=== PATIENT | female | born 1950 | race Caucasian/White ===

== ENCOUNTER → 2016-08-23 | Outpatient (CLI) | payer MEDICARE, OTHER | END | disposition home or self-care (01) | LOC: RADCTMAIN 11:48 | PROVIDERS: ATTEND Internal Medicine | DX: J44.9 Chronic obstructive pulmonary disease, unspecified (principal) | CPT/HCPCS: 82565; 84520 ==

== ENCOUNTER → 2016-08-31 | Outpatient (CLI) | payer MEDICARE, OTHER ==
--- NOTE | 2016-08-31 13:07 | CT ---
EXAMINATION TYPE: CT chest w con DATE OF EXAM: 08/31/2016 12:30 PM COMPARISON: CT chest February HISTORY: Patient has COPD CT DLP: 476.20 mGycm Automated exposure control for dose reduction was used. CONTRAST: CT scan of the chest is performed with IV Contrast, patient injected with 80 mL of Visipaque 320. FINDINGS: LUNGS: Right upper lobe lung nodule is stable and measures 4 mm. Emphysematous changes are suspected. Bronchial wall thickening is present centrally. MEDIASTINUM: There are no greater than 1 cm hilar or mediastinal lymph nodes. No pericardial effusi on is seen. AORTA: No additional significant abnormality is seen. Pulmonary artery shows a similar diameter to a scending aorta OTHER: Question some fatty replacement of anterior right ventricular myocardium, lumen may be somewh at small, consider echocardiographic correlation. Liver shows low attenuation likely due to fatty inf iltration. There are cortical cysts associated with the left kidney. IMPRESSION: Stable right upper lobe lung nodule. Suspect emphysema. Correlate for possible pulmonary artery hypertension. Question some fatty replacement of the right ventricular myocardial wall.
== END ==
LOC: RADCTMAIN 11:05
PROVIDERS: ATTEND Internal Medicine
DX: J44.9 Chronic obstructive pulmonary disease, unspecified (principal)
CPT/HCPCS: 82565; 84520; 71260; 36415; Q9967

== ENCOUNTER → 2017-05-04 | Outpatient (CLI) | payer MEDICARE, OTHER | END | disposition home or self-care (01) | LOC: RADECHMAIN 13:16 | PROVIDERS: ATTEND Internal Medicine | DX: Z53.9 Procedure and treatment not carried out, unspecified reason (principal) ==

== ENCOUNTER → 2017-05-11 | Outpatient (CLI) | payer MEDICARE, OTHER ==
--- NOTE | 2017-05-11 13:37 | US ---
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 EXAM MEASUREMENTS: Right Kidney: 9.8 x 5.8 x 4.9 cm Left Kidney: 10.6 x 4.5 x 3.9 cm Right Kidney: No hydronephrosis or masses seen Left Kidney: Two Cystic areas visualized, largest upper pole measuring 2.1 x 2.0 x 2.3 Bladder: wnl as visualized, not fully distended Bilateral Jets seen: No There is no evidence for hydronephrosis at this point in time. No nephrolithiasis is seen. The urin evy bladder is anechoic. Some cortical thinning in right kidney is felt present. 2 simple appearing cysts in left kidney are f elt present largest measures up to 2.3 cm in size. IMPRESSION: No hydronephrosis is evident bilaterally.
== END | disposition home or self-care (01) ==
LOC: RADUSWWP 12:19
PROVIDERS: ATTEND Internal Medicine
DX: E11.21 Type 2 diabetes mellitus with diabetic nephropathy (principal)
CPT/HCPCS: 76770

== ENCOUNTER → 2017-05-12 | Outpatient (CLI) | payer MEDICARE, OTHER ==
--- NOTE | 2017-05-13 11:21 | MM ---
Reason for exam: screening (asymptomatic). Last mammogram was performed 1 year and 6 months ago. History: Patient is postmenopausal. Benign MG stereo VAD BX RT of the right breast, May 13, 2015. Physical Findings: A clinical breast exam by your physician is recommended on an annual basis and results should be correlated with mammographic findings. MG 3D Screening Mammo W/Cad Bilateral CC and MLO view(s) were taken. Prior study comparison: November 18, 2015, bilateral MG 3d screening mammo w/cad. April 18, 2015, right breast MG 3d diag mammo w/cad RT. There are scattered fibroglandular densities. There is no discrete abnormality. No significant changes when compared with prior studies. ASSESSMENT: Negative, BI-RAD 1 RECOMMENDATION: Routine screening mammogram of both breasts in 1 year.
== END ==
LOC: RADMAMWWP 12:17
PROVIDERS: ATTEND Internal Medicine
DX: Z12.31 Encounter for screening mammogram for malignant neoplasm of breast (principal)
CPT/HCPCS: 77063; G0202

== ENCOUNTER → 2017-06-23 | Outpatient (CLI) | payer MEDICARE, OTHER ==
--- NOTE | 2017-06-23 14:20 | BD ---
EXAMINATION TYPE: MG DEXA axial skeleton. DATE OF EXAM: 06/23/2017 COMPARISON: DEXA bone scan April 13, 2016. CLINICAL HISTORY: Disorder of bone per order. Height: 62 Weight: 187.7 FRAX RISK QUESTIONS: Alcohol (3 or more units per day): no Family History (Parent hip fracture): no Glucocorticoids (More than 3mos): no (Ex: prednisone, prednisolone, methylprednisolone, dexamethasone, and hydrocortisone). History of Fracture in Adulthood: yes Secondary Osteoporosis: 1. Type 1 Diabetes: no 2. Hyperthyroidism: no 3. Menopause before 45: no 4. Malnutrition: no 5. Chronic liver disease: no Rheumatoid Arthritis: no Current Tobacco Use:yes RISK FACTORS HISTORY OF: Hip Fracture (Right/Left): no Spine Fracture: no History of Wrist Fracture: no Surgery to Spine/Hip(right/left)/Wrist (right/left): right hip replacement When: 2006 Family History of Osteoporosis: no Active: yes Diet low in dairy products/other sources of calcium: no Postmenopausal woman: age 56 Lost more than 2 inches in height since high school: yes Frequent falls: no Poor Health: no Hyperparathyroidism: no Adrenal Insufficiency: no MEDICATIONS: Additional History: EXAM MEASUREMENTS: Bone mineral densitometry was performed using the [employer] System. Bone mineral density as measured about the Lumbar spine is: ----- L1-L4(G/cm2): 1.195 T Score Values are as follows: ----- L2: -0.2 ----- L3: 1.0 ----- L4: 1.1 ----- L1-L4: 0.1 Bone mineral density has: increased 5.2 % since study of: 04.13.2016 Bone mineral density about the L hip (g/cm2): 0.752 T Score values are as follows: -----L Neck: -2.1 -----L Total: -2.1 Bone mineral density has: increased 6.0 % since study of: 04.13.2012 IMPRESSION: Osteopenia (T Score between -2.5 and -1 as noted by T score values persists in the left hip. There re tracie slightly increased risk of fracture and the patient may be considered for treatment. Re-Screen 2-5 years. NOTE: T-SCORE=SD OF THE YOUNG ADULT MEAN.
== END | disposition home or self-care (01) ==
LOC: RADBDWWP 12:28
PROVIDERS: ATTEND Internal Medicine
DX: M85.852 Other specified disorders of bone density and structure, left thigh (principal)
CPT/HCPCS: 77080

== ENCOUNTER → 2017-07-11 | Outpatient (CLI) | payer MEDICARE, OTHER ==
--- NOTE | 2017-07-11 10:46 | US ---
EXAMINATION TYPE: US thyroid st tissue head/neck DATE OF EXAM: 07/11/2017 COMPARISON: NONE CLINICAL HISTORY: E04.1 Thyroid Nodule. Thyroid nodule GLAND SIZE: Right Lobe: 5.1 x 1.7 x 2.0 cm Overall Parenchyma: heterogenous Left Lobe: 4.6 x 1.8 x 2.2 cm Overall Parenchyma: heterogeneous Isthmus Thickness: 0.3 cm NODULES RIGHT: # of nodules measured on right: 1 1. 1.2 X 0.7 x 1.0 cm isoechoic solid nodule at the lower pole with well-defined margins; . This n odule is wider than tall and shows intranodular vascularity. Prior size: no prior LEFT: # of nodules measured on left: 3 1. 0.6 X 0.5 x 0.6 cm cystic nodule at the upper pole with well-defined margins; . This nodule is wider than tall and shows no intranodular vascularity. Prior size: no prior 2. 0.8 X 0.3 x 0.7 cm cystic nodule at the upper pole with well-defined margins; . This nodule is w ider than tall and shows no intranodular vascularity. Prior size: no prior 3. 1.9 X 1.2 x 1.5 cm isoechoic solid nodule at the mid pole with well-defined margins; . This nodu le is wider than tall and shows intranodular vascularity. Prior size: no prior ISTHMUS: # of nodules measured in the isthmus: Multiple nodules noted bilaterally. Largest on the right measured and largest 3 measured on the left. Technical limitations due to patient's body habitus IMPRESSION: 1. Greater than 1 cm nodule within the inferior pole left lobe thyroid. Additional subcentimeter lymp h nodes are present on the left. 2. Mid right thyroid lobe nodule measuring greater than 1 cm.
== END | disposition home or self-care (01) ==
LOC: RADUSWWP 09:04
PROVIDERS: ATTEND Internal Medicine
DX: E04.2 Nontoxic multinodular goiter (principal)
CPT/HCPCS: 76536

== ENCOUNTER → 2017-09-01 | Outpatient (CLI) | payer MEDICARE, OTHER ==
--- NOTE | 2017-09-01 18:45 | US ---
EXAMINATION TYPE: US kidneys/renal and bladder DATE OF EXAM: 09/01/2017 COMPARISON: US 2017 CLINICAL HISTORY: R94.4 ABN KIDNEY FUNCTIONS. Abnormal results of kidney function studies EXAM MEASUREMENTS: Right Kidney: 9.8 x 5.5 x 5.0 cm Left Kidney: 10.0 x 4.8 x 4.2 cm Difficult and limited study due to patient body habitus Right Kidney: no hydronephrosis or masses seen Left Kidney: 3.2 x 2.2 x 2.2cm isoechoic area mid pole, possible prominent column of shaquille, 2 cystic areas superior pole with largest measuring 2.0 x 2.0 x 2.6cm Bladder: not fully distended, appears wnl as seen Bilateral Jets seen: no There is no evidence for hydronephrosis at this point in time. No nephrolithiasis is seen. IMPRESSION: 1. Column of Shaquille left kidney versus underlying mass. CT is advised. 2. Renal cystic changes as noted above.
== END | disposition home or self-care (01) ==
LOC: RADUSWWP 15:05
PROVIDERS: ATTEND Internal Medicine
DX: N28.1 Cyst of kidney, acquired (principal)
CPT/HCPCS: 76770

== ENCOUNTER → 2017-09-09 | Outpatient (CLI) | payer MEDICARE, OTHER ==
--- NOTE | 2017-09-09 14:37 | CT ---
EXAMINATION TYPE: CT urogram wo/w con DATE OF EXAM: 09/09/2017 HISTORY: pt states abnormal findings of left kidney on recent US. CT DLP: 3314.0mGycm Automated Exposure Control for Dose Reduction was Utilized. CONTRAST: CT scan of the abdomen and pelvis is performed without oral and without and with IV Contrast, patient injected with 80 mL of Isovue 300. Urogram protocol with Three-D reconstructed images created on [employer] workstation and reviewed COMPARISON: Renal ultrasound from 8 days ago. FINDINGS: KUB: Noncontrast images show no renal calculi bilaterally. Postcontrast images show symmetric cortica l medullary uptake and excretion from both kidneys without evidence of hydronephrosis bilaterally. Th ere is mild perinephric fat stranding seen bilaterally which is nonspecific finding but most likely o n basis of chronic medical renal disease. There are 3 simple appearing cysts in the left kidney upper to mid pole level with largest measuring 2.3 x 2.1 cm posteriorly axial image 28. No suspicious stanley d or cystic masses identified with particular attention to mid pole level left kidney at area of ultr asound concern. Visualized portion of both ureters show fairly satisfactory opacification without sharmila picious dilatation or calculus. Bladder shows no worrisome mass or wall thickening. LUNG BASES: No significant abnormality is appreciated. LIVER/GB: Visualized liver on noncontrast study is slightly hypodense relative to spleen consistent w ith fatty infiltration. Gallbladder is not visualized and presumed surgically absent. PANCREAS: No significant abnormality is seen. SPLEEN: No significant abnormality is seen. ADRENALS: No significant abnormality is seen. KIDNEYS: No significant abnormality is seen. BOWEL: Sutures at sigmoid colon level near axial image 59 series 7 are present. There are few sigmoid diverticula at this level. Few diverticula are seen throughout remainder of colon. There is no CT ev idence for acute diverticulitis. There is no suspicious small or large bowel dilatation. Sutures from appendectomy are seen at base of cecum. UTERUS/ADNEXA: No gross abnormality seen. LYMPH NODES: No greater than 1cm abdominal or pelvic lymph nodes are appreciated. OSSEOUS STRUCTURES: There is loss of normal lumbar lordosis. There is moderate multilevel spurring an d disc space narrowing. Posterior spur disc complexes effacing anterior thecal sac L2-L3 through L4-L 5 levels on sagittal images. Spinal canal stenosis is most prominent L4-L5 level due to additional fa cet arthropathy. Metallic hardware from right hip arthroplasty causes streak artifact limiting evalua tion of pelvic structures. OTHER: Numerous coils ventral wall hernia repair surgery are present. No suspicious recurrent hernia is seen. There is slight ectatic course to the atherosclerotic abdominal aorta. No greater than 3 cm aneurysma l change is seen. IMPRESSION: A few simple appearing cysts are seen in the left kidney. No worrisome solid or cystic re nal mass is evident.
== END ==
LOC: RADCTMAIN 12:31
PROVIDERS: ATTEND Internal Medicine
DX: N28.1 Cyst of kidney, acquired (principal)
CPT/HCPCS: 74178; 74400; 82565; 84520

== ENCOUNTER → 2018-08-14 | Outpatient (CLI) | payer MEDICARE, OTHER ==
--- NOTE | 2018-08-14 13:19 | US ---
EXAMINATION TYPE: US carotid duplex BILAT DATE OF EXAM: 08/14/2018 COMPARISON: Previous exam 05/17/2017 CLINICAL HISTORY: I65.23 OCCLUSION AND STENOSIS OF CAROTID. No hx of tia, HTN controlled with meds EXAM MEASUREMENTS: RIGHT: Peak Systolic Velocity (PSV) cm/sec ----- Right CCA: 51.4 ----- Right ICA: 75.6 ----- Right ECA: 91.0 ICA/CCA ratio: 1.5 RIGHT: End Diastole cm/sec ----- Right CCA: 15.6 ----- Right ICA: 27.1 ----- Right ECA: 17.2 LEFT: Peak Systolic Velocity (PSV) cm/sec ----- Left CCA: 51.7 ----- Left ICA: 117.9 ----- Left ECA: 89.9 ICA/CCA ratio: 2.3 LEFT: End Diastole cm/sec ----- Left CCA: 17.6 ----- Left ICA: 32.2 ----- Left ECA: 17.2 VERTEBRALS (direction of flow): Right Vertebral: Antegrade Left Vertebral: Antegrade Rhythm: Normal No elevated velocities. Left CCA significant stenosis. Plaque seen in bilateral bulbs. No wall thi ckening. Grayscale, color Doppler, spectral Doppler imaging performed of the carotid arteries. Waveform analys is does not show significant stenosis of the proximal internal carotid arteries. IMPRESSION: No hemodynamic significant stenosis of the proximal internal carotid arteries bilaterall y by Doppler criteria, an indirect measurement of carotid stenosis
--- NOTE | 2018-08-15 10:10 | MM ---
Reason for exam: screening (asymptomatic). Last mammogram was performed 1 year and 3 months ago. History: Patient is postmenopausal. Benign MG stereo VAD BX RT of the right breast, May 13, 2015. Physical Findings: A clinical breast exam by your physician is recommended on an annual basis and results should be correlated with mammographic findings. MG 3D Screening Mammo W/Cad Bilateral CC and MLO view(s) were taken. Prior study comparison: May 12, 2017, bilateral MG 3d screening mammo w/cad. November 18, 2015, bilateral MG 3d screening mammo w/cad. The breast tissue is heterogeneously dense. This may lower the sensitivity of mammography. There are benign appearing round linear calcifications bilaterally. Previous mammotome biopsy in the right breast. There is no discrete abnormality. ASSESSMENT: Benign, BI-RAD 2 RECOMMENDATION: Routine screening mammogram of both breasts in 1 year.
--- NOTE | 2018-08-16 09:36 | P.ARTDOP ---
Arterial Doppler LOWER EXTREMITY ARTERIAL DOPPLER: DATE OF SERVICE: 08/14/2018 Reason for study: Suspect lower extremity occlusive disease. Doppler waveforms: Multiphasic at femoral on the right and popliteal. Atypical throughout on the left and below the popliteal on the right.. Pulse volume recording: Progressive blunting as one progresses distally with near flat line at the digital level. Pressure gradients: Across the popliteal and then across the lower leg. Ankle-brachial indices: 0.54 on the right and 0.55 on the left. Toe pressures: 0 on the right, 0 on the left Impression: At least moderate bilateral femoral popliteal disease. Clinical correlation recommended. Difficult to assess the level of circulation for healing. Suspect it is somewhat compromised.
== END | disposition home or self-care (01) ==
LOC: RADMAMWWP 09:33
PROVIDERS: ATTEND Internal Medicine
DX: Z12.31 Encounter for screening mammogram for malignant neoplasm of breast (principal); I65.23 Occlusion and stenosis of bilateral carotid arteries; I73.89 Other specified peripheral vascular diseases
CPT/HCPCS: 77063; 77067; 93880; 93923

== ENCOUNTER → 2019-08-03 | Outpatient (CLI) | payer MEDICARE, OTHER ==
--- NOTE | 2019-08-03 13:10 | CTL ---
EXAMINATION TYPE: CT Low Dose Lung DATE OF EXAM ORDERED: 08/03/2019 COMPARISON: 08/31/2016 HISTORY: . Low Dose CT Lung Screening CT DLP: [address] CTDI: 2.92 mGy IV CONTRAST USED: None. SCREENING VISIT: First visit COMPARISON: None. TECHNIQUE: Low dose computed tomography scan was performed through the chest at 1 millimeter thick se ctions and reconstructed images in the coronal plane at [address] DIAGNOSTIC QUALITY: Limited given streak artifact. FINDINGS: LUNG NODULES stable 5 mm nodule right upper lobe image 83. LUNGS: COPD: Severity: None Fibrosis: Severity:None Lymph nodes: None Other findings: None RIGHT PLEURAL SPACE: Effusion: None Calcification: None Thickening: None Pneumothorax: None LEFT PLEURAL SPACE: Effusion: None Calcification: None Thickening: None Pneumothorax: None HEART: Heart Size: Mildly enlarged Coronary calcification: Mild Pericardial effusion: None OTHER FINDINGS: Upper abdomen: No significant abnormality Bony thorax: Degenerative changes Supraclavicular region: No significant abnormalityOther: No significant abnormalityI IMPRESSION: Examination is considered limited given artifact the lung bases and midlung maloney. Stabl e right upper lobe pulmonary nodule. FOLLOW UP CT CHEST RECOMMENDATION: Follow-up screening in one year CT LUNG RAD: LUNG RAD CATEGORY 2 benign behavior appearance
--- NOTE | 2019-08-03 16:05 | XR ---
EXAMINATION TYPE: XR chest 2V DATE OF EXAM: 08/03/2019 COMPARISON: 10/18/2009 INDICATION: Pneumonia TECHNIQUE: Frontal and lateral views of the chest are obtained. FINDINGS: The heart size is normal. The pulmonary vasculature is normal. The lungs are clear. IMPRESSION: 1. No acute pulmonary process.
== END | disposition home or self-care (01) ==
LOC: RADCTMAIN 10:55
PROVIDERS: ATTEND Internal Medicine
DX: Z12.2 Encounter for screening for malignant neoplasm of respiratory organs (principal); F17.210 Nicotine dependence, cigarettes, uncomplicated; J18.9 Pneumonia, unspecified organism; R91.1 Solitary pulmonary nodule
CPT/HCPCS: 71046; G0297

== ENCOUNTER 2019-10-23 10:37 | Inpatient (IN) | payer MEDICARE, OTHER ==
[2019-10-23] MEDS ORDERED: ALBUTEROL NEBULIZED 2.5 MG/3 ML INHALATION STA (11:05)
[2019-10-23] MEDS ORDERED: IPRATROPIUM 0.5 MG/2.5 ML NEBU INHALATION STA (11:05)
--- NOTE | 2019-10-23 11:11 | ED ---
General Adult HPI - General Chief complaint: Chest Pain Stated complaint: SOB, Cough, chest pain Time Seen by Provider: 10/23/19 10:40 Source: patient, RN notes reviewed, old records reviewed Mode of arrival: wheelchair Limitations: no limitations - History of Present Illness Initial comments: This is a 69-year-old female who presents emergency department with past medical history significant for COPD diabetes and high cholesterol. Patient states she still smoking. Patient states the last 2 weeks she's had difficulty breathing has been getting progressively worse. Patient states over the last week she's had anterior chest pain that seems to radiate up to her left shoulder. Patient denies any fever chills or cough. Patient denies any lightheadedness or dizziness. Patient denies any abdominal pain patient denies nausea vomiting diarrhea. - Related Data Home Medications Medication Instructions Recorded Confirmed Atorvastatin [Lipitor] 80 mg PO DAILY 03/08/16 03/08/16 Carisoprodol [Soma] 350 mg PO TID PRN 03/08/16 03/08/16 Ergocalciferol [Vitamin D2] 50,000 unit PO Q7D 03/08/16 03/08/16 Fenofibrate 160 mg PO DAILY 03/08/16 03/08/16 Fluticasone Propionate [Flovent 2 puff INHALATION BID 03/08/16 03/08/16 Hfa 110mcg] Glimepiride [Amaryl] 4 mg PO DAILY 03/08/16 03/08/16 HYDROcodone/APAP 5-325MG [[place] 1 tab PO Q4H PRN 03/08/16 03/08/16 5-325] Lisinopril [Prinivil] 10 mg PO 1200 03/08/16 03/08/16 Zolpidem Tartrate [Ambien] 10 mg PO HS 03/08/16 03/08/16 sitaGLIPtin PHOS/metFORMIN HCL 1 each PO BID 03/08/16 03/08/16 [Janumet 50-1,000 mg Tablet] Allergies Allergy/AdvReac Type Severity Reaction Status Date / Time warfarin sodium Allergy "very high Verified 10/23/19 10:46 [From Coumadin] PT/INR-was told never to take" Review of Systems ROS Statement: Those systems with pertinent positive or pertinent negative responses have been documented in the HPI. ROS Other: All systems not noted in ROS Statement are negative. Past Medical History Past Medical History: Heart Failure, COPD, Hyperlipidemia History of Any Multi-Drug Resistant Organisms: None Reported Past Surgical History: Cholecystectomy, Joint Replacement, Orthopedic Surgery, Tonsillectomy, Tubal Ligation Additional Past Surgical History / Comment(s): mass in neck removed, Past Psychological History: No Psychological Hx Reported Smoking Status: Current every day smoker Past Alcohol Use History: None Reported General Exam - General Exam Comments Initial Comments: GENERAL: Patient is well-developed and well-nourished. Patient is nontoxic and well- hydrated and is in mild distress. ENT: Neck is soft and supple. No significant lymphadenopathy is noted. Oropharynx is clear. Moist mucous membranes. Neck has full range of motion without eliciting any pain. EYES: The sclera were anicteric and conjunctiva were pink and moist. Extraocular movements were intact and pupils were equal round and reactive to light. Eye lids were unremarkable. PULMONARY: Diminished breath sounds with expiratory wheezing. CARDIOVASCULAR: There is a regular rate and rhythm without any murmurs gallops or rubs. ABDOMEN: Soft and nontender with normal bowel sounds. SKIN: Skin is clear with no lesions or rashes and otherwise unremarkable. NEUROLOGIC: Patient is alert and oriented x3. Cranial nerves II through XII are grossly in tact. Motor and sensory are also intact. Normal speech, volume and content. Symmetrical smile. MUSCULOSKELETAL: Normal extremities with adequate strength and full range of motion. Patient has 1+ edema bilaterally LYMPHATICS: No significant lymphadenopathy is noted PSYCHIATRIC: Normal psychiatric evaluation. Limitations: no limitations Course Vital Signs 10/23/19 10/23/19 10/23/19 10:40 10:58 11:45 Temperature 98.4 F Pulse Rate 103 H 98 Pulse Rate [ 102 H House Decorator ] Respiratory 18 Rate Blood Pressure 133/86 O2 Sat by Pulse 98 Oximetry 10/23/19 12:01 Temperature Pulse Rate 100 Pulse Rate [ House Decorator ] Respiratory Rate Blood Pressure O2 Sat by Pulse Oximetry Medical Decision Making - Medical Decision Making EKG shows sinus tachycardia at 105 bpm SC interval 142 QRS is 90 QT interval 340 QTC is 449. Patient's EKG shows no ST segment elevation or depression. Chest x-ray shows no acute abnormality. I started the patient on breathing treatments as well as Solu-Medrol. I also gave the patient was Lasix because of the increased edema as well as elevated BNP. I spoke with Dr. Costa she agreed to admit the patient admitted the patient I consult to cardiology for the chest pain and I continued breathing treatments and steroids on the floor. - Lab Data Result diagrams: 10/23/19 11:18 10/23/19 11:18 Lab Results 10/23/19 10/23/19 10/23/19 Range/Units 11:18 11:18 11:18 WBC 7.7 (3.8-10.6) k/uL RBC 4.47 (3.80-5.40) m/uL Hgb 12.9 (11.4-16.0) gm/dL Hct 41.8 (34.0-46.0) % MCV 93.4 (80.0-100.0) fL MCH 28.9 (25.0-35.0) pg MCHC 30.9 L (31.0-37.0) g/dL RDW 15.1 (11.5-15.5) % Plt Count 233 (150-450) k/uL Neutrophils % 81 % Lymphocytes % 12 % Monocytes % 5 % Eosinophils % 1 % Basophils % 0 % Neutrophils # 6.2 (1.3-7.7) k/uL Lymphocytes # 0.9 L (1.0-4.8) k/uL Monocytes # 0.4 (0-1.0) k/uL Eosinophils # 0.1 (0-0.7) k/uL Basophils # 0.0 (0-0.2) k/uL Hypochromasia Moderate PT 11.1 (9.0-12.0) sec INR 1.1 (<1.2) APTT 22.5 (22.0-30.0) sec Sodium 133 L (137-145) mmol/L Potassium 5.2 H (3.5-5.1) mmol/L Chloride 102 (98-107) mmol/L Carbon Dioxide 22 (22-30) mmol/L Anion Gap 9 mmol/L BUN 33 H (7-17) mg/dL Creatinine 1.39 H (0.52-1.04) mg/dL Est GFR (CKD-EPI)AfAm 45 (>60 ml/min/1.73 sqM) Est GFR (CKD-EPI)NonAf 39 (>60 ml/min/1.73 sqM) Glucose 162 H (74-99) mg/dL Plasma Lactic Acid Asif (0.7-2.0) mmol/L Calcium 9.4 (8.4-10.2) mg/dL Magnesium 1.7 (1.6-2.3) mg/dL Total Bilirubin 0.5 (0.2-1.3) mg/dL AST 20 (14-36) U/L ALT 14 (4-34) U/L Alkaline Phosphatase 30 L (38-126) U/L Troponin I (0.000-0.034) ng/mL NT-Pro-B Natriuret Pep pg/mL Total Protein 6.4 (6.3-8.2) g/dL Albumin 3.8 (3.5-5.0) g/dL 10/23/19 10/23/19 10/23/19 Range/Units 11:18 11:18 11:18 WBC (3.8-10.6) k/uL RBC (3.80-5.40) m/uL Hgb (11.4-16.0) gm/dL Hct (34.0-46.0) % MCV (80.0-100.0) fL MCH (25.0-35.0) pg MCHC (31.0-37.0) g/dL RDW (11.5-15.5) % Plt Count (150-450) k/uL Neutrophils % % Lymphocytes % % Monocytes % % Eosinophils % % Basophils % % Neutrophils # (1.3-7.7) k/uL Lymphocytes # (1.0-4.8) k/uL Monocytes # (0-1.0) k/uL Eosinophils # (0-0.7) k/uL Basophils # (0-0.2) k/uL Hypochromasia PT (9.0-12.0) sec INR (<1.2) APTT (22.0-30.0) sec Sodium (137-145) mmol/L Potassium (3.5-5.1) mmol/L Chloride (98-107) mmol/L Carbon Dioxide (22-30) mmol/L Anion Gap mmol/L BUN (7-17) mg/dL Creatinine (0.52-1.04) mg/dL Est GFR (CKD-EPI)AfAm (>60 ml/min/1.73 sqM) Est GFR (CKD-EPI)NonAf (>60 ml/min/1.73 sqM) Glucose (74-99) mg/dL Plasma Lactic Acid Asif 0.9 (0.7-2.0) mmol/L Calcium (8.4-10.2) mg/dL Magnesium (1.6-2.3) mg/dL Total Bilirubin (0.2-1.3) mg/dL AST (14-36) U/L ALT (4-34) U/L Alkaline Phosphatase (38-126) U/L Troponin I 0.027 (0.000-0.034) ng/mL NT-Pro-B Natriuret Pep 07740 pg/mL Total Protein (6.3-8.2) g/dL Albumin (3.5-5.0) g/dL Critical Care Time Critical Care Time: Yes Total Critical Care Time: 35 Disposition Clinical Impression: COPD exacerbation, Chest pain, Pedal edema Disposition: ADMITTED IP TO THIS HOSP Referrals: Franc Ferro MD [Primary Care Provider] - 1-2 days Time of Disposition: 12:26
--- NOTE | 2019-10-23 11:41 | XR ---
EXAMINATION TYPE: XR chest 2V DATE OF EXAM: 10/23/2019 COMPARISON: 08/03/2019 INDICATION: Difficulty breathing TECHNIQUE: Frontal and lateral views of the chest are obtained. FINDINGS: The heart size is enlarged. The pulmonary vasculature is normal. The lungs are clear. IMPRESSION: 1. Moderate cardiomegaly.
[2019-10-23 11:42] LABS: Basophils % (A) 0 %; Eosinophils # (A) 0.1 k/uL (0-0.7); Eosinophils % (A) 1 %; HCT 41.8 % (34.0-46.0); HGB 12.9 gm/dL (11.4-16.0); Hypochromasia Moderate; Lymphocytes # (A) 0.9 k/uL (1.0-4.8); Lymphocytes % (A) 12 %; MCH 28.9 pg (25.0-35.0); MCHC 30.9 g/dL (31.0-37.0); MCV 93.4 fL (80.0-100.0); Mean Platelet Volume 8.4; Monocytes # (A) 0.4 k/uL (0-1.0); Monocytes % (A) 5 %; Neutrophils # (A) 6.2 k/uL (1.3-7.7); Neutrophils % (A) 81 %; Platelet Count 233 k/uL (150-450); RBC 4.47 m/uL (3.80-5.40); RDW 15.1 % (11.5-15.5); WBC 7.7 k/uL (3.8-10.6)
[2019-10-23 11:55] LABS: Albumin 3.8 g/dL (3.5-5.0); Calcium 9.4 mg/dL (8.4-10.2); Magnesium 1.7 mg/dL (1.6-2.3); Potassium 5.2 mmol/L (3.5-5.1); Total Bilirubin 0.5 mg/dL (0.2-1.3); Total Protein 6.4 g/dL (6.3-8.2)
[2019-10-23 12:11] LABS: INR 1.1 (<1.2); Partial Thromboplastin Time 22.5 sec (22.0-30.0); Prothrombin Time 11.1 sec (9.0-12.0)
[2019-10-23] MEDS ORDERED: FUROSEMIDE 10 MG/ML 4 ML VIAL IV STA (12:17)
[2019-10-23] MEDS ORDERED: methylPREDNISolone SOD SUCCI 125 MG/2 ML VIAL IV STA (12:17)
[2019-10-23 13:58] LABS: Glucose,Whole Blood 140 mg/dL (75-99)
[2019-10-23] MEDS: IPRATROPIUM-ALBUTEROL 3 ML NEB INHALATION PRN ×2 (16:27→20:55)
[2019-10-23 17:08] LABS: Glucose,Whole Blood 227 mg/dL (75-99)
[2019-10-23] MEDS: metFORMIN 500 MG TAB PO SCH (17:36)
[2019-10-23] MEDS: INSULIN ASPART (NovoLOG) 100 UNIT/ML VIAL SQ SCH ×2 (17:37→21:19)
[2019-10-23] MEDS: methylPREDNISolone SOD SUCCI 125 MG/2 ML VIAL IV SCH ×2 (17:39→23:30)
[2019-10-23] MEDS: FUROSEMIDE 10 MG/ML 4 ML VIAL IV SCH (20:45)
[2019-10-23] MEDS: ZOLPIDEM 10 MG TAB PO SCH (20:46)
[2019-10-23 21:08] LABS: Glucose,Whole Blood 197 mg/dL (75-99)
[2019-10-23] MEDS: CARISOPRODOL 350 MG TAB PO PRN (21:44)
--- NOTE | 2019-10-23 22:26 | P.HPIM ---
History of Present Illness H&P Date: 10/23/19 Chief Complaint: Chest pain/Shortness of breath. This is a 69 year old white female one of my patient with a previous medical history significant for hypertension and hypertensive cardiovascular disease, mixed hyperlipidemia, diabetes mellitus type2, diabetic polyneuropathy, chronic tobacco use and dependence , COPD, and chronic pain syndrome due to severe osteoarthritis in both hips and 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 currently on chronic pain treatment, patient presented to the Emergency department of [facility] with increased chest pain described as a heartburn associated with increased shortness of breath, along with increased edema along with increased coughing with increased wheezing, patient has been complaining of increased edema of both legs, patient had CXR that did not show any acute abnormalities, EKG without ay acute changes, cardiac enzymes werenegative , she was given Lasix 40 mg IVP x1 , and she was started on Solu- Medrol 60 mg IVP Q 6 hours along with Neb treatment and Echocardiogram was ordered for evaluation of LVF and she will be maintained on WILLOW-I and Lasix for now,she was admitted to the hospital and Cardiology consult will be obtained. Review of Systems Constitutional: Reports chronic pain, Reports fatigue, Reports weakness, Reports weight gain, Denies anorexia, Denies chronic headaches Eyes: bilateral blurred vision, bilateral decreased vision Ears: deny: decreased hearing Ears, nose, mouth and throat: Denies dysphagia, Denies neck fullness/pressure, Denies neck lump, Denies sore throat Cardiovascular: Reports chest pain, Reports decreased exercise tolerance, Re ports dyspnea on exertion, Reports edema, Reports leg edema, Reports shortness of breath, Denies lightheadedness, Denies orthopnea, Denies rapid heart beat, Denies syncope Respiratory: Reports cough, Reports cough with sputum, Reports dyspnea, Reports sleep apnea, Reports wheezing, Denies congestion, Denies home oxygen, Denies respiratory infections, Denies snoring Gastrointestinal: Reports bloating, Reports change in bowel habits, Reports constipation, Reports dyspepsia, Reports heartburn, Denies abdominal pain, Denies BRBPR, Denies hematemesis, Denies hematochezia, Denies loss of appetite, Denies melena, Denies nausea, Denies vomiting Genitourinary: Reports nocturia, Denies dysuria Menstruation: Reports postmenopausal Musculoskeletal: Reports gait dysfunction, Reports low back pain, Reports morning stiffness, Reports muscle cramps, Reports muscle weakness, Reports myalgias, Reports neck stiffness Musculoskeletal: bilateral: ankle swelling, foot swelling, hip pain, hip stiffness, absent: ankle pain, ankle stiffness, elbow pain, elbow stiffness, elbow swelling, foot pain, foot stiffness, hand pain, hand stiffness, hand swelling, hip swelling, knee pain, knee stiffness, knee swelling, shoulder pain, shoulder stiffness, shoulder swelling, wrist pain, wrist stiffness, wrist swelling Integumentary: Denies pruritus, Denies rash Neurological: Reports burning pain, Reports numbness, Reports sensory deficit, Reports weakness Psychiatric: Reports anxiety, Denies depression, Denies memory loss, Denies paranoia, Denies sadness/tearfulness, Denies sleep disturbances, Denies suicidal ideation Endocrine: Reports as per HPI Past Medical History Past Medical History: Heart Failure, COPD, Diabetes Mellitus, Eye Disorder, Hyperlipidemia, Hypertension, Osteoarthritis (OA) History of Any Multi-Drug Resistant Organisms: None Reported Past Surgical History: Appendectomy, Cholecystectomy, Joint Replacement, Orthopedic Surgery, Tonsillectomy, Tubal Ligation Additional Past Surgical History / Comment(s): mass in neck parotid gland removed, right hip surgery, ruptured appendix- temporary colostomy Past Anesthesia/Blood Transfusion Reactions: No Reported Reaction Past Psychological History: No Psychological Hx Reported Smoking Status: Current every day smoker (Patient smokes a pack per day since she was a teenager and she continues to smoke.) Past Alcohol Use History: None Reported Past Drug Use History: None Reported - Past Family History Mother Family Medical History: Congestive Heart Failure (CHF), Diabetes Mellitus Additional Family Medical History / Comment(s): lived to eightys Father Family Medical History: CVA/TIA, Myocardial Infarction ([place]) Additional Family Medical History / Comment(s): lived to eightys Medications and Allergies Home Medications Medication Instructions Recorded Confirmed Type Carisoprodol [Soma] 350 mg PO BID PRN 03/08/16 10/23/19 History Fenofibrate 160 mg PO DAILY 03/08/16 10/23/19 History Glimepiride [Amaryl] 4 mg PO BID 03/08/16 10/23/19 History HYDROcodone/APAP 5-325MG [[place] 1 tab PO Q12H PRN 03/08/16 10/23/19 History 5-325] Zolpidem Tartrate [Ambien] 10 mg PO HS 03/08/16 10/23/19 History sitaGLIPtin PHOS/metFORMIN HCL 1 tab PO BID 03/08/16 10/23/19 History [Janumet 50-1,000 mg Tablet] Budesonide/Formoterol Fumarate 2 puff INHALATION RT-BID 10/23/19 10/23/19 History [Symbicort 160-4.5 Mcg Inhaler] Doxycycline Hyclate [Vibramycin] 100 mg PO BID 10/23/19 10/23/19 History Ipratropium-Albuterol Nebulize 3 ml INHALATION RT-QID PRN 10/23/19 10/23/19 History [Duoneb 0.5 mg-3 mg/3 ml Soln] Raloxifene [Evista] 60 mg PO DAILY 10/23/19 10/23/19 History Atorvastatin Calcium [Lipitor] 80 mg PO DAILY 10/24/19 10/24/19 History Allergies Allergy/AdvReac Type Severity Reaction Status Date / Time warfarin sodium Allergy "very high Verified 10/23/19 15:18 [From Coumadin] PT/INR-was told never to take" Physical Exam Vitals: Vital Signs Temp Pulse Pulse Resp BP BP Pulse Ox 10/23/19 21:15 100 10/23/19 20:56 96 10/23/19 16:38 100 10/23/19 16:28 104 H 10/23/19 14:59 20 10/23/19 14:06 98.7 F 100 20 113/74 98 10/23/19 13:36 98.5 F 100 18 115/75 98 10/23/19 12:01 100 10/23/19 11:45 98 10/23/19 10:58 102 H 10/23/19 10:40 98.4 F 103 H 18 133/86 98 Intake and Output 10/23/19 10/23/19 10/23/19 06:59 14:59 22:59 Intake Total 200 240 Output Total 200 Balance 0 240 Intake: Oral 200 240 Output: Urine 200 Other: Voiding Method Toilet Weight 90.718 kg - Constitutional General appearance: mild distress, obese - EENT Eyes: anicteric sclerae, EOMI, PERRLA, no ptosis ENT: hearing grossly normal, NA/AT, normal oropharynx Ears: bilateral: normal - Neck Neck: no lymphadenopathy, no rigidity, stridor, thyromegaly Carotids: bilateral: upstroke normal - Respiratory Respiratory: bilateral: diminished, rhonchi, wheezing, prolonged expiration, negative: dullness, rales - Cardiovascular Heart sounds: normal: S1, S2 Abnormal Heart Sounds: systolic murmur, no S3 Gallop, no S4 Gallop - Gastrointestinal General gastrointestinal: decreased bowel sounds, distended, soft, no splenomegaly, no tenderness, no umbilical hernia - Integumentary Integumentary: normal, normal turgor - Neurologic Neurologic: CNII-XII intact - Musculoskeletal Musculoskeletal: generalized weakness, strength equal bilaterally - Psychiatric Psychiatric: A&O x's 3, appropriate affect, intact judgment & insight Results CBC & Chem 7: 10/24/19 05:45 10/24/19 05:45 Labs: Abnormal Lab Results - Last 24 Hours (Table) 10/23/19 10/23/19 10/23/19 Range/Units 11:18 11:18 13:56 MCHC 30.9 L (31.0-37.0) g/dL Lymphocytes # 0.9 L (1.0-4.8) k/uL Sodium 133 L (137-145) mmol/L Potassium 5.2 H (3.5-5.1) mmol/L BUN 33 H (7-17) mg/dL Creatinine 1.39 H (0.52-1.04) mg/dL Glucose 162 H (74-99) mg/dL POC Glucose (mg/dL) 140 H (75-99) mg/dL Alkaline Phosphatase 30 L (38-126) U/L 10/23/19 10/23/19 Range/Units 16:53 21:06 MCHC (31.0-37.0) g/dL Lymphocytes # (1.0-4.8) k/uL Sodium (137-145) mmol/L Potassium (3.5-5.1) mmol/L BUN (7-17) mg/dL Creatinine (0.52-1.04) mg/dL Glucose (74-99) mg/dL POC Glucose (mg/dL) 227 H 197 H (75-99) mg/dL Alkaline Phosphatase (38-126) U/L Thrombosis Risk Factor Assmnt - DVT/VTE Prophylaxis DVT/VTE Prophylaxis: Pharmacologic Prophylaxis ordered, Mechanical Prophylaxis ordered - Choose All That Apply Each Factor Represents 1 point: Abnormal pulmonary function (COPD), Heart failure (<1month), Obesity (BMI >25), Swollen legs (current) Each Risk Factor Represents 2 Points: Age 61-74 years Other congenital or acquired thrombophilia - If yes, enter type in comment: No Thrombosis Risk Factor Assessment Total Risk Factor Score: 6 Thrombosis Risk Factor Assessment Level: High Risk Assessment and Plan Assessment: Assessment and Plan: 1. chest pain likely non cardiac but patient has multiple risk factors for hear disease. we will continue with ASA 81 mg orally daily, Lipitor 20 mg orally daily and will check Echocardiogram to evaluate for LVF, we will maintain her on Lisinopril 10 mg orally daily, Cardiac enzymes will be done, Cardiology consults. 2. Acute exacerbation of COPD. we will continue with Duoneb 3 nl Neb QID, we will continue with O2 support and we will continue with Solu-Medrol 40 mg IVP Q 6 H. 3. Acute systolic heart failure and severe cardiomyopathy. we will continue with Lasix 40 mg IVP Q 12 H, we will continue with Lisinopril 10 mg orally daily. 4. Mild Hyponatremia. we will repeat cmp in 24 hours. 5. Mild Hyperkalemia. we will repeat labs in AM. 6. Hypertension and hypertensive cardiovascular disease. we will continue with Lisinopril 10 mg orally daily. 7. Mixed hyperlipidemia. we will continue with Lipitor 80 mg orally daily and Fenofibrate 160 mg orally daily. 8. Diabetes mellitus type 2 . we will continue with Metformin 1000 mg orally bid, Tradjenta 5 mg orally daily along with Glimeperide 4 mg orally daily, BGM daily. 9. DDD of the Lumber spine with OA. we will continue with Leburn as needed. 10. DVT prophylaxis . we will start Heparin 5000 units SC Q 12 h. 11. GI Prophylaxis. we will continue with Pepcid 20 mg orally daily. 12. Full code. 13. Admits to inpatient. estimated length of stay 2 midnights.
[2019-10-24] MEDS: methylPREDNISolone SOD SUCCI 125 MG/2 ML VIAL IV SCH ×2 (05:49→12:08)
[2019-10-24] MEDS: IPRATROPIUM-ALBUTEROL 3 ML NEB INHALATION PRN ×4 (06:17→20:34)
[2019-10-24 06:19] LABS: Basophils % (A) 0 %; Eosinophils % (A) 0 %; HCT 38.6 % (34.0-46.0); HGB 11.7 gm/dL (11.4-16.0); Hypochromasia Slight; Lymphocytes # (A) 0.4 k/uL (1.0-4.8); Lymphocytes % (A) 10 %; MCH 28.4 pg (25.0-35.0); MCHC 30.5 g/dL (31.0-37.0); MCV 93.3 fL (80.0-100.0); Mean Platelet Volume 8.3; Monocytes # (A) 0.1 k/uL (0-1.0); Monocytes % (A) 3 %; Neutrophils # (A) 3.3 k/uL (1.3-7.7); Neutrophils % (A) 87 %; Platelet Count 180 k/uL (150-450); RBC 4.14 m/uL (3.80-5.40); RDW 14.9 % (11.5-15.5); WBC 3.8 k/uL (3.8-10.6)
[2019-10-24 06:28] LABS: Glucose,Whole Blood 211 mg/dL (75-99)
[2019-10-24] MEDS: INSULIN ASPART (NovoLOG) 100 UNIT/ML VIAL SQ SCH ×4 (06:28→21:01)
[2019-10-24] MEDS: metFORMIN 500 MG TAB PO SCH (06:30)
[2019-10-24] MEDS: GLIMEPIRIDE 4 MG TAB PO SCH (06:30)
[2019-10-24 06:38] LABS: Albumin 3.5 g/dL (3.5-5.0); Calcium 8.9 mg/dL (8.4-10.2); Potassium 4.9 mmol/L (3.5-5.1); Total Bilirubin 0.4 mg/dL (0.2-1.3); Total Protein 5.9 g/dL (6.3-8.2)
[2019-10-24] MEDS: FAMOTIDINE 20 MG TAB PO SCH (08:48)
[2019-10-24] MEDS: FENOFIBRATE 160 MG TAB PO SCH (08:48)
[2019-10-24] MEDS: LINAGLIPTIN 5 MG TABLET PO SCH (08:48)
[2019-10-24] MEDS: HYDROcodone/APAP 5-325MG 1 EACH TAB PO PRN (08:48)
[2019-10-24] MEDS: ATORVASTATIN 80 MG TAB PO SCH (08:48)
[2019-10-24] MEDS: FUROSEMIDE 10 MG/ML 4 ML VIAL IV SCH ×2 (08:48→21:06)
[2019-10-24] MEDS: HEPARIN SODIUM,PORCINE 5,000 UNIT/ML 1 ML VIAL SQ SCH ×2 (08:48→21:08)
[2019-10-24] MEDS ORDERED: guaiFENesin 600 MG TABLET.ER PO PRN (09:08)
--- NOTE | 2019-10-24 09:11 | ECHOF ---
Referral Reason:chest pain MEASUREMENTS -------- HEIGHT: 162.6 cm WEIGHT: 90.7 kg BP: RVIDd: 3.3 cm (< 3.3) IVSd: 1.1 cm (0.6 - 1.1) LVIDd: 6.1 cm (3.9 - 5.3) LVPWd: 1.4 cm (0.6 - 1.1) IVSs: 1.6 cm LVIDs: 5.4 cm LVPWs: 1.3 cm LAESV Index (A-L): 34.20 ml/m Ao Diam: 2.9 cm (2.0 - 3.7) AV Cusp: 1.5 cm (1.5 - 2.6) LA Diam: 4.3 cm (2.7 - 3.8) MV EXCURSION: 11.800 mm (> 18.000) MV EF SLOPE: 51 mm/s (70 - 150) EPSS: 2.1 cm MV E Gerardo: 1.44 m/s MV DecT: 150 ms MV A Gerardo: 0.61 m/s MV E/A Ratio: 2.35 AR PHT: 365 ms RAP: 15.00 mmHg RVSP: 38.91 mmHg TAPSE: 12.17 mm FINDINGS -------- Sinus rhythm. This was a technically good study. The left ventricle is moderately dilated. Left ventricular wall thickness is normal. There is sev ere global hypokinesis of LV . Overall left ventricular systolic function is severely impaired with , an EF between 20 - 25 %. Increased LAP Grade 3 Diastolic Dysfunction. The right ventricle is mildly enlarged. LA is moderately dilated 34-39 ml/m2 The right atrial size is normal. Interatrial and interventricular septum intact. Aortic valve is trileaflet and is mildly thickened. Trace amount of aortic regurgitation. The mitral valve leaflets are mildly thickened. Moderate mitral regurgitation is present. The tricuspid valve appears structurally normal. Akcy-kq-zwvkhkne tricuspid regurgitation present. There is mild pulmonary hypertension. The right ventricular systolic pressure, as measured by Dop pler, is 38.91mmHg. There is no pulmonic regurgitation present. The aortic root size is normal. The inferior vena cava is mildly dilated. There is no pericardial effusion. CONCLUSIONS -------- 1. Sinus rhythm. 2. This was a technically good study. 3. The left ventricle is moderately dilated. 4. Left ventricular wall thickness is normal. 5. There is severe global hypokinesis of LV . 6. Overall left ventricular systolic function is severely impaired with, an EF between 20 - 25 %. 7. Increased LAP Grade 3 Diastolic Dysfunction. 8. The right ventricle is mildly enlarged. 9. LA is moderately dilated 34-39 ml/m2 10. The right atrial size is normal. 11. Interatrial and interventricular septum intact. 12. Aortic valve is trileaflet and is mildly thickened. 13. Trace amount of aortic regurgitation. 14. The mitral valve leaflets are mildly thickened. 15. Moderate mitral regurgitation is present. 16. The tricuspid valve appears structurally normal. 17. Damc-dl-toohxdik tricuspid regurgitation present. 18. There is mild pulmonary hypertension. 19. The right ventricular systolic pressure, as measured by Doppler, is 38.91mmHg. 20. There is no pulmonic regurgitation present. 21. The aortic root size is normal. 22. The inferior vena cava is mildly dilated. 23. There is no pericardial effusion. BRANCH CUSTOMER SERVICE REPRESENTATIVE: Peri Issa RDCS
[2019-10-24] MEDS: METOPROLOL SUCCINATE (ER) 25 MG TAB.ER.24H PO SCH (10:21)
[2019-10-24] MEDS: CARISOPRODOL 350 MG TAB PO PRN ×2 (10:21→21:06)
[2019-10-24 11:11] LABS: Glucose,Whole Blood 228 mg/dL (75-99)
--- NOTE | 2019-10-24 11:24 | CONS ---
CONSULTATION CHIEF COMPLAINT: Shortness of breath. This is a 69-year-old lady with multiple medical problems including hypertension, diabetes, dyslipidemia and COPD who is a chronic smoker, presented to hospital complaining of progressively worsening shortness of breath and cough of several weeks' duration. She initially presented to an urgent care center and from there she had been sent to the ER and admitted to the hospital. She also has weight gain, leg edema and orthopnea. On her initial presentation, a chest x-ray shows moderate cardiomegaly. An EKG showed sinus rhythm with poor R-wave progression and an echocardiogram done on this admission revealed severe LV systolic dysfunction with an ejection fraction of 20% to 25% with moderate mitral regurgitation. She ruled out for myocardial infarction. Hemoglobin is normal at 11.7, potassium is 4.9, BUN is 36, creatinine is 1.4. Patient has new onset acute systolic heart failure and evidence of cardiomyopathy with severe LV dysfunction, which is new. The exact etiology for this is unclear, could be related to prior myocardial infarction. I advised the patient to undergo cardiac catheterization and this will be done once her heart failure symptoms improve. Patient is currently on IV Lasix. I am adding beta-maranda and I will continue the WILLOW inhibitor. PAST MEDICAL HISTORY: Significant for hypertension, diabetes, dyslipidemia, and COPD. MEDICATIONS: At home include Symbicort, Vibramycin, Soma, Amaryl, Bertrand, DuoNeb, Ambien, Lipitor and metformin. The patient is allergic to COUMADIN. FAMILY HISTORY: Negative for premature coronary artery disease. SOCIAL HISTORY: Significant for smoking. There is no history of EtOH abuse or drug abuse. REVIEW OF SYSTEMS: HEENT: Unremarkable. CARDIAC: As described above. RESPIRATORY: As described above. GI: Negative. GENITOURINARY: Negative. ALLERGY/IMMUNOLOGY: Negative SKIN: Negative. MUSCULOSKELETAL: Significant for arthritis. PSYCHOSOCIAL: Negative. ENDOCRINE: Negative. CONSTITUTIONAL: Negative. ONCOLOGICAL: Negative. GANG PUSHER: Negative. Rest of the system review is not relevant. PHYSICAL EXAMINATION: On exam, patient is afebrile. heart rate is 103, blood pressure of 106/57, respiratory rate is 18, O2 saturation is 99% on 2 L. Chest exam reveals good air entry bilaterally. Heart exam reveals first and second heart sounds, no gallop. No murmur. Abdomen is soft. Exam of the extremities reveals bilateral moderate pitting edema. LABS: Show a hemoglobin of 11.7, potassium is 4.9, creatinine is 1.4, BUN is elevated at 36. Tropes are negative. ASSESSMENT: 1. Acute onset systolic heart failure. 2. Cardiomyopathy with severe LV dysfunction. 3. Chronic obstructive pulmonary disease exacerbation. PLAN: The patient will continue with the IV Lasix, beta maranda, WILLOW inhibitor, subcu heparin. I will re-evaluate the patient tomorrow and once she is stable and renal functions are stable, we will consider invasive angiography. MMMJL / IJN: [id number] /
[2019-10-24] MEDS ORDERED: LISINOPRIL 5 MG TAB PO SCH (12:00)
[2019-10-24] MEDS ORDERED: LISINOPRIL 10 MG TAB PO SCH (12:00)
--- NOTE | 2019-10-24 13:17 | P.PN ---
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 currently on chronic pain treatment, patient presented to the Emergency department of [facility] with increased chest pain described as a heartburn associated with increased shortness of breath, along with increased edema along with increased coughing with increased wheezing, patient has been complaining of increased edema of both legs, patient had CXR that did not show any acute abnormalities, EKG without ay acute changes, cardiac enzymes werenegative , she was given Lasix 40 mg IVP x1 , and she was started on Solu- Medrol 60 mg IVP Q 6 hours along with Neb treatment and Echocardiogram was ordered for evaluation of LVF and she will be maintained on WILLOW-I and Lasix for now,she was admitted to the hospital and Cardiology consult will be obtained. 10/23: Patient has been afebrile, heart rate 91, blood pressure 93/50, pulse ox 95% on 2 L. CBC unremarkable. Sodium 134, BUN 36 and creatinine 1.44. Patient is currently on Solu-Medrol 60 mg IV every 6 hours and will be decreased to 40 every 8 hours. Breathing status is improved from yesterday and she states she is less short of breath. Lower extremity edema is improving. Troponins are 0.027, 0.033, 0.028. Echocardiogram reveals EF of 20-25% with grade 3 diastolic dysfunction, trace atrial regurgitation, moderate mitral regurgitation, mild to moderate tricuspid regurgitation, mild pulmonary hypertension. Patient has been seen by Dr. Hurt with recommendations for heart catheterization when heart failure symptoms are improved. She is tentatively scheduled for tomorrow. She is currently on Lasix 40 mg IV every 12 hours and lisinopril has been decreased to 5 mg at noon and Toprol-XL 25 mg daily added. Coronavirus testing not detect ed. Objective - Vital Signs Vital signs: Vital Signs Temp 98.1 F 10/24/19 04:00 Pulse 91 10/24/19 06:26 Resp 18 10/24/19 04:00 BP 93/50 10/24/19 04:00 Pulse Ox 95 10/24/19 04:00 Intake & Output 10/23/19 10/24/19 10/24/19 18:59 06:59 18:59 Intake Total 440 Output Total 200 Balance 240 Weight 90.718 kg 92 kg Intake: Oral 440 Output: Urine 200 Other: Voiding Method Toilet # Voids 1 - Exam Review of Systems Constitutional: Reports chronic pain, Reports fatigue, Reports weakness, Reports weight gain, Denies anorexia, Denies chronic headaches Eyes: bilateral blurred vision, bilateral decreased vision Ears: deny: decreased hearing Ears, nose, mouth and throat: Denies dysphagia, Denies neck fullness/pressure, Denies neck lump, Denies sore throat Cardiovascular: Denies chest pain, Reports decreased exercise tolerance, Reports dyspnea on exertion, Reports edema, Reports leg edema, Reports shortness of breath, Denies lightheadedness, Denies orthopnea, Denies rapid heart beat, Denies syncope Respiratory: Reports cough, Reports cough with sputum, Reports dyspnea, Reports sleep apnea, Reports wheezing, Denies congestion, Denies home oxygen, Denies respiratory infections, Denies snoring Gastrointestinal: Reports bloating, Reports change in bowel habits, Reports constipation, Reports dyspepsia, Reports heartburn, Denies abdominal pain, Denies BRBPR, Denies hematemesis, Denies hematochezia, Denies loss of appetite, Denies melena, Denies nausea, Denies vomiting Genitourinary: Reports nocturia, Denies dysuria Menstruation: Reports postmenopausal Musculoskeletal: Reports gait dysfunction, Reports low back pain, Reports morning stiffness, Reports muscle cramps, Reports muscle weakness, Reports myalgias, Reports neck stiffness Musculoskeletal: bilateral: ankle swelling, foot swelling, hip pain, hip stiffness, absent: ankle pain, ankle stiffness, elbow pain, elbow stiffness, elbow swelling, foot pain, foot stiffness, hand pain, hand stiffness, hand swelling, hip swelling, knee pain, knee stiffness, knee swelling, shoulder pain, shoulder stiffness, shoulder swelling, wrist pain, wrist stiffness, wrist swell ing Integumentary: Denies pruritus, Denies rash Neurological: Reports burning pain, Reports numbness, Reports sensory deficit, Reports weakness Psychiatric: Reports anxiety, Denies depression, Denies memory loss, Denies paranoia, Denies sadness/tearfulness, Denies sleep disturbances, Denies suicidal ideation Endocrine: Reports as per HPI Physical examination - Constitutional General appearance: no distress, obese, patient sitting on the edge of the bed. - EENT Eyes: anicteric sclerae, EOMI, PERRLA, no ptosis ENT: hearing grossly normal, NA/AT, normal oropharynx Ears: bilateral: normal - Neck Neck: no lymphadenopathy, no rigidity, stridor, thyromegaly Carotids: bilateral: upstroke normal - Respiratory Respiratory: bilateral: diminished, rhonchi, wheezing, prolonged expiration, negative: dullness, rales - Cardiovascular Heart sounds: normal: S1, S2 Abnormal Heart Sounds: systolic murmur, no S3 Gallop, no S4 Gallop 1-2+ lower extremity edema. - Gastrointestinal General gastrointestinal: decreased bowel sounds, distended, soft, no splenome teresa, no tenderness, no umbilical hernia - Integumentary Integumentary: normal, normal turgor - Neurologic Neurologic: CNII-XII intact - Musculoskeletal Musculoskeletal: generalized weakness, strength equal bilaterally - Psychiatric Psychiatric: A&O x's 3, appropriate affect, intact judgment & insight - Labs CBC & Chem 7: 10/24/19 05:45 10/24/19 05:45 Labs: Abnormal Lab Results - Last 24 Hours (Table) 10/23/19 10/23/19 10/23/19 Range/Units 11:18 11:18 13:56 MCHC 30.9 L (31.0-37.0) g/dL Lymphocytes # 0.9 L (1.0-4.8) k/uL Sodium 133 L (137-145) mmol/L Potassium 5.2 H (3.5-5.1) mmol/L BUN 33 H (7-17) mg/dL Creatinine 1.39 H (0.52-1.04) mg/dL Glucose 162 H (74-99) mg/dL POC Glucose (mg/dL) 140 H (75-99) mg/dL Alkaline Phosphatase 30 L (38-126) U/L Total Protein (6.3-8.2) g/dL 10/23/19 10/23/19 10/24/19 Range/Units 16:53 21:06 05:45 MCHC 30.5 L (31.0-37.0) g/dL Lymphocytes # 0.4 L (1.0-4.8) k/uL Sodium (137-145) mmol/L Potassium (3.5-5.1) mmol/L BUN (7-17) mg/dL Creatinine (0.52-1.04) mg/dL Glucose (74-99) mg/dL POC Glucose (mg/dL) 227 H 197 H (75-99) mg/dL Alkaline Phosphatase (38-126) U/L Total Protein (6.3-8.2) g/dL 10/24/19 10/24/19 Range/Units 05:45 06:26 MCHC (31.0-37.0) g/dL Lymphocytes # (1.0-4.8) k/uL Sodium 134 L (137-145) mmol/L Potassium (3.5-5.1) mmol/L BUN 36 H (7-17) mg/dL Creatinine 1.44 H (0.52-1.04) mg/dL Glucose 204 H (74-99) mg/dL POC Glucose (mg/dL) 211 H (75-99) mg/dL Alkaline Phosphatase 28 L (38-126) U/L Total Protein 5.9 L (6.3-8.2) g/dL Assessment and Plan Plan: 1. Chest pain likely non cardiac but patient has multiple risk factors for heart disease. Continue ASA 81 mg orally daily, Lipitor 20 mg orally daily. Echocardiogram as above. Continue lisinopril 5 mg daily, Toprol-XL started. Patient scheduled for heart catheterization tomorrow. Cardiology consult appreciated. 2. Acute exacerbation of COPD. Continue with Duoneb 3 nl Neb QID, we will continue with O2 support and decrease Solu-Medrol 40 mg IVP Q 8 H. 3. Acute systolic heart failure with severe cardiomyopathy of unclear etiology. Continue Lasix 40 mg IVP Q 12 H, continue with Lisinopril 5 mg orally daily. Toprol-XL 25 mg daily started. 4. Mild Hyponatremia. we will repeat cmp in 24 hours. 5. Mild Hyperkalemia. we will repeat labs in AM. 6. Hypertension and hypertensive cardiovascular disease. Continue with Lisinopril 5 mg orally daily. 7. Mixed hyperlipidemia. we will continue with Lipitor 80 mg orally daily and Fenofibrate 160 mg orally daily. 8. Diabetes mellitus type 2. Old Metformin 1000 mg orally bid for heart catheterization tomorrow. Continue Tradjenta 5 mg orally daily along with Glimeperide 4 mg orally daily, BGM daily. 9. DDD of the Lumber spine with OA. Continue with [place] as needed. 10. DVT prophylaxis. Heparin 5000 units SC Q 12 h. 11. GI Prophylaxis. Pepcid 20 mg orally daily. 12. Full code. 13. COVID-19 infection not present Discharge plan: Return home. Impression and plan of care have been directed as dictated by the signing physician. Ami Hanna nurse practitioner acting as scribe for signing physician.
[2019-10-24] MEDS: methylPREDNISolone SOD SUCCI 40 MG/ML 1 ML VIAL IV SCH ×2 (15:07→23:20)
[2019-10-24 16:29] LABS: Glucose,Whole Blood 198 mg/dL (75-99)
[2019-10-24 20:55] LABS: Glucose,Whole Blood 300 mg/dL (75-99)
[2019-10-24] MEDS: ZOLPIDEM 10 MG TAB PO SCH (21:06)
[2019-10-25 06:23] LABS: Glucose,Whole Blood 76 mg/dL (75-99)
[2019-10-25 06:41] LABS: Calcium 9.5 mg/dL (8.4-10.2); Potassium 5.3 mmol/L (3.5-5.1)
[2019-10-25] MEDS: GLIMEPIRIDE 4 MG TAB PO SCH (06:43)
[2019-10-25] MEDS: INSULIN ASPART (NovoLOG) 100 UNIT/ML VIAL SQ SCH ×4 (06:43→20:35)
[2019-10-25] MEDS: IPRATROPIUM-ALBUTEROL 3 ML NEB INHALATION PRN ×4 (07:42→19:22)
[2019-10-25] MEDS: HEPARIN SODIUM,PORCINE 5,000 UNIT/ML 1 ML VIAL SQ SCH ×2 (09:45→20:35)
[2019-10-25] MEDS: methylPREDNISolone SOD SUCCI 40 MG/ML 1 ML VIAL IV SCH ×3 (09:45→23:28)
[2019-10-25] MEDS: ASPIRIN 81 MG PO SCH (09:46)
[2019-10-25] MEDS: FAMOTIDINE 20 MG TAB PO SCH (09:46)
[2019-10-25] MEDS: METOPROLOL SUCCINATE (ER) 25 MG TAB.ER.24H PO SCH (09:46)
[2019-10-25] MEDS: ATORVASTATIN 80 MG TAB PO SCH (09:46)
[2019-10-25] MEDS: FENOFIBRATE 160 MG TAB PO SCH (09:46)
[2019-10-25 11:38] LABS: Glucose,Whole Blood 103 mg/dL (75-99)
[2019-10-25] MEDS: LINAGLIPTIN 5 MG TABLET PO SCH (12:05)
--- NOTE | 2019-10-25 12:54 | P.PN ---
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 currently on chronic pain treatment, patient presented to the Emergency department of [facility] with increased chest pain described as a heartburn associated with increased shortness of breath, along with increased edema along with increased coughing with increased wheezing, patient has been complaining of increased edema of both legs, patient had CXR that did not show any acute abnormalities, EKG without ay acute changes, cardiac enzymes werenegative , she was given Lasix 40 mg IVP x1 , and she was started on Solu- Medrol 60 mg IVP Q 6 hours along with Neb treatment and Echocardiogram was ordered for evaluation of LVF and she will be maintained on WILLOW-I and Lasix for now,she was admitted to the hospital and Cardiology consult will be obtained. 10/23: Patient has been afebrile, heart rate 91, blood pressure 93/50, pulse ox 95% on 2 L. CBC unremarkable. Sodium 134, BUN 36 and creatinine 1.44. Patient is currently on Solu-Medrol 60 mg IV every 6 hours and will be decreased to 40 every 8 hours. Breathing status is improved from yesterday and she states she is less short of breath. Lower extremity edema is improving. Troponins are 0.027, 0.033, 0.028. Echocardiogram reveals EF of 20-25% with grade 3 diastolic dysfunction, trace atrial regurgitation, moderate mitral regurgitation, mild to moderate tricuspid regurgitation, mild pulmonary hypertension. Patient has been seen by Dr. Hurt with recommendations for heart catheterization when heart failure symptoms are improved. She is tentatively scheduled for tomorrow. She is currently on Lasix 40 mg IV every 12 hours and lisinopril has been decreased to 5 mg at noon and Toprol-XL 25 mg daily added. Coronavirus testing not detect ed. 10/24: Patient has been afebrile, heart rate 104, blood pressure 107/52, pulse ox 99% on [address] recording monitor is a sinus rhythm. Repeat blood work reveals sodium 133, potassium 5.3, chloride 98, CO2 26, BUN 54 and creatinine 1.89. Blood sugar this morning 73 previous last night was 300. Blood culture shows no growth after 24 hours. Patient is tentatively scheduled for heart catheterization today which we expect this will be postponed due to worsening renal function. Lasix and lisinopril discontinued. She is currently on Solu- Medrol 40 mg every 8 hours. Objective - Vital Signs Vital signs: Vital Signs Temp 97.9 F 10/25/19 11:55 Pulse 104 H 10/25/19 11:55 Resp 18 10/25/19 11:55 BP 107/52 10/25/19 11:55 Pulse Ox 99 10/25/19 11:55 Intake & Output 10/24/19 10/25/19 10/25/19 18:59 06:59 18:59 Intake Total 210 372 Output Total 200 Balance 210 -200 372 Weight 93 kg Intake: IV 10 372 0.9 10 372 Oral 200 Output: Urine 200 Other: Voiding Method Toilet # Voids 1 - Exam Review of Systems Constitutional: Reports chronic pain, Reports fatigue, Reports weight gain, Denies anorexia, Denies chronic headaches Eyes: bilateral blurred vision, bilateral decreased vision Ears: deny: decreased hearing Ears, nose, mouth and throat: Denies dysphagia, Denies neck fullness/pressure, Denies neck lump, Denies sore throat Cardiovascular: Denies chest pain, Reports decreased exercise tolerance, Reports dyspnea on exertion, Reports edema, Reports leg edema, Reports shortness of breath, Denies lightheadedness, Denies orthopnea, Denies rapid heart beat, Denies syncope Respiratory: Reports cough, Reports cough with sputum, Reports dyspnea, Reports sleep apnea, Reports wheezing, Denies congestion, Denies home oxygen, Denies respiratory infections, Denies snoring Gastrointestinal: Reports bloating, Reports change in bowel habits, Reports constipation, Reports dyspepsia, Reports heartburn, Denies abdominal pain, Denies BRBPR, Denies hematemesis, Denies hematochezia, Denies loss of appetite, Denies melena, Denies nausea, Denies vomiting Genitourinary: Reports nocturia, Denies dysuria Menstruation: Reports postmenopausal Musculoskeletal: Reports gait dysfunction, Reports low back pain, Reports morning stiffness, Reports muscle cramps, Reports muscle weakness, Reports myalgias, Reports neck stiffness Musculoskeletal: bilateral: ankle swelling, foot swelling, hip pain, hip stiffness, absent: ankle pain, ankle stiffness, elbow pain, elbow stiffness, elbow swelling, foot pain, foot stiffness, hand pain, hand stiffness, hand swelling, hip swelling, knee pain, knee stiffness, knee swelling, shoulder pain, shoulder stiffness, shoulder swelling, wrist pain, wrist stiffness, wrist swelling Integumentary: Denies pruritus, Denies rash Neurological: Reports burning pain, Reports numbness, Reports sensory deficit, Reports weakness Psychiatric: Reports anxiety, Denies depression, Denies memory loss, Denies paranoia, Denies sadness/tearfulness, Denies sleep disturbances, Denies suicidal ideation Endocrine: Reports as per HPI Physical examination - Constitutional General appearance: no distress, obese, patient sitting on the edge of the bed. - EENT Eyes: anicteric sclerae, EOMI, PERRLA, no ptosis ENT: hearing grossly normal, NA/AT, normal oropharynx Ears: bilateral: normal - Neck Neck: no lymphadenopathy, no rigidity, stridor, thyromegaly Carotids: bilateral: upstroke normal - Respiratory Respiratory: bilateral: diminished, rhonchi, wheezing, prolonged expiration, negative: dullness, rales - Cardiovascular Heart sounds: normal: S1, S2 Abnormal Heart Sounds: systolic murmur, no S3 Gallop, no S4 Gallop 1-2+ lower extremity edema. - Gastrointestinal General gastrointestinal: decreased bowel sounds, distended, soft, no splenomegaly, no tenderness, no umbilical hernia - Integumentary Integumentary: normal, normal turgor - Neurologic Neurologic: CNII-XII intact, no focal neural deficits - Musculoskeletal Musculoskeletal: generalized weakness, strength equal bilaterally - Psychiatric Psychiatric: A&O x's 3, appropriate affect, intact judgment & insight - Labs CBC & Chem 7: 10/24/19 05:45 10/25/19 06:15 Labs: Abnormal Lab Results - Last 24 Hours (Table) 10/24/19 10/24/19 10/25/19 Range/Units 16:23 20:53 06:15 Sodium 133 L (137-145) mmol/L Potassium 5.3 H (3.5-5.1) mmol/L BUN 54 H (7-17) mg/dL Creatinine 1.89 H (0.52-1.04) mg/dL Glucose 73 L (74-99) mg/dL POC Glucose (mg/dL) 198 H 300 H (75-99) mg/dL 10/25/19 Range/Units 11:37 Sodium (137-145) mmol/L Potassium (3.5-5.1) mmol/L BUN (7-17) mg/dL Creatinine (0.52-1.04) mg/dL Glucose (74-99) mg/dL POC Glucose (mg/dL) 103 H (75-99) mg/dL Microbiology - Last 24 Hours (Table) 10/23/19 11:18 Blood Culture - Preliminary Blood No Growth after 24 hours Assessment and Plan Plan: 1. Chest pain with multiple risk factors for heart disease. Continue ASA 81 mg orally daily, Lipitor 20 mg orally daily. Echocardiogram as above. Continue lisinopril 5 mg daily, Toprol-XL 25 mg daily. Patient to undergo heart catheterization when stable. Cardiology consult appreciated. 2. Acute exacerbation of COPD. Continue with Duoneb 3 nl Neb QID, we will continue with O2 support and Solu-Medrol 40 mg IVP Q 8 H. 3. Acute systolic heart failure with severe cardiomyopathy of unclear etiology. Discontinue Lasix and lisinopril. Toprol-XL 25 mg daily started. 4. Mild Hyponatremia. we will repeat bmp in 24 hours. 5. Mild Hyperkalemia. we will repeat labs in AM. 6. Acute kidney injury secondary to dietary seen. Hold Lasix and lisinopril. Recheck renal function and electrolytes in the morning. 7. Hypertension and hypertensive cardiovascular disease. Discontinue lisinopril. Continue Toprol-XL. 8. Mixed hyperlipidemia. we will continue with Lipitor 80 mg orally daily and Fenofibrate 160 mg orally daily. 9. Diabetes mellitus type 2. Hold metformin in anticipation of heart catheterization. Continue Tradjenta 5 mg orally daily along with Glimeperide 4 mg orally daily, BGM daily. 10. DDD of the Lumber spine with OA. Continue with [place] as needed. 11. DVT prophylaxis. Heparin 5000 units SC Q 12 h. 12. GI Prophylaxis. Pepcid 20 mg orally daily. 13. Full code. 14. COVID-19 infection not present Discharge plan: Return home. Impression and plan of care have been directed as dictated by the signing physician. Ami Hanna nurse practitioner acting as scribe for signing physician.
--- NOTE | 2019-10-25 13:31 | P.PN ---
Subjective Progress Note Date: 10/25/19 This is a 69-year-old female with past medical history significant for hypertension, hyperlipidemia, diabetes, chronic nicotine dependence, COPD, chronic pain syndrome secondary to severe osteoarthritis and degenerative disc disease, initially presented to the hospital with symptoms of chest discomfort which she described as a heartburn sensation, she also was experiencing increase in shortness of breath. Patient has been diuresed on IV Lasix times one. And was initiated on IV steroids. An echocardiogram with Doppler study was performed which revealed global hypokinesia of the LV with a documented ejection fraction of 20-25%, moderate mitral regurgitation and mild to moderate tricuspid regurgitation. The patient was seen and examined this morning and feels well overall, denies any chest pain in her breathing is stable. Her blood pressure 117/60. Her potassium today is 5.3 with a creatinine of 1.8. We will hold her WILLOW inhibitor at this time. Recheck her labs again in the morning. If her creatinine is stable, Dr. Hurt is recommending the patient undergo cardiac catheterization. The risks and the benefits explained to the patient in detail. Objective - Vital Signs Vital signs: Vital Signs Temp 97.9 F 10/25/19 11:55 Pulse 104 H 10/25/19 11:55 Resp 18 10/25/19 11:55 BP 107/52 10/25/19 11:55 Pulse Ox 99 10/25/19 11:55 Intake & Output 10/24/19 10/25/19 10/25/19 18:59 06:59 18:59 Intake Total 210 372 Output Total 200 Balance 210 -200 372 Weight 93 kg Intake: IV 10 372 0.9 10 372 Oral 200 Output: Urine 200 Other: Voiding Method Toilet # Voids 1 - Exam PHYSICAL EXAMINATION: GENERAL: 69-year-old female in no acute distress at the time of my examination HEENT: Head is atraumatic, normocephalic. Pupils equal, round. Sclera anicteric. Conjunctiva are clear. Mucous membranes of the mouth are moist. Neck is supple. There is no elevated jugular venous pressure. No carotid bruit is heard. HEART EXAMINATION: Heart S1 S2 1 systolic murmur is heard CHEST EXAMINATION: Lungs are clear with diminished air entry to the bases ABDOMEN: Soft, nontender. Bowel sounds are heard. No organomegaly noted. EXTREMITIES: 2+ peripheral pulses with no evidence of peripheral edema and no calf tenderness noted. NEUROLOGIC patient is awake, alert and oriented 3. . - Labs CBC & Chem 7: 10/24/19 05:45 10/25/19 06:15 Labs: Abnormal Lab Results - Last 24 Hours (Table) 10/24/19 10/24/19 10/25/19 Range/Units 16:23 20:53 06:15 Sodium 133 L (137-145) mmol/L Potassium 5.3 H (3.5-5.1) mmol/L BUN 54 H (7-17) mg/dL Creatinine 1.89 H (0.52-1.04) mg/dL Glucose 73 L (74-99) mg/dL POC Glucose (mg/dL) 198 H 300 H (75-99) mg/dL 10/25/19 Range/Units 11:37 Sodium (137-145) mmol/L Potassium (3.5-5.1) mmol/L BUN (7-17) mg/dL Creatinine (0.52-1.04) mg/dL Glucose (74-99) mg/dL POC Glucose (mg/dL) 103 H (75-99) mg/dL Microbiology - Last 24 Hours (Table) 10/23/19 11:18 Blood Culture - Preliminary Blood No Growth after 24 hours Assessment and Plan Plan: Assessment and plan #1 systolic congestive heart failure acute on chronic #2 severe cardiomyopathy with documented ejection fraction of 20-20% with mild to moderate tricuspid regurg #3 Chest pain, with mild abnormality in troponin. Cannot completely rule out underlying coronary artery disease #4 COPD with acute exacerbation #5 hypertension #6 hyperlipidemia #7 diabetes #8 nicotine dependence #9 acute on chronic renal insufficiency Plan We will hold the patient's WILLOW inhibitor today because of elevated potassium and creatinine levels. Check her labs again in the morning. If her creatinine numbers come down tomorrow, patient may be considered for cardiac catheteri zation. The risks and the benefits were explained to her in detail. DNP note has been reviewed, I agree with a documented findings and plan of care. Patient was seen and examined.
[2019-10-25] MEDS: HYDROcodone/APAP 5-325MG 1 EACH TAB PO PRN (15:40)
[2019-10-25 16:21] LABS: Glucose,Whole Blood 314 mg/dL (75-99)
[2019-10-25 20:34] LABS: Glucose,Whole Blood 203 mg/dL (75-99)
[2019-10-25] MEDS: CARISOPRODOL 350 MG TAB PO PRN (20:35)
[2019-10-25] MEDS: ZOLPIDEM 10 MG TAB PO SCH (20:35)
[2019-10-26 03:23] VITALS: TEMP 98
[2019-10-26 05:52] LABS: Glucose,Whole Blood 215 mg/dL (75-99)
[2019-10-26] MEDS: GLIMEPIRIDE 4 MG TAB PO SCH (06:05)
[2019-10-26] MEDS: INSULIN ASPART (NovoLOG) 100 UNIT/ML VIAL SQ SCH (06:09)
[2019-10-26 07:52] LABS: Calcium 8.4 mg/dL (8.4-10.2); Potassium 5.3 mmol/L (3.5-5.1)
[2019-10-26] MEDS: IPRATROPIUM-ALBUTEROL 3 ML NEB INHALATION PRN ×2 (08:16→11:27)
[2019-10-26] MEDS: FAMOTIDINE 20 MG TAB PO SCH (08:41)
[2019-10-26] MEDS: HYDROcodone/APAP 5-325MG 1 EACH TAB PO PRN (08:41)
[2019-10-26] MEDS: LINAGLIPTIN 5 MG TABLET PO SCH (08:42)
[2019-10-26] MEDS: methylPREDNISolone SOD SUCCI 40 MG/ML 1 ML VIAL IV SCH (08:42)
[2019-10-26] MEDS: ATORVASTATIN 80 MG TAB PO SCH (08:42)
[2019-10-26] MEDS: ASPIRIN 81 MG PO SCH (08:42)
[2019-10-26] MEDS: FENOFIBRATE 160 MG TAB PO SCH (08:42)
[2019-10-26] MEDS: METOPROLOL SUCCINATE (ER) 25 MG TAB.ER.24H PO SCH (08:42)
[2019-10-26] MEDS: HEPARIN SODIUM,PORCINE 5,000 UNIT/ML 1 ML VIAL SQ SCH (08:42)
[2019-10-26 08:50] VITALS: BP 89/54; RESP 16
--- NOTE | 2019-10-26 11:01 | P.PN ---
Subjective Progress Note Date: 10/26/19 This is a 69-year-old female with past medical history significant for hypertension, hyperlipidemia, diabetes, chronic nicotine dependence, COPD, chronic pain syndrome secondary to severe osteoarthritis and degenerative disc disease, initially presented to the hospital with symptoms of chest discomfort which she described as a heartburn sensation, she also was experiencing increase in shortness of breath. Patient has been diuresed on IV Lasix times one. And was initiated on IV steroids. An echocardiogram with Doppler study was performed which revealed global hypokinesia of the LV with a documented ejection fraction of 20-25%, moderate mitral regurgitation and mild to moderate tricuspid regurgitation. The patient was seen and examined this morning and feels well overall, denies any chest pain in her breathing is stable. Her blood pressure 117/60. Her potassium today is 5.3 with a creatinine of 1.8. We will hold her WILLOW inhibitor at this time. Recheck her labs again in the morning. If her creatinine is stable, Dr. Hurt is recommending the patient undergo cardiac catheterization. The risks and the benefits explained to the patient in detail. 10/26/2019 Patient seen and examined this morning, blood pressure 90/50 with a heart rate in the 60s to 70s, 98% on room air. Sodium 134, potassium 5.3, BUN 70 and creatinine 2.0, magnesium 2.0. In view of the continued worsening and creatinine, her recommendation at this time is to just continue medical therapy, continue to monitor renal function and consider cardiac catheterization as an outpatient. Objective - Vital Signs Vital signs: Vital Signs Temp 98 F 10/26/19 03:05 Pulse 84 10/26/19 08:28 Resp 16 10/26/19 08:00 BP 89/54 10/26/19 08:00 Pulse Ox 98 10/26/19 08:00 Intake & Output 10/25/19 10/26/19 10/26/19 18:59 06:59 18:59 Intake Total 490 237 200 Balance 490 237 200 Weight 95.1 kg Intake: IV 372 0.9 372 Oral 118 237 200 Other: Voiding Method Toilet Toilet # Voids 1 - Exam PHYSICAL EXAMINATION: GENERAL: 69-year-old female in no acute distress at the time of my examination HEENT: Head is atraumatic, normocephalic. Pupils equal, round. Sclera anicteric. Conjunctiva are clear. Mucous membranes of the mouth are moist. Neck is supple. There is no elevated jugular venous pressure. No carotid bruit is heard. HEART EXAMINATION: Heart S1 S2 1 systolic murmur is heard CHEST EXAMINATION: Lungs are clear with diminished air entry to the bases ABDOMEN: Soft, nontender. Bowel sounds are heard. No organomegaly noted. EXTREMITIES: 2+ peripheral pulses with no evidence of peripheral edema and no calf tenderness noted. NEUROLOGIC patient is awake, alert and oriented 3. . - Labs CBC & Chem 7: 10/24/19 05:45 10/26/19 07:10 Labs: Abnormal Lab Results - Last 24 Hours (Table) 10/25/19 10/25/19 10/25/19 Range/Units 11:37 16:20 20:33 Sodium (137-145) mmol/L Potassium (3.5-5.1) mmol/L BUN (7-17) mg/dL Creatinine (0.52-1.04) mg/dL Glucose (74-99) mg/dL POC Glucose (mg/dL) 103 H 314 H 203 H (75-99) mg/dL 10/26/19 10/26/19 Range/Units 05:50 07:10 Sodium 134 L (137-145) mmol/L Potassium 5.3 H (3.5-5.1) mmol/L BUN 70 H (7-17) mg/dL Creatinine 2.07 H (0.52-1.04) mg/dL Glucose 199 H (74-99) mg/dL POC Glucose (mg/dL) 215 H (75-99) mg/dL Microbiology - Last 24 Hours (Table) 10/23/19 11:18 Blood Culture - Preliminary Blood No Growth after 48 hours Assessment and Plan Plan: Assessment and plan #1 systolic congestive heart failure acute on chronic #2 severe cardiomyopathy with documented ejection fraction of 20-20% with mild to moderate tricuspid regurg #3 Chest pain, with mild abnormality in troponin. Cannot completely rule out underlying coronary artery disease #4 COPD with acute exacerbation #5 hypertension #6 hyperlipidemia #7 diabetes #8 nicotine dependence #9 acute on chronic renal insufficiency Plan Because of the continued worsening renal function and elevated potassium, at this time we will continue current medications and consider cardiac catheterization as an outpatient once the renal function stabilizes. DNP note has been reviewed, I agree with a documented findings and plan of care. Patient was seen and examined.
[2019-10-26] MEDS ORDERED: FUROSEMIDE 10 MG/ML 2 ML VIAL IV ONE (11:32)
[2019-10-26 11:37] VITALS: PULSE 88
--- NOTE | 2019-10-26 11:44 | P.DS ---
Providers Date of admission: 10/23/19 12:28 Expected date of discharge: 10/26/19 Attending physician: Franc Ferro Consults: 10/23/19 12:28 Consult Physician Routine Consulting Provider: [facility] Consult Reason/Comments: Chest pain, pedal edema Do you want consulting provider notified?: Yes Primary care physician: Franc Ferro [facility] Course: This is a 69 year old white female one of my patient with a previous medical history significant for hypertension and hypertensive cardiovascular disease, mixed hyperlipidemia, diabetes mellitus type2, diabetic polyneuropathy, chronic tobacco use and dependence , COPD, and chronic pain syndrome due to severe osteoarthritis in both hips and 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 currently on chronic pain treatment, patient presented to the Emergency department of [facility] with increased chest pain described as a heartburn associated with increased shortness of breath, along with increased edema along with increased coughing with increased wheezing, patient has been complaining of increased edema of both legs, patient had CXR that did not show any acute abnormalities, EKG without ay acute changes, cardiac enzymes werenegative , she was given Lasix 40 mg IVP x1 , and she was started on Solu- Medrol 60 mg IVP Q 6 hours along with Neb treatment and Echocardiogram was ordered for evaluation of LVF and she will be maintained on WILLOW-I and Lasix for now,she was admitted to the hospital and Cardiology consult will be obtained. 10/23: Patient has been afebrile, heart rate 91, blood pressure 93/50, pulse ox 95% on 2 L. CBC unremarkable. Sodium 134, BUN 36 and creatinine 1.44. Patient is currently on Solu-Medrol 60 mg IV every 6 hours and will be decreased to 40 every 8 hours. Breathing status is improved from yesterday and she states she is less short of breath. Lower extremity edema is improving. Troponins are 0.027, 0.033, 0.028. Echocardiogram reveals EF of 20-25% with grade 3 diastolic dysfunction, trace atrial regurgitation, moderate mitral regurgitation, mild to moderate tricuspid regurgitation, mild pulmonary hypertension. Patient has been seen by Dr. Hurt with recommendations for heart catheterization when heart failure symptoms are improved. She is tentatively scheduled for tomorrow. She is currently on Lasix 40 mg IV every 12 hours and lisinopril has been decreased to 5 mg at noon and Toprol-XL 25 mg daily added. Coronavirus testing not detected. 10/24: Patient has been afebrile, heart rate 104, blood pressure 107/52, pulse ox 99% on 3 L nasal cannula. campus monitor is a sinus rhythm. Repeat blood work reveals sodium 133, potassium 5.3, chloride 98, CO2 26, BUN 54 and creatinine 1.89. Blood sugar this morning 73 previous last night was 300. Blood culture shows no growth after 24 hours. Patient is tentatively scheduled for heart catheterization today which we expect this will be postponed due to worsening renal function. Lasix and lisinopril discontinued. She is currently on Solu- Medrol 40 mg every 8 hours. 10/25: Patient has been seen by cardiology this morning and patient is requesting to go home. Plan will be for outpatient heart catheterization once renal function stabilizes. Repeat blood work reveals sodium 134, potassium 5.3, BUN 17 creatinine 2.07. Blood sugars are running in the 200s. Chin is found ambulating in her room picking her bags in preparation to go home. Patient states her breathing status is back to its baseline. She continues to have some mild expiratory wheezes and a few crackles. There is lower extremity edema patient will be given 1 small dose of IV Lasix prior to discharge and ZACH hose ordered. The patient has been afebrile, heart rate in the 80s, blood pressure 89/54, pulse ox 98% on room air. Patient will be discharged home today in stable condition. Repeat lab work ordered for Tuesday. Discharge diagnoses: 1. Chest pain with multiple risk factors for heart disease possible underlying coronary artery disease suspected. 2. Acute exacerbation of COPD. 3. Acute systolic heart failure with severe cardiomyopathy of unclear etiology. 4. Mild Hyponatremia. 5. Mild Hyperkalemia secondary to acute kidney injury. 6. Acute kidney injury secondary to diuresing. 7. Hypertension and hypertensive cardiovascular disease. 8. Mixed hyperlipidemia. 9. Diabetes mellitus type 2. 10. DDD of the Lumber spine with OA. 11. COVID-19 infection not present Discharge plan: Return home. Impression and plan of care have been directed as dictated by the signing physic ian. Ami Hanna nurse practitioner acting as scribe for signing physician. Patient Condition at Discharge: Good Plan - Discharge Summary New Discharge Prescriptions: New Aspirin 81 mg PO DAILY chew guaiFENesin [Mucinex] 600 mg PO Q12HR PRN tablet.er PRN Reason: Cough predniSONE 0 mg PO DIRECTED #30 tab Metoprolol Succinate (ER) [Toprol XL] 25 mg PO DAILY #30 tab.er.24h Linagliptin [Tradjenta] 5 mg PO DAILY #30 tablet Continue HYDROcodone/APAP 5-325MG [Owasso 5-325] 1 tab PO Q12H PRN PRN Reason: Pain Carisoprodol [Soma] 350 mg PO BID PRN PRN Reason: Muscle Spasm Zolpidem Tartrate [Ambien] 10 mg PO HS Glimepiride [Amaryl] 4 mg PO BID Fenofibrate 160 mg PO DAILY Ipratropium-Albuterol Nebulize [Duoneb 0.5 mg-3 mg/3 ml Soln] 3 ml INHALATION RT-QID PRN PRN Reason: Shortness Of Breath Raloxifene [Evista] 60 mg PO DAILY Budesonide/Formoterol Fumarate [Symbicort 160-4.5 Mcg Inhaler] 2 puff INHALATION RT-BID Atorvastatin Calcium [Lipitor] 80 mg PO DAILY Discontinued sitaGLIPtin PHOS/metFORMIN HCL [Janumet 50-1,000 mg Tablet] 1 tab PO BID Doxycycline Hyclate [Vibramycin] 100 mg PO BID Discharge Medication List Carisoprodol [Soma] 350 mg PO BID PRN 03/08/16 [History] Fenofibrate 160 mg PO DAILY 03/08/16 [History] Glimepiride [Amaryl] 4 mg PO BID 03/08/16 [History] HYDROcodone/APAP 5-325MG [Owasso 5-325] 1 tab PO Q12H PRN 03/08/16 [History] Zolpidem Tartrate [Ambien] 10 mg PO HS 03/08/16 [History] Budesonide/Formoterol Fumarate [Symbicort 160-4.5 Mcg Inhaler] 2 puff INHALATION RT-BID 10/23/19 [History] Ipratropium-Albuterol Nebulize [Duoneb 0.5 mg-3 mg/3 ml Soln] 3 ml INHALATION RT-QID PRN 10/23/19 [History] Raloxifene [Evista] 60 mg PO DAILY 10/23/19 [History] Atorvastatin Calcium [Lipitor] 80 mg PO DAILY 10/24/19 [History] Aspirin 81 mg PO DAILY chew 10/26/19 [Rx] Linagliptin [Tradjenta] 5 mg PO DAILY #30 tablet 10/26/19 [Rx] Metoprolol Succinate (ER) [Toprol XL] 25 mg PO DAILY #30 tab.er.24h 10/26/19 [Rx] guaiFENesin [Mucinex] 600 mg PO Q12HR PRN tablet.er 10/26/19 [Rx] predniSONE 0 mg PO DIRECTED #30 tab 10/26/19 [Rx] Follow up Appointment(s)/Referral(s): Franc Ferro MD [Primary Care Provider] - 1 Week Rao Hurt MD [STAFF PHYSICIAN] - 1 Week Ambulatory/Diagnostic Orders: Basic Metabolic Panel [LAB.AMB] Location: None Selected Discharge Disposition: HOME SELF-CARE
[2019-10-26 12:01] LABS: Glucose,Whole Blood 125 mg/dL (75-99)
== END 2019-10-26 13:05 | disposition home or self-care (01) | DRG 291 ==
LOC: EC 10:37 → 3SCARD 12:28
PROVIDERS: ADMIT Internal Medicine; ATTEND Internal Medicine
DX: I13.0 Hypertensive heart and chronic kidney disease with heart failure and stage 1 through stage 4 chronic kidney disease, or unspecified chronic kidney disease (principal); I50.23 Acute on chronic systolic (congestive) heart failure; J44.1 Chronic obstructive pulmonary disease with (acute) exacerbation; N17.9 Acute kidney failure, unspecified; E87.1 Hypo-osmolality and hyponatremia; N18.9 Chronic kidney disease, unspecified; I42.9 Cardiomyopathy, unspecified; M16.0 Bilateral primary osteoarthritis of hip; E11.22 Type 2 diabetes mellitus with diabetic chronic kidney disease; E11.42 Type 2 diabetes mellitus with diabetic polyneuropathy; E78.2 Mixed hyperlipidemia; E87.5 Hyperkalemia; F17.210 Nicotine dependence, cigarettes, uncomplicated; G89.4 Chronic pain syndrome; I08.1 Rheumatic disorders of both mitral and tricuspid valves; Z11.59 Encounter for screening for other viral diseases; I25.2 Old myocardial infarction; Z79.51 Long term (current) use of inhaled steroids; Z79.82 Long term (current) use of aspirin; Z79.84 Long term (current) use of oral hypoglycemic drugs; Z79.899 Other long term (current) drug therapy; Z82.49 Family history of ischemic heart disease and other diseases of the circulatory system; Z83.3 Family history of diabetes mellitus; Z53.09 Procedure and treatment not carried out because of other contraindication; T50.2X5A Adverse effect of carbonic-anhydrase inhibitors, benzothiadiazides and other diuretics, initial encounter; M51.36 Other intervertebral disc degeneration, lumbar region; I27.20 Pulmonary hypertension, unspecified; Z79.890 Hormone replacement therapy; Z88.8 Allergy status to other drugs, medicaments and biological substances
CPT/HCPCS: 36415; 71046; 80048; 80053; 83605; 83735; 83880; 84484; 85025; 85610; 85730; 87040; 87635; 93005; 93306; 94640; 96374; 96375; 99291

== ENCOUNTER → 2019-10-29 | Outpatient (CLI) | payer MEDICARE, OTHER ==
[2019-10-29 12:51] LABS: Basophils % (A) 0 %; Eosinophils # (A) 0.1 k/uL (0-0.7); Eosinophils % (A) 1 %; HCT 43.5 % (34.0-46.0); HGB 13.7 gm/dL (11.4-16.0); Hypochromasia Slight; Lymphocytes # (A) 0.6 k/uL (1.0-4.8); Lymphocytes % (A) 7 %; MCHC 31.4 g/dL (31.0-37.0); MCV 92.4 fL (80.0-100.0); Mean Platelet Volume 8.9; Monocytes # (A) 0.3 k/uL (0-1.0); Monocytes % (A) 4 %; Neutrophils # (A) 8.3 k/uL (1.3-7.7); Neutrophils % (A) 89 %; Platelet Count 232 k/uL (150-450); RBC 4.71 m/uL (3.80-5.40); RDW 14.7 % (11.5-15.5); WBC 9.4 k/uL (3.8-10.6)
[2019-10-29 19:35] LABS: Anion Gap 8.6 mmol/L (4.00-12.00); Carbon Dioxide 26.4 mmol/L (21.6-31.8); Potassium 5.4 mmol/L (3.5-5.5)
[2019-10-29 19:36] LABS: African American GFR (CKD) 35.3 (60.0-200.0); Albumin 4.1 g/dL (3.80-4.90); Albumin/Globulin Ratio 2.28 (1.60-3.17); Calcium 9.1 mg/dL (8.7-10.3); Globulin 1.8 g/dL (1.6-3.3); Non-African American GFR(CKD) 30.5 (60.0-200.0); Total Bilirubin 0.6 mg/dL (0.2-1.2); Total Protein 5.9 g/dL (6.2-8.2)
== END | disposition home or self-care (01) ==
LOC: LABWHC1 12:09
PROVIDERS: ATTEND Internal Medicine
DX: I10 Essential (primary) hypertension (principal); N17.8 Other acute kidney failure
CPT/HCPCS: 36415; 80053; 85025

== ENCOUNTER 2019-11-05 10:43 | Inpatient (IN) | payer MEDICARE, OTHER ==
[2019-11-05] MEDS ORDERED: HEPARIN SODIUM,PORCINE 5,000 UNIT/ML 1 ML VIAL IV PRN ×2 (11:10→11:41)
[2019-11-05] MEDS ORDERED: HEPARIN SODIUM,PORCINE 10,000 UNIT/ML 1 ML VIAL IV ONE ×2 (11:10→11:41)
--- NOTE | 2019-11-05 11:10 | ED ---
Arrhythmia/Palpitations HPI - General Source: patient Mode of arrival: ambulatory Limitations: no limitations <OscarLucy pretty - Last Filed: 11/05/19 11:09> <Serge Salvador - Last Filed: 11/05/19 14:27> - General Chief Complaint: Arrhythmia/Palpitations Stated Complaint: fast heart rate Time Seen by Provider: 11/05/19 10:51 - Related Data Home Medications Medication Instructions Recorded Confirmed Carisoprodol [Soma] 350 mg PO BID PRN 03/08/16 10/23/19 Fenofibrate 160 mg PO DAILY 03/08/16 10/23/19 Glimepiride [Amaryl] 4 mg PO BID 03/08/16 10/23/19 HYDROcodone/APAP 5-325MG [Blodgett 1 tab PO Q12H PRN 03/08/16 10/23/19 5-325] Zolpidem Tartrate [Ambien] 10 mg PO HS 03/08/16 10/23/19 Budesonide/Formoterol Fumarate 2 puff INHALATION RT-BID 10/23/19 10/23/19 [Symbicort 160-4.5 Mcg Inhaler] Ipratropium-Albuterol Nebulize 3 ml INHALATION RT-QID PRN 10/23/19 10/23/19 [Duoneb 0.5 mg-3 mg/3 ml Soln] Raloxifene [Evista] 60 mg PO DAILY 10/23/19 10/23/19 Atorvastatin Calcium [Lipitor] 80 mg PO DAILY 10/24/19 10/24/19 Previous Rx's Medication Instructions Recorded Aspirin 81 mg PO DAILY chew 10/26/19 Linagliptin [Tradjenta] 5 mg PO DAILY #30 tablet 10/26/19 Metoprolol Succinate (ER) [Toprol 25 mg PO DAILY #30 tab.er.24h 10/26/19 XL] guaiFENesin [Mucinex] 600 mg PO Q12HR PRN tablet.er 10/26/19 predniSONE 0 mg PO DIRECTED #30 tab 10/26/19 Furosemide [Lasix] 40 mg PO DAILY #30 tablet 10/27/19 Allergies Allergy/AdvReac Type Severity Reaction Status Date / Time warfarin sodium Allergy "very high Verified 11/05/19 10:51 [From Coumadin] PT/INR-was told never to take" Review of Systems ROS Other: All systems not noted in ROS Statement are negative. <OscarLucy pretty - Last Filed: 11/05/19 11:09> ROS Other: All systems not noted in ROS Statement are negative. <Serge Salvador - Last Filed: 11/05/19 14:27> ROS Statement: Those systems with pertinent positive or pertinent negative responses have been documented in the HPI. Past Medical History Past Medical History: Heart Failure, COPD, Diabetes Mellitus, Eye Disorder, Hyperlipidemia, Hypertension, Osteoarthritis (OA) History of Any Multi-Drug Resistant Organisms: None Reported Past Surgical History: Appendectomy, Cholecystectomy, Joint Replacement, Orthopedic Surgery, Tonsillectomy, Tubal Ligation Additional Past Surgical History / Comment(s): mass in neck parotid gland removed, right hip surgery, ruptured appendix- temporary colostomy with reversal, cataracts Past Anesthesia/Blood Transfusion Reactions: No Reported Reaction Past Psychological History: No Psychological Hx Reported Smoking Status: Former smoker Past Alcohol Use History: None Reported Past Drug Use History: None Reported - Past Family History Mother Family Medical History: Congestive Heart Failure (CHF), Diabetes Mellitus Additional Family Medical History / Comment(s): lived to eightys Father Family Medical History: CVA/TIA, Myocardial Infarction (MO) Additional Family Medical History / Comment(s): lived to eightys <Lucy Maravilla - Last Filed: 11/05/19 11:09> General Exam Limitations: no limitations <Lucy Maravilla - Last Filed: 11/05/19 11:09> Course Vital Signs 11/05/19 11/05/19 11/05/19 10:47 11:30 11:41 Temperature 98.3 F Pulse Rate 137 H 137 H Pulse Rate [ 136 H Respiratory Care Faculty ] Respiratory 22 20 Rate Blood Pressure 98/74 101/75 O2 Sat by Pulse 96 96 Oximetry 11/05/19 11/05/19 11/05/19 11:45 11:50 12:10 Temperature Pulse Rate 143 H 125 H 133 H Pulse Rate [ Respiratory Care Faculty ] Respiratory 22 22 22 Rate Blood Pressure 90/69 97/68 100/71 O2 Sat by Pulse 98 99 99 Oximetry 11/05/19 11/05/19 12:30 14:00 Temperature Pulse Rate 132 H 142 H Pulse Rate [ Respiratory Care Faculty ] Respiratory 20 20 Rate Blood Pressure 99/76 123/89 O2 Sat by Pulse 99 98 Oximetry Medical Decision Making - Lab Data Result diagrams: 11/05/19 11:08 11/05/19 11:08 <Serge Salvador - Last Filed: 11/05/19 14:27> - Medical Decision Making Patient was signed out to me by physician visitor services information assistant Lolis Maravilla. Briefly, patient 69-year-old female she has past medical history of 20-25% ejection fraction. She has allegedly severe cardiomyopathy. She says history of COPD. Recently admitted to the hospital for heart failure. She had echocardiogram performed 12 days ago showing 20/25 percent ejection fraction. Patient is discharged from the hospital home with Treva. She presents today for chief complaint of shortness of breath and palpitations. Patient by initial evaluation does not. Dyspneic. She does have diffuse wheezing on auscultation of the lungs. Patient recently hospitalized however she does not have a history of DVT or blood clot. She is not on any anticoagulation medications. She does complain of bilateral LEG swelling gets worse on the left leg. Laboratory evaluation obtained. Mild leukocytosis of 13.9, d-dimer of 1.6. Metabolic panel shows sodium 129, potassium 5.9 with hemolysis. Elevated renal markers would be one of 81 and creatinine 1.6. Glucose 293. Troponin 0.069 which is above patient's baseline. Patient also has bnp of 20,600 which is increased from almost 2 weeks ago. Given patient's kidney function we withheld and contrast administration. She was sent for VQ scan. Venous Doppler of the left lower extremity was unremarkable for DVT. Chest x-ray shows shows no acute pulmonary processes. Bony care bedside ultrasound was performed showing no pericardial effusion. At this point is unclear what is causing patient's tachycardia currently. While awaiting VQ scan patient was heparinized for concerns of pulmonary embolus. She does not have any chest pain. She reports that she slept well last night even while lying supine.VQ scan shows high probability for PE though exam according to radiologist although radiologist tegan sibley comment that exam appeared to be limited. Case is discussed with Dr. Frero. Patient is well-appearing at this time she is not hypoxic. Patient be admitted to cardiac telemetry. She'll be continued on heparin. Case was discussed with Dr. Jalloh of ICU who requests the patient be admitted to a monitored telemetry bed. (Serge Salvador) - Lab Data Lab Results 11/05/19 11/05/19 11/05/19 Range/Units 11:08 11:08 11:08 WBC 13.9 H (3.8-10.6) k/uL RBC 4.68 (3.80-5.40) m/uL Hgb 14.0 (11.4-16.0) gm/dL Hct 43.4 (34.0-46.0) % MCV 92.8 (80.0-100.0) fL MCH 29.9 (25.0-35.0) pg MCHC 32.2 (31.0-37.0) g/dL RDW 14.9 (11.5-15.5) % Plt Count 179 (150-450) k/uL Neutrophils % 90 % Lymphocytes % 5 % Monocytes % 3 % Eosinophils % 1 % Basophils % 0 % Neutrophils # 12.6 H (1.3-7.7) k/uL Lymphocytes # 0.7 L (1.0-4.8) k/uL Monocytes # 0.5 (0-1.0) k/uL Eosinophils # 0.1 (0-0.7) k/uL Basophils # 0.0 (0-0.2) k/uL Hypochromasia Slight PT 11.6 (9.0-12.0) sec INR 1.1 (<1.2) APTT 21.1 L (22.0-30.0) sec D-Dimer 1.60 H (<0.60) mg/L FEU Sodium 129 L (137-145) mmol/L Potassium 5.9 H (3.5-5.1) mmol/L Chloride 96 L (98-107) mmol/L Carbon Dioxide 23 (22-30) mmol/L Anion Gap 10 mmol/L BUN 81 H (7-17) mg/dL Creatinine 1.86 H (0.52-1.04) mg/dL Est GFR (CKD-EPI)AfAm 32 (>60 ml/min/1.73 sqM) Est GFR (CKD-EPI)NonAf 27 (>60 ml/min/1.73 sqM) Glucose 293 H (74-99) mg/dL Plasma Lactic Acid Asif (0.7-2.0) mmol/L Calcium 9.8 (8.4-10.2) mg/dL Magnesium 2.3 (1.6-2.3) mg/dL Total Bilirubin 1.0 (0.2-1.3) mg/dL AST 37 H (14-36) U/L ALT 42 H (4-34) U/L Alkaline Phosphatase 21 L (38-126) U/L Troponin I (0.000-0.034) ng/mL NT-Pro-B Natriuret Pep pg/mL Total Protein 6.4 (6.3-8.2) g/dL Albumin 3.9 (3.5-5.0) g/dL TSH 2.410 (0.465-4.680) mIU/L 11/05/19 11/05/19 11/05/19 Range/Units 11:08 11:08 12:35 WBC (3.8-10.6) k/uL RBC (3.80-5.40) m/uL Hgb (11.4-16.0) gm/dL Hct (34.0-46.0) % MCV (80.0-100.0) fL MCH (25.0-35.0) pg MCHC (31.0-37.0) g/dL RDW (11.5-15.5) % Plt Count (150-450) k/uL Neutrophils % % Lymphocytes % % Monocytes % % Eosinophils % % Basophils % % Neutrophils # (1.3-7.7) k/uL Lymphocytes # (1.0-4.8) k/uL Monocytes # (0-1.0) k/uL Eosinophils # (0-0.7) k/uL Basophils # (0-0.2) k/uL Hypochromasia PT (9.0-12.0) sec INR (<1.2) APTT (22.0-30.0) sec D-Dimer (<0.60) mg/L FEU Sodium (137-145) mmol/L Potassium (3.5-5.1) mmol/L Chloride (98-107) mmol/L Carbon Dioxide (22-30) mmol/L Anion Gap mmol/L BUN (7-17) mg/dL Creatinine (0.52-1.04) mg/dL Est GFR (CKD-EPI)AfAm (>60 ml/min/1.73 sqM) Est GFR (CKD-EPI)NonAf (>60 ml/min/1.73 sqM) Glucose (74-99) mg/dL Plasma Lactic Acid Asif 1.5 (0.7-2.0) mmol/L Calcium (8.4-10.2) mg/dL Magnesium (1.6-2.3) mg/dL Total Bilirubin (0.2-1.3) mg/dL AST (14-36) U/L ALT (4-34) U/L Alkaline Phosphatase (38-126) U/L Troponin I 0.069 H* (0.000-0.034) ng/mL NT-Pro-B Natriuret Pep 62151 pg/mL Total Protein (6.3-8.2) g/dL Albumin (3.5-5.0) g/dL TSH (0.465-4.680) mIU/L Disposition <Lucy Maravilla L - Last Filed: 11/05/19 11:09> Decision Time: 14:27 <Serge Salvador - Last Filed: 11/05/19 14:27> Clinical Impression: Tachycardia, Dyspnea Disposition: ADMITTED IP TO THIS HOSP Condition: Critical Referrals: Franc Ferro MD [Primary Care Provider] - 1-2 days
[2019-11-05] MEDS ORDERED: HEPARIN SOD,PORK IN 0.45% NACL 25,000 UNIT in 0.45% NACL 1 250ML.BAG IV SCH (11:15)
--- NOTE | 2019-11-05 11:22 | XR ---
EXAMINATION TYPE: XR chest 2V DATE OF EXAM: 11/05/2019 COMPARISON: Prior chest x-ray 10/23/2019 HISTORY: Dysrhythmia TECHNIQUE: Frontal and lateral views of the chest are obtained. FINDINGS: There is no focal air space opacity, pleural effusion, or pneumothorax seen. Bandlike area s of increased attenuation in the left mid lung likely reflects scarring. There are overlying cardiac leads. The cardiac silhouette size is enlarged as on prior. The osseous structures are intact. IMPRESSION: No acute cardiopulmonary process. Stable cardiomegaly.
[2019-11-05 11:32] LABS: Albumin 3.9 g/dL (3.5-5.0); Basophils % (A) 0 %; Calcium 9.8 mg/dL (8.4-10.2); Eosinophils # (A) 0.1 k/uL (0-0.7); Eosinophils % (A) 1 %; HCT 43.4 % (34.0-46.0); Hypochromasia Slight; Lymphocytes # (A) 0.7 k/uL (1.0-4.8); Lymphocytes % (A) 5 %; MCH 29.9 pg (25.0-35.0); MCHC 32.2 g/dL (31.0-37.0); MCV 92.8 fL (80.0-100.0); Monocytes # (A) 0.5 k/uL (0-1.0); Monocytes % (A) 3 %; Neutrophils # (A) 12.6 k/uL (1.3-7.7); Neutrophils % (A) 90 %; Platelet Count 179 k/uL (150-450); RBC 4.68 m/uL (3.80-5.40); RDW 14.9 % (11.5-15.5); Total Protein 6.4 g/dL (6.3-8.2); WBC 13.9 k/uL (3.8-10.6)
[2019-11-05] MEDS ORDERED: SODIUM CHLORIDE 0.9% 500 ML 500 ML IV ONE ×2 (11:40→12:34)
[2019-11-05 11:41] LABS: Magnesium 2.3 mg/dL (1.6-2.3); Potassium 5.9 mmol/L (3.5-5.1)
[2019-11-05] MEDS ORDERED: ONDANSETRON 4 MG/2 ML VIAL IVP STA (11:42)
[2019-11-05 11:44] LABS: INR 1.1 (<1.2); Prothrombin Time 11.6 sec (9.0-12.0)
[2019-11-05 11:46] LABS: D-Dimer 1.6 mg/L FEU (<0.60)
[2019-11-05 11:47] LABS: Partial Thromboplastin Time 21.1 sec (22.0-30.0)
[2019-11-05] MEDS ORDERED: SODIUM CHLORIDE 0.9% 1,000 ML IV SCH (12:00)
--- NOTE | 2019-11-05 12:02 | US ---
EXAMINATION TYPE: US venous doppler duplex LE LT DATE OF EXAM: 11/05/2019 11:11 AM COMPARISON: NONE CLINICAL HISTORY: left leg swelling. SIDE PERFORMED: Left TECHNIQUE: The lower extremity deep venous system is examined utilizing real time linear array sonog alfredo with graded compression, doppler sonography and color-flow sonography. VESSELS IMAGED: External Iliac Vein (EIV) Common Femoral Vein Deep Femoral Vein Greater Saphenous Vein * Femoral Vein Popliteal Vein Small Saphenous Vein * Proximal Calf Veins (* superficial vessels) Grayscale, color doppler, spectral doppler imaging performed of the deep veins of the left lower extr emity. There is normal flow, compressibility, vascular waveforms. Left Leg: Negative for DVT IMPRESSION: No sonographic evidence of deep venous thrombosis within the left lower extremity.
[2019-11-05] MEDS ORDERED: SODIUM CHLORIDE 0.9% 1,000 ML IV STA (12:07)
[2019-11-05] MEDS ORDERED: SODIUM CHLORIDE 0.9% 1,000 ML IV ONE (12:19)
[2019-11-05] MEDS: HEPARIN SOD,PORK IN 0.45% NACL 25,000 UNIT in 0.45% NACL 1 250ML.BAG IV SCH (12:30)
[2019-11-05] MEDS: SODIUM CHLORIDE 0.9% 1,000 ML IV SCH (12:32)
[2019-11-05] MEDS ORDERED: NALOXONE 0.4 MG/ML 1 ML VIAL IV PRN (14:09)
[2019-11-05] MEDS ORDERED: ONDANSETRON 4 MG/2 ML VIAL IVP PRN (14:09)
[2019-11-05] MEDS ORDERED: ACETAMINOPHEN TAB 325 MG TAB PO PRN (14:09)
--- NOTE | 2019-11-05 14:15 | NM ---
EXAMINATION TYPE: NM pul vent and perfuse DATE OF EXAM: 11/05/2019 COMPARISON: Chest x-ray the same date HISTORY: Suspected PE. Elevated d-dimer. TECHNIQUE: Utilizing inhalation of 37.3 mCi Tc 99m DTPA aerosol and intravenous injection of 5.4 mCi of Tc 99m MAA, ventilation and perfusion images are acquired post injection in multiple projections. FINDINGS: Abnormal radiotracer throughout the lungs. Ventilation portion of the examination is essentially nond iagnostic due to central radiotracer clumping. Perfusion images demonstrate a large defect of the lef t lung in comparison to the right and multifocal small segmental defects on the left. Heart appears e nlarged. IMPRESSION: High probability for pulmonary embolus although the exam is limited as the ventilation portion is non diagnostic due to central radiotracer clumping suggesting an additional component of central bronchia l airway disease.
[2019-11-05 18:10] LABS: Glucose,Whole Blood 203 mg/dL (75-99)
[2019-11-05] MEDS ORDERED: HYDROcodone/APAP 5-325MG 1 EACH TAB PO PRN (20:19)
[2019-11-05] MEDS ORDERED: CARISOPRODOL 350 MG TAB PO PRN (20:19)
[2019-11-05 20:25] LABS: Glucose,Whole Blood 199 mg/dL (75-99)
[2019-11-05] MEDS ORDERED: DILTIAZEM 125 MG in SODIUM CHLORIDE 0.9% 100 ML IV SCH (20:45)
[2019-11-05] MEDS ORDERED: ZOLPIDEM 10 MG TAB PO PRN (21:00)
[2019-11-05] MEDS: GLIMEPIRIDE 4 MG TAB PO SCH (21:03)
[2019-11-05] MEDS: INSULIN ASPART (NovoLOG) 100 UNIT/ML VIAL SQ SCH (21:03)
[2019-11-06] MEDS: HEPARIN SOD,PORK IN 0.45% NACL 25,000 UNIT in 0.45% NACL 1 250ML.BAG IV SCH ×2 (05:03→20:44)
[2019-11-06 06:15] LABS: Glucose,Whole Blood 251 mg/dL (75-99)
[2019-11-06] MEDS: INSULIN ASPART (NovoLOG) 100 UNIT/ML VIAL SQ SCH ×4 (06:21→20:45)
[2019-11-06 07:44] LABS: Basophils % (A) 0 %; Eosinophils % (A) 0 %; HCT 36.5 % (34.0-46.0); HGB 11.4 gm/dL (11.4-16.0); Hypochromasia Marked; Lymphocytes # (A) 1.2 k/uL (1.0-4.8); Lymphocytes % (A) 10 %; MCH 29.4 pg (25.0-35.0); MCHC 31.2 g/dL (31.0-37.0); MCV 94.4 fL (80.0-100.0); Mean Platelet Volume 9.3; Monocytes # (A) 0.4 k/uL (0-1.0); Monocytes % (A) 3 %; Neutrophils # (A) 10.8 k/uL (1.3-7.7); Neutrophils % (A) 86 %; Platelet Count 163 k/uL (150-450); RBC 3.87 m/uL (3.80-5.40); RDW 14.7 % (11.5-15.5); WBC 12.5 k/uL (3.8-10.6)
[2019-11-06] MEDS: guaiFENesin 600 MG TABLET.ER PO SCH ×2 (08:39→20:41)
[2019-11-06] MEDS: GLIMEPIRIDE 4 MG TAB PO SCH ×2 (08:39→20:41)
[2019-11-06] MEDS ORDERED: IPRATROPIUM-ALBUTEROL 3 ML NEB INHALATION STA (10:20)
--- NOTE | 2019-11-06 11:32 | P.CRDCN ---
History of Present Illness Consult date: 11/06/19 Chief complaint: Shortness of breath History of present illness: This is a pleasant 69-year-old female with history of hypertension, diabetes, hyperlipidemia, COPD, nicotine dependence, who was recently in the hospital with a heart failure exacerbation, she underwent an echocardiogram with Doppler study during that admission which revealed an ejection fraction of 20- 25%, moderate MR, moderate TR. Because of worsening renal function and cardiac catheterization was not performed during that admission but the plan was to perform a cath as an outpatient. She presented back to the hospital on this occasion with symptoms again of shortness of breath as well as palpitations. Her chest x-ray did not reveal any acute process. Venous duplex study was performed which was negative for DVT in either lower extremity. EKG showed a sinus tachycardia with nonspecific ST-T wave changes. A lung perfusion scan was performed which revealed high probability for pulmonary embolism. Patient is currently on IV heparin. Her blood pressure 90/50 with a heart rate of 70, 92% on room air. White blood cell count 13.9, hemoglobin 14, platelet count 179. Sodium 129, potassium 5.5, BUN 81 and creatinine 1.8. D-dimer 1.6. Troponin 0.069 and BNP level 20,600. The patient was initiated on a Cardizem drip on arrival here, we will discontinue that because of the documented cardiomyopathy and start the patient on a beta maranda. She is not currently on any IV Lasix and overall her lungs sound clear. Past Medical History Past Medical History: Heart Failure, COPD, Diabetes Mellitus, Eye Disorder, Hyperlipidemia, Hypertension, Osteoarthritis (OA) History of Any Multi-Drug Resistant Organisms: None Reported Past Surgical History: Appendectomy, Cholecystectomy, Joint Replacement, Orthopedic Surgery, Tonsillectomy, Tubal Ligation Additional Past Surgical History / Comment(s): mass in neck parotid gland removed, right hip surgery, ruptured appendix- temporary colostomy with reversal, cataracts Past Anesthesia/Blood Transfusion Reactions: No Reported Reaction Past Psychological History: No Psychological Hx Reported Smoking Status: Former smoker Past Alcohol Use History: None Reported Past Drug Use History: None Reported - Past Family History Mother Family Medical History: Congestive Heart Failure (CHF), Diabetes Mellitus Additional Family Medical History / Comment(s): lived to eightys Father Family Medical History: CVA/TIA, Myocardial Infarction ([place]) Additional Family Medical History / Comment(s): lived to [facility] Medications and Allergies Home Medications Medication Instructions Recorded Confirmed Type Carisoprodol [Soma] 350 mg PO BID PRN 03/08/16 11/05/19 History Fenofibrate 160 mg PO DAILY 03/08/16 11/05/19 History Glimepiride [Amaryl] 4 mg PO BID 03/08/16 11/05/19 History HYDROcodone/APAP 5-325MG [[place] 1 tab PO Q12H PRN 03/08/16 11/05/19 History 5-325] Zolpidem Tartrate [Ambien] 10 mg PO HS 03/08/16 11/05/19 History Budesonide/Formoterol Fumarate 2 puff INHALATION RT-BID 10/23/19 11/05/19 History [Symbicort 160-4.5 Mcg Inhaler] Ipratropium-Albuterol Nebulize 3 ml INHALATION RT-QID PRN 10/23/19 11/05/19 History [Duoneb 0.5 mg-3 mg/3 ml Soln] Raloxifene [Evista] 60 mg PO DAILY 10/23/19 11/05/19 History Atorvastatin Calcium [Lipitor] 80 mg PO DAILY 10/24/19 11/05/19 History Aspirin 81 mg PO DAILY chew 10/26/19 11/05/19 Rx Linagliptin [Tradjenta] 5 mg PO DAILY #30 tablet 10/26/19 11/05/19 Rx Metoprolol Succinate (ER) [Toprol 25 mg PO DAILY #30 tab.er.24h 10/26/19 11/05/19 Rx XL] guaiFENesin [Mucinex] 600 mg PO Q12HR PRN tablet.er 10/26/19 11/05/19 Rx Furosemide [Lasix] 40 mg PO Q48H 11/05/19 11/05/19 History Allergies Allergy/AdvReac Type Severity Reaction Status Date / Time warfarin sodium Allergy "very high Verified 11/05/19 17:58 [From Coumadin] PT/INR-was told never to take" Physical Exam Vitals: Vital Signs Temp Pulse Pulse Resp BP BP Pulse Ox 11/06/19 08:00 98.3 F 85 24 91/50 93 L 11/06/19 03:39 98.6 F 71 18 91/54 92 L 11/05/19 23:16 95 16 11/05/19 23:10 98.2 F 95 16 92/52 100 11/05/19 19:56 150 H 18 11/05/19 19:40 98.0 F 150 H 18 92/60 98 11/05/19 18:16 98.3 F 133 H 22 91/60 98 11/05/19 17:30 98.3 F 134 H 22 109/56 97 11/05/19 16:00 120 H 133 H 22 134/90 97 11/05/19 15:00 131 H 20 122/65 99 11/05/19 14:00 142 H 20 123/89 98 11/05/19 12:30 132 H 20 99/76 99 11/05/19 12:10 133 H 22 100/71 99 11/05/19 11:50 125 H 22 97/68 99 11/05/19 11:45 143 H 22 90/69 98 11/05/19 11:41 136 H 11/05/19 11:30 137 H 20 101/75 96 Intake and Output 11/05/19 11/06/19 11/06/19 22:59 06:59 14:59 Intake Total 309.841 565.198 120 Output Total 100 100 100 Balance 209.841 465.198 20 Intake: Intake, IV Titration 309.841 565.198 Amount Diltiazem 125 mg In 15 40 Sodium Chloride 0.9% 100 ml @ 5 MG/HR 5 mls/hr IV .Q24H [facility] Rx#:[id number] Heparin Sod,Pork in 0.45% 94.841 125.198 NaCl 25,000 unit In 0.45 % NaCl 1 250ml.bag @ 18 UNITS/KG/HR 16.166 mls/hr IV .[id number] [facility] Rx#: [id number] Sodium Chloride 0.9% 1, 200 400 000 ml @ 50 mls/hr IV . Q20H [facility] Rx#:[id number] Oral 120 Output: Urine 100 100 100 Other: Voiding Method Toilet Toilet # Voids 1 1 1 # Bowel Movements 0 Weight 91.1 kg PHYSICAL EXAMINATION: GENERAL: 69-year-old female in no acute distress at the time of my examination HEENT: Head is atraumatic, normocephalic. Pupils equal, round. Sclera anicteric. Conjunctiva are clear. Mucous membranes of the mouth are moist. Neck is supple. There is no elevated jugular venous pressure. No carotid bruit is heard. HEART EXAMINATION: Heart S1 S2 1 systolic murmur is heard CHEST EXAMINATION: Lungs reveal coarse wheezing throughout ABDOMEN: Soft, nontender. Bowel sounds are heard. No organomegaly noted. EXTREMITIES: 2+ peripheral pulses with no evidence of peripheral edema and no calf tenderness noted. NEUROLOGIC patient is awake, alert and oriented 3. Results 11/06/19 07:21 11/05/19 19:25 Cardiac Enzymes 11/05/19 11/05/19 Range/Units 11:08 11:08 AST 37 H (14-36) U/L Troponin I 0.069 H* (0.000-0.034) ng/mL Coagulation 11/05/19 11/05/19 11/06/19 Range/Units 11:08 17:25 01:10 PT 11.6 (9.0-12.0) sec APTT 21.1 L 142.3 H* 87.2 H (22.0-30.0) sec 11/06/19 Range/Units 07:21 PT (9.0-12.0) sec APTT 55.7 H (22.0-30.0) sec CBC 11/05/19 11/06/19 Range/Units 11:08 07:21 WBC 13.9 H 12.5 H (3.8-10.6) k/uL RBC 4.68 3.87 (3.80-5.40) m/uL Hgb 14.0 11.4 (11.4-16.0) gm/dL Hct 43.4 36.5 (34.0-46.0) % Plt Count 179 163 (150-450) k/uL Comprehensive Metabolic Panel 11/05/19 11/05/19 Range/Units 11:08 19:25 Sodium 129 L (137-145) mmol/L Potassium 5.9 H 5.5 H (3.5-5.1) mmol/L Chloride 96 L (98-107) mmol/L Carbon Dioxide 23 (22-30) mmol/L BUN 81 H (7-17) mg/dL Creatinine 1.86 H (0.52-1.04) mg/dL Glucose 293 H (74-99) mg/dL Calcium 9.8 (8.4-10.2) mg/dL AST 37 H (14-36) U/L ALT 42 H (4-34) U/L Alkaline Phosphatase 21 L (38-126) U/L Total Protein 6.4 (6.3-8.2) g/dL Albumin 3.9 (3.5-5.0) g/dL Current Medications Generic Name Dose Route Start Last Admin Trade Name Freq PRN Reason Stop Dose Admin Acetaminophen 650 mg 11/05/19 14:09 Tylenol Tab PO Q6HR PRN Mild Pain or Fever > 100.5 Hydrocodone Bitart/Acetaminophen 1 each 11/05/19 20:19 [place] 5-325 PO Q12H PRN Pain Albuterol/Ipratropium 3 ml 11/06/19 10:18 Duoneb 0.5 Mg-3 Mg/3 Ml Soln INHALATION RT-QID PRN Shortness Of Breath Or Wheezing Aspirin 81 mg 11/06/19 10:45 Aspirin PO DAILY [facility] Atorvastatin Calcium 80 mg 11/06/19 10:45 Lipitor PO DAILY [facility] Budesonide/Formoterol Fumarate 2 puff 11/06/19 20:00 Symbicort 160-4.5 Mcg Inhaler INHALATION RT-BID [facility] Carisoprodol 350 mg 11/05/19 20:19 11/05/19 21:14 Soma PO 350 mg BID PRN Administration Muscle Spasm Glimepiride 4 mg 11/05/19 21:00 11/06/19 08:39 Amaryl PO 4 mg BID [facility] Administration Guaifenesin 600 mg 11/06/19 09:00 11/06/19 08:39 Mucinex PO 600 mg BID [facility] Administration Heparin Sodium (Porcine) 0 unit 11/05/19 11:41 Heparin IV PER PROTOCOL PRN Low PTT Protocol Heparin Sodium/Sodium Chloride 250 mls @ 16.166 mls/hr 11/05/19 11:45 11/06/19 05:03 25,000 unit/ Sodium Chloride IV 13 units/kg/hr .[id number] [facility] 11.675 mls/hr Administration Protocol 18 UNITS/KG/HR Sodium Chloride 1,000 mls @ 50 mls/hr 11/05/19 12:30 11/05/19 12:32 Saline 0.9% IV 50 mls/hr .Q20H [facility] Administration Insulin Aspart 0 unit 11/05/19 21:00 11/06/19 06:21 Novolog SQ 4 unit ACHS [facility] Administration Protocol Linagliptin 5 mg 11/06/19 10:45 Tradjenta PO DAILY [facility] Metoprolol Succinate 25 mg 11/06/19 10:45 Toprol Xl PO BID [facility] Naloxone HCl 0.2 mg 11/05/19 14:09 Narcan IV Q2M PRN Opioid Reversal Ondansetron HCl 4 mg 11/05/19 14:09 Zofran IVP Q8HR PRN Nausea And Vomiting Prednisone 30 mg 11/07/19 09:00 PO DAILY [facility] Raloxifene HCl 60 mg 11/07/19 09:00 Evista PO DAILY [facility] Zolpidem Tartrate 10 mg 11/05/19 21:00 11/05/19 21:14 Ambien PO 10 mg HS PRN Administration Insomnia Intake and Output 11/05/19 11/06/19 11/06/19 22:59 06:59 14:59 Intake Total 309.841 565.198 120 Output Total 100 100 100 Balance 209.841 465.198 20 Intake: Intake, IV Titration 309.841 565.198 Amount Diltiazem 125 mg In 15 40 Sodium Chloride 0.9% 100 ml @ 5 MG/HR 5 mls/hr IV .Q24H [facility] Rx#:[id number] Heparin Sod,Pork in 0.45% 94.841 125.198 NaCl 25,000 unit In 0.45 % NaCl 1 250ml.bag @ 18 UNITS/KG/HR 16.166 mls/hr IV .[id number] [facility] Rx#: [id number] Sodium Chloride 0.9% 1, 200 400 000 ml @ 50 mls/hr IV . Q20H [facility] Rx#:[id number] Oral 120 Output: Urine 100 100 100 Other: Voiding Method Toilet Toilet # Voids 1 1 1 # Bowel Movements 0 Weight 91.1 kg 11/06/19 07:21 11/05/19 19:25 EKG Interpretations (text) EKG shows a sinus tachycardia with nonspecific ST-T wave changes Assessment and Plan Plan: Assessment and plan #1 symptoms of shortness of breath with evidence of high probability for PE on perfusion scan #2 severe cardiomyopathy with documented ejection fraction of 20-20% with mild to moderate tricuspid regurg #3 mild abnormality in troponin. Could be secondary to pulmonary embolism, patient however could have underlying coronary artery disease, and was scheduled to have a cardiac catheterization as an outpatient because of the newly diagnosed cardiomyopathy #4 COPD with acute exacerbation #5 hypertension #6 hyperlipidemia #7 diabetes #8 nicotine dependence #9 acute on chronic renal insufficiency #10 systolic congestive heart failure, acute on chronic Plan Patient is currently on IV heparin because of the high probability for pulmonary embolism. She is not currently on an [place] inhibitor or Aldactone because of the abnormal kidney function and elevated potassium. We will discontinue the Cardizem drip and resume her beta maranda. We will also give the patient some IV Lasix. Decrease her IV fluids. Patient also received 5000 L of fluid in the emergency room. Further recommendations to follow. DNP note has been reviewed, I agree with a documented findings and plan of care. Patient was seen and examined.
[2019-11-06] MEDS: IPRATROPIUM-ALBUTEROL 3 ML NEB INHALATION PRN ×2 (12:00→16:40)
[2019-11-06 12:01] LABS: Glucose,Whole Blood 201 mg/dL (75-99)
[2019-11-06 12:21] LABS: Calcium 8.8 mg/dL (8.4-10.2); Magnesium 2.4 mg/dL (1.6-2.3); Potassium 5.4 mmol/L (3.5-5.1)
[2019-11-06] MEDS: LINAGLIPTIN 5 MG TABLET PO SCH (12:22)
[2019-11-06] MEDS: ATORVASTATIN 80 MG TAB PO SCH (12:22)
[2019-11-06] MEDS: ASPIRIN 81 MG PO SCH (12:22)
[2019-11-06] MEDS: METOPROLOL SUCCINATE (ER) 25 MG TAB.ER.24H PO SCH ×2 (12:24→20:41)
[2019-11-06] MEDS: NICOTINE 14MG/24HR PATCH TRANSDERM SCH (12:33)
[2019-11-06] MEDS ORDERED: FUROSEMIDE 10 MG/ML 4 ML VIAL IV STA (12:36)
--- NOTE | 2019-11-06 13:11 | P.NPCON ---
History of Present Illness - Reason for Consult acute renal failure, chronic renal failure - History of Present Illness Reason for consultation: Acute kidney injury on chronic kidney disease History of present illness: Patient is a 69-year-old female seen in renal consultation for acute kidney injury on chronic kidney disease. Patient has chronic kidney disease stage III with baseline creatinine in the range of 1.2-1.4. Creatinine was 1.86 on admission and is up to 2.3 today. She presented to the hospital with chest palpitations and dyspnea as well. She was noted to be in atrial flutter and was maintained on Cardizem drip overnight which has now been discontinued. Her heart rate is stable in the 80s. She denies any palpitations or chest pain at this time. Patient's blood pressure has been low in the systolic 80s to 90s is in remission. VQ scan revealed high probability of PE and she is maintained on heparin drip. She received a 500 mL bolus on admission and is also been maintained on normal saline at 50 mL an hour. Patient has history of systolic CHF with ejection fraction of 20-25% with moderate mitral regurgitation and moderate tricuspid regurgitation. She does admit to edema in her lower extremities. She does have history of diabetes mellitus and is maintained on oral hypoglycemics. Denies family history of renal disease. Vital signs are stable. Blood pressure on the lower side. General: The patient appeared well nourished and normally developed. HEENT: Head exam is unremarkable. Neck is without jugular venous distension. LUNGS: Breath sounds decreased. HEART: Rate and Rhythm are regular. ABDOMEN: Soft, nontender. EXTREMITITES: 2+ edema. Past Medical History Past Medical History: Heart Failure, COPD, Diabetes Mellitus, Eye Disorder, Hyperlipidemia, Hypertension, Osteoarthritis (OA) History of Any Multi-Drug Resistant Organisms: None Reported Past Surgical History: Appendectomy, Cholecystectomy, Joint Replacement, Orthopedic Surgery, Tonsillectomy, Tubal Ligation Additional Past Surgical History / Comment(s): mass in neck parotid gland removed, right hip surgery, ruptured appendix- temporary colostomy with reversal, cataracts Past Anesthesia/Blood Transfusion Reactions: No Reported Reaction Past Psychological History: No Psychological Hx Reported Smoking Status: Former smoker Past Alcohol Use History: None Reported Past Drug Use History: None Reported - Past Family History Mother Family Medical History: Congestive Heart Failure (CHF), Diabetes Mellitus Additional Family Medical History / Comment(s): lived to eightys Father Family Medical History: CVA/TIA, Myocardial Infarction ([place]) Additional Family Medical History / Comment(s): lived to eighty Medications and Allergies Home Medications Medication Instructions Recorded Confirmed Type Carisoprodol [Soma] 350 mg PO BID PRN 03/08/16 11/05/19 History Fenofibrate 160 mg PO DAILY 03/08/16 11/05/19 History Glimepiride [Amaryl] 4 mg PO BID 03/08/16 11/05/19 History HYDROcodone/APAP 5-325MG [[place] 1 tab PO Q12H PRN 03/08/16 11/05/19 History 5-325] Zolpidem Tartrate [Ambien] 10 mg PO HS 03/08/16 11/05/19 History Budesonide/Formoterol Fumarate 2 puff INHALATION RT-BID 10/23/19 11/05/19 History [Symbicort 160-4.5 Mcg Inhaler] Ipratropium-Albuterol Nebulize 3 ml INHALATION RT-QID PRN 10/23/19 11/05/19 History [Duoneb 0.5 mg-3 mg/3 ml Soln] Raloxifene [Evista] 60 mg PO DAILY 10/23/19 11/05/19 History Atorvastatin Calcium [Lipitor] 80 mg PO DAILY 10/24/19 11/05/19 History Aspirin 81 mg PO DAILY chew 10/26/19 11/05/19 Rx Linagliptin [Tradjenta] 5 mg PO DAILY #30 tablet 10/26/19 11/05/19 Rx Metoprolol Succinate (ER) [Toprol 25 mg PO DAILY #30 tab.er.24h 10/26/19 11/05/19 Rx XL] guaiFENesin [Mucinex] 600 mg PO Q12HR PRN tablet.er 10/26/19 11/05/19 Rx Furosemide [Lasix] 40 mg PO Q48H 11/05/19 11/05/19 History Allergies Allergy/AdvReac Type Severity Reaction Status Date / Time warfarin sodium Allergy "very high Verified 11/05/19 17:58 [From Coumadin] PT/INR-was told never to take" Physical Exam Vitals: Vital Signs Temp Pulse Pulse Resp BP BP Pulse Ox 11/06/19 12:13 92 11/06/19 12:00 98.8 F 88 86 24 89/53 97 11/06/19 08:00 98.3 F 85 24 91/50 93 L 11/06/19 03:39 98.6 F 71 18 91/54 92 L 11/05/19 23:16 95 16 11/05/19 23:10 98.2 F 95 16 92/52 100 11/05/19 19:56 150 H 18 11/05/19 19:40 98.0 F 150 H 18 92/60 98 11/05/19 18:16 98.3 F 133 H 22 91/60 98 11/05/19 17:30 98.3 F 134 H 22 109/56 97 11/05/19 16:00 120 H 133 H 22 134/90 97 11/05/19 15:00 131 H 20 122/65 99 11/05/19 14:00 142 H 20 123/89 98 Intake and Output 11/05/19 11/06/19 11/06/19 22:59 06:59 14:59 Intake Total 309.841 565.198 120 Output Total 100 100 200 Balance 209.841 465.198 -80 Intake: Intake, IV Titration 309.841 565.198 Amount Diltiazem 125 mg In 15 40 Sodium Chloride 0.9% 100 ml @ 5 MG/HR 5 mls/hr IV .Q24H [facility] Rx#:[id number] Heparin Sod,Pork in 0.45% 94.841 125.198 NaCl 25,000 unit In 0.45 % NaCl 1 250ml.bag @ 18 UNITS/KG/HR 16.166 mls/hr IV .[id number] [facility] Rx#: [id number] Sodium Chloride 0.9% 1, 200 400 000 ml @ 20 mls/hr IV . Q24H [facility] Rx#:[id number] Oral 120 Output: Urine 100 100 200 Other: Voiding Method Toilet Toilet # Voids 1 1 1 # Bowel Movements 0 Weight 91.1 kg Results - Lab Results Most recent lab results Calcium 8.8 mg/dL (8.4-10.2) 11/06/19 07:21 Magnesium 2.4 mg/dL (1.6-2.3) H 11/06/19 07:21 11/06/19 07:21 11/06/19 07:21 Assessment and Plan Plan: Assessment: 1. Acute kidney injury secondary to ATN secondary to hemodynamic instability from hypotension/A flutter. Also component of cardiorenal syndrome. Creatinine 2.3 today. Rule out urinary retention. 2. Chronic kidney disease stage III with baseline creatinine in the range of 1.2-1.4 secondary to nephrosclerosis. 3. Acute on chronic systolic CHF with ejection fraction of 20-25% and moderate mitral and tricuspid regurgitation. 4. Volume overload. 5. High probability of PE maintained on IV heparin. 6. A flutter maintained on beta maranda. Status post Cardizem drip. Cardiology following. 7. Hyperkalemia secondary to acute kidney injury. Better. 8. Hyponatremia secondary to acute kidney injury. Hypervolemic. Better. Plan: Hep-Lock IV fluids. Agree with IV Lasix 40 mg twice a day. Check urinalysis. Check renal ultrasound. Check bladder scan to rule out urinary retention. Avoid nephrotoxins. Recheck potassium this evening. Thank you for the consultation. I will continue to follow the patient with you during her hospital stay.
--- NOTE | 2019-11-06 17:06 | US ---
EXAMINATION TYPE: US kidneys/renal and bladder DATE OF EXAM: 11/06/2019 COMPARISON: 09/01/[address] urogram dated 09/09/2017 CLINICAL HISTORY: wang. EXAM MEASUREMENTS: Right Kidney: 10.4 x 4.5 x 4.1 cm Left Kidney: 10.3 x 3.3 x 4.3cm Right Kidney: cyst measuring 1.2 x 1.1 x 1.1cm Left Kidney: multiple cysts largest measuring 2.3 x 2.1 x 2.4cm Bladder: Not visualized possibly due to [place] catheter placement Bilateral Jets seen: no There is no evidence for hydronephrosis at this point in time. No nephrolithiasis is seen. IMPRESSION: No hydronephrosis or nephrolithiasis. Bilateral renal lesions appear as cysts.
--- NOTE | 2019-11-06 17:12 | CONS ---
CONSULTATION PULMONARY/CRITICAL CARE CONSULTATION: DATE OF SERVICE: 11/06/2019 REASON FOR CONSULTATION: Shortness of breath and atrial fibrillation and palpitations. This is a 69-year-old female who apparently presented to the emergency room on November 04 at 10:43 a.m. with difficulty breathing and rapid heartbeat, with palpitations. The patient was evaluated and was found to have pulmonary embolism based on her ventilation- perfusion lung scan that was interpreted as being high probability for PE. The patient did have a Doppler study of the lower extremity on the left, which was negative for DVT. Currently, she is feeling much better. She is on a couple L of O2. The patient is sitting at the bedside. An EKG that was done November 04 did show sinus tachycardia with a rate of 137. The patient currently denies any fever or chills. She denies any cough or phlegm production. She denies any chest pain or chest discomfort. She states that she did not feel the palpitations anymore. She is actually feeling much improved. MEDICATIONS: Home medications are reviewed. She is on Soma, fenofibrate, Amaryl, [place], Ambien, Symbicort, DuoNeb, Evista, Lipitor, aspirin, Tradjenta, metoprolol, Mucinex, prednisone and Lasix. ALLERGIES: Warfarin. PAST MEDICAL HISTORY: Positive for CHF, COPD, diabetes, hyperlipidemia, hypertension, and DJD. PAST SURGICAL HISTORY: Includes among other things appendectomy, cholecystectomy, tonsillectomy, tubal ligation, parotid mass excision, right hip surgery, temporary colostomy with reversal, and cataract surgery. SOCIAL HISTORY: Positive for previous heavy tobacco use. She has been smoking for many, many years. Just quit recently. Denies alcohol or illicit drug use. FAMILY HISTORY: Positive for a mother with heart failure and diabetes and a father with a history of CVA and myocardial infarction. REVIEW OF SYSTEMS: CONSTITUTIONAL: Negative. NEUROLOGIC: Negative. HEENT: Negative. CARDIOVASCULAR: Palpitations, rapid heartbeat. PULMONARY: Shortness of breath. GI: Negative. : Negative. RHEUMATOLOGIC: Negative. IMMUNOLOGIC: Negative. ENDOCRINOLOGIC: Negative. DERMATOLOGIC: Negative. Current vital signs are reviewed, her temperature is 98.3, heart rate 85, respiratory rate 18, blood pressure 91/50 mean 63 and room air saturation 93% on 2 L. She is 100%. Appears in no acute distress. HEENT: Examination is grossly unremarkable. She is wearing nasal O2 the time of the evaluation. NECK: Supple full range of motion. No adenopathy. Neck veins are flat. CARDIOVASCULAR: Examination reveals regular rhythm and rate. Heart rate mid 80s. S1, S2 normal. LUNGS: Reveal diffuse inspiratory and expiratory wheezes. She likely has underlying COPD. No crackles. ABDOMEN: Soft, bowel sounds are heard. EXTREMITIES: Intact. No edema. SKIN: Without rash. NEUROLOGIC: Examination is brief but nonfocal. LABS: Reviewed. White count 12.5, hemoglobin, hematocrit and platelet count all normal. D- dimer is 1.6, PTT is 55.7. Sodium 129, potassium 5.5, chloride 96, CO2 is 23, anion gap is 10, BUN and creatinine were 81 and 1.86. AST 37, ALT 42, alk phosphatase is 21. Troponin 0.069. N terminal proBNP 20,600. X-rays have all been evaluated as were the Dopplers. Current medications are reviewed. She is currently on Tylenol, Soma, Amaryl, Mucinex, IV heparin, [place], insulin subcu, DuoNeb, Narcan, and a saline IV. ASSESSMENT: 1. Palpitations or shortness of breath, secondary to pulmonary embolism as the patient's ventilation-perfusion lung scan was high probability for PE. Dopplers of the lower extremities were negative. 2. History of underlying chronic obstructive pulmonary disease from previous heavy tobacco use. 3. History of congestive heart failure. 4. History of diabetes. 5. History of cataracts. 6. Hyperlipidemia. 7. History of hypertension. 8. History of degenerative joint disease. PLAN: Add Symbicort to her regimen. Will also give her a small dose of prednisone every day. Additional recommendations and suggestions are forthcoming. Prognosis is guarded. She should be switched to a factor Xa inhibitor soon as possible. She is clinically very stable and could be discharged home in a day or so. No additional recommendations are made. I do recommend a followup in the Pulmonary office so that we can assess her COPD. MMODL / IJN: [id number] /
[2019-11-06 17:27] LABS: Glucose,Whole Blood 90 mg/dL (75-99)
[2019-11-06 18:10] LABS: Appearance,Urine Clear (Clear); Bilirubin,Urine Negative (Negative); Blood,Urine Negative (Negative); Color,Urine Light Yellow; Glucose,Urine (UA) Negative (Negative); Ketones,Urine Negative (Negative); Leukocyte Esterase,Urine Negative (Negative); Nitrite,Urine Negative (Negative); Protein,Urine Negative (Negative); Specific Gravity,Urine 1.009 (1.001-1.035); Urobilinogen,Urine <2.0 mg/dL (<2.0)
[2019-11-06] MEDS: SYMBICORT 160-4.5 MCG INHALER INHALATION SCH (20:24)
[2019-11-06] MEDS: SODIUM CHLORIDE 0.9% 1,000 ML IV SCH (20:40)
[2019-11-06] MEDS: FUROSEMIDE 10 MG/ML 4 ML VIAL IV SCH (20:41)
[2019-11-06 20:45] LABS: Glucose,Whole Blood 59 mg/dL (75-99)
[2019-11-06 21:03] LABS: Glucose,Whole Blood 57 mg/dL (75-99)
[2019-11-06 21:20] LABS: Glucose,Whole Blood 59 mg/dL (75-99)
[2019-11-06 21:38] LABS: Glucose,Whole Blood 79 mg/dL (75-99)
[2019-11-07] MEDS: HEPARIN SOD,PORK IN 0.45% NACL 25,000 UNIT in 0.45% NACL 1 250ML.BAG IV SCH (02:32)
[2019-11-07] MEDS: SODIUM CHLORIDE 0.9% 1,000 ML IV SCH ×2 (02:34→22:46)
--- NOTE | 2019-11-07 06:11 | P.HPIM ---
History of Present Illness H&P Date: 11/06/19 Chief Complaint: Shortness of breath. This is a 69 year old white female one of my patient with a previous medical history significant for hypertension and hypertensive cardiovascular disease, mixed hyperlipidemia, diabetes mellitus type2, diabetic polyneuropathy, chronic tobacco use and dependence , COPD, and chronic pain syndrome due to severe osteoarthritis in both hips and 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 currently on chronic pain treatment, patient was hospitalized at [facility] on 10/23/2019 for acute systolic heart failure and she was found to have severe cardiomyopathy with EF 20-25% and moderate MR and TR and she was supposed to have heart cath but because of worsening renal function she was sent home as to do the heart catherization as an outpatient, patient developed to have increased shortness of reath with increased tachycardia and the home care nurse peralta me, we have initially increased her Metoprolol Er to 25 mg orally bid and decreased her lasix to every other day without any relief so she was sent to the ER her EKG initially showed Atrial fibrillation and she cardiology was consulted and she was placed on cardizem drip and heparin drip, had a VQ scan with high probability for PE , she was seen by pulmonary medicine as well, then she was converted to sinus rhythm and she was taken off her cardizem drip due to low EF and kept on heparin and was started on Metoprolol, patient also was founs to have acute kidney injury with BUN of 81 and creatinine of 1.81 was placed on IVF at 50 ml/h , nephrology seen the patient. Review of Systems Constitutional: Reports chronic pain, Reports fatigue, Reports malaise, Reports weakness, Reports weight loss, Denies anorexia Eyes: bilateral blurred vision, bilateral decreased vision Ears: deny: decreased hearing Ears, nose, mouth and throat: Denies dysphagia, Denies neck lump, Denies swelling in throat, Denies sore throat Cardiovascular: Reports chest pain, Reports decreased exercise tolerance, Reports dyspnea on exertion, Reports edema, Reports irregular heart beat, Reports leg edema, Reports lightheadedness, Reports orthopnea, Reports rapid heart beat, Reports shortness of breath, Denies syncope Respiratory: Reports congestion, Reports cough, Reports dyspnea, Reports sleep apnea, Reports snoring, Reports wheezing, Denies home oxygen Gastrointestinal: Denies abdominal pain, Denies bloating, Denies BRBPR, Denies heartburn, Denies loss of appetite, Denies melena, Denies nausea, Denies vomiting Genitourinary: Denies dysuria, Denies nocturia Menstruation: Reports postmenopausal Musculoskeletal: Reports gait dysfunction, Reports morning stiffness Musculoskeletal: bilateral: ankle swelling, foot swelling, hip pain, hip stiffness, absent: ankle pain, ankle stiffness, elbow pain, elbow stiffness, elbow swelling, foot pain, foot stiffness, hand pain, hand stiffness, hand swe lling, knee pain, knee stiffness, knee swelling, shoulder pain, shoulder stiffness, shoulder swelling, wrist pain, wrist stiffness, wrist swelling Integumentary: Denies pruritus, Denies rash Neurological: Denies numbness, Denies weakness Psychiatric: Denies anxiety, Denies depression Endocrine: Denies fatigue, Denies weight change Past Medical History Past Medical History: Atrial Fibrillation, Heart Failure, COPD, Diabetes Mellitus, Eye Disorder, GERD/Reflux, Hyperlipidemia, Hypertension, Osteoarthritis (OA) History of Any Multi-Drug Resistant Organisms: None Reported Past Surgical History: Appendectomy, Cholecystectomy, Joint Replacement, Orthopedic Surgery, Tonsillectomy, Tubal Ligation Additional Past Surgical History / Comment(s): mass in neck parotid gland removed, right hip surgery, ruptured appendix- temporary colostomy with reversal, cataracts Past Anesthesia/Blood Transfusion Reactions: No Reported Reaction Past Psychological History: No Psychological Hx Reported Smoking Status: Former smoker Past Alcohol Use History: None Reported Past Drug Use History: None Reported - Past Family History Mother Family Medical History: Congestive Heart Failure (CHF) (Mother at the age o f 86 from CAD/CHF /CABG X2 and DM2.), Diabetes Mellitus Additional Family Medical History / Comment(s): lived to eightys Father Family Medical History: CVA/TIA, Myocardial Infarction (CO) (Father at the age of 82 from CABGx4 and CVA) Additional Family Medical History / Comment(s): lived to eightys Brother(s) Family Medical History: Diabetes Mellitus (patsuyapa has 5 brothers one with DM2.) Sister(s) Family Medical History: No Reported History (Patient has 4 sisters.) Daughter(s) Family Medical History: No Reported History (Patient has 2 daughters with no major issues.) Son(s) Family Medical History: No Reported History (patient has one sone with no major issues.) Medications and Allergies Home Medications Medication Instructions Recorded Confirmed Type Carisoprodol [Soma] 350 mg PO BID PRN 03/08/16 11/05/19 History Fenofibrate 160 mg PO DAILY 03/08/16 11/05/19 History Glimepiride [Amaryl] 4 mg PO BID 03/08/16 11/05/19 History HYDROcodone/APAP 5-325MG [Crosby 1 tab PO Q12H PRN 03/08/16 11/05/19 History 5-325] Zolpidem Tartrate [Ambien] 10 mg PO HS 03/08/16 11/05/19 History Budesonide/Formoterol Fumarate 2 puff INHALATION RT-BID 10/23/19 11/05/19 History [Symbicort 160-4.5 Mcg Inhaler] Ipratropium-Albuterol Nebulize 3 ml INHALATION RT-QID PRN 10/23/19 11/05/19 History [Duoneb 0.5 mg-3 mg/3 ml Soln] Raloxifene [Evista] 60 mg PO DAILY 10/23/19 11/05/19 History Atorvastatin Calcium [Lipitor] 80 mg PO DAILY 10/24/19 11/05/19 History Aspirin 81 mg PO DAILY chew 10/26/19 11/05/19 Rx Linagliptin [Tradjenta] 5 mg PO DAILY #30 tablet 10/26/19 11/05/19 Rx Metoprolol Succinate (ER) [Toprol 25 mg PO DAILY #30 tab.er.24h 10/26/19 11/05/19 Rx XL] guaiFENesin [Mucinex] 600 mg PO Q12HR PRN tablet.er 10/26/19 11/05/19 Rx Furosemide [Lasix] 40 mg PO Q48H 11/05/19 11/05/19 History Allergies Allergy/AdvReac Type Severity Reaction Status Date / Time warfarin sodium Allergy "very high Verified 11/05/19 17:58 [From Coumadin] PT/INR-was told never to take" Physical Exam Vitals: Vital Signs Temp Pulse Pulse Resp BP BP Pulse Ox 11/06/19 03:39 98.6 F 71 18 91/54 92 L 11/05/19 23:16 95 16 11/05/19 23:10 98.2 F 95 16 92/52 100 11/05/19 19:56 150 H 18 11/05/19 19:40 98.0 F 150 H 18 92/60 98 11/05/19 18:16 98.3 F 133 H 22 91/60 98 11/05/19 17:30 98.3 F 134 H 22 109/56 97 11/05/19 16:00 120 H 133 H 22 134/90 97 11/05/19 15:00 131 H 20 122/65 99 11/05/19 14:00 142 H 20 123/89 98 11/05/19 12:30 132 H 20 99/76 99 11/05/19 12:10 133 H 22 100/71 99 11/05/19 11:50 125 H 22 97/68 99 11/05/19 11:45 143 H 22 90/69 98 11/05/19 11:41 136 H 11/05/19 11:30 137 H 20 101/75 96 11/05/19 10:47 98.3 F 137 H 22 98/74 96 Intake and Output 11/05/19 11/06/19 11/06/19 22:59 06:59 14:59 Intake Total 309.841 565.198 Output Total 100 100 Balance 209.841 465.198 Intake: Intake, IV Titration 309.841 565.198 Amount Diltiazem 125 mg In 15 40 Sodium Chloride 0.9% 100 ml @ 5 MG/HR 5 mls/hr IV .Q24H [facility] Rx#:[id number] Heparin Sod,Pork in 0.45% 94.841 125.198 NaCl 25,000 unit In 0.45 % NaCl 1 250ml.bag @ 18 UNITS/KG/HR 16.166 mls/hr IV .[id number] [facility] Rx#: [id number] Sodium Chloride 0.9% 1, 200 400 000 ml @ 50 mls/hr IV . Q20H [facility] Rx#:[id number] Output: Urine 100 100 Other: Voiding Method Toilet Toilet # Voids 1 1 Weight 91.1 kg HEENT: Head is atraumatic normocephalic pupils were equal round reactive to light, small, sclera non icteric, mucous membranes of the mouth are somewhat dry. Neck: supple no JVP. Chest : decrease breath sounds at the bases with few ronchi minimal expiratory wheezes, no intercostal retraction or chest wall tenderness. Heart: first heart sound is depressed, second heart sound is normal there is SALOME 2/6 located at the left sternal border. Abdomen: soft non tender, non distended positive bowel sounds. Extremities: there is + 2 edema no calf tenderness DP +1 Bilaterally. Neurologic examination: patient is awake, alert and oriented X 3 CN III-XII are grossly intact, muscle power 4/5 in upper and lower extremities, deep tendon reflexes are depressed. Results CBC & Chem 7: 11/06/19 07:21 11/06/19 18:12 Labs: Abnormal Lab Results - Last 24 Hours (Table) 11/05/19 11/05/19 11/05/19 Range/Units 11:08 11:08 11:08 WBC 13.9 H (3.8-10.6) k/uL Neutrophils # 12.6 H (1.3-7.7) k/uL Lymphocytes # 0.7 L (1.0-4.8) k/uL APTT 21.1 L (22.0-30.0) sec D-Dimer 1.60 H (<0.60) mg/L FEU Sodium 129 L (137-145) mmol/L Potassium 5.9 H (3.5-5.1) mmol/L Chloride 96 L (98-107) mmol/L BUN 81 H (7-17) mg/dL Creatinine 1.86 H (0.52-1.04) mg/dL Glucose 293 H (74-99) mg/dL POC Glucose (mg/dL) (75-99) mg/dL AST 37 H (14-36) U/L ALT 42 H (4-34) U/L Alkaline Phosphatase 21 L (38-126) U/L Troponin I (0.000-0.034) ng/mL 11/05/19 11/05/19 11/05/19 Range/Units 11:08 17:25 18:09 WBC (3.8-10.6) k/uL Neutrophils # (1.3-7.7) k/uL Lymphocytes # (1.0-4.8) k/uL APTT 142.3 H* (22.0-30.0) sec D-Dimer (<0.60) mg/L FEU Sodium (137-145) mmol/L Potassium (3.5-5.1) mmol/L Chloride (98-107) mmol/L BUN (7-17) mg/dL Creatinine (0.52-1.04) mg/dL Glucose (74-99) mg/dL POC Glucose (mg/dL) 203 H (75-99) mg/dL AST (14-36) U/L ALT (4-34) U/L Alkaline Phosphatase (38-126) U/L Troponin I 0.069 H* (0.000-0.034) ng/mL 11/05/19 11/05/19 11/06/19 Range/Units 19:25 20:23 01:10 WBC (3.8-10.6) k/uL Neutrophils # (1.3-7.7) k/uL Lymphocytes # (1.0-4.8) k/uL APTT 87.2 H (22.0-30.0) sec D-Dimer (<0.60) mg/L FEU Sodium (137-145) mmol/L Potassium 5.5 H (3.5-5.1) mmol/L Chloride (98-107) mmol/L BUN (7-17) mg/dL Creatinine (0.52-1.04) mg/dL Glucose (74-99) mg/dL POC Glucose (mg/dL) 199 H (75-99) mg/dL AST (14-36) U/L ALT (4-34) U/L Alkaline Phosphatase (38-126) U/L Troponin I (0.000-0.034) ng/mL 11/06/19 11/06/19 11/06/19 Range/Units 06:14 07:21 07:21 WBC 12.5 H (3.8-10.6) k/uL Neutrophils # 10.8 H (1.3-7.7) k/uL Lymphocytes # (1.0-4.8) k/uL APTT 55.7 H (22.0-30.0) sec D-Dimer (<0.60) mg/L FEU Sodium (137-145) mmol/L Potassium (3.5-5.1) mmol/L Chloride (98-107) mmol/L BUN (7-17) mg/dL Creatinine (0.52-1.04) mg/dL Glucose (74-99) mg/dL POC Glucose (mg/dL) 251 H (75-99) mg/dL AST (14-36) U/L ALT (4-34) U/L Alkaline Phosphatase (38-126) U/L Troponin I (0.000-0.034) ng/mL Thrombosis Risk Factor Assmnt - DVT/VTE Prophylaxis DVT/VTE Prophylaxis: Pharmacologic Prophylaxis ordered, Mechanical Prophylaxis ordered - Choose All That Apply Any of the Below Risk Factors Present?: Yes Each Factor Represents 1 point: Abnormal pulmonary function (COPD), Heart fa ilure (<1month), Swollen legs (current) Other Risk Factors: Yes Each Risk Factor Represents 2 Points: Age 61-74 years Other congenital or acquired thrombophilia - If yes, enter type in comment: No Thrombosis Risk Factor Assessment Total Risk Factor Score: 5 Thrombosis Risk Factor Assessment Level: High Risk Assessment and Plan Assessment: Assessment and plan: 1. Possible Pulmonary Embolism based on VQ scan report with negative doppler of both legs. we will continue with O2, heparin drip for now and pulmonary consult appreciated. 2. Atrial flutter on the initial rhythm now in sinus rhythm. we will continue with Metoprolol ER 25 mg orally bid along with heparin , will be switched to Xarelto 15 mg orally daily. 3. Severe cardiomyoapthy likely ischemic. she will be maintained on Metoprolol 25 mg orally bid, not able to use Aldactone, Entresto or WILLOW or ARB due to acute kidney injury with hyperkalemia. 4. Acute kidney injury . we will continue with IVF NS 50 ml/h, US of the kidneys reviewed and nephrology consult. 5. COPD. we will continue with O2 2 L NC, Neb Treatment and Symbicort . 6. Mild Hyponatremia. we will repeat cmp in 24 hours. 7. Mild Hyperkalemia. we will repeat labs in AM. 8. Hypertension and hypertensive cardiovascular disease. we will continue with Lisinopril 10 mg orally daily. 9. Mixed hyperlipidemia. we will continue with Lipitor 80 mg orally daily. 10. Diabetes mellitus type 2 . we will continue with Tradjenta 5 mg orally daily along with Glimeperide 4 mg orally daily, BGM daily. 11. DDD of the Lumber spine with OA. we will continue with Crosby as needed. 12. DVT prophylaxis . on Hepatin drip 13. GI Prophylaxis. we will continue with Pepcid 20 mg orally daily. 14. Full code. 15. Admits to inpatient. estimated length of stay 2 midnights.
[2019-11-07] MEDS: INSULIN ASPART (NovoLOG) 100 UNIT/ML VIAL SQ SCH ×4 (06:18→20:58)
[2019-11-07 06:19] LABS: Glucose,Whole Blood 83 mg/dL (75-99)
--- NOTE | 2019-11-07 07:06 | XR ---
EXAMINATION TYPE: XR chest 1V DATE OF EXAM: 11/07/2019 CLINICAL HISTORY: Difficulty breathing progress study. TECHNIQUE: Single AP portable frontal view of the chest is obtained. COMPARISON: Chest x-ray from 2 days earlier. Low-dose lung screening CT August 03, 2019. FINDINGS: Mild underlying emphysematous change redemonstrated without suspicious focal airspace opac ity, pleural effusion, or pneumothorax seen bilaterally. Stable cardiomegaly. Osseous structures ger in demineralized. IMPRESSION: Overall stable findings, cardiomegaly and mild chronic emphysematous change without sharmila picious acute pulmonary process.
[2019-11-07] MEDS: SYMBICORT 160-4.5 MCG INHALER INHALATION SCH ×2 (07:17→20:55)
[2019-11-07] MEDS: IPRATROPIUM-ALBUTEROL 3 ML NEB INHALATION PRN (07:17)
[2019-11-07 07:45] LABS: Basophils % (A) 0 %; Eosinophils # (A) 0.1 k/uL (0-0.7); Eosinophils % (A) 1 %; HCT 34.9 % (34.0-46.0); HGB 10.7 gm/dL (11.4-16.0); Hypochromasia Moderate; Lymphocytes # (A) 2.3 k/uL (1.0-4.8); Lymphocytes % (A) 21 %; MCH 28.5 pg (25.0-35.0); MCHC 30.7 g/dL (31.0-37.0); Mean Platelet Volume 9.4; Monocytes # (A) 0.4 k/uL (0-1.0); Monocytes % (A) 4 %; Neutrophils % (A) 73 %; Platelet Count 164 k/uL (150-450); RBC 3.75 m/uL (3.80-5.40); RDW 15.1 % (11.5-15.5); WBC 10.9 k/uL (3.8-10.6)
[2019-11-07 08:27] LABS: Magnesium 2.3 mg/dL (1.6-2.3)
[2019-11-07] MEDS: GLIMEPIRIDE 4 MG TAB PO SCH ×2 (08:38→20:58)
[2019-11-07] MEDS: ATORVASTATIN 80 MG TAB PO SCH (08:38)
[2019-11-07] MEDS: guaiFENesin 600 MG TABLET.ER PO SCH ×2 (08:38→20:58)
[2019-11-07] MEDS: predniSONE 10 MG TAB PO SCH (08:39)
[2019-11-07] MEDS: ASPIRIN 81 MG PO SCH (08:39)
[2019-11-07] MEDS: METOPROLOL SUCCINATE (ER) 25 MG TAB.ER.24H PO SCH ×2 (08:39→20:58)
[2019-11-07] MEDS: LINAGLIPTIN 5 MG TABLET PO SCH (08:39)
[2019-11-07] MEDS: NICOTINE 14MG/24HR PATCH TRANSDERM SCH (08:39)
[2019-11-07] MEDS: RALOXIFENE 60 MG TAB PO SCH (08:39)
[2019-11-07] MEDS: FUROSEMIDE 10 MG/ML 4 ML VIAL IV SCH ×2 (10:51→20:58)
[2019-11-07 11:25] LABS: Glucose,Whole Blood 203 mg/dL (75-99)
--- NOTE | 2019-11-07 12:43 | P.PN ---
Subjective Patient is seen in follow-up for acute kidney injury on chronic kidney disease. Patient has chronic kidney disease stage III with baseline creatinine in the range of 1.2-1.4. Renal function stable. Good urine output. Oral intake fair. No vomiting or diarrhea. Vital signs are stable. General: The patient appeared well nourished and normally developed. HEENT: Head exam is unremarkable. Neck is without jugular venous distension. LUNGS: Breath sounds decreased. HEART: Rate and Rhythm are regular. ABDOMEN: Soft, nontender. EXTREMITITES: 1+ edema. Objective - Vital Signs Vital signs: Vital Signs Temp 98.4 F 11/07/19 10:53 Pulse 80 11/07/19 12:00 Resp 18 11/07/19 12:00 BP 87/54 11/07/19 10:53 Pulse Ox 94 L 11/07/19 10:53 Intake & Output 11/06/19 11/07/19 11/07/19 18:59 06:59 18:59 Intake Total 320 500.818 202.58 Output Total 400 700 Balance -80 -199.182 202.58 Weight 91 kg Intake: IV 10 Invasive Line 2 10 Intake, IV Titration 390.818 72.58 Amount Heparin Sod,Pork in 0.45% 250.818 72.58 NaCl 25,000 unit In 0.45 % NaCl 1 250ml.bag @ 18 UNITS/KG/HR 16.166 mls/hr IV .[id number] [facility] Rx#: [id number] Sodium Chloride 0.9% 1, 140 000 ml @ 20 mls/hr IV . Q24H [facility] Rx#:[id number] Oral 320 100 130 Output: Urine 400 700 Other: Voiding Method Toilet # Voids 3 1 # Bowel Movements 0 - Labs CBC & Chem 7: 11/07/19 07:18 11/07/19 07:18 Labs: Abnormal Lab Results - Last 24 Hours (Table) 11/06/19 11/06/19 11/06/19 Range/Units 18:12 20:44 21:01 WBC (3.8-10.6) k/uL RBC (3.80-5.40) m/uL Hgb (11.4-16.0) gm/dL MCHC (31.0-37.0) g/dL Neutrophils # (1.3-7.7) k/uL APTT (22.0-30.0) sec Sodium (137-145) mmol/L Potassium 5.3 H (3.5-5.1) mmol/L Creatinine (0.52-1.04) mg/dL Glucose (74-99) mg/dL POC Glucose (mg/dL) 59 L 57 L (75-99) mg/dL 11/06/19 11/07/19 11/07/19 Range/Units 21:19 07:18 07:18 WBC 10.9 H (3.8-10.6) k/uL RBC 3.75 L (3.80-5.40) m/uL Hgb 10.7 L (11.4-16.0) gm/dL MCHC 30.7 L (31.0-37.0) g/dL Neutrophils # 8.0 H (1.3-7.7) k/uL APTT 43.1 H (22.0-30.0) sec Sodium (137-145) mmol/L Potassium (3.5-5.1) mmol/L Creatinine (0.52-1.04) mg/dL Glucose (74-99) mg/dL POC Glucose (mg/dL) 59 L (75-99) mg/dL 11/07/19 11/07/19 Range/Units 07:18 11:23 WBC (3.8-10.6) k/uL RBC (3.80-5.40) m/uL Hgb (11.4-16.0) gm/dL MCHC (31.0-37.0) g/dL Neutrophils # (1.3-7.7) k/uL APTT (22.0-30.0) sec Sodium 132 L (137-145) mmol/L Potassium (3.5-5.1) mmol/L Creatinine 2.28 H (0.52-1.04) mg/dL Glucose 52 L (74-99) mg/dL POC Glucose (mg/dL) 203 H (75-99) mg/dL Microbiology - Last 24 Hours (Table) 11/05/19 12:35 Blood Culture - Preliminary Blood No Growth after 24 hours Assessment and Plan Plan: Assessment: 1. Acute kidney injury secondary to ATN secondary to hemodynamic instability from hypotension/A flutter. Also component of cardiorenal syndrome. Creatinine stable at 2.28 today. UA benign. No hydronephrosis noted on kidney ultrasound. 2. Chronic kidney disease stage III with baseline creatinine in the range of 1.2-1.4 secondary to nephrosclerosis. 3. Acute on chronic systolic CHF with ejection fraction of 20-25% and moderate mitral and tricuspid regurgitation. 4. Volume overload. 5. High probability of PE maintained on IV heparin. 6. A flutter maintained on beta maranda. Also on anticoagulation. Status post Cardizem drip. Cardiology following. 7. Hyperkalemia secondary to acute kidney injury. Better. 8. Hyponatremia secondary to acute kidney injury. Hypervolemic. Stable. Plan: Continue Lasix 40 mg IV twice daily. Avoid nephrotoxins. Repeat electrolytes in the morning.
[2019-11-07 12:45] VITALS: BMI 35.5
--- NOTE | 2019-11-07 13:18 | P.PN ---
Subjective Progress Note Date: 11/07/19 This is a 69 year old white female one of my patient with a previous medical history significant for hypertension and hypertensive cardiovascular disease, mixed hyperlipidemia, diabetes mellitus type2, diabetic polyneuropathy, chronic tobacco use and dependence , COPD, and chronic pain syndrome due to severe osteoarthritis in both hips and 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 currently on chronic pain treatment, patient was hospitalized at [facility] on 10/23/2019 for acute systolic heart failure and she was found to have severe cardiomyopathy with EF 20-25% and moderate MR and TR and she was supposed to have heart cath but because of worsening renal function she was sent home as to do the heart catherization as an outpatient, patient developed to have increased shortness of reath with increased tachycardia and the home care nurse peralta me, we have initially increased her Metoprolol Er to 25 mg orally bid and decreased her lasix to every other day without any relief so she was sent to the ER her EKG initially showed Atrial fibrillation and she cardiology was consulted and she was placed on cardizem drip and heparin drip, had a VQ scan with high probability for PE , she was seen by pulmonary medicine as well, then she was converted to sinus rhythm and she was taken off her cardizem drip due to low EF and kept on heparin and was started on Metoprolol, patient also was founs to have acute kidney injury with BUN of 81 and creatinine of 1.81 was placed on IVF at 50 ml/h , nephrology seen the patient. 11/06: Repeat lab work today reveals creatinine of 2.28, BUN is pending. WBC 10.9, hemoglobin 10.7, platelet count 164. Blood sugar this morning was 52 repeat at 203 at lunch. Patient has been afebrile, heart rate 80, blood pressure 87/54, pulse ox 94% on 2 L. Patient has been seen by Dr. Cortez with recommendations to continue Lasix 40 mg IV twice daily, avoid nephrotoxins and repeat electrolytes in the morning. Patient has had good urine output. Patient is asking for stool softener which will be started. She denies having any recent black or tarry stools. She states she has a pretty good appetite. She is continued on heparin drip and will be started on eliquis and prescription has been sent to [facility]. Objective - Vital Signs Vital signs: Vital Signs Temp 98.4 F 11/07/19 10:53 Pulse 80 11/07/19 12:00 Resp 18 11/07/19 12:00 BP 87/54 11/07/19 10:53 Pulse Ox 94 L 11/07/19 10:53 Intake & Output 11/06/19 11/07/19 11/07/19 18:59 06:59 18:59 Intake Total 320 500.818 202.58 Output Total 400 700 Balance -80 -199.182 202.58 Weight 91 kg Intake: IV 10 Invasive Line 2 10 Intake, IV Titration 390.818 72.58 Amount Heparin Sod,Pork in 0.45% 250.818 72.58 NaCl 25,000 unit In 0.45 % NaCl 1 250ml.bag @ 18 UNITS/KG/HR 16.166 mls/hr IV .[id number] [facility] Rx#: [id number] Sodium Chloride 0.9% 1, 140 000 ml @ 20 mls/hr IV . Q24H [facility] Rx#:[id number] Oral 320 100 130 Output: Urine 400 700 Other: Voiding Method Toilet # Voids 3 1 # Bowel Movements 0 - Exam Review of Systems Constitutional: Reports chronic pain, Reports fatigue, Reports malaise, Reports weakness, Reports weight loss, Denies anorexia Eyes: bilateral blurred vision, bilateral decreased vision Ears: deny: decreased hearing Ears, nose, mouth and throat: Denies dysphagia, Denies neck lump, Denies swelli ng in throat, Denies sore throat Cardiovascular: Reports chest pain, Reports decreased exercise tolerance, Reports dyspnea on exertion, Reports edema, Reports irregular heart beat, Reports leg edema, Reports lightheadedness, Reports orthopnea, Reports rapid heart beat, Reports shortness of breath, Denies syncope Respiratory: Reports congestion, Reports cough, Reports dyspnea, Reports sleep apnea, Reports snoring, Reports wheezing, Denies home oxygen Gastrointestinal: Denies abdominal pain, Denies bloating, Denies BRBPR, Denies heartburn, Denies loss of appetite, Denies melena, Denies nausea, Denies vomiting Genitourinary: Denies dysuria, Denies nocturia Menstruation: Reports postmenopausal Musculoskeletal: Reports gait dysfunction, Reports morning stiffness Musculoskeletal: bilateral: ankle swelling, foot swelling, hip pain, hip stiffness, absent: ankle pain, ankle stiffness, elbow pain, elbow stiffness, elbow swelling, foot pain, foot stiffness, hand pain, hand stiffness, hand swelling, knee pain, knee stiffness, knee swelling, shoulder pain, shoulder stiffness, shoulder swelling, wrist pain, wrist stiffness, wrist swelling Integumentary: Denies pruritus, Denies rash Neurological: Denies numbness, Denies weakness Psychiatric: Denies anxiety, Denies depression Endocrine: Reports fatigue, Denies weight change Physical examination HEENT: Head is atraumatic normocephalic pupils were equal round reactive to light, small, sclera non icteric, mucous membranes of the mouth are somewhat dry. Neck: supple no JVP. Chest : decrease breath sounds at the bases with few ronchi minimal expiratory wheezes, no intercostal retraction or chest wall tenderness. Heart: first heart sound is depressed, second heart sound is normal there is SALOME 2/6 located at the left sternal border. Abdomen: soft non tender, non distended positive bowel sounds. Extremities: there is + 1 edema no calf tenderness DP +1 Bilaterally. Neurologic examination: patient is awake, alert and oriented X 3 CN III-XII are grossly intact, muscle power 4/5 in upper and lower extremities, deep tendon reflexes are depressed. - Labs CBC & Chem 7: 11/07/19 07:18 11/07/19 07:18 Labs: Abnormal Lab Results - Last 24 Hours (Table) 11/06/19 11/06/19 11/06/19 Range/Units 07:21 18:12 20:44 WBC (3.8-10.6) k/uL RBC (3.80-5.40) m/uL Hgb (11.4-16.0) gm/dL MCHC (31.0-37.0) g/dL Neutrophils # (1.3-7.7) k/uL APTT (22.0-30.0) sec Sodium 132 L (137-145) mmol/L Potassium 5.4 H 5.3 H (3.5-5.1) mmol/L BUN 109 H* (7-17) mg/dL Creatinine 2.30 H (0.52-1.04) mg/dL Glucose 204 H (74-99) mg/dL POC Glucose (mg/dL) 59 L (75-99) mg/dL Magnesium 2.4 H (1.6-2.3) mg/dL 11/06/19 11/06/19 11/07/19 Range/Units 21:01 21:19 07:18 WBC 10.9 H (3.8-10.6) k/uL RBC 3.75 L (3.80-5.40) m/uL Hgb 10.7 L (11.4-16.0) gm/dL MCHC 30.7 L (31.0-37.0) g/dL Neutrophils # 8.0 H (1.3-7.7) k/uL APTT (22.0-30.0) sec Sodium (137-145) mmol/L Potassium (3.5-5.1) mmol/L BUN (7-17) mg/dL Creatinine (0.52-1.04) mg/dL Glucose (74-99) mg/dL POC Glucose (mg/dL) 57 L 59 L (75-99) mg/dL Magnesium (1.6-2.3) mg/dL 11/07/19 11/07/19 11/07/19 Range/Units 07:18 07:18 11:23 WBC (3.8-10.6) k/uL RBC (3.80-5.40) m/uL Hgb (11.4-16.0) gm/dL MCHC (31.0-37.0) g/dL Neutrophils # (1.3-7.7) k/uL APTT 43.1 H (22.0-30.0) sec Sodium 132 L (137-145) mmol/L Potassium (3.5-5.1) mmol/L BUN (7-17) mg/dL Creatinine 2.28 H (0.52-1.04) mg/dL Glucose 52 L (74-99) mg/dL POC Glucose (mg/dL) 203 H (75-99) mg/dL Magnesium (1.6-2.3) mg/dL Microbiology - Last 24 Hours (Table) 11/05/19 12:35 Blood Culture - Preliminary Blood No Growth after 24 hours Assessment and Plan Plan: 1. Pulmonary Embolism. Continue with O2 as needed. Heparin drip will be transitioned to eliquis oral. Pulmonary consult appreciated. 2. Atrial flutter ruled out by cardiology. Sinus tachycardia documented. Continue Metoprolol ER 25 mg orally bid. 3. Severe cardiomyoapthy likely ischemic with mild to moderate tricuspid regurgitation. Continue Metoprolol 25 mg orally bid, not able to use Aldactone, Entresto or WILLOW or ARB due to acute kidney injury with hyperkalemia. 4. Acute kidney injury. Nephrology consult appreciated. Continue Lasix 40 mg IV every 12 hours, recheck BMP in the morning. 5. COPD. Continue with O2 2 L NC as needed, Neb Treatment and Symbicort . 6. Mild Hyponatremia secondary to acute kidney injury. we will repeat cmp in 24 hours. 7. Mild Hyperkalemia secondary to acute kidney injury. we will repeat labs in AM. 8. Hypertension and hypertensive cardiovascular disease. Patient is currently hypotensive 9. Mixed hyperlipidemia. we will continue with Lipitor 80 mg orally daily. 10. Diabetes mellitus type 2 . we will continue with Tradjenta 5 mg orally daily along with Glimeperide 4 mg orally daily, BGM daily. 11. DDD of the Lumber spine with OA. we will continue with Robinson as needed. 12. DVT prophylaxis . on Hepatin drip and transitioned to eliquis. 13. GI Prophylaxis. we will continue with Pepcid 20 mg orally daily. 14. Full code. Discharge plan: Home with [facility] Impression and plan of care have been directed as dictated by the signing physician. Ami Hanna nurse practitioner acting as scribe for signing physician.
[2019-11-07] MEDS: APIXABAN 5 MG TAB PO SCH ×2 (13:30→20:58)
--- NOTE | 2019-11-07 14:42 | P.PN ---
Subjective Progress Note Date: 11/07/19 Principal diagnosis: shortness of breath and atrial fibrillation and palpitations on 11/07/2019 patient seen in follow-up on selective care unit, he is awake and alert, in no acute distress, she is 95 percent on room air, she's tolerating ambulation, she still remains on heparin drip, but she was approved for Eliquis, and Eliquis will be started today. No shortness of breath, no complaints of chest pain, no hemoptysis. today's labs have been reviewed, B1 is 118, creatinine is slightly improved and is down to 2.28. lung sounds are clear. Patient remains on IV diuretics at 40 mg twice daily, nephrology is following, echocardiogram revealed ejection fraction of 20-25% and moderate mitral and tricuspid regurgitation. Objective - Vital Signs Vital signs: Vital Signs Temp 98.4 F 11/07/19 10:53 Pulse 80 11/07/19 12:00 Resp 18 11/07/19 12:00 BP 87/54 11/07/19 10:53 Pulse Ox 94 L 11/07/19 10:53 Intake & Output 11/06/19 11/07/19 11/07/19 18:59 06:59 18:59 Intake Total 320 500.818 202.58 Output Total 400 700 Balance -80 -199.182 202.58 Weight 91 kg 91 kg Intake: IV 10 Invasive Line 2 10 Intake, IV Titration 390.818 72.58 Amount Heparin Sod,Pork in 0.45% 250.818 72.58 NaCl 25,000 unit In 0.45 % NaCl 1 250ml.bag @ 18 UNITS/KG/HR 16.166 mls/hr IV .[id number] [facility] Rx#: [id number] Sodium Chloride 0.9% 1, 140 000 ml @ 20 mls/hr IV . Q24H [facility] Rx#:[id number] Oral 320 100 130 Output: Urine 400 700 Other: Voiding Method Toilet # Voids 3 1 # Bowel Movements 0 - Exam GENERAL EXAM: Alert, very pleasant, 69-year-old white female, on room air, with pulse ox of 95% comfortable in no apparent distress. HEAD: Normocephalic/atraumatic. EYES: Normal reaction of pupils, equal size. Conjunctiva pink, sclera white. NOSE: Clear with pink turbinates. THROAT: No erythema or exudates. NECK: No masses, no JVD, no thyroid enlargement, no adenopathy. CHEST: No chest wall deformity. Symmetrical expansion. LUNGS: Equal air entry with no crackles, wheeze, rhonchi or dullness. CVS: Regular rate and rhythm, normal S1 and S2, no gallops, no murmurs, no rubs ABDOMEN: Soft, nontender. No hepatosplenomegaly, normal bowel sounds, no guarding or rigidity. EXTREMITIES: No clubbing, no edema, no cyanosis, 2+ pulses and upper and lower extremities. MUSCULOSKELETAL: Muscle strength and tone normal. SPINE: No scoliosis or deformity SKIN: No rashes CENTRAL NERVOUS SYSTEM: Alert and oriented -3. No focal deficits, tone is normal in all 4 extremities. PSYCHIATRIC: Alert and oriented -3. Appropriate affect. Intact judgment and insight. - Labs CBC & Chem 7: 11/07/19 07:18 11/07/19 07:18 Labs: Abnormal Lab Results - Last 24 Hours (Table) 11/06/19 11/06/19 11/06/19 Range/Units 18:12 20:44 21:01 WBC (3.8-10.6) k/uL RBC (3.80-5.40) m/uL Hgb (11.4-16.0) gm/dL MCHC (31.0-37.0) g/dL Neutrophils # (1.3-7.7) k/uL APTT (22.0-30.0) sec Sodium (137-145) mmol/L Potassium 5.3 H (3.5-5.1) mmol/L BUN (7-17) mg/dL Creatinine (0.52-1.04) mg/dL Glucose (74-99) mg/dL POC Glucose (mg/dL) 59 L 57 L (75-99) mg/dL 11/06/19 11/07/19 11/07/19 Range/Units 21:19 07:18 07:18 WBC 10.9 H (3.8-10.6) k/uL RBC 3.75 L (3.80-5.40) m/uL Hgb 10.7 L (11.4-16.0) gm/dL MCHC 30.7 L (31.0-37.0) g/dL Neutrophils # 8.0 H (1.3-7.7) k/uL APTT 43.1 H (22.0-30.0) sec Sodium (137-145) mmol/L Potassium (3.5-5.1) mmol/L BUN (7-17) mg/dL Creatinine (0.52-1.04) mg/dL Glucose (74-99) mg/dL POC Glucose (mg/dL) 59 L (75-99) mg/dL 11/07/19 11/07/19 Range/Units 07:18 11:23 WBC (3.8-10.6) k/uL RBC (3.80-5.40) m/uL Hgb (11.4-16.0) gm/dL MCHC (31.0-37.0) g/dL Neutrophils # (1.3-7.7) k/uL APTT (22.0-30.0) sec Sodium 132 L (137-145) mmol/L Potassium (3.5-5.1) mmol/L BUN 118 H* (7-17) mg/dL Creatinine 2.28 H (0.52-1.04) mg/dL Glucose 52 L (74-99) mg/dL POC Glucose (mg/dL) 203 H (75-99) mg/dL Microbiology - Last 24 Hours (Table) 11/05/19 12:35 Blood Culture - Preliminary Blood No Growth after 24 hours Assessment and Plan Plan: assessment: #1. Shortness of breath related to acute pulmonary embolism, VQ scan showed high probability for pulmonary embolism, lower extremity Dopplers were negative #2. acute exacerbation of chronic congestive heart failure with systolic dysfunction and baseline EF of 20-25%, moderate mitral and tricuspid regurgitation #3. acute kidney injury secondary to ATN #4. Chronic kidney disease stage III #5. New onset A. fib flutter, currently in sinus rhythm, patient is currently on Eliquis #6. Diabetes mellitus type 2 #7. History of bilateral cataract #8. Hypertension #9. Hyperlipidemia #10. History of degenerative joint disease Plan: Continue current medical treatment, patient will be started on Eliquis, she will receive her first dose now, her heparin drip can be sure off 1 hour later. He still receiving IV diuretics, nephrology is following, she is off the oxygen, breathing much easier, she is tolerating ambulation, from pulmonary perspective she can be considered for discharge home today. Outpatient follow-up with Dr. Smith in the office in 7-10 days I performed a history & physical examination of the patient and discussed their management with my nurse practitioner, Esme Schneider. I reviewed the nurse practitioner's note and agree with the documented findings and plan of care. Lung sounds are positive for clear breath sounds. The findings and the impression was discussed with the patient. I attest to the documentation by the nurse practitioner. Time with Patient: Less than 30
--- NOTE | 2019-11-07 16:28 | P.PN ---
Subjective Progress Note Date: 11/07/19 This is a pleasant 69-year-old female with history of hypertension, diabetes, hyperlipidemia, COPD, nicotine dependence, who was recently in the hospital with a heart failure exacerbation, she underwent an echocardiogram with Doppler study during that admission which revealed an ejection fraction of 20- 25%, moderate MR, moderate TR. Because of worsening renal function and cardiac catheterization was not performed during that admission but the plan was to perform a cath as an outpatient. She presented back to the hospital on this occasion with symptoms again of shortness of breath as well as palpitations. Her chest x-ray did not reveal any acute process. Venous duplex study was performed which was negative for DVT in either lower extremity. EKG showed a sinus tachycardia with nonspecific ST-T wave changes. A lung perfusion scan was performed which revealed high probability for pulmonary embolism. Patient is currently on IV heparin. Her blood pressure 90/50 with a heart rate of 70, 92% on room air. White blood cell count 13.9, hemoglobin 14, platelet count 179. Sodium 129, potassium 5.5, BUN 81 and creatinine 1.8. D-dimer 1.6. Troponin 0.069 and BNP level 20,600. The patient was initiated on a Cardizem drip on arrival here, we will discontinue that because of the documented cardiomyopathy and start the patient on a beta maranda. She is not currently on any IV Lasix and overall her lungs sound clear. 11/07/2019 Patient was seen and examined this morning, her breathing has significantly improved overall. Blood pressure today running on the low side 90 systolic 84 systolic, heart rate in the 80s. Patient has been initiated on oral anticoagulation today, possibly ready for discharge by tomorrow. Objective - Vital Signs Vital signs: Vital Signs Temp 98.4 F 11/07/19 10:53 Pulse 80 11/07/19 12:00 Resp 18 11/07/19 12:00 BP 87/54 11/07/19 10:53 Pulse Ox 94 L 11/07/19 10:53 Intake & Output 11/06/19 11/07/19 11/07/19 18:59 06:59 18:59 Intake Total 320 500.818 202.58 Output Total 400 700 Balance -80 -199.182 202.58 Weight 91 kg 91 kg Intake: IV 10 Invasive Line 2 10 Intake, IV Titration 390.818 72.58 Amount Heparin Sod,Pork in 0.45% 250.818 72.58 NaCl 25,000 unit In 0.45 % NaCl 1 250ml.bag @ 18 UNITS/KG/HR 16.166 mls/hr IV .[id number] [facility] Rx#: [id number] Sodium Chloride 0.9% 1, 140 000 ml @ 20 mls/hr IV . Q24H [facility] Rx#:[id number] Oral 320 100 130 Output: Urine 400 700 Other: Voiding Method Toilet # Voids 3 1 # Bowel Movements 0 - Exam PHYSICAL EXAMINATION: GENERAL: 69-year-old female in no acute distress at the time of my examination HEENT: Head is atraumatic, normocephalic. Pupils equal, round. Sclera anicteric. Conjunctiva are clear. Mucous membranes of the mouth are moist. Neck is supple. There is no elevated jugular venous pressure. No carotid b ruit is heard. HEART EXAMINATION: Heart S1 S2 1 systolic murmur is heard CHEST EXAMINATION: Lungs reveal coarse wheezing throughout ABDOMEN: Soft, nontender. Bowel sounds are heard. No organomegaly noted. EXTREMITIES: 2+ peripheral pulses with no evidence of peripheral edema and no calf tenderness noted. NEUROLOGIC patient is awake, alert and oriented 3. - Labs CBC & Chem 7: 11/07/19 07:18 11/07/19 07:18 Labs: Abnormal Lab Results - Last 24 Hours (Table) 11/06/19 11/06/19 11/06/19 Range/Units 18:12 20:44 21:01 WBC (3.8-10.6) k/uL RBC (3.80-5.40) m/uL Hgb (11.4-16.0) gm/dL MCHC (31.0-37.0) g/dL Neutrophils # (1.3-7.7) k/uL APTT (22.0-30.0) sec Sodium (137-145) mmol/L Potassium 5.3 H (3.5-5.1) mmol/L BUN (7-17) mg/dL Creatinine (0.52-1.04) mg/dL Glucose (74-99) mg/dL POC Glucose (mg/dL) 59 L 57 L (75-99) mg/dL 11/06/19 11/07/19 11/07/19 Range/Units 21:19 07:18 07:18 WBC 10.9 H (3.8-10.6) k/uL RBC 3.75 L (3.80-5.40) m/uL Hgb 10.7 L (11.4-16.0) gm/dL MCHC 30.7 L (31.0-37.0) g/dL Neutrophils # 8.0 H (1.3-7.7) k/uL APTT 43.1 H (22.0-30.0) sec Sodium (137-145) mmol/L Potassium (3.5-5.1) mmol/L BUN (7-17) mg/dL Creatinine (0.52-1.04) mg/dL Glucose (74-99) mg/dL POC Glucose (mg/dL) 59 L (75-99) mg/dL 11/07/19 11/07/19 Range/Units 07:18 11:23 WBC (3.8-10.6) k/uL RBC (3.80-5.40) m/uL Hgb (11.4-16.0) gm/dL MCHC (31.0-37.0) g/dL Neutrophils # (1.3-7.7) k/uL APTT (22.0-30.0) sec Sodium 132 L (137-145) mmol/L Potassium (3.5-5.1) mmol/L BUN 118 H* (7-17) mg/dL Creatinine 2.28 H (0.52-1.04) mg/dL Glucose 52 L (74-99) mg/dL POC Glucose (mg/dL) 203 H (75-99) mg/dL Microbiology - Last 24 Hours (Table) 11/05/19 12:35 Blood Culture - Preliminary Blood No Growth after 48 hours Assessment and Plan Plan: Assessment and plan #1 symptoms of shortness of breath with evidence of high probability for PE on perfusion scan #2 severe cardiomyopathy with documented ejection fraction of 20-20% with mild to moderate tricuspid regurg #3 mild abnormality in troponin. Could be secondary to pulmonary embolism, patient however could have underlying coronary artery disease, and was scheduled to have a cardiac catheterization as an outpatient because of the newly diagnosed cardiomyopathy #4 COPD with acute exacerbation #5 hypertension #6 hyperlipidemia #7 diabetes #8 nicotine dependence #9 acute on chronic renal insufficiency #10 systolic congestive heart failure, acute on chronic Plan Patient has been initiated on oral anticoagulation. Plan for possible discharge in 24 hours. DNP note has been reviewed, I agree with a documented findings and plan of care. Patient was seen and examined.
[2019-11-07 16:42] LABS: Glucose,Whole Blood 357 mg/dL (75-99)
[2019-11-07 20:06] LABS: Glucose,Whole Blood 309 mg/dL (75-99)
[2019-11-08 03:58] VITALS: RESP 20
[2019-11-08 06:15] LABS: Glucose,Whole Blood 101 mg/dL (75-99)
[2019-11-08] MEDS: INSULIN ASPART (NovoLOG) 100 UNIT/ML VIAL SQ SCH ×2 (06:20→12:19)
[2019-11-08 06:45] LABS: Basophils % (A) 0 %; Eosinophils % (A) 0 %; HCT 33.1 % (34.0-46.0); HGB 10.3 gm/dL (11.4-16.0); Hypochromasia Slight; Lymphocytes # (A) 1.3 k/uL (1.0-4.8); Lymphocytes % (A) 11 %; MCH 28.4 pg (25.0-35.0); MCV 91.5 fL (80.0-100.0); Mean Platelet Volume 9.1; Monocytes # (A) 0.5 k/uL (0-1.0); Monocytes % (A) 4 %; Neutrophils # (A) 9.3 k/uL (1.3-7.7); Neutrophils % (A) 83 %; Platelet Count 161 k/uL (150-450); RBC 3.61 m/uL (3.80-5.40); RDW 15.1 % (11.5-15.5); WBC 11.2 k/uL (3.8-10.6)
[2019-11-08 07:03] LABS: Magnesium 2.3 mg/dL (1.6-2.3); Potassium 4.6 mmol/L (3.5-5.1)
[2019-11-08 07:56] VITALS: TEMP 98.2
[2019-11-08] MEDS: IPRATROPIUM-ALBUTEROL 3 ML NEB INHALATION PRN (08:38)
[2019-11-08] MEDS: SYMBICORT 160-4.5 MCG INHALER INHALATION SCH (08:38)
[2019-11-08] MEDS: ASPIRIN 81 MG PO SCH (08:56)
[2019-11-08] MEDS: APIXABAN 5 MG TAB PO SCH (08:56)
[2019-11-08] MEDS: METOPROLOL SUCCINATE (ER) 25 MG TAB.ER.24H PO SCH (08:57)
[2019-11-08] MEDS: guaiFENesin 600 MG TABLET.ER PO SCH (08:57)
[2019-11-08] MEDS: ATORVASTATIN 80 MG TAB PO SCH (08:57)
[2019-11-08] MEDS: RALOXIFENE 60 MG TAB PO SCH (08:57)
[2019-11-08] MEDS: LINAGLIPTIN 5 MG TABLET PO SCH (08:57)
[2019-11-08] MEDS: predniSONE 10 MG TAB PO SCH (08:57)
[2019-11-08] MEDS: GLIMEPIRIDE 4 MG TAB PO SCH (08:57)
[2019-11-08] MEDS: NICOTINE 14MG/24HR PATCH TRANSDERM SCH (09:01)
[2019-11-08] MEDS: FUROSEMIDE 10 MG/ML 4 ML VIAL IV SCH (09:34)
--- NOTE | 2019-11-08 10:21 | P.PN ---
Subjective Patient is seen in follow-up for acute kidney injury on chronic kidney disease. Patient has chronic kidney disease stage III with baseline creatinine in the range of 1.2-1.4. Renal function improving. Good urine output. Oral intake fair. No vomiting or diarrhea. Edema also improving. Vital signs are stable. General: The patient appeared well nourished and normally developed. HEENT: Head exam is unremarkable. Neck is without jugular venous distension. LUNGS: Breath sounds decreased. HEART: Rate and Rhythm are regular. ABDOMEN: Soft, nontender. EXTREMITITES: 1+ edema. Objective - Vital Signs Vital signs: Vital Signs Temp 98.2 F 11/08/19 07:54 Pulse 80 11/08/19 09:29 Resp 20 11/08/19 07:54 BP 98/52 11/08/19 09:29 Pulse Ox 96 11/08/19 07:54 Intake & Output 11/07/19 11/08/19 11/08/19 18:59 06:59 18:59 Intake Total 202.58 220 240 Output Total 2450 Balance 202.58 -2230 240 Weight 91 kg 92.2 kg Intake: Intake, IV Titration 72.58 Amount Heparin Sod,Pork in 0.45% 72.58 NaCl 25,000 unit In 0.45 % NaCl 1 250ml.bag @ 18 UNITS/KG/HR 16.166 mls/hr IV .[id number] [facility] Rx#: [id number] Oral 130 220 240 Output: Urine 2450 Other: # Voids 1 - Labs CBC & Chem 7: 11/08/19 05:59 11/08/19 05:59 Labs: Abnormal Lab Results - Last 24 Hours (Table) 11/07/19 11/07/19 11/07/19 Range/Units 07:18 11:23 16:41 WBC (3.8-10.6) k/uL RBC (3.80-5.40) m/uL Hgb (11.4-16.0) gm/dL Hct (34.0-46.0) % Neutrophils # (1.3-7.7) k/uL Sodium (137-145) mmol/L BUN 118 H* (7-17) mg/dL Creatinine (0.52-1.04) mg/dL POC Glucose (mg/dL) 203 H 357 H (75-99) mg/dL 11/07/19 11/08/19 11/08/19 Range/Units 20:04 05:59 05:59 WBC 11.2 H (3.8-10.6) k/uL RBC 3.61 L (3.80-5.40) m/uL Hgb 10.3 L (11.4-16.0) gm/dL Hct 33.1 L (34.0-46.0) % Neutrophils # 9.3 H (1.3-7.7) k/uL Sodium 134 L (137-145) mmol/L BUN 108 H* (7-17) mg/dL Creatinine 1.96 H (0.52-1.04) mg/dL POC Glucose (mg/dL) 309 H (75-99) mg/dL 11/08/19 Range/Units 06:14 WBC (3.8-10.6) k/uL RBC (3.80-5.40) m/uL Hgb (11.4-16.0) gm/dL Hct (34.0-46.0) % Neutrophils # (1.3-7.7) k/uL Sodium (137-145) mmol/L BUN (7-17) mg/dL Creatinine (0.52-1.04) mg/dL POC Glucose (mg/dL) 101 H (75-99) mg/dL Microbiology - Last 24 Hours (Table) 11/05/19 12:35 Blood Culture - Preliminary Blood No Growth after 48 hours Assessment and Plan Plan: Assessment: 1. Acute kidney injury secondary to ATN secondary to hemodynamic instability from hypotension/A flutter. Also component of cardiorenal syndrome. Renal function little better today. Creatinine 1.96. UA benign. No hydronephrosis noted on kidney ultrasound. 2. Chronic kidney disease stage III with baseline creatinine in the range of 1.2-1.4 secondary to nephrosclerosis. 3. Acute on chronic systolic CHF with ejection fraction of 20-25% and moderate mitral and tricuspid regurgitation. 4. Volume overload. 5. High probability of PE maintained on eliquis. 6. A flutter maintained on beta maranda. Also on anticoagulation. Status post Cardizem drip. Cardiology following. 7. Hyperkalemia secondary to acute kidney injury. Better. 8. Hyponatremia secondary to acute kidney injury. Hypervolemic. Better. Plan: Continue Lasix 40 mg IV twice daily - changed to torsemide 20 mg twice daily upon discharge. Avoid nephrotoxins. Advised the patient to maintain a low-salt diet and a 1500 mL fluid restriction upon discharge. I also advised her to weigh herself daily and to call if gains more than 3 pounds or has worsening of edema. Repeat BMP and magnesium level 2-3 days postdischarge and follow up outpatient in 1-2 weeks.
[2019-11-08 11:32] VITALS: BP 112/58; PULSE 87
[2019-11-08 11:49] LABS: Glucose,Whole Blood 123 mg/dL (75-99)
--- NOTE | 2019-11-08 12:01 | P.PN ---
Subjective Progress Note Date: 11/08/19 This is a pleasant 69-year-old female with history of hypertension, diabetes, hyperlipidemia, COPD, nicotine dependence, who was recently in the hospital with a heart failure exacerbation, she underwent an echocardiogram with Doppler study during that admission which revealed an ejection fraction of 20- 25%, moderate MR, moderate TR. Because of worsening renal function and cardiac catheterization was not performed during that admission but the plan was to perform a cath as an outpatient. She presented back to the hospital on this occasion with symptoms again of shortness of breath as well as palpitations. Her chest x-ray did not reveal any acute process. Venous duplex study was performed which was negative for DVT in either lower extremity. EKG showed a sinus tachycardia with nonspecific ST-T wave changes. A lung perfusion scan was performed which revealed high probability for pulmonary embolism. Patient is currently on IV heparin. Her blood pressure 90/50 with a heart rate of 70, 92% on room air. White blood cell count 13.9, hemoglobin 14, platelet count 179. Sodium 129, potassium 5.5, BUN 81 and creatinine 1.8. D-dimer 1.6. Troponin 0.069 and BNP level 20,600. The patient was initiated on a Cardizem drip on arrival here, we will discontinue that because of the documented cardiomyopathy and start the patient on a beta maranda. She is not currently on any IV Lasix and overall her lungs sound clear. 11/07/2019 Patient was seen and examined this morning, her breathing has significantly improved overall. Blood pressure today running on the low side 90 systolic 84 systolic, heart rate in the 80s. Patient has been initiated on oral anticoagulation today, possibly ready for discharge by tomorrow. 11/08/2019 Patient was seen and examined this morning, feels well, continued to diurese well through the night last night. She continues to be on IV Lasix which we will discontinue today, change management analyst to oral diuretics. She is anticipating discharge home today. We will make her a follow-up appointment with Dr. Hurt in the office post discharge. Objective - Vital Signs Vital signs: Vital Signs Temp 98.2 F 11/08/19 07:54 Pulse 80 11/08/19 09:29 Resp 20 11/08/19 08:00 BP 98/52 11/08/19 09:29 Pulse Ox 96 11/08/19 07:54 Intake & Output 11/07/19 11/08/19 11/08/19 18:59 06:59 18:59 Intake Total 202.58 220 240 Output Total 2450 Balance 202.58 -2230 240 Weight 91 kg 92.2 kg Intake: Intake, IV Titration 72.58 Amount Heparin Sod,Pork in 0.45% 72.58 NaCl 25,000 unit In 0.45 % NaCl 1 250ml.bag @ 18 UNITS/KG/HR 16.166 mls/hr IV .[id number] [facility] Rx#: [id number] Oral 130 220 240 Output: Urine 2450 Other: Voiding Method Toilet # Voids 1 - Exam PHYSICAL EXAMINATION: GENERAL: 69-year-old female in no acute distress at the time of my examination HEENT: Head is atraumatic, normocephalic. Pupils equal, round. Sclera anicteric. Conjunctiva are clear. Mucous membranes of the mouth are moist. Neck is supple. There is no elevated jugular venous pressure. No carotid bruit is heard. HEART EXAMINATION: Heart S1 S2 1 systolic murmur is heard CHEST EXAMINATION: Lungs reveal coarse wheezing throughout ABDOMEN: Soft, nontender. Bowel sounds are heard. No organomegaly noted. EXTREMITIES: 2+ peripheral pulses with no evidence of peripheral edema and no calf tenderness noted. NEUROLOGIC patient is awake, alert and oriented 3. - Labs CBC & Chem 7: 11/08/19 05:59 11/08/19 05:59 Labs: Abnormal Lab Results - Last 24 Hours (Table) 11/07/19 11/07/19 11/07/19 Range/Units 07:18 11:23 16:41 WBC (3.8-10.6) k/uL RBC (3.80-5.40) m/uL Hgb (11.4-16.0) gm/dL Hct (34.0-46.0) % Neutrophils # (1.3-7.7) k/uL Sodium (137-145) mmol/L BUN 118 H* (7-17) mg/dL Creatinine (0.52-1.04) mg/dL POC Glucose (mg/dL) 203 H 357 H (75-99) mg/dL 11/07/19 11/08/19 11/08/19 Range/Units 20:04 05:59 05:59 WBC 11.2 H (3.8-10.6) k/uL RBC 3.61 L (3.80-5.40) m/uL Hgb 10.3 L (11.4-16.0) gm/dL Hct 33.1 L (34.0-46.0) % Neutrophils # 9.3 H (1.3-7.7) k/uL Sodium 134 L (137-145) mmol/L BUN 108 H* (7-17) mg/dL Creatinine 1.96 H (0.52-1.04) mg/dL POC Glucose (mg/dL) 309 H (75-99) mg/dL 11/08/19 Range/Units 06:14 WBC (3.8-10.6) k/uL RBC (3.80-5.40) m/uL Hgb (11.4-16.0) gm/dL Hct (34.0-46.0) % Neutrophils # (1.3-7.7) k/uL Sodium (137-145) mmol/L BUN (7-17) mg/dL Creatinine (0.52-1.04) mg/dL POC Glucose (mg/dL) 101 H (75-99) mg/dL Microbiology - Last 24 Hours (Table) 11/05/19 12:35 Blood Culture - Preliminary Blood No Growth after 48 hours Assessment and Plan Plan: Assessment and plan #1 symptoms of shortness of breath with evidence of high probability for PE on perfusion scan #2 severe cardiomyopathy with documented ejection fraction of 20-20% with mild to moderate tricuspid regurg #3 mild abnormality in troponin. Could be secondary to pulmonary embolism, patient however could have underlying coronary artery disease, and was scheduled to have a cardiac catheterization as an outpatient because of the newly diagnosed cardiomyopathy #4 COPD with acute exacerbation #5 hypertension #6 hyperlipidemia #7 diabetes #8 nicotine dependence #9 acute on chronic renal insufficiency #10 systolic congestive heart failure, acute on chronic Plan From cardiology's perspective, we will discontinue the IV diuretics and change management analyst to oral today. She may be able to be discharged home, to follow-up with Dr. Hurt in the office. DNP note has been reviewed, I agree with a documented findings and plan of care. Patient was seen and examined.
--- NOTE | 2019-11-08 12:40 | P.DS ---
Providers Date of admission: 11/05/19 14:09 Expected date of discharge: 11/08/19 Attending physician: Franc Ferro Consults: 11/05/19 14:10 Consult Physician Routine Consulting Provider: Ashley Jalloh Consult Reason/Comments: dyspnea Do you want consulting provider notified?: Yes Consult Physician Routine Consulting Provider: Cornelio Ceja Consult Reason/Comments: tachycardia, heart failure Do you want consulting provider notified?: Yes 11/05/19 14:11 Consult Physician Routine Consulting Provider: Gris Lemus Consult Reason/Comments: wang Do you want consulting provider notified?: Yes Primary care physician: Franc Ferro [facility] Course: This is a 69 year old white female one of my patient with a previous medical history significant for hypertension and hypertensive cardiovascular disease, mixed hyperlipidemia, diabetes mellitus type2, diabetic polyneuropathy, chronic tobacco use and dependence , COPD, and chronic pain syndrome due to severe osteoarthritis in both hips and 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 currently on chronic pain treatment, patient was hospitalized at [facility] on 10/23/2019 for acute systolic heart failure and she was found to have severe cardiomyopathy with EF 20-25% and moderate MR and TR and she was supposed to have heart cath but because of worsening renal function she was sent home as to do the heart catherization as an outpatient, patient developed to have increased shortness of reath with increased tachycardia and the home care nurse peralta me, we have initially increased her Metoprolol Er to 25 mg orally bid and decreased her lasix to every other day without any relief so she was sent to the ER her EKG initially showed Atrial fibrillation and she cardiology was consulted and she was placed on cardizem drip and heparin drip, had a VQ scan with high probability for PE , she was seen by pulmonary medicine as well, then she was converted to sinus rhythm and she was taken off her cardizem drip due to low EF and kept on heparin and was started on Metoprolol, patient also was founs to have acute kidney injury with BUN of 81 and creatinine of 1.81 was placed on IVF at 50 ml/h , nephrology seen the patient. 11/06: Repeat lab work today reveals creatinine of 2.28, BUN is pending. WBC 10.9, hemoglobin 10.7, platelet count 164. Blood sugar this morning was 52 repeat at 203 at lunch. Patient has been afebrile, heart rate 80, blood pressure 87/54, pulse ox 94% on 2 L. Patient has been seen by Dr. Cortez with recommendations to continue Lasix 40 mg IV twice daily, avoid nephrotoxins and repeat electrolytes in the morning. Patient has had good urine output. Patient is asking for stool softener which will be started. She denies having any recent black or tarry stools. She states she has a pretty good appetite. She is continued on heparin drip and will be started on eliquis and prescription has been sent to [facility]. 11/07: Patient has been cleared by consultants for discharge home today. Dr. Cortez as recommended torsemide 20 mg twice daily and repeat lab work with BMP and magnesium level on Tuesday. Dr. Monroe is requesting a follow-up in 2 weeks and cardiology in [address] Hurt. Patient denies having any shortness of breath or chest pain. No lightheadedness or dizziness. She has been afebrile, heart rate 87, blood pressure 112/58, pulse ox 96% on room air. Lower extremity edema is improved. Patient will be discharged home today in stable condition. Discharge diagnoses: 1. Pulmonary Embolism. 2. Atrial flutter ruled out by cardiology. Sinus tachycardia documented. 3. Severe cardiomyoapthy likely ischemic with mild to moderate tricuspid regurgitation. 4. Acute kidney injury. 5. COPD. C 6. Mild Hyponatremia secondary to acute kidney injury. 7. Mild Hyperkalemia secondary to acute kidney injury. 8. Hypertension and hypertensive cardiovascular disease. 9. Mixed hyperlipidemia. 10. Diabetes mellitus type 2. 11. DDD of the Lumber spine with OA. Discharge plan: Home with [facility] Impression and plan of care have been directed as dictated by the signing physician. Ami Hanna nurse practitioner acting as scribe for signing physician. Patient Condition at Discharge: Good Plan - Discharge Summary Discharge Rx Participant: Yes New Discharge Prescriptions: New Apixaban [Eliquis Starter Pack (for VTE)] 0 mg PO DIRECTED 30 Days #1 pack Torsemide [Demadex] 20 mg PO BID #60 tablet Nicotine 14Mg/24Hr Patch [Habitrol] 1 patch TRANSDERM DAILY #30 patch Metoprolol Succinate (ER) [Toprol XL] 25 mg PO BID #60 tab.er.24h Continue HYDROcodone/APAP 5-325MG [[place] 5-325] 1 tab PO Q12H PRN PRN Reason: Pain Carisoprodol [Soma] 350 mg PO BID PRN PRN Reason: Muscle Spasm Zolpidem Tartrate [Ambien] 10 mg PO HS Glimepiride [Amaryl] 4 mg PO BID Fenofibrate 160 mg PO DAILY Ipratropium-Albuterol Nebulize [Duoneb 0.5 mg-3 mg/3 ml Soln] 3 ml INHALATION RT-QID PRN PRN Reason: Shortness Of Breath Raloxifene [Evista] 60 mg PO DAILY Budesonide/Formoterol Fumarate [Symbicort 160-4.5 Mcg Inhaler] 2 puff INHALATION RT-BID Atorvastatin Calcium [Lipitor] 80 mg PO DAILY Aspirin 81 mg PO DAILY chew guaiFENesin [Mucinex] 600 mg PO Q12HR PRN tablet.er PRN Reason: Cough Linagliptin [Tradjenta] 5 mg PO DAILY #30 tablet Discontinued Metoprolol Succinate (ER) [Toprol XL] 25 mg PO DAILY #30 tab.er.24h Furosemide [Lasix] 40 mg PO Q48H Discharge Medication List Carisoprodol [Soma] 350 mg PO BID PRN 03/08/16 [History] Fenofibrate 160 mg PO DAILY 03/08/16 [History] Glimepiride [Amaryl] 4 mg PO BID 03/08/16 [History] HYDROcodone/APAP 5-325MG [[place] 5-325] 1 tab PO Q12H PRN 03/08/16 [History] Zolpidem Tartrate [Ambien] 10 mg PO HS 03/08/16 [History] Budesonide/Formoterol Fumarate [Symbicort 160-4.5 Mcg Inhaler] 2 puff INHALATION RT-BID 10/23/19 [History] Ipratropium-Albuterol Nebulize [Duoneb 0.5 mg-3 mg/3 ml Soln] 3 ml INHALATION RT-QID PRN 10/23/19 [History] Raloxifene [Evista] 60 mg PO DAILY 10/23/19 [History] Atorvastatin Calcium [Lipitor] 80 mg PO DAILY 10/24/19 [History] Aspirin 81 mg PO DAILY chew 10/26/19 [Rx] Linagliptin [Tradjenta] 5 mg PO DAILY #30 tablet 10/26/19 [Rx] guaiFENesin [Mucinex] 600 mg PO Q12HR PRN tablet.er 10/26/19 [Rx] Apixaban [Eliquis Starter Pack (for VTE)] 0 mg PO DIRECTED 30 Days #1 pack 11/07/19 [Rx] Metoprolol Succinate (ER) [Toprol XL] 25 mg PO BID #60 tab.er.24h 11/08/19 [Rx] Nicotine 14Mg/24Hr Patch [Habitrol] 1 patch TRANSDERM DAILY #30 patch 11/08/19 [Rx] Torsemide [Demadex] 20 mg PO BID #60 tablet 11/08/19 [Rx] Follow up Appointment(s)/Referral(s): Franc Ferro MD [Primary Care Provider] - 1 Week Jenaro Caballero DO [Doctor of Osteopathic Medicine] - 1 Week [facility], [NON-STAFF] - Nabor Cortez DO [STAFF PHYSICIAN] - 1 Week (Office will call with appointment time) Rao Hurt MD [STAFF PHYSICIAN] - 2 Weeks Ambulatory/Diagnostic Orders: Basic Metabolic Panel [LAB.AMB] Location: None Selected Magnesium [LAB.AMB] Location: None Selected Patient Instructions/Handouts: Heart Failure (DC), A-fib (Atrial Fibrillation) (DC), Pulmonary Embolism (DC), Fluid Restriction (DC) Activity/Diet/Wound Care/Special Instructions: Low-salt diet and a 1500 mL fluid restriction. Weigh herself daily and to call if gains more than 3 pounds or has worsening of edema. No NSAID. Discharge Disposition: HOME WITH HOME HEALTH SERVICES
--- NOTE | 2019-11-08 14:06 | P.PN ---
Subjective Progress Note Date: 11/08/19 Principal diagnosis: shortness of breath and atrial fibrillation and palpitations on 11/07/2019 patient seen in follow-up on selective care unit, he is awake and alert, in no acute distress, she is 95 percent on room air, she's tolerating ambulation, she still remains on heparin drip, but she was approved for Eliquis, and Eliquis will be started today. No shortness of breath, no complaints of chest pain, no hemoptysis. today's labs have been reviewed, B1 is 118, creatinine is slightly improved and is down to 2.28. lung sounds are clear. Patient remains on IV diuretics at 40 mg twice daily, nephrology is following, echocardiogram revealed ejection fraction of 20-25% and moderate mitral and tricuspid regurgitation. On 11/08/2019 patient seen in follow-up on selective care unit. She is awake and alert, doing well, no shortness of breath, room air pulse ox is 96%, she's been tolerating ambulation, she's been started on Eliquis, heparin drip has been discontinued, no compressive chest pain, no hemoptysis, no shortness of breath. No acute events overnight. Today's labs have been reviewed, renal function is improving, BUN is down to 108, creatinine is 1.96. Objective - Vital Signs Vital signs: Vital Signs Temp 98.2 F 11/08/19 11:31 Pulse 87 11/08/19 11:31 Resp 20 11/08/19 11:31 BP 112/58 11/08/19 11:31 Pulse Ox 96 11/08/19 11:31 Intake & Output 11/07/19 11/08/19 11/08/19 18:59 06:59 18:59 Intake Total 202.58 220 360 Output Total 2450 Balance 202.58 -2230 360 Weight 91 kg 92.2 kg Intake: Intake, IV Titration 72.58 Amount Heparin Sod,Pork in 0.45% 72.58 NaCl 25,000 unit In 0.45 % NaCl 1 250ml.bag @ 18 UNITS/KG/HR 16.166 mls/hr IV .[id number] [facility] Rx#: [id number] Oral 130 220 360 Output: Urine 2450 Other: Voiding Method Toilet # Voids 1 1 - Exam GENERAL EXAM: Alert, very pleasant, 69-year-old white female, on room air, with pulse ox of 95% comfortable in no apparent distress. HEAD: Normocephalic/atraumatic. EYES: Normal reaction of pupils, equal size. Conjunctiva pink, sclera white. NOSE: Clear with pink turbinates. THROAT: No erythema or exudates. NECK: No masses, no JVD, no thyroid enlargement, no adenopathy. CHEST: No chest wall deformity. Symmetrical expansion. LUNGS: Equal air entry with no crackles, wheeze, rhonchi or dullness. CVS: Regular rate and rhythm, normal S1 and S2, no gallops, no murmurs, no rubs ABDOMEN: Soft, nontender. No hepatosplenomegaly, normal bowel sounds, no guarding or rigidity. EXTREMITIES: No clubbing, no edema, no cyanosis, 2+ pulses and upper and lower extremities. MUSCULOSKELETAL: Muscle strength and tone normal. SPINE: No scoliosis or deformity SKIN: No rashes CENTRAL NERVOUS SYSTEM: Alert and oriented -3. No focal deficits, tone is normal in all 4 extremities. PSYCHIATRIC: Alert and oriented -3. Appropriate affect. Intact judgment and insight. - Labs CBC & Chem 7: 11/08/19 05:59 11/08/19 05:59 Labs: Abnormal Lab Results - Last 24 Hours (Table) 11/07/19 11/07/19 11/08/19 Range/Units 16:41 20:04 05:59 WBC 11.2 H (3.8-10.6) k/uL RBC 3.61 L (3.80-5.40) m/uL Hgb 10.3 L (11.4-16.0) gm/dL Hct 33.1 L (34.0-46.0) % Neutrophils # 9.3 H (1.3-7.7) k/uL Sodium (137-145) mmol/L BUN (7-17) mg/dL Creatinine (0.52-1.04) mg/dL POC Glucose (mg/dL) 357 H 309 H (75-99) mg/dL 11/08/19 11/08/19 11/08/19 Range/Units 05:59 06:14 11:41 WBC (3.8-10.6) k/uL RBC (3.80-5.40) m/uL Hgb (11.4-16.0) gm/dL Hct (34.0-46.0) % Neutrophils # (1.3-7.7) k/uL Sodium 134 L (137-145) mmol/L BUN 108 H* (7-17) mg/dL Creatinine 1.96 H (0.52-1.04) mg/dL POC Glucose (mg/dL) 101 H 123 H (75-99) mg/dL Microbiology - Last 24 Hours (Table) 11/05/19 12:35 Blood Culture - Preliminary Blood No Growth after 48 hours Assessment and Plan Plan: assessment: #1. Shortness of breath related to acute pulmonary embolism, VQ scan showed high probability for pulmonary embolism, lower extremity Dopplers were negative #2. acute exacerbation of chronic congestive heart failure with systolic dysfunction and baseline EF of 20-25%, moderate mitral and tricuspid regurgitation #3. acute kidney injury secondary to ATN #4. Chronic kidney disease stage III #5. New onset A. fib flutter, currently in sinus rhythm, patient is currently on Eliquis #6. Diabetes mellitus type 2 #7. History of bilateral cataract #8. Hypertension #9. Hyperlipidemia #10. History of degenerative joint disease Plan: Patient is doing well, she's been diuresed, breathing easier, she is on room air, she's been started on oral anticoagulation in the form of Eliquis. Heparin drip has been discontinued, no acute events overnight, she is tolerating ambulation, she is anticipated to go home today, she will need outpatient follow-up with Dr. Caballero in the office in one to 2 weeks. I performed a history & physical examination of the patient and discussed their management with my nurse practitioner, Esme Schneider. I reviewed the nurse practitioner's note and agree with the documented findings and plan of care. Lung sounds are positive for clear breath sounds. The findings and the impression was discussed with the patient. I attest to the documentation by the nurse practitioner. Time with Patient: Less than 30
[2019-11-09] MEDS ORDERED: FUROSEMIDE 40 MG TAB PO SCH (09:00)
== END 2019-11-08 14:27 | disposition home health service (06) | DRG 175 ==
LOC: EC 10:43 → 3SCARD 14:09
PROVIDERS: ADMIT Internal Medicine; ATTEND Internal Medicine
DX: I26.99 Other pulmonary embolism without acute cor pulmonale (principal); N17.0 Acute kidney failure with tubular necrosis; I50.23 Acute on chronic systolic (congestive) heart failure; I42.9 Cardiomyopathy, unspecified; I13.0 Hypertensive heart and chronic kidney disease with heart failure and stage 1 through stage 4 chronic kidney disease, or unspecified chronic kidney disease; J44.1 Chronic obstructive pulmonary disease with (acute) exacerbation; I48.92 Unspecified atrial flutter; E87.1 Hypo-osmolality and hyponatremia; G89.4 Chronic pain syndrome; M16.0 Bilateral primary osteoarthritis of hip; N18.3 Chronic kidney disease, stage 3 (moderate); I48.91 Unspecified atrial fibrillation; I08.1 Rheumatic disorders of both mitral and tricuspid valves; D72.829 Elevated white blood cell count, unspecified; E11.22 Type 2 diabetes mellitus with diabetic chronic kidney disease; E11.42 Type 2 diabetes mellitus with diabetic polyneuropathy; E78.2 Mixed hyperlipidemia; E87.5 Hyperkalemia; Z11.59 Encounter for screening for other viral diseases; F17.210 Nicotine dependence, cigarettes, uncomplicated; Z79.01 Long term (current) use of anticoagulants; Z79.51 Long term (current) use of inhaled steroids; Z79.82 Long term (current) use of aspirin; Z79.84 Long term (current) use of oral hypoglycemic drugs; Z79.899 Other long term (current) drug therapy; Z82.3 Family history of stroke; Z82.49 Family history of ischemic heart disease and other diseases of the circulatory system; Z83.3 Family history of diabetes mellitus; I95.9 Hypotension, unspecified; Z98.51 Tubal ligation status; Z98.49 Cataract extraction status, unspecified eye; Z90.49 Acquired absence of other specified parts of digestive tract; M85.80 Other specified disorders of bone density and structure, unspecified site; Z88.8 Allergy status to other drugs, medicaments and biological substances
CPT/HCPCS: 36415; 71045; 71046; 76770; 78582; 80048; 80053; 81003; 83605; 83735; 83880; 84132; 84443; 84484; 85025; 85379; 85610; 85730; 87040; 87635; 93005; 94640; 96365; 96366; 96375; 96376; 99285

== ENCOUNTER 2020-01-01 07:49 | Day surgery (SDC) | payer MEDICARE, OTHER ==
[2019-12-28 12:31] VITALS: BMI 32.5
[~2020-01-01 07:49] MED LIST: ALPRAZolam 0.25 MG TAB PO PRN; ALPRAZolam 0.5 MG TAB PO PRN; ASPIRIN 325 MG TAB PO ONE; ATORVASTATIN 80 MG TAB PO ONE; NITROGLYCERIN SL TABS 0.4 MG TAB SUBLINGUAL PRN; SODIUM CHLORIDE 0.9% 1,000 ML in EMPTY BAG 1 BAG IV ONE
[2020-01-01] MEDS ORDERED: ASPIRIN 81 MG ONE (08:09)
[2020-01-01 08:15] VITALS: PULSE 85
[2020-01-01 08:19] LABS: Glucose,Whole Blood 198 mg/dL (75-99)
[2020-01-01 08:27] LABS: Basophils # (A) 0.1 k/uL (0-0.2); Basophils % (A) 1 %; Eosinophils # (A) 0.3 k/uL (0-0.7); Eosinophils % (A) 4 %; HCT 38.2 % (34.0-46.0); HGB 12.7 gm/dL (11.4-16.0); Lymphocytes # (A) 2.8 k/uL (1.0-4.8); Lymphocytes % (A) 30 %; MCH 31.1 pg (25.0-35.0); MCHC 33.3 g/dL (31.0-37.0); MCV 93.2 fL (80.0-100.0); Mean Platelet Volume 8.3; Monocytes # (A) 0.6 k/uL (0-1.0); Monocytes % (A) 6 %; Neutrophils # (A) 5.2 k/uL (1.3-7.7); Neutrophils % (A) 57 %; Platelet Count 228 k/uL (150-450); RDW 15.4 % (11.5-15.5); WBC 9.1 k/uL (3.8-10.6)
[2020-01-01 08:41] LABS: Calcium 9.1 mg/dL (8.4-10.2)
[2020-01-01 08:48] LABS: Potassium 5.4 mmol/L (3.5-5.1)
[2020-01-01] MEDS ORDERED: LIDOCAINE 1% INJ 10MG/ML (20 ML MDV) ONE ×2 (08:59→09:31)
[2020-01-01] MEDS: MIDAZOLAM 2 MG/2 ML VIAL IVP ONE ×2 (09:26→09:31)
[2020-01-01] MEDS ORDERED: LIDOCAINE 1% INJ 10MG/ML (20 ML MDV) SQ ONE (09:28)
[2020-01-01] MEDS ORDERED: fentaNYL (PF) 50 MCG/ML 2 ML AMP ONE (09:32)
[2020-01-01] MEDS ORDERED: fentaNYL (PF) 50 MCG/ML 2 ML AMP IVP ONE (09:33)
[2020-01-01] MEDS ORDERED: HEPARIN SODIUM 1,000 UN/ML (10ML VL) ONE (09:41)
[2020-01-01] MEDS ORDERED: HEPARIN SODIUM 1,000 UN/ML (10ML VL) IV ONE (09:42)
[2020-01-01] MEDS: NITROGLYCERIN 1000MCG/10ML SYRINGE INTRACORON ONE ×2 (09:55→10:01)
[2020-01-01] MEDS ORDERED: CLOPIDOGREL 75 MG TAB ONE (09:59)
[2020-01-01] MEDS ORDERED: IOPAMIDOL-370 100ML BTL INJ ONE (10:07)
[2020-01-01] MEDS ORDERED: CLOPIDOGREL 75 MG TAB PO ONE (10:07)
[2020-01-01] MEDS ORDERED: IPRATROPIUM-ALBUTEROL 3 ML NEB INHALATION PRN (10:24)
[2020-01-01] MEDS ORDERED: carisoprodoL 350 MG TAB PO PRN (10:24)
[2020-01-01] MEDS ORDERED: guaiFENesin 600 MG TABLET.ER PO PRN (10:24)
[2020-01-01] MEDS ORDERED: ATROPINE SULFATE 0.1 MG/ML 10ML SYRINGE IV PRN (10:25)
[2020-01-01] MEDS ORDERED: NITROGLYCERIN SL TABS 0.4 MG TAB SUBLINGUAL PRN (10:25)
[2020-01-01] MEDS ORDERED: RX INFO: IV CONTRAST WAS GIVEN 1 EACH MISC MISCELLANE PRN (10:25)
[2020-01-01] MEDS ORDERED: MAG HYDROX/AL HYDROX/SIMETH 30 ML CUP PO PRN (10:25)
[2020-01-01] MEDS ORDERED: ZOLPIDEM 5 MG TAB PO PRN (10:25)
[2020-01-01] MEDS ORDERED: SODIUM CHLORIDE 0.9% 1,000 ML IV SCH (10:30)
--- NOTE | 2020-01-01 10:49 | CC ---
CARDIAC CATHETERIZATION REPORT DATE OF SERVICE: January 01, 2020. PERFORMING PHYSICIAN: Tato Lau MD. PROCEDURE PERFORMED: 1. Selective right and left coronary angiogram. 2. Successful stenting of the mid left circumflex coronary artery using 2.25 x 28 mm Xience REBEKAH with an excellent angiographic result and reduction of stenosis from 100% to 0%. INDICATION: This is a 69-year-old female patient with hypertension and dyslipidemia and peripheral arterial disease who was diagnosed recently with cardiomyopathy. I did advise the patient to undergo coronary angiogram to rule out severe CAD. APPROACH: Right common femoral artery. COMPLICATION: None. LEVEL OF SEDATION: Moderate with sedation length of 38 minutes. PROCEDURE DESCRIPTION: After obtaining informed consent, the patient was brought to the cardiac clinical laboratory assistant. The right common femoral artery was cannulated using micropuncture technique, the micropuncture wire passed easily. Then I placed a 6-Barbadian sheath at the right groin. Selective right and left coronary angiogram achieved using JR4 and JL4 catheters. Left heart catheterization was performed using the JR4 catheter which crossed the aortic valve, then I did pullback across the valve after flushing the catheter. After that, I did intervene on the left circumflex please see a separate paragraph for that. SELECTIVE CORONARY ANGIOGRAM: 1. The right coronary artery is a small to medium caliber vessel and nondominant vessel and appeared to be angiographically normal. 2. The left main is a large caliber vessel. It is angiographically normal. It bifurcates into left circumflex, ramus intermedius, and left anterior descending artery. 3. The left circumflex is a large caliber vessel. It is a dominant vessel. The proximal left circumflex has mild disease only. It gives rise into a large OM branch which appeared to be angiographically normal. The mid left circumflex is occluded and fills by collateral from the left coronary system. The left circumflex distally becomes a medium caliber vessel and bifurcates into PDA and PLV branches, both appeared to be angiographically normal. 4. The LAD: The proximal LAD appeared to have appeared to be angiographically normal and gives rise into a large diagonal branch which seems to be normal. The mid LAD has mild disease only and the LAD distally appeared to be angiographically normal. 5. The ramus intermedius appeared to be a large caliber vessel with intermediate disease only. HEMODYNAMICS: The LVEDP was 18 mmHg without significant gradient across aortic valve. PCI OF THE LCX: Anticoagulation was achieved with heparin with continuous ACT monitoring throughout the procedure. The left main was engaged using an XP35 guide. I did cross the lesion in the left circumflex using a whisper wire. Balloon angioplasty was achieved using 2.0 x 15 mm balloon where I did PTCA ballooning of the left circumflex x3 where the balloon was inflated under 12 atmospheres for 20 seconds each time. Subsequently I deployed 225 x 28 mm Xience REBEKAH where the stent was positioned under fluoroscopy guidance and deployed under 18 atmospheres for 20 seconds with the following angiogram showing excellent angiographic results with reduction of stenosis from 100% to 0%. The procedure was completed without any complication. CONCLUSION: 1. Newly diagnosis cardiomyopathy. 2. Occluded mid left circumflex. 3. Successful stenting of the left circumflex as described above. POSTPROCEDURE MANAGEMENT: 1. Dual anti-platelet therapy. 2. Risk factor modifications. 3. Follow up with the patient. MMERICA / SANDHYAN: [id number] /
[2020-01-01 12:08] LABS: Glucose,Whole Blood 198 mg/dL (75-99)
[2020-01-01] MEDS: HYDROcodone/APAP 5-325MG 1 EACH TAB PO PRN ×2 (12:41→16:59)
[2020-01-01] MEDS ORDERED: HYDROmorphone 0.5 MG/0.5 ML SYRINGE IVP STA (13:48)
[2020-01-01 16:51] LABS: Glucose,Whole Blood 202 mg/dL (75-99)
[2020-01-01 20:01] LABS: Glucose,Whole Blood 243 mg/dL (75-99)
[2020-01-01] MEDS: METOPROLOL SUCCINATE (ER) 25 MG TAB.ER.24H PO SCH (20:31)
[2020-01-01] MEDS: GLIMEPIRIDE 4 MG TAB PO SCH (20:31)
[2020-01-01] MEDS: TORSEMIDE 20 MG TAB PO SCH (20:32)
[2020-01-01] MEDS: SYMBICORT 160-4.5 MCG INHALER INHALATION SCH (20:37)
[2020-01-01] MEDS ORDERED: ZOLPIDEM 10 MG TAB PO SCH (21:00)
[2020-01-02 06:34] LABS: Glucose,Whole Blood 197 mg/dL (75-99)
[2020-01-02 06:46] LABS: Basophils # (A) 0.1 k/uL (0-0.2); Basophils % (A) 1 %; Eosinophils # (A) 0.2 k/uL (0-0.7); Eosinophils % (A) 2 %; HCT 35.2 % (34.0-46.0); HGB 11.5 gm/dL (11.4-16.0); Lymphocytes % (A) 25 %; MCHC 32.5 g/dL (31.0-37.0); MCV 95.3 fL (80.0-100.0); Mean Platelet Volume 8.3; Monocytes # (A) 0.5 k/uL (0-1.0); Monocytes % (A) 6 %; Neutrophils # (A) 5.1 k/uL (1.3-7.7); Neutrophils % (A) 64 %; Platelet Count 185 k/uL (150-450); RDW 15.6 % (11.5-15.5)
[2020-01-02 07:00] LABS: Calcium 8.7 mg/dL (8.4-10.2); Potassium 4.3 mmol/L (3.5-5.1)
[2020-01-02] MEDS: SYMBICORT 160-4.5 MCG INHALER INHALATION SCH (08:53)
[2020-01-02] MEDS ORDERED: NICOTINE 14MG/24HR PATCH TRANSDERM SCH (09:00)
[2020-01-02] MEDS ORDERED: ATORVASTATIN 80 MG TAB PO SCH (09:00)
[2020-01-02] MEDS ORDERED: ASPIRIN 81 MG PO SCH (09:00)
[2020-01-02] MEDS ORDERED: CLOPIDOGREL 75 MG TAB PO SCH (09:00)
[2020-01-02] MEDS ORDERED: RALOXIFENE 60 MG TAB PO SCH (09:00)
[2020-01-02] MEDS ORDERED: LINAGLIPTIN 5 MG TABLET PO SCH (09:00)
[2020-01-02] MEDS: METOPROLOL SUCCINATE (ER) 25 MG TAB.ER.24H PO SCH (09:18)
[2020-01-02] MEDS: TORSEMIDE 20 MG TAB PO SCH (09:19)
[2020-01-02] MEDS: GLIMEPIRIDE 4 MG TAB PO SCH (09:19)
[2020-01-02 10:36] VITALS: BP 105/51; RESP 16; TEMP 98.9
--- NOTE | 2020-01-02 12:09 | CONS ---
CONSULTATION REASON FOR CONSULT: Renal failure. HISTORY OF PRESENT ILLNESS: Patient is a 69-year-old female who was admitted to the hospital for cardiac catheterization. The patient did have the cardiac catheterization yesterday by Dr. Lau, which showed cardiomyopathy, occluded mid left circumflex, and patient had stenting of the left circumflex as well. She is currently doing well. She denies any prior history of kidney diseases. Serum creatinine was 1.3 mg/dL on admission and it is again 1.31 today. Review of previous labs show serum creatinine about 1.7-1.4 mg/dL previously. Serum potassium was mildly elevated at 5.4. It is down to 4.3 now. Patient was maintained on loop diuretics at home, I do not see any WILLOW inhibitors, angiotensin receptor blockers or nonsteroidal anti-inflammatory agents. Patient has been voiding well. No history of fever, chills, nausea, vomiting, abdominal pain or diarrhea. Patient was evaluated by Nephrology on 11/06/2019 mainly for chronic kidney disease and acute kidney injury on top of CKD, which was mostly ATN secondary to hypotension and atrial flutter. Serum creatinine had peaked at that time to about 2.3 mg/dL, but then decreased to about 1.4 subsequently. PAST MEDICAL HISTORY: Significant for CKD stage 3, hypertension, CHF, cardiomyopathy, osteoarthritis, COPD, hyperlipidemia. PAST SURGICAL HISTORY: Appendectomy, cholecystectomy, tubal ligation, tonsillectomy, removal of a mass in the parotid gland, temporary colostomy with reversal cataract, surgery for perforated appendicitis. SOCIAL HISTORY: Patient is a former smoker. No history of drug abuse or alcohol abuse. MEDICATIONS: Prior to admission included Soma, Amaryl, Ambien, , Lipitor, Tradjenta, Toprol, Mucinex, Lasix. ALLERGIES: Include COUMADIN, which is mostly an adverse effect as patient had bleeding with elevated INR. PHYSICAL EXAMINATION: Currently patient is comfortable, awake, alert, oriented x3, not in any acute distress. Blood pressure was 105/51, heart rate of 85 per minute, patient is afebrile. Examination of the heart S1, S2. Examination of lungs, bilateral breath sounds are heard. Abdomen is soft, nontender. Examination of the lower extremities, shows no evidence of edema. RIG SUPERVISOR exam grossly intact. LABS: Show sodium 136, potassium 4.3, chloride 101. CO2 is 29, BUN 31, creatinine 1.3, hemoglobin 11.5 g/dL. ASSESSMENT: 1. Chronic kidney disease stage 3 secondary to nephrosclerosis. Baseline creatinine about 1.3-1.4 mg/dL. No evidence of proteinuria on urinalysis in October of 2019. 2. Recent acute kidney injury ATN secondary to hypotension and atrial flutter, improved with serum creatinine peaking at about 2.3 mg/dL. 3. Coronary artery disease status post cardiac catheterization and coronary stent placement. 4. Mild hyperkalemia, currently improved. Patient should resume the lower dose of the loop diuretics post discharge. 5. Type 2 diabetes. 6. Hyperlipidemia. PLAN: Patient can be discharged and follow up as outpatient for CKD management in about 2 weeks' time. She is advised to avoid use of any NSAIDs. MMODL / IJN: [id number] /
--- NOTE | 2020-01-02 19:44 | DS ---
DISCHARGE SUMMARY BRIEF HISTORY: This is a 69-year-old female patient who was diagnosed recently with cardiomyopathy. She underwent yesterday heart catheterization and that revealed occluded left circumflex. I did perform successful stenting of the mid left circumflex with excellent angiographic results and without any complication from right groin approach. The patient is going to be discharged home on anticoagulation which she was on before with Eliquis as well as on Plavix. I am going to see the patient next week in the office. MMMJL / SANDHYAN: [id number] /
== END 2020-01-02 11:09 | disposition home or self-care (01) ==
LOC: CATHCVL 07:49 → 3SCARD 10:06 → CATHCVL 01-02 11:09
PROVIDERS: ATTEND Internal Medicine Interventional Cardiology
DX: I25.10 Atherosclerotic heart disease of native coronary artery without angina pectoris (principal); I42.9 Cardiomyopathy, unspecified; I13.0 Hypertensive heart and chronic kidney disease with heart failure and stage 1 through stage 4 chronic kidney disease, or unspecified chronic kidney disease; E11.22 Type 2 diabetes mellitus with diabetic chronic kidney disease; N18.3 Chronic kidney disease, stage 3 (moderate); I50.9 Heart failure, unspecified; E78.5 Hyperlipidemia, unspecified; M19.90 Unspecified osteoarthritis, unspecified site; J44.9 Chronic obstructive pulmonary disease, unspecified; I48.92 Unspecified atrial flutter; E87.5 Hyperkalemia; F17.210 Nicotine dependence, cigarettes, uncomplicated; E11.51 Type 2 diabetes mellitus with diabetic peripheral angiopathy without gangrene; I70.213 Atherosclerosis of native arteries of extremities with intermittent claudication, bilateral legs; Z90.49 Acquired absence of other specified parts of digestive tract; Z98.51 Tubal ligation status; Z90.89 Acquired absence of other organs; Z98.49 Cataract extraction status, unspecified eye; Z88.8 Allergy status to other drugs, medicaments and biological substances; Z86.711 Personal history of pulmonary embolism; Z79.51 Long term (current) use of inhaled steroids; Z79.82 Long term (current) use of aspirin; Z79.01 Long term (current) use of anticoagulants; Z79.899 Other long term (current) drug therapy; Z82.49 Family history of ischemic heart disease and other diseases of the circulatory system; Z79.84 Long term (current) use of oral hypoglycemic drugs; E78.00 Pure hypercholesterolemia, unspecified
CPT/HCPCS: 94640 ×2; 93458; 85347; 80048 ×2; 85025 ×2; C9600; C1769 ×3; C1725; C1887 ×2; C1894; C1874; S4990; J2250; J2001; J3010; J1644; J1170; Q9967

== ENCOUNTER 2020-01-31 08:02 | Day surgery (SDC) | payer MEDICARE, OTHER ==
[~2020-01-31 08:02] MED LIST changes: -ALPRAZolam 0.25 MG TAB PO PRN; -ALPRAZolam 0.5 MG TAB PO PRN; -ASPIRIN 325 MG TAB PO ONE; +ASPIRIN 325 MG TAB PO STA; -ATORVASTATIN 80 MG TAB PO ONE; -NITROGLYCERIN SL TABS 0.4 MG TAB SUBLINGUAL PRN
[2020-01-31 08:32] LABS: Glucose,Whole Blood 196 mg/dL (75-99)
[2020-01-31] MEDS ORDERED: SODIUM CHLORIDE 0.9% 1,000 ML IV ONE (08:42)
[2020-01-31] MEDS: ALPRAZolam 0.5 MG TAB PO PRN ×2 (08:43→17:22)
[2020-01-31] MEDS ORDERED: HYDROcodone/APAP 5-325MG 1 EACH TAB PO PRN (11:13)
[2020-01-31] MEDS ORDERED: HYDROcodone/APAP 5-325MG 1 EACH TAB ONE (11:14)
[2020-01-31] MEDS ORDERED: MIDAZOLAM 2 MG/2 ML VIAL IVP ONE (12:28)
[2020-01-31] MEDS ORDERED: LIDOCAINE 1% INJ 10MG/ML (20 ML MDV) SQ ONE (12:39)
[2020-01-31] MEDS ORDERED: IOPAMIDOL-250 100ML BTL INTRAARTER ONE (12:49)
[2020-01-31] MEDS ORDERED: SODIUM CHLORIDE 0.9% 1,000 ML IV SCH (13:00)
--- NOTE | 2020-01-31 13:25 | IR ---
EXAMINATION TYPE: IR angio abdominal w runoff DATE OF EXAM: 01/31/2020 CLINICAL HISTORY: Peripheral vascular disease. Leg pain. TECHNIQUE: Fluoroscopy. COMPARISON: None. FINDINGS: Fluoroscopic guidance was provided during abdominal angiogram with lower extremity runoff procedure performed by Dr. Lau. A total of 1.7 minutes of fluoroscopic time was utilized during the procedure and several cine runs are acquired. Images acquired to access via right groin with subsequ ent angiogram. Please refer to procedure note for further details if necessary. IMPRESSION: As Above.
[2020-01-31 16:44] LABS: Glucose,Whole Blood 184 mg/dL (75-99)
--- NOTE | 2020-01-31 17:43 | LTR ---
January 31, 2020 To: Dr. Ferro Re: Jessica Gomez (52) Dear Dr. Ferro: Ms. Jessica Gomez was experiencing bilateral lower extremity intermittent claudication and underwent today an aortogram with runoff that revealed occluded bilateral SFA. The patient will be scheduled to undergo TELEGRAPH SERVICE CLERK of the right and left SFA to be performed in two separate sessions. I want to thank you for allowing us to participate in her care and please do not hesitate to call with any question or concern. Sincerely, Tato Lau M.D. ROLANDO / CHRISTIANO: [id number] /
[2020-01-31 17:53] VITALS: TEMP 97.6
[2020-01-31 18:03] VITALS: RESP 18
[2020-01-31 18:54] VITALS: BP 112/65; PULSE 72
--- NOTE | 2020-02-01 03:57 | AN ---
ANGIOGRAPHY REPORT DATE OF SERVICE: January 31, 2020. PERFORMING PHYSICIAN: Tato Lau MD. PROCEDURE PERFORMED: 1. Abdominal aortogram. 2. Bilateral lower extremities runoff. INDICATION: This is a 69-year-old female patient with known coronary artery disease as well as hypertension and dyslipidemia who was experiencing bilateral lower extremities intermittent claudication and underwent an NICK and that came into be abnormal. Because of that, she is scheduled today to undergo an aortogram with runoff. APPROACH: Right common femoral artery. COMPLICATION: None. LEVEL OF SEDATION: Moderate with sedation length of 15 minutes. PROCEDURE DESCRIPTION: After obtaining an informed consent, the patient was brought to the cardiac oil laboratory analyst. The right common femoral artery was cannulated using micropuncture technique, the micropuncture wire passed easily then I placed a 6-[place] sheath at the right common femoral artery. After that, I did an abdominal aortogram and bilateral lower extremities runoff using 5-[place] pigtail catheter which was initially placed at the level of the renal arteries then it was pulled into above the bifurcation of the aorta to right and left common iliac arteries. The procedure was completed without any complication. SELECTIVE PERIPHERAL ANGIOGRAM: 1. The aorta appeared to be mildly aneurysmal distally just above the bifurcation into right and left common iliac arteries. 2. Common iliac arteries: Both appeared to be angiographically normal. 3. Internal iliac arteries: Both appeared to be angiographically normal. 4. Common femoral arteries: Both appeared to be angiographically normal. 5. Profunda: Both are patent. 6. SFA: Both are occluded in the midportion. 7. Below the knee: There are 3-vessel runoff below the knee bilaterally. CONCLUSION: Occluded bilateral SFA. POSTPROCEDURE MANAGEMENT: The patient will be scheduled to undergo a TELEVISION CABINET FINISHER of the right and left SFA to be done on 2 separate sessions. MMODL / IJN: [id number] /
== END 2020-01-31 23:25 | disposition home or self-care (01) ==
LOC: CATHCVL 08:02 → 3NCARDOBS 12:52 → CATHCVL 23:25
PROVIDERS: ATTEND Internal Medicine Interventional Cardiology
DX: I70.213 Atherosclerosis of native arteries of extremities with intermittent claudication, bilateral legs (principal); E11.51 Type 2 diabetes mellitus with diabetic peripheral angiopathy without gangrene; I42.9 Cardiomyopathy, unspecified; I10 Essential (primary) hypertension; E78.5 Hyperlipidemia, unspecified; I34.0 Nonrheumatic mitral (valve) insufficiency; Z87.891 Personal history of nicotine dependence; I25.10 Atherosclerotic heart disease of native coronary artery without angina pectoris; Z95.5 Presence of coronary angioplasty implant and graft; Z86.711 Personal history of pulmonary embolism; Z82.49 Family history of ischemic heart disease and other diseases of the circulatory system; Z79.01 Long term (current) use of anticoagulants; Z79.84 Long term (current) use of oral hypoglycemic drugs; Z79.02 Long term (current) use of antithrombotics/antiplatelets; Z79.890 Hormone replacement therapy; Z79.51 Long term (current) use of inhaled steroids; Z79.899 Other long term (current) drug therapy; Z88.8 Allergy status to other drugs, medicaments and biological substances
CPT/HCPCS: 75625; 36200; 75716; C1769 ×4; C1894 ×2; J2250; J2001; Q9966

== ENCOUNTER → 2020-02-04 | Outpatient (CLI) | payer MEDICARE, OTHER ==
[2020-02-04 15:58] LABS: Protein/Creatinine Ratio,Urine 0.395
[2020-02-04 16:24] LABS: HCT 34.8 % (34.0-46.0); HGB 11.4 gm/dL (11.4-16.0); MCH 30.7 pg (25.0-35.0); MCHC 32.8 g/dL (31.0-37.0); MCV 93.4 fL (80.0-100.0); Platelet Count 175 k/uL (150-450); RBC 3.72 m/uL (3.80-5.40); RDW 14.7 % (11.5-15.5); WBC 8.6 k/uL (3.8-10.6)
[2020-02-04 18:01] LABS: Appearance,Urine Clear (Clear); Bilirubin,Urine Negative (Negative); Blood,Urine Negative (Negative); Color,Urine Light Yellow; Glucose,Urine (UA) Negative (Negative); Ketones,Urine Negative (Negative); Leukocyte Esterase,Urine Negative (Negative); Nitrite,Urine Negative (Negative); Protein,Urine Negative (Negative); Specific Gravity,Urine 1.007 (1.001-1.035); Urobilinogen,Urine <2.0 mg/dL (<2.0)
[2020-02-05 01:55] LABS: African American GFR (CKD) 41.1 (60.0-200.0); Anion Gap 4.8 mmol/L (4.00-12.00); BUN/Creat Ratio 18.67 Ratio (12.00-20.00); Calcium 8.8 mg/dL (8.7-10.3); Carbon Dioxide 28.2 mmol/L (21.6-31.8); Non-African American GFR(CKD) 35.4 (60.0-200.0); Potassium 4.8 mmol/L (3.5-5.5); Uric Acid 11.5 mg/dL (2.9-7.7)
[2020-02-05 14:57] LABS: % Iron Saturation 13.83 (12.00-45.00); Magnesium 1.9 mg/dL (1.5-2.4); Phosphorus 3.9 mg/dL (2.4-5.1)
[2020-02-05 15:09] LABS: Ferritin 17.5 ng/mL (10.0-291.0)
== END | disposition home or self-care (01) ==
LOC: LABWHC1 13:48
PROVIDERS: ATTEND Nurse Practitioner Family
DX: N17.9 Acute kidney failure, unspecified (principal); D64.9 Anemia, unspecified; N25.81 Secondary hyperparathyroidism of renal origin; E55.9 Vitamin D deficiency, unspecified; M10.9 Gout, unspecified; R80.9 Proteinuria, unspecified; N39.0 Urinary tract infection, site not specified
CPT/HCPCS: 36415; 80048; 81003; 82306; 82570; 82728; 83540; 83550; 83735; 83970; 84100; 84156; 84550; 85027

== ENCOUNTER 2020-03-10 15:27 | Inpatient (IN) | payer MEDICARE, OTHER ==
[2020-03-10] MEDS ORDERED: PANTOPRAZOLE 40 MG/10 ML VIAL IVP STA (16:52)
--- NOTE | 2020-03-10 16:58 | ED ---
General Adult HPI - General Chief complaint: Recheck/Abnormal Lab/Rx Stated complaint: sent by pcp Time Seen by Provider: 03/10/20 16:30 Source: patient, RN notes reviewed Mode of arrival: wheelchair Limitations: no limitations - History of Present Illness Initial comments: Patient is a pleasant 69-year-old female presenting to the emergency Department with complaints of reported low hemoglobin. Patient was going to have procedure done for her legs by Dr. Lau. Patient did have blood work showing low hemoglobin.Patient has no complaints otherwise. Patient denies any black or tarry stools. No fatigue. No weakness. No dyspnea. Patient states she does have chronic leg problems including cramping Poor blood flow and that's why she was going to have procedure done. - Related Data Home Medications Medication Instructions Recorded Confirmed Carisoprodol [Soma] 350 mg PO BID PRN 03/08/16 03/07/20 Glimepiride [Amaryl] 4 mg PO BID 03/08/16 03/07/20 HYDROcodone/APAP 5-325MG [[place] 1 tab PO Q12H PRN 03/08/16 03/07/20 5-325] Zolpidem Tartrate [Ambien] 10 mg PO HS 03/08/16 03/07/20 Budesonide/Formoterol Fumarate 2 puff INHALATION RT-BID 10/23/19 03/07/20 [Symbicort 160-4.5 Mcg Inhaler] Ipratropium-Albuterol Nebulize 3 ml INHALATION RT-QID PRN 10/23/19 03/07/20 [Duoneb 0.5 mg-3 mg/3 ml Soln] Raloxifene [Evista] 60 mg PO DAILY 10/23/19 03/07/20 Atorvastatin Calcium [Lipitor] 80 mg PO DAILY 10/24/19 03/07/20 Aspirin [Adult Low Dose Aspirin EC] 81 mg PO DAILY 01/24/20 03/07/20 Previous Rx's Medication Instructions Recorded Linagliptin [Tradjenta] 5 mg PO DAILY #30 tablet 10/26/19 guaiFENesin [Mucinex] 600 mg PO Q12HR PRN tablet.er 10/26/19 Metoprolol Succinate (ER) [Toprol 25 mg PO BID #60 tab.er.24h 11/08/19 XL] Nicotine 14Mg/24Hr Patch [Habitrol] 1 patch TRANSDERM DAILY #30 patch 11/08/19 Torsemide [Demadex] 20 mg PO BID #60 tablet 11/08/19 Apixaban [Eliquis] 2.5 mg PO BID #0 01/02/20 Clopidogrel [Plavix] 75 mg PO DAILY #90 tab 01/02/20 Allergies Allergy/AdvReac Type Severity Reaction Status Date / Time warfarin sodium Allergy "very high Verified 03/10/20 15:51 [From Coumadin] PT/INR-was told never to take" Review of Systems ROS Statement: Those systems with pertinent positive or pertinent negative responses have been documented in the HPI. ROS Other: All systems not noted in ROS Statement are negative. Constitutional: Denies: fever Eyes: Denies: eye pain ENT: Denies: ear pain Respiratory: Denies: cough, dyspnea Cardiovascular: Denies: chest pain Endocrine: Denies: fatigue Gastrointestinal: Denies: abdominal pain, hematemesis, melena Genitourinary: Denies: dysuria Musculoskeletal: Denies: back pain Skin: Denies: rash Neurological: Denies: weakness Past Medical History Past Medical History: Atrial Fibrillation, Heart Failure, COPD, Diabetes Mellitus, Eye Disorder, GERD/Reflux, Hyperlipidemia, Hypertension, Osteoarthritis (OA) Additional Past Medical History / Comment(s): eye disease stargaze natalia eyes, ripple in left eye History of Any Multi-Drug Resistant Organisms: None Reported Past Surgical History: Appendectomy, Cholecystectomy, Joint Replacement, Orthopedic Surgery, Tonsillectomy, Tubal Ligation Additional Past Surgical History / Comment(s): mass in neck parotid gland removed, right hip surgery, ruptured appendix- temporary colostomy with reversa l, cataracts Past Anesthesia/Blood Transfusion Reactions: No Reported Reaction Date of Last Stent Placement:: 12/2019 Past Psychological History: No Psychological Hx Reported Smoking Status: Current every day smoker - Past Family History Mother Family Medical History: Congestive Heart Failure (CHF), Diabetes Mellitus Additional Family Medical History / Comment(s): lived to eightys Father Family Medical History: CVA/TIA, Myocardial Infarction (PR) Additional Family Medical History / Comment(s): lived to eightys Brother(s) Family Medical History: Diabetes Mellitus Sister(s) Family Medical History: No Reported History Daughter(s) Family Medical History: No Reported History Son(s) Family Medical History: No Reported History General Exam Limitations: no limitations General appearance: alert, in no apparent distress Head exam: Present: normocephalic Eye exam: Present: normal appearance Neck exam: Present: normal inspection Respiratory exam: Present: normal lung sounds bilaterally Cardiovascular Exam: Present: regular rate, normal rhythm GI/Abdominal exam: Present: soft. Absent: tenderness Rectal exam: Present: normal inspection Extremities exam: Present: normal inspection Neurological exam: Present: alert Psychiatric exam: Present: normal affect, normal mood Skin exam: Present: normal color Course Vital Signs 03/10/20 03/10/20 03/10/20 15:46 17:00 17:30 Temperature 97.8 F Pulse Rate 84 81 75 Respiratory 18 18 18 Rate Blood Pressure 98/46 121/67 126/61 O2 Sat by Pulse 98 98 98 Oximetry 03/10/20 18:00 Temperature Pulse Rate 72 Respiratory 18 Rate Blood Pressure 112/53 O2 Sat by Pulse 98 Oximetry Medical Decision Making - Medical Decision Making Patient reevaluated and updated. Case discussed with Dr. Ferro who is familiar with this patient and will admit. He agrees with transfusion and would like consult with Dr. Lau and GI. - Lab Data Result diagrams: 03/10/20 16:59 03/10/20 16:59 Lab Results 03/10/20 03/10/20 03/10/20 Range/Units 16:56 16:59 16:59 WBC 9.2 (3.8-10.6) k/uL RBC 2.76 L (3.80-5.40) m/uL Hgb 6.5 L* (11.4-16.0) gm/dL Hct 22.2 L (34.0-46.0) % MCV 80.3 (80.0-100.0) fL MCH 23.7 L (25.0-35.0) pg MCHC 29.5 L (31.0-37.0) g/dL RDW 18.3 H (11.5-15.5) % Plt Count 275 (150-450) k/uL Neutrophils % (Manual) 68 % Lymphocytes % (Manual) 21 % Monocytes % (Manual) 9 % Eosinophils % (Manual) 2 % Neutrophils # (Manual) 6.26 (1.3-7.7) k/uL Lymphocytes # (Manual) 1.93 (1.0-4.8) k/uL Monocytes # (Manual) 0.83 (0-1.0) k/uL Eosinophils # (Manual) 0.18 (0-0.7) k/uL Nucleated RBCs 0 (0-0) /100 WBC Manual Slide Review Performed Polychromasia Present Hypochromasia Marked Hypochromasia (manual) Present Poikilocytosis Marked Poikilocytosis (manual Present Anisocytosis Slight Anisocytosis (manual) Present Microcytosis Slight Ovalocytes Present Stomatocytes Present PT 9.8 (9.0-12.0) sec INR 0.9 (<1.2) APTT 21.1 L (22.0-30.0) sec Sodium (137-145) mmol/L Potassium (3.5-5.1) mmol/L Chloride (98-107) mmol/L Carbon Dioxide (22-30) mmol/L Anion Gap mmol/L BUN (7-17) mg/dL Creatinine (0.52-1.04) mg/dL Est GFR (CKD-EPI)AfAm (>60 ml/min/1.73 sqM) Est GFR (CKD-EPI)NonAf (>60 ml/min/1.73 sqM) Glucose (74-99) mg/dL Calcium (8.4-10.2) mg/dL Total Bilirubin (0.2-1.3) mg/dL AST (14-36) U/L ALT (4-34) U/L Alkaline Phosphatase (38-126) U/L Total Protein (6.3-8.2) g/dL Albumin (3.5-5.0) g/dL Stool Occult Blood (Negative) Blood Type A Negative Blood Type Confirm Blood Type Recheck No Previous Record Bld Type Recheck Status CABO Indicated Antibody Screen NEGATIVE Spec Expiration Date 03/13/2020 - 235503/10/20 03/10/20 03/10/20 Range/Units 16:59 16:59 17:01 WBC (3.8-10.6) k/uL RBC (3.80-5.40) m/uL Hgb (11.4-16.0) gm/dL Hct (34.0-46.0) % MCV (80.0-100.0) fL MCH (25.0-35.0) pg MCHC (31.0-37.0) g/dL RDW (11.5-15.5) % Plt Count (150-450) k/uL Neutrophils % (Manual) % Lymphocytes % (Manual) % Monocytes % (Manual) % Eosinophils % (Manual) % Neutrophils # (Manual) (1.3-7.7) k/uL Lymphocytes # (Manual) (1.0-4.8) k/uL Monocytes # (Manual) (0-1.0) k/uL Eosinophils # (Manual) (0-0.7) k/uL Nucleated RBCs (0-0) /100 WBC Manual Slide Review Polychromasia Hypochromasia Hypochromasia (manual) Poikilocytosis Poikilocytosis (manual Anisocytosis Anisocytosis (manual) Microcytosis Ovalocytes Stomatocytes PT (9.0-12.0) sec INR (<1.2) APTT (22.0-30.0) sec Sodium 131 L (137-145) mmol/L Potassium 4.7 (3.5-5.1) mmol/L Chloride 97 L (98-107) mmol/L Carbon Dioxide 26 (22-30) mmol/L Anion Gap 8 mmol/L BUN 32 H (7-17) mg/dL Creatinine 1.53 H (0.52-1.04) mg/dL Est GFR (CKD-EPI)AfAm 40 (>60 ml/min/1.73 sqM) Est GFR (CKD-EPI)NonAf 35 (>60 ml/min/1.73 sqM) Glucose 189 H (74-99) mg/dL Calcium 8.9 (8.4-10.2) mg/dL Total Bilirubin 0.6 (0.2-1.3) mg/dL AST 21 (14-36) U/L ALT 10 (4-34) U/L Alkaline Phosphatase 78 (38-126) U/L Total Protein 6.4 (6.3-8.2) g/dL Albumin 3.9 (3.5-5.0) g/dL Stool Occult Blood Negative (Negative) Blood Type Blood Type Confirm A Negative Blood Type Recheck Bld Type Recheck Status Antibody Screen Spec Expiration Date Critical Care Time Critical Care Time: Yes Total Critical Care Time: 32 Disposition Clinical Impression: Anemia Disposition: ADMITTED IP TO THIS HOSP Is patient prescribed a controlled substance at d/c from ED?: No Referrals: Franc Ferro MD [Primary Care Provider] - 1-2 days Decision Time: 18:54
[2020-03-10 17:25] LABS: Albumin 3.9 g/dL (3.5-5.0); Anisocytosis Slight; Calcium 8.9 mg/dL (8.4-10.2); HCT 22.2 % (34.0-46.0); Hypochromasia Marked; MCH 23.7 pg (25.0-35.0); MCHC 29.5 g/dL (31.0-37.0); MCV 80.3 fL (80.0-100.0); Mean Platelet Volume 7.9; Microcytosis Slight; Platelet Count 275 k/uL (150-450); Poikilocytosis Marked; Potassium 4.7 mmol/L (3.5-5.1); RBC 2.76 m/uL (3.80-5.40); RDW 18.3 % (11.5-15.5); Total Bilirubin 0.6 mg/dL (0.2-1.3); Total Protein 6.4 g/dL (6.3-8.2); WBC 9.2 k/uL (3.8-10.6)
[2020-03-10 17:28] LABS: HGB 6.5 gm/dL (11.4-16.0)
[2020-03-10 17:44] LABS: INR 0.9 (<1.2); Prothrombin Time 9.8 sec (9.0-12.0)
[2020-03-10 17:51] LABS: Anisocytosis (M) Present; Eosinophils # (M) 0.18 k/uL (0-0.7); Hypochromasia (M) Present; Lymphocytes # (M) 1.93 k/uL (1.0-4.8); Monocytes # (M) 0.83 k/uL (0-1.0); Neutrophils # (M) 6.26 k/uL (1.3-7.7); Neutrophils % (M) 68 %; Nucleated Red Blood Cells 0 /100 WBC (0-0); Ovalocytes Present; Poikilocytosis (M) Present; Polychromasia Present; Stomatocytes Present; Total Cells Counted 100
[2020-03-10 17:53] LABS: Partial Thromboplastin Time 21.1 sec (22.0-30.0)
[2020-03-10] MEDS ORDERED: NALOXONE 0.4 MG/ML 1 ML VIAL IV PRN (18:55)
[2020-03-10] MEDS ORDERED: traMADol 50 MG TAB PO PRN (18:55)
[2020-03-10] MEDS ORDERED: HYDROcodone/APAP 5-325MG 1 EACH TAB PO STA (18:58)
[2020-03-10] MEDS: SODIUM CHLORIDE 0.9% 1,000 ML IV SCH (21:12)
[2020-03-10] MEDS: carisoprodoL 350 MG TAB PO SCH (21:48)
[2020-03-10] MEDS ORDERED: ZOLPIDEM 5 MG TAB PO PRN (23:16)
[2020-03-11 06:41] LABS: Anisocytosis Slight; Basophils % (A) 1 %; Eosinophils # (A) 0.2 k/uL (0-0.7); Eosinophils % (A) 4 %; HCT 22.8 % (34.0-46.0); Hypochromasia Marked; Lymphocytes # (A) 1.7 k/uL (1.0-4.8); Lymphocytes % (A) 26 %; MCHC 30.8 g/dL (31.0-37.0); MCV 81.3 fL (80.0-100.0); Mean Platelet Volume 9.4; Microcytosis Slight; Monocytes # (A) 0.4 k/uL (0-1.0); Monocytes % (A) 7 %; Neutrophils % (A) 61 %; Platelet Count 229 k/uL (150-450); Poikilocytosis Marked; RBC 2.81 m/uL (3.80-5.40); RDW 17.2 % (11.5-15.5); WBC 6.6 k/uL (3.8-10.6)
[2020-03-11] MEDS ORDERED: carisoprodoL 350 MG TAB PO PRN (08:22)
[2020-03-11] MEDS: PANTOPRAZOLE 40 MG/10 ML VIAL IV SCH (09:18)
[2020-03-11] MEDS: LINAGLIPTIN 5 MG TABLET PO SCH (09:18)
[2020-03-11] MEDS: METOPROLOL SUCCINATE (ER) 25 MG TAB.ER.24H PO SCH ×2 (09:18→21:38)
[2020-03-11] MEDS: ATORVASTATIN 80 MG TAB PO SCH (09:18)
[2020-03-11] MEDS: NICOTINE 14MG/24HR PATCH TRANSDERM SCH (09:18)
[2020-03-11] MEDS: HYDROcodone/APAP 5-325MG 1 EACH TAB PO PRN ×2 (09:40→15:41)
--- NOTE | 2020-03-11 11:07 | P.CRDCN ---
History of Present Illness Consult date: 03/11/20 History of present illness: CHIEF COMPLAINT: Peripheral vascular disease HISTORY OF PRESENT ILLNESS: This is a 69-year old female with a past medical history significant for peripheral vascular disease, atrial fibrillation, COPD, diabetes mellitus, hypertension, and hyperlipidemia. Patient follows in the office with Dr. Lau.. We have been asked to see the patient in consultation for peripheral vascular disease. Patient examined this morning at the bedside. Patient was scheduled to have [facility] tomorrow with Dr. Lau. Patient presented to the hospital yesterday for routine blood work and was found to be anemic with a hemoglobin of 6.3. Hemoglobin was previously 11.4 last month. Patient did undergo cardiac cath in December 2019 with a stent placement to the circumflex. Patient is currently on Eliquis, aspirin, and Plavix. DIAGNOSTICS: EKG: not available Chest xray not available Laboratory data: WBC 6.6. hemoglobin 7.0. Platelet count 229. Sodium 131. Potassium 4.7. BUN 32. Creatinine 1.53. Stool for occult blood negative. Current home cardiac medications include Lipitor 80 mg daily, Toprol-XL 25 mg twice a day, Demadex 20 mg twice a day, Plavix 75 mg daily, aspirin 81 mg daily, Eliquis 2.5 mg twice a day REVIEW OF SYSTEMS: At the time of my exam: CONSTITUTIONAL: Denies fever or chills. HEENT: Denies blurred vision, vision changes, or eye pain. Denies hemoptysis CARDIOVASCULAR: Denies chest pain, orthopnea, PND or palpitations RESPIRATORY: No shortness of breath. GASTROINTESTINAL: Denies abdominal pain. Denies nausea or vomiting. HEMATOLOGIC: Denies bleeding disorders. GENITOURINARY: Denies any blood in urine. SKIN: Denies pruitis. Denies rash. PHYSICAL EXAM: VITAL SIGNS: Reviewed. GENERAL: Well-developed in no acute distress. HEENT: Head is normocephalic. Pupils are equal, round. Sclerae anicteric. Mucous membranes of the mouth are moist. Neck supple. No JVD or thyromegaly LUNGS: Respirations even and unlabored. Lungs essentially clear to auscultation bilaterally. HEART: Regular rate and rhythm. S1 and S2 heard. ABDOMEN: Soft. Nondistended. Nontender. EXTREMITIES: Normal range of motion. No clubbing or cyanosis. Peripheral pulses intact. No lower extremity edema NEUROLOGIC: Awake and alert. Oriented x 3. ASSESSMENT: Anemia Peripheral vascular disease, scheduled for [facility] Coronary artery disease with previous stent placement to circumflex, December 2019 Cardiomyopathy, previous EF noted to be 20-25% COPD Hypertension Hyperlipidemia Diabetes mellitus, type II Chronic kidney disease PLAN: Procedure with Dr. Lau will be cancelled for tomorrow and rescheduled when patient is medically stable Obtain 12 lead EKG No need to repeat echocardiogram at this time Monitor hemoglobin Hold Eliquis, plavix, and aspirin secondary to anemia GI consulted. Patient scheduled for EGD and colonoscopy tomorrow Further recommendations pending patient course Nurse practitioner note has been reviewed by physician. Signing provider agrees with the documented findings, assessment, and plan of care. Past Medical History Past Medical History: Atrial Fibrillation, Heart Failure, COPD, Diabetes Mellitus, Eye Disorder, Hyperlipidemia, Hypertension, Osteoarthritis (OA) Additional Past Medical History / Comment(s): eye disease stargaze natalia eyes, ripple in left eye History of Any Multi-Drug Resistant Organisms: None Reported Past Surgical History: Appendectomy, Cholecystectomy, Joint Replacement, Orthopedic Surgery, Tonsillectomy, Tubal Ligation Additional Past Surgical History / Comment(s): mass in neck parotid gland removed, right hip surgery, ruptured appendix- temporary colostomy with reversa l, cataracts Past Anesthesia/Blood Transfusion Reactions: No Reported Reaction Date of Last Stent Placement:: 12/2019 Past Psychological History: No Psychological Hx Reported Smoking Status: Current every day smoker Past Alcohol Use History: None Reported Additional Past Alcohol Use History / Comment(s): Has been smoking 50 yrs, 1/2 PPD. Past Drug Use History: None Reported - Past Family History Mother Family Medical History: Congestive Heart Failure (CHF), Diabetes Mellitus Additional Family Medical History / Comment(s): lived to eightys Father Family Medical History: CVA/TIA, Myocardial Infarction (MS) Additional Family Medical History / Comment(s): lived to eightys Brother(s) Family Medical History: Diabetes Mellitus Sister(s) Family Medical History: No Reported History Daughter(s) Family Medical History: No Reported History Son(s) Family Medical History: No Reported History Medications and Allergies Home Medications Medication Instructions Recorded Confirmed Type Carisoprodol [Soma] 350 mg PO BID PRN 03/08/16 03/10/20 History Glimepiride [Amaryl] 4 mg PO BID 03/08/16 03/10/20 History HYDROcodone/APAP 5-325MG [[place] 1 tab PO Q12H PRN 03/08/16 03/10/20 History 5-325] Zolpidem Tartrate [Ambien] 10 mg PO HS 03/08/16 03/10/20 History Budesonide/Formoterol Fumarate 2 puff INHALATION RT-BID 10/23/19 03/10/20 History [Symbicort 160-4.5 Mcg Inhaler] Ipratropium-Albuterol Nebulize 3 ml INHALATION RT-QID PRN 10/23/19 03/10/20 History [Duoneb 0.5 mg-3 mg/3 ml Soln] Raloxifene [Evista] 60 mg PO DAILY 10/23/19 03/10/20 History Atorvastatin Calcium [Lipitor] 80 mg PO DAILY 10/24/19 03/10/20 History Linagliptin [Tradjenta] 5 mg PO DAILY #30 tablet 10/26/19 03/10/20 Rx guaiFENesin [Mucinex] 600 mg PO Q12HR PRN tablet.er 10/26/19 03/10/20 Rx Metoprolol Succinate (ER) [Toprol 25 mg PO BID #60 tab.er.24h 11/08/19 03/10/20 Rx XL] Nicotine 14Mg/24Hr Patch [Habitrol] 1 patch TRANSDERM DAILY #30 patch 11/08/19 03/10/20 Rx Torsemide [Demadex] 20 mg PO BID #60 tablet 11/08/19 03/10/20 Rx Apixaban [Eliquis] 2.5 mg PO BID #0 01/02/20 03/10/20 Rx Clopidogrel [Plavix] 75 mg PO DAILY #90 tab 01/02/20 03/10/20 Rx Aspirin [Adult Low Dose Aspirin EC] 81 mg PO DAILY 01/24/20 03/10/20 History Allergies Allergy/AdvReac Type Severity Reaction Status Date / Time warfarin sodium Allergy "very high Verified 03/10/20 18:56 [From Coumadin] PT/INR-was told never to take" Physical Exam Vitals: Vital Signs Temp Pulse Pulse Resp BP BP Pulse Ox 03/11/20 04:20 98.0 F 74 16 121/64 96 03/11/20 04:10 98.0 F 74 16 121/64 96 03/11/20 03:59 98.2 F 89 18 129/57 100 03/11/20 03:00 98.1 F 79 18 122/70 98 03/11/20 02:00 70 18 118/72 97 03/11/20 00:00 72 18 120/60 97 03/10/20 23:00 70 16 119/62 96 03/10/20 22:50 98 F 75 18 119/62 98 03/10/20 20:55 98 F 73 18 119/56 98 03/10/20 20:25 98.5 F 78 18 119/66 97 03/10/20 20:15 98.7 F 79 18 115/59 97 03/10/20 20:11 98.7 F 78 18 124/49 98 03/10/20 19:00 75 20 03/10/20 18:30 73 23 113/51 99 03/10/20 18:00 72 18 112/53 98 03/10/20 17:30 75 18 126/61 98 03/10/20 17:00 81 18 121/67 98 03/10/20 15:46 97.8 F 84 18 98/46 98 Intake and Output 03/10/20 03/11/20 03/11/20 22:59 06:59 14:59 Intake Total 310 240 Balance 310 240 Intake: Intake, IV Titration 40 Amount Sodium Chloride 0.9% 1, 40 000 ml @ 20 mls/hr IV . Q24H [facility] Rx#:[id number] Oral 200 Blood Product 310 Rc As-1 Unit 310 [id number] Other: Voiding Method Toilet Toilet # Voids 1 Weight 88.451 kg 88.451 kg Results 03/11/20 06:11 03/10/20 16:59 Cardiac Enzymes 03/10/20 Range/Units 16:59 AST 21 (14-36) U/L Coagulation 03/10/20 Range/Units 16:59 PT 9.8 (9.0-12.0) sec APTT 21.1 L (22.0-30.0) sec CBC 03/10/20 03/11/20 Range/Units 16:59 06:11 WBC 9.2 6.6 (3.8-10.6) k/uL RBC 2.76 L 2.81 L (3.80-5.40) m/uL Hgb 6.5 L* 7.0 L (11.4-16.0) gm/dL Hct 22.2 L 22.8 L (34.0-46.0) % Plt Count 275 229 (150-450) k/uL Comprehensive Metabolic Panel 03/10/20 Range/Units 16:59 Sodium 131 L (137-145) mmol/L Potassium 4.7 (3.5-5.1) mmol/L Chloride 97 L (98-107) mmol/L Carbon Dioxide 26 (22-30) mmol/L BUN 32 H (7-17) mg/dL Creatinine 1.53 H (0.52-1.04) mg/dL Glucose 189 H (74-99) mg/dL Calcium 8.9 (8.4-10.2) mg/dL AST 21 (14-36) U/L ALT 10 (4-34) U/L Alkaline Phosphatase 78 (38-126) U/L Total Protein 6.4 (6.3-8.2) g/dL Albumin 3.9 (3.5-5.0) g/dL Current Medications Generic Name Dose Route Start Last Admin Trade Name Freq PRN Reason Stop Dose Admin Hydrocodone Bitart/Acetaminophen 1 each 03/11/20 08:22 03/11/20 09:40 Hydrocodone/Apap 5-325mg 1 Each Tab PO 1 each Q12H PRN Administration Pain Albuterol/Ipratropium 3 ml 03/11/20 08:22 Ipratropium-Albuterol 3 Ml Neb INHALATION RT-QID PRN Shortness Of Breath Atorvastatin Calcium 80 mg 03/11/20 09:00 03/11/20 09:18 Atorvastatin 80 Mg Tab PO 80 mg DAILY [facility] Administration Budesonide/Formoterol Fumarate 2 puff 03/11/20 20:00 Symbicort 160-4.5 Mcg Inhaler INHALATION RT-BID [facility] Carisoprodol 350 mg 03/10/20 21:00 03/10/20 21:48 Carisoprodol 350 Mg Tab PO 350 mg BID [facility] Administration Carisoprodol 350 mg 03/11/20 08:22 Carisoprodol 350 Mg Tab PO BID PRN Muscle Spasm Sodium Chloride 1,000 mls @ 20 mls/hr 03/10/20 19:00 03/10/20 21:12 Saline 0.9% IV 20 mls/hr .Q24H [facility] Administration Linagliptin 5 mg 03/11/20 09:00 03/11/20 09:18 Linagliptin 5 Mg Tablet PO 5 mg DAILY [facility] Administration Metoprolol Succinate 25 mg 03/11/20 09:00 03/11/20 09:18 Metoprolol Succinate (Er) 25 Mg Tab.Er.24h PO 25 mg BID [facility] Administration Naloxone HCl 0.2 mg 03/10/20 18:55 Naloxone 0.4 Mg/Ml 1 Ml Vial IV Q2M PRN Opioid Reversal Nicotine 1 patch 03/11/20 09:00 03/11/20 09:18 Nicotine 14mg/24hr Patch TRANSDERM 1 patch DAILY [facility] Administration Pantoprazole Sodium 40 mg 03/11/20 09:00 03/11/20 09:18 Pantoprazole 40 Mg/10 Ml Vial IV 40 mg DAILY [facility] Administration Polyethylene Glycol/Electrolytes 4,000 ml 03/11/20 17:00 Peg 3350-Na Sulf,Bicarb,Cl/Kcl 4,000 Ml Bottle PO 03/11/20 17:01 ONCE ONE Tramadol HCl 50 mg 03/10/20 18:55 Tramadol 50 Mg Tab PO Q6H PRN Moderate Pain Zolpidem Tartrate 10 mg 03/11/20 21:00 Zolpidem 10 Mg Tab PO HS PRN Agitation Intake and Output 03/10/20 03/11/20 03/11/20 22:59 06:59 14:59 Intake Total 310 240 Balance 310 240 Intake: Intake, IV Titration 40 Amount Sodium Chloride 0.9% 1, 40 000 ml @ 20 mls/hr IV . Q24H [facility] Rx#:[id number] Oral 200 Blood Product 310 Rc As-1 Unit 310 [id number] Other: Voiding Method Toilet Toilet # Voids 1 Weight 88.451 kg 88.451 kg 03/11/20 06:11 03/10/20 16:59
[2020-03-11] MEDS: IPRATROPIUM-ALBUTEROL 3 ML NEB INHALATION PRN ×2 (11:23→16:05)
[2020-03-11 11:53] LABS: African American GFR (CKD) 44.6 (60.0-200.0); Albumin 3.7 g/dL (3.80-4.90); Albumin/Globulin Ratio 2.47 (1.60-3.17); Anion Gap 6.6 mmol/L (4.00-12.00); BUN/Creat Ratio 22.14 Ratio (12.00-20.00); Calcium 8.8 mg/dL (8.7-10.3); Carbon Dioxide 26.4 mmol/L (21.6-31.8); Globulin 1.5 g/dL (1.6-3.3); Non-African American GFR(CKD) 38.5 (60.0-200.0); Potassium 4.3 mmol/L (3.5-5.5); Total Bilirubin 0.5 mg/dL (0.2-1.2); Total Protein 5.2 g/dL (6.2-8.2)
[2020-03-11] MEDS: carisoprodoL 350 MG TAB PO SCH ×2 (12:05→21:13)
[2020-03-11 15:05] LABS: Anisocytosis Slight; HCT 22.9 % (34.0-46.0); Hypochromasia Marked; MCH 24.1 pg (25.0-35.0); MCHC 29.7 g/dL (31.0-37.0); MCV 81.2 fL (80.0-100.0); Mean Platelet Volume 7.6; Microcytosis Slight; Platelet Count 235 k/uL (150-450); Poikilocytosis Marked; RBC 2.82 m/uL (3.80-5.40); RDW 17.6 % (11.5-15.5); WBC 7.3 k/uL (3.8-10.6)
[2020-03-11 15:08] LABS: HGB 6.8 gm/dL (11.4-16.0)
[2020-03-11] MEDS: SODIUM CHLORIDE 0.9% 1,000 ML IV SCH (16:31)
[2020-03-11] MEDS ORDERED: PEG 3350-NA SULF,BICARB,CL/KCL 4,000 ML BOTTLE PO ONE (17:00)
--- NOTE | 2020-03-11 19:43 | CONS ---
CONSULTATION REASON FOR CONSULT: Renal failure. HISTORY OF PRESENT ILLNESS: Patient is a 69-year-old female with history of chronic kidney disease, NKF stage III, with baseline creatinine about 1.5 to 1.6 mg/dL secondary to nephrosclerosis with episodes of previous acute kidney injury on her previous admissions. Patient was admitted to the hospital this time with complaints of weakness. She was found to have a hemoglobin of 6.3 g/dL. Patient was actually also scheduled to have [facility] with Dr. Lau as outpatient. No active bleeding has been noted. Patient was transfused packed RBCs. Her hemoglobin was 6.5 g/dL on admission. Serum creatinine was 1.53; now it is down to 1.4 mg/dL. Patient had history of acute kidney injury with peak creatinine 2.3 in October of 2019. Currently she has had good urine output. Patient was maintained on IV fluids. Currently she is off of IV fluids. PAST MEDICAL HISTORY: Past medical history is significant for CKD, stage III, secondary to nephrosclerosis, COPD, type 2 diabetes, peripheral vascular disease, atrial fibrillation and osteoarthritis. PAST SURGICAL HISTORY: Appendectomy, cholecystectomy, tubal ligation, removal of mass in the neck and parotid gland removal, surgery for ruptured appendicitis, perforated appendix with temporary colostomy and reversal, and cataract surgery. SOCIAL HISTORY: Positive for smoking. No history of drug abuse or alcohol abuse. MEDICATIONS: Medications prior to admission included Soma, Amaryl, Ambien, inhaler, Evista, Lipitor, Tradjenta, Mucinex, Habitrol, metoprolol, Demadex, Eliquis, Plavix, aspirin. ALLERGIES: ALLERGIES include COUMADIN, which is mostly intolerance. Patient had elevated INR. PHYSICAL EXAMINATION: Patient is comfortable, awake, not in any acute distress. Blood pressure is 99/61, heart rate 82 per minute. She is afebrile. EXAMINATION OF THE HEART: S1 and S2. EXAMINATION OF LUNGS: Bilateral breath sounds are heard. ABDOMEN: Soft, non-tender, obese. Examination of lower extremities shows edema 2+ bilaterally. [employer] DEVELOPER exam is grossly intact. LABS: Labs show hemoglobin 7.0 today. Sodium 135, potassium 4.3, BUN 31, creatinine 1.4. Stool for occult blood was negative. ASSESSMENT: 1. Acute kidney injury associated with acute anemia, currently improved. Patient is status post IV fluids. I will maintain her off of IV fluids for now. Blood pressure remains on the lower side. Currently on a small dose of Toprol. No other antihypertensive medications noted. 2. Chronic kidney disease, stage III, secondary to nephrosclerosis. Renal function at baseline. 3. Possible gastrointestinal bleed, although stool for occult blood is negative. Patient has been evaluated by GI. 4. Peripheral vascular disease. Originally scheduled for [facility] with Dr. Lau as outpatient. 5. Chronic atrial fibrillation, maintained on anticoagulation. 6. Chronic obstructive pulmonary disease. 7. Type 2 diabetes, maintained on Tradjenta. PLAN: Continue off of IV fluids. Resume Demadex that patient was taking at home and continue to avoid nephrotoxic medications. Thank you for this consultation. Will continue to follow the patient with you during her hospitalization. MMODL / IJN: [id number] /
[2020-03-11] MEDS: SYMBICORT 160-4.5 MCG INHALER INHALATION SCH (20:42)
[2020-03-11] MEDS ORDERED: ZOLPIDEM 10 MG TAB PO SCH (21:00)
[2020-03-11] MEDS ORDERED: ZOLPIDEM 10 MG TAB PO PRN (21:00)
[2020-03-12 06:14] LABS: Anisocytosis Slight; Basophils # (A) 0.1 k/uL (0-0.2); Basophils % (A) 1 %; Eosinophils # (A) 0.2 k/uL (0-0.7); Eosinophils % (A) 3 %; HCT 26.1 % (34.0-46.0); HGB 8.1 gm/dL (11.4-16.0); Hypochromasia Marked; Lymphocytes # (A) 1.5 k/uL (1.0-4.8); Lymphocytes % (A) 22 %; MCH 25.6 pg (25.0-35.0); MCHC 30.9 g/dL (31.0-37.0); MCV 82.9 fL (80.0-100.0); Mean Platelet Volume 8.8; Microcytosis Slight; Monocytes # (A) 0.4 k/uL (0-1.0); Monocytes % (A) 6 %; Neutrophils # (A) 4.7 k/uL (1.3-7.7); Neutrophils % (A) 67 %; Platelet Count 222 k/uL (150-450); Poikilocytosis Marked; RBC 3.15 m/uL (3.80-5.40); RDW 17.7 % (11.5-15.5)
[2020-03-12] MEDS: SYMBICORT 160-4.5 MCG INHALER INHALATION SCH ×2 (07:16→20:49)
[2020-03-12] MEDS: IPRATROPIUM-ALBUTEROL 3 ML NEB INHALATION PRN ×3 (07:16→15:45)
--- NOTE | 2020-03-12 07:34 | CONS ---
CONSULTATION DATE OF SERVICE: March 11, 2020. REASON FOR CONSULTATION: Severe symptomatic anemia. HISTORY OF PRESENT ILLNESS: The patient is a 69-year-old pleasant white female with a history of atrial fibrillation, peripheral vascular disease, diabetes mellitus, hypertension, hyperlipidemia who was admitted to hospital because of anemia and a hemoglobin of 6.2 g/dL that was noted on routine labs done on an outpatient basis. She received 2 units of PRBC transfusion. Repeat CBC is still found 6.8 g/dL. The patient denies any abdominal pain. Reports no nausea, no vomiting. No rectal bleeding or melena. Hemoglobin last night was 11.4 g/dL. She denies any abdominal pain. No nausea, no vomiting. She is currently on aspirin, Plavix and Eliquis that was started after stent placement about 3 months ago. PAST MEDICAL HISTORY: Significant for hypertension, hyperlipidemia, severe peripheral vascular disease, diabetes mellitus, coronary artery disease. MEDICATIONS: Medications at home include at this time, Lipitor, aspirin, DuoNeb, Plavix, Soma, Amaryl, [place], Symbicort, Plavix, Demadex, Mucinex. ALLERGIES: COUMADIN. SOCIAL HISTORY: No smoking. No alcohol use. PAST SURGICAL HISTORY: Cholecystectomy, appendectomy, tubal ligation, tonsillectomy, right hip surgery, appendectomy, colostomy with reversal, bilateral cataract surgery. FAMILY HISTORY: Mother congestive heart failure, diabetes mellitus. Father coronary artery disease and CVA. REVIEW OF SYSTEMS: CARDIOPULMONARY: No chest pain or shortness of breath. : No dysuria or hematuria. MUSCULOSKELETAL unremarkable. SKIN unremarkable. ENDOCRINE unremarkable. PSYCHIATRIC: Unremarkable. ENT/vision unremarkable. NEUROLOGICAL: Unremarkable. CONSTITUTIONAL: No recent weight loss. No fever, chills, night sweats. PHYSICAL EXAMINATION: She appears comfortable. No apparent distress. Vital signs are stable. Blood pressure 111/58, pulse is 74. Temperature 98.3. HEENT examination unremarkable. Conjunctivae pink. Sclerae anicteric. Oral cavity no lesions. NECK no JVD or lymph node enlargement. CHEST was clear to auscultation. HEART: Regular rate and rhythm. ABDOMEN: Soft, it was obese. Bowel sounds are positive. No organomegaly. EXTREMITIES: No pedal edema. NEUROLOGIC: Alert and oriented x3. No focal deficits. LABS: WBC is 9.2, hemoglobin 6.5, MCV 80, platelets 275, BUN 32, creatinine 1.53. AST, ALT, T-bilirubin and alkaline phosphatase are normal. Stool occult blood was negative. After 2 units, repeat CBC 6.8 g/dL. IMPRESSION: 1. Normocytic anemia. Clinically no evidence of active bleeding. Stool Hemoccult was negative. Hemoglobin a month ago was 11.5 g/dL most likely dealing with occult gastrointestinal blood loss. Last colonoscopy was 10 years ago that was normal. 2. Peripheral vascular disease for which Dr. Lau underwent stent placement, on aspirin and Plavix. 3. History of atrial fibrillation on Eliquis, currently on hold. 4. History of hypertension, hyperlipidemia. RECOMMENDATION: 1. In regard to the anemia, I had a lengthy discussion with the patient and suggested endoscopy workup for further evaluation including EGD and colonoscopy. I discussed with her risks, benefits and complications of the procedure and she is agreeable to it. 2. Continue to hold Eliquis, aspirin and Plavix for now. 3. Monitor CBC on a daily basis. 4. Give her one more unit of blood and repeat CBC in the morning. 5. Continue Protonix 40 mg daily. 6. We will follow with you closely. Thank you for this consultation. MMODL / IJN: [id number] /
[2020-03-12] MEDS: PANTOPRAZOLE 40 MG/10 ML VIAL IV SCH (09:13)
[2020-03-12] MEDS: METOPROLOL SUCCINATE (ER) 25 MG TAB.ER.24H PO SCH ×2 (09:13→20:12)
[2020-03-12] MEDS: NICOTINE 14MG/24HR PATCH TRANSDERM SCH (09:13)
[2020-03-12] MEDS: ATORVASTATIN 80 MG TAB PO SCH (09:13)
[2020-03-12] MEDS: carisoprodoL 350 MG TAB PO SCH ×2 (09:14→20:13)
[2020-03-12] MEDS: LINAGLIPTIN 5 MG TABLET PO SCH (09:14)
[2020-03-12] MEDS: TORSEMIDE 20 MG TAB PO SCH (09:14)
[2020-03-12] MEDS: HYDROcodone/APAP 5-325MG 1 EACH TAB PO PRN (09:18)
[2020-03-12 10:49] LABS: African American GFR (CKD) 59.7 (60.0-200.0); Albumin 3.6 g/dL (3.80-4.90); Albumin/Globulin Ratio 2.12 (1.60-3.17); BUN/Creat Ratio 18.18 Ratio (12.00-20.00); Calcium 8.9 mg/dL (8.7-10.3); Globulin 1.7 g/dL (1.6-3.3); Non-African American GFR(CKD) 51.5 (60.0-200.0); Potassium 4.3 mmol/L (3.5-5.5); Total Bilirubin 0.5 mg/dL (0.3-1.2); Total Protein 5.3 g/dL (6.2-8.2)
--- NOTE | 2020-03-12 12:07 | P.PN ---
Subjective Progress Note Date: 03/12/20 CHIEF COMPLAINT: Peripheral vascular disease HISTORY OF PRESENT ILLNESS: Patient examined this morning at the bedside. She denies chest pain or pressure. Denies shortness of breath. Denies dark or bright red stools. Hemoglobin 8.1. PHYSICAL EXAM: VITAL SIGNS: Reviewed. GENERAL: Well-developed in no acute distress. HEENT: Head is normocephalic. Pupils are equal, round. Sclerae anicteric. Mucous membranes of the mouth are moist. Neck supple. No JVD or thyromegaly LUNGS: Respirations even and unlabored. Lungs essentially clear to auscultation bilaterally. HEART: Regular rate and rhythm. S1 and S2 heard. ABDOMEN: Soft. Nondistended. Nontender. EXTREMITIES: Normal range of motion. No clubbing or cyanosis. Peripheral pulses intact. No lower extremity edema NEUROLOGIC: Awake and alert. Oriented x 3. ASSESSMENT: Anemia Peripheral vascular disease, scheduled for [facility] Coronary artery disease with previous stent placement to circumflex, December 2019 Cardiomyopathy, previous EF noted to be 20-25% COPD Hypertension Hyperlipidemia Diabetes mellitus, type II Chronic kidney disease PLAN: Monitor hemoglobin Hold Eliquis, plavix, and aspirin secondary to anemia GI consulted. Patient scheduled for EGD and colonoscopy today Further recommendations pending patient course Nurse practitioner note has been reviewed by physician. Signing provider agrees with the documented findings, assessment, and plan of care. Objective - Vital Signs Vital signs: Vital Signs Temp 98.0 F 03/12/20 04:25 Pulse 77 03/12/20 11:11 Resp 18 03/12/20 04:25 BP 103/56 03/12/20 04:25 Pulse Ox 93 L 03/12/20 04:25 Intake & Output 03/11/20 03/12/20 03/12/20 18:59 06:59 18:59 Intake Total 200 3680 Balance 200 3680 Intake: Intake, IV Titration 60 Amount Sodium Chloride 0.9% 1, 60 000 ml @ 20 mls/hr IV . Q24H [facility] Rx#:[id number] Oral 200 3000 Blood Product 620 Rc As-1 Unit 310 [id number] Other: Voiding Method Toilet Toilet Toilet Bedside Commode Bedside Commode # Voids 2 1 # Bowel Movements 3 - Labs CBC & Chem 7: 03/12/20 05:28 03/12/20 05:28 Labs: Abnormal Lab Results - Last 24 Hours (Table) 03/10/20 03/11/20 03/12/20 Range/Units 16:56 14:05 05:28 RBC 2.82 L (3.80-5.40) m/uL Hgb 6.8 L* (11.4-16.0) gm/dL Hct 22.9 L (34.0-46.0) % MCH 24.1 L (25.0-35.0) pg MCHC 29.7 L (31.0-37.0) g/dL RDW 17.6 H (11.5-15.5) % Est GFR (CKD-EPI)AfAm 59.7 L (60.0-200.0) Est GFR (CKD-EPI)NonAf 51.5 L (60.0-200.0) Total Protein 5.3 L (6.2-8.2) g/dL Albumin 3.60 L (3.80-4.90) g/dL Crossmatch See Detail 03/12/20 Range/Units 05:28 RBC 3.15 L (3.80-5.40) m/uL Hgb 8.1 L (11.4-16.0) gm/dL Hct 26.1 L (34.0-46.0) % MCH (25.0-35.0) pg MCHC 30.9 L (31.0-37.0) g/dL RDW 17.7 H (11.5-15.5) % Est GFR (CKD-EPI)AfAm (60.0-200.0) Est GFR (CKD-EPI)NonAf (60.0-200.0) Total Protein (6.2-8.2) g/dL Albumin (3.80-4.90) g/dL Crossmatch
[2020-03-12] MEDS ORDERED: LIDOCAINE 1% INJ 10MG/ML (20 ML MDV) ONE (13:11)
[2020-03-12] MEDS ORDERED: PROPOFOL 10 MG/ML 20 ML VIAL IV ONE (13:11)
[2020-03-12] MEDS ORDERED: IV FLUID CONTINUATION 1,000 ML IV ONE (13:15)
--- NOTE | 2020-03-12 13:35 | P.PCN ---
Date of Procedure: 03/12/20 Procedure(s) Performed: Brief history: Patient is a pleasant 69-year-old white female admitted hospital with severe symptomatic anemia and hemoglobin of 6.5 g/dL and received 3 units of PRBC. Last hemoglobin is 8 g/dL. Her last hemoglobin a month ago was 11 g/dL. She denies any active GI bleed. Because of the severe anemia she is scheduled for upper endoscopy as well as colonoscopy, Procedure performed: Esophagogastroduodenoscopy with biopsy Colonoscopy with biopsy Preoperative diagnosis: Severe symptomatic anemia Anesthesia: MAC Procedure: After informed consent was obtained from the patient was brought into the endoscopy unit and IV sedation was administered by anesthesia under continuous monitoring. Initially upper endoscopy was done. The Olympus GF 160 video endoscope was inserted inserted into the mouth and esophagus intubated without any difficulty and was gradually advanced into the stomach and duodenum and carefully examined. The bulb and second part of the duodenum appeared normal. Biopsies were done from the duodenum to rule out celiac disease. The scope was then withdrawn into the stomach adequately insufflated with air and upon careful examination the antrum and body, cardia and fundus appeared normal. The scope was then withdrawn into the esophagus. The GE junction was located at 40 cm to the incisors. It appeared regular with no erythema erosions or ulcerations. Rest of the esophagus appeared normal. Patient tolerated the procedure well. At this time the patient continued to remain sedation. Initial digital rectal examination was normal. Olympus CF 160 video colonoscope was then inserted into the rectum and gradually advanced to the cecum without any difficulty. Careful examination was performed as the scope was gradually being withdrawn. The prep was excellent. The cecum, ascending colon, transverse colon, descending colon, and rectum appeared normal. There was evidence of previous sigmoid colectomy with anastomosis located at 20 cm from the anal verge and appeared normal. There was a 5 mm proximal rectal polyp that was removed by cold biopsy. Retroflexion was performed in the rectum and no lesions were noted. Patient tolerated the procedure well. Impression: 1. Upper endoscopy was essentially within normal limits 2. Colonoscopy revealed scattered sigmoid diverticulosis and a 5 mm proximal rectal polyp status post biopsy Recommendations: Findings of this examination were discussed with the patient as well as her family. She was advised to follow with the biopsy results. She will be scheduled for an small bowel capsule endoscopy today to evaluate for small bowel source of anemia.
[2020-03-12] MEDS: LACTATED RINGERS 1,000 ML IV SCH (13:53)
--- NOTE | 2020-03-12 15:14 | P.HPIM ---
History of Present Illness H&P Date: 03/10/20 Chief Complaint: symptomatic anemia This is a 69 year old white female one of my patient with a previous medical history significant for hypertension and hypertensive cardiovascular disease, mixed hyperlipidemia, diabetes mellitus type2, diabetic polyneuropathy, chronic tobacco use and dependence , COPD, and chronic pain syndrome due to severe osteoarthritis in both hips and 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 currently on chronic pain treatment, patient was hospitalized at [facility] on 10/23/2019 for acute systolic heart failure and she was found to have severe cardiomyopathy with EF 20-25% and moderate MR and TR and she was supposed to have heart cath but because of worsening renal function she was sent home as to do the heart catherization as an outpatient which was done on 01/01/2020 which showed mid LCx disease which was stented and was started on dual anti platelets therapy, also was placed on Eliquis due to paroxysmal atrial fibrillation, patient was supposed to have PAINTER TUMBLING BARREL of bilateral SFA due to severe PAD, this was scheduled on 03/12/2020 with and laboratory evaluation were done through her health services rn yesterday and she was found to have HGB of 6.5 she was directed to go to the ER for evaluation a and she was given one unit of PRBCs and was admitted for evaluation by cardiology and GI foe possible GI bleed, patient denied any blood per stool no black tarry stool, and no weight loss, or significant heart burn or abdominal pain, she denied any dysphagia also and no hematuria. Review of Systems Constitutional: Reports chronic pain, Reports fatigue, Reports weakness, Denies anorexia, Denies weight gain, Denies weight loss Eyes: bilateral blurred vision, bilateral decreased vision Ears, nose, mouth and throat: Denies dysphagia, Denies neck lump, Denies sore throat Cardiovascular: Reports decreased exercise tolerance, Reports dyspnea on exertion, Reports shortness of breath, Denies chest pain, Denies leg edema, Denies lightheadedness, Denies rapid heart beat, Denies syncope Gastrointestinal: Denies abdominal pain, Denies belching, Denies bloating, Denies BRBPR, Denies change in bowel habits, Denies heartburn, Denies hematemesis, Denies hematochezia, Denies loss of appetite, Denies melena, Denies nausea, Denies vomiting Genitourinary: Reports nocturia, Denies dysuria Musculoskeletal: Reports low back pain, Reports myalgias Musculoskeletal: right: hip pain, hip stiffness, absent: ankle pain, ankle stiffness, ankle swelling, elbow pain, elbow stiffness, elbow swelling, foot pain, foot stiffness, foot swelling, hand pain, hand stiffness, hand swelling, hip swelling, knee stiffness, knee swelling, shoulder pain, shoulder stiffness, shoulder swelling, wrist pain, wrist stiffness, wrist swelling Integumentary: Denies pruritus, Denies rash Neurological: Denies numbness, Denies weakness Psychiatric: Denies anxiety, Denies depression Past Medical History Past Medical History: Atrial Fibrillation, Heart Failure, COPD, Diabetes Mellitus, Eye Disorder, Hyperlipidemia, Hypertension, Osteoarthritis (OA) Additional Past Medical History / Comment(s): eye disease stargaze natalia eyes, ripple in left eye History of Any Multi-Drug Resistant Organisms: None Reported Past Surgical History: Appendectomy, Cholecystectomy, Joint Replacement, Orthopedic Surgery, Tonsillectomy, Tubal Ligation Additional Past Surgical History / Comment(s): mass in neck parotid gland removed, right hip surgery, ruptured appendix- temporary colostomy with reversal, cataracts Past Anesthesia/Blood Transfusion Reactions: No Reported Reaction Date of Last Stent Placement:: 12/2019 Past Psychological History: No Psychological Hx Reported Smoking Status: Current every day smoker Past Alcohol Use History: None Reported Additional Past Alcohol Use History / Comment(s): Has been smoking 50 yrs, 1/2 PPD. Past Drug Use History: None Reported - Past Family History Mother Family Medical History: Congestive Heart Failure (CHF), Diabetes Mellitus Additional Family Medical History / Comment(s): lived to eightys Father Family Medical History: CVA/TIA, Myocardial Infarction ([place]) Additional Family Medical History / Comment(s): lived to eightys Brother(s) Family Medical History: Diabetes Mellitus Sister(s) Family Medical History: No Reported History Daughter(s) Family Medical History: No Reported History Son(s) Family Medical History: No Reported History Medications and Allergies Home Medications Medication Instructions Recorded Confirmed Type Carisoprodol [Soma] 350 mg PO BID PRN 03/08/16 03/10/20 History Glimepiride [Amaryl] 4 mg PO BID 03/08/16 03/10/20 History HYDROcodone/APAP 5-325MG [[place] 1 tab PO Q12H PRN 03/08/16 03/10/20 History 5-325] Zolpidem Tartrate [Ambien] 10 mg PO HS 03/08/16 03/10/20 History Budesonide/Formoterol Fumarate 2 puff INHALATION RT-BID 10/23/19 03/10/20 Hist ory [Symbicort 160-4.5 Mcg Inhaler] Ipratropium-Albuterol Nebulize 3 ml INHALATION RT-QID PRN 10/23/19 03/10/20 History [Duoneb 0.5 mg-3 mg/3 ml Soln] Raloxifene [Evista] 60 mg PO DAILY 10/23/19 03/10/20 History Atorvastatin Calcium [Lipitor] 80 mg PO DAILY 10/24/19 03/10/20 History Linagliptin [Tradjenta] 5 mg PO DAILY #30 tablet 10/26/19 03/10/20 Rx guaiFENesin [Mucinex] 600 mg PO Q12HR PRN tablet.er 10/26/19 03/10/20 Rx Metoprolol Succinate (ER) [Toprol 25 mg PO BID #60 tab.er.24h 11/08/19 03/10/20 Rx XL] Nicotine 14Mg/24Hr Patch [Habitrol] 1 patch TRANSDERM DAILY #30 patch 11/08/19 03/10/20 Rx Torsemide [Demadex] 20 mg PO BID #60 tablet 11/08/19 03/10/20 Rx Apixaban [Eliquis] 2.5 mg PO BID #0 01/02/20 03/10/20 Rx Clopidogrel [Plavix] 75 mg PO DAILY #90 tab 01/02/20 03/10/20 Rx Aspirin [Adult Low Dose Aspirin EC] 81 mg PO DAILY 01/24/20 03/10/20 History Allergies Allergy/AdvReac Type Severity Reaction Status Date / Time warfarin sodium Allergy "very high Verified 03/10/20 18:56 [From Coumadin] PT/INR-was told never to take" Physical Exam Vitals: Vital Signs Temp Pulse Pulse Resp BP BP Pulse Ox 03/11/20 04:20 98.0 F 74 16 121/64 96 03/11/20 04:10 98.0 F 74 16 121/64 96 03/11/20 03:59 98.2 F 89 18 129/57 100 03/11/20 03:00 98.1 F 79 18 122/70 98 03/11/20 02:00 70 18 118/72 97 03/11/20 00:00 72 18 120/60 97 03/10/20 23:00 70 16 119/62 96 03/10/20 22:50 98 F 75 18 119/62 98 03/10/20 20:55 98 F 73 18 119/56 98 03/10/20 20:25 98.5 F 78 18 119/66 97 03/10/20 20:15 98.7 F 79 18 115/59 97 03/10/20 20:11 98.7 F 78 18 124/49 98 03/10/20 19:00 75 20 03/10/20 18:30 73 23 113/51 99 03/10/20 18:00 72 18 112/53 98 03/10/20 17:30 75 18 126/61 98 03/10/20 17:00 81 18 121/67 98 03/10/20 15:46 97.8 F 84 18 98/46 98 Intake and Output 03/10/20 03/11/20 03/11/20 22:59 06:59 14:59 Intake Total 310 240 Balance 310 240 Intake: Intake, IV Titration 40 Amount Sodium Chloride 0.9% 1, 40 000 ml @ 20 mls/hr IV . Q24H [facility] Rx#:[id number] Oral 200 Blood Product 310 Rc As-1 Unit 310 [id number] Other: Voiding Method Toilet # Voids 1 Weight 88.451 kg 88.451 kg HEENT: Head is atraumatic normocephalic pupils were equal round reactive to ligh t, small, sclera non icteric, mucous membranes of the mouth are somewhat dry. Neck: supple no JVP. Chest : decrease breath sounds at the bases with few ronchi minimal expiratory wheezes, no intercostal retraction or chest wall tenderness. Heart: first heart sound is depressed, second heart sound is normal there is [place] 2/6 located at the left sternal border. Abdomen: soft non tender, non distended positive bowel sounds. Extremities: there is + 1 edema no calf tenderness DP +1 Bilaterally. Neurologic examination: patient is awake, alert and oriented X 3 CN III-XII are grossly intact, muscle power 4/5 in upper and lower extremities, deep tendon reflexes are depressed. Results CBC & Chem 7: 03/12/20 05:28 03/12/20 05:28 Labs: Abnormal Lab Results - Last 24 Hours (Table) 03/10/20 03/10/20 03/10/20 Range/Units 16:56 16:59 16:59 RBC 2.76 L (3.80-5.40) m/uL Hgb 6.5 L* (11.4-16.0) gm/dL Hct 22.2 L (34.0-46.0) % MCH 23.7 L (25.0-35.0) pg MCHC 29.5 L (31.0-37.0) g/dL RDW 18.3 H (11.5-15.5) % APTT 21.1 L (22.0-30.0) sec Sodium (137-145) mmol/L Chloride (98-107) mmol/L BUN (7-17) mg/dL Creatinine (0.52-1.04) mg/dL Glucose (74-99) mg/dL Crossmatch See Detail 03/10/20 03/11/20 Range/Units 16:59 06:11 RBC 2.81 L (3.80-5.40) m/uL Hgb 7.0 L (11.4-16.0) gm/dL Hct 22.8 L (34.0-46.0) % MCH (25.0-35.0) pg MCHC 30.8 L (31.0-37.0) g/dL RDW 17.2 H (11.5-15.5) % APTT (22.0-30.0) sec Sodium 131 L (137-145) mmol/L Chloride 97 L (98-107) mmol/L BUN 32 H (7-17) mg/dL Creatinine 1.53 H (0.52-1.04) mg/dL Glucose 189 H (74-99) mg/dL Crossmatch Thrombosis Risk Factor Assmnt - Choose All That Apply Any of the Below Risk Factors Present?: Yes Each Factor Represents 1 point: Obesity (BMI >25) Other Risk Factors: Yes Each Risk Factor Represents 2 Points: Age 61-74 years Other congenital or acquired thrombophilia - If yes, enter type in comment: No Thrombosis Risk Factor Assessment Total Risk Factor Score: 3 Thrombosis Risk Factor Assessment Level: Moderate Risk Assessment and Plan Assessment: Assessment and plan: 1. Acute blood loss anemia with HGB of 6.5 likely due to GI bleed, we will discontinue all anticoagulation and we will type and cross and transfuse 2 units of PRBCs, we will consult GI for EGD and colonoscopy.we will 2.Coronary artery disease with ischemic cardiomyopathy post LCx stent placement. we will continue with Metoprolol ER 25 mg orally twice a day and Lipitor 80 mg orally daily and hold off ASA and Plavix due to GI bleed. we will consult Cardiology.. 3. Paroxysmal atrial flutter. we will continue with Metoprolol ER 25 mg orally bid and was taken off Eliquis due to low hemoglobin and possible GI bleed. 4. Acute kidney injury on chronic kidney disease stage 3 due to acute tubular necrosis due to possible GI bleed we will continue to monitor CMP.. 5. COPD. we will continue with O2 2 L NC, we will continue with Duoneb 3 ml 4 times daily and Symbicort 160/4.5 mcg 2 puffs inhalation bid. 6. Mild Hyponatremia. we will monitor.. 7. Hypertension and hypertensive cardiovascular disease. we will continue with Metoprolol ER 25 mg orally bid.. 8. Mixed hyperlipidemia. we will continue with Lipitor 80 mg orally daily. 9. Diabetes mellitus type 2 . we will continue with Tradjenta 5 mg orally daily . 10. DDD of the Lumber spine with OA. we will continue with [place] 5/325 mg orally as needed and Soma 350 mg orally bid. 11. DVT prophylaxis . bilateral knee high Zane hose. 12. GI Prophylaxis. we will continue with protonix 40 mg IVP daily. 13. Tobacco use and dependence . smoking cessation and counseling and increased the risk for CAD, CVA and Malignancy, we will continue with Habitrol patch. 14. PAD. was supposed to go for bilateral SFA PTBA. was put on hold due to low hemoglobin and possible GI bleed. 15. Admits to inpatient. estimated length of stay 2 midnights. 16. Full code.
--- NOTE | 2020-03-12 15:18 | P.PN ---
Subjective Progress Note Date: 03/11/20 This is a 69 year old white female one of my patient with a previous medical history significant for hypertension and hypertensive cardiovascular disease, mixed hyperlipidemia, diabetes mellitus type2, diabetic polyneuropathy, chronic tobacco use and dependence , COPD, and chronic pain syndrome due to severe osteoarthritis in both hips and 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 currently on chronic pain treatment, patient was hospitalized at [facility] on 10/23/2019 for acute systolic heart failure and she was found to have severe cardiomyopathy with EF 20-25% and moderate MR and TR and she was supposed to have heart cath but because of worsening renal function she was sent home as to do the heart catherization as an outpatient which was done on 01/01/2020 which showed mid LCx disease which was stented and was started on dual anti platelets therapy, also was placed on Eliquis due to paroxysmal atrial fibrillation, patient was supposed to have INSPECTOR PLATING of bilateral SFA due to severe PAD, this was scheduled on 03/12/2020 with and laboratory evaluation were done through her cuff stitcher yesterday and she was found to have HGB of 6.5 she was directed to go to the ER for evaluation a and she was given one unit of PRBCs and was admitted for evaluation by cardiology and GI foe possible GI bleed, patient denied any blood per stool no black tarry stool, and no weight loss, or significant heart burn or abdominal pain, she denied any dysphagia also and no hematuria. 03/11: patient is sitting at the edge of the bed , drinking her Golytely in preparation for her Colonoscopy and EGD in AM, she denies any chest pain or shortness of breath, continues to have low hemoglobin, receiving the second unit of PRBCs , she complains of pain in her back and bilateral lower extremities due to PAD, and spondylosis, she appears to be tolerating her treatment well. Objective - Vital Signs Vital signs: Vital Signs Temp 98.0 F 03/11/20 04:20 Pulse 74 03/11/20 04:20 Resp 16 03/11/20 04:20 BP 121/64 03/11/20 04:20 Pulse Ox 96 03/11/20 04:20 Intake & Output 03/10/20 03/11/20 03/11/20 18:59 06:59 18:59 Intake Total 550 Balance 550 Weight 88.451 kg 88.451 kg Intake: Intake, IV Titration 40 Amount Sodium Chloride 0.9% 1, 40 000 ml @ 20 mls/hr IV . Q24H [facility] Rx#:[id number] Oral 200 Blood Product 310 Rc As-1 Unit 310 [id number] Other: Voiding Method Toilet # Voids 1 - Exam Review of Systems Constitutional: Reports chronic pain, Reports fatigue, Reports weakness, Denies anorexia, Denies weight gain, Denies weight loss Eyes: bilateral blurred vision, bilateral decreased vision Ears, nose, mouth and throat: Denies dysphagia, Denies neck lump, Denies sore throat Cardiovascular: Reports decreased exercise tolerance, Reports dyspnea on exertion, Reports shortness of breath, Denies chest pain, Denies leg edema, Denies lightheadedness, Denies rapid heart beat, Denies syncope Gastrointestinal: Denies abdominal pain, Denies belching, Denies bloating, Denies BRBPR, Denies change in bowel habits, Denies heartburn, Denies hematemesis, Denies hematochezia, Denies loss of appetite, Denies melena, Denies nausea, Denies vomiting Genitourinary: Reports nocturia, Denies dysuria Musculoskeletal: Reports low back pain, Reports myalgias Musculoskeletal: right: hip pain, hip stiffness, absent: ankle pain, ankle stiffness, ankle swelling, elbow pain, elbow stiffness, elbow swelling, foot pain, foot stiffness, foot swelling, hand pain, hand stiffness, hand swelling, hip swelling, knee stiffness, knee swelling, shoulder pain, shoulder stiffness, shoulder swelling, wrist pain, wrist stiffness, wrist swelling Integumentary: Denies pruritus, Denies rash Neurological: Denies numbness, Denies weakness Psychiatric: Denies anxiety, Denies depression HEENT: Head is atraumatic normocephalic pupils were equal round reactive to light, small, sclera non icteric, mucous membranes of the mouth are somewhat dry. Neck: supple no JVP. Chest : decrease breath sounds at the bases with few ronchi minimal expiratory wheezes, no intercostal retraction or chest wall tenderness. Heart: first heart sound is depressed, second heart sound is normal there is SALOME 2/6 located at the left sternal border. Abdomen: soft non tender, non distended positive bowel sounds. Extremities: there is + 1 edema no calf tenderness DP +1 Bilaterally. Neurologic examination: patient is awake, alert and oriented X 3 CN III-XII are grossly intact, muscle power 4/5 in upper and lower extremities, deep tendon reflexes are depressed. - Labs CBC & Chem 7: 03/12/20 05:28 03/12/20 05:28 Labs: Abnormal Lab Results - Last 24 Hours (Table) 03/10/20 03/10/20 03/10/20 Range/Units 16:56 16:59 16:59 RBC 2.76 L (3.80-5.40) m/uL Hgb 6.5 L* (11.4-16.0) gm/dL Hct 22.2 L (34.0-46.0) % MCH 23.7 L (25.0-35.0) pg MCHC 29.5 L (31.0-37.0) g/dL RDW 18.3 H (11.5-15.5) % APTT 21.1 L (22.0-30.0) sec Sodium (137-145) mmol/L Chloride (98-107) mmol/L BUN (7-17) mg/dL Creatinine (0.52-1.04) mg/dL Glucose (74-99) mg/dL Crossmatch See Detail 03/10/20 03/11/20 Range/Units 16:59 06:11 RBC 2.81 L (3.80-5.40) m/uL Hgb 7.0 L (11.4-16.0) gm/dL Hct 22.8 L (34.0-46.0) % MCH (25.0-35.0) pg MCHC 30.8 L (31.0-37.0) g/dL RDW 17.2 H (11.5-15.5) % APTT (22.0-30.0) sec Sodium 131 L (137-145) mmol/L Chloride 97 L (98-107) mmol/L BUN 32 H (7-17) mg/dL Creatinine 1.53 H (0.52-1.04) mg/dL Glucose 189 H (74-99) mg/dL Crossmatch Assessment and Plan Assessment: Assessment and plan: 1. Acute blood loss anemia with HGB of 6.5 likely due to GI bleed, we will discontinue all anticoagulation and we will type and cross and transfuse 2 units of PRBCs, we will consult GI for EGD and colonoscopy.we will 2.Coronary artery disease with ischemic cardiomyopathy post LCx stent placement. we will continue with Metoprolol ER 25 mg orally twice a day and Lipitor 80 mg orally daily and hold off ASA and Plavix due to GI bleed. we will consult Cardiology.. 3. Paroxysmal atrial flutter. we will continue with Metoprolol ER 25 mg orally bid and was taken off Eliquis due to low hemoglobin and possible GI bleed. 4. Acute kidney injury on chronic kidney disease stage 3 due to acute tubular necrosis due to possible GI bleed we will continue to monitor CMP.. 5. COPD. we will continue with O2 2 L NC, we will continue with Duoneb 3 ml 4 times daily and Symbicort 160/4.5 mcg 2 puffs inhalation bid. 6. Mild Hyponatremia. we will monitor.. 7. Hypertension and hypertensive cardiovascular disease. we will continue with Metoprolol ER 25 mg orally bid.. 8. Mixed hyperlipidemia. we will continue with Lipitor 80 mg orally daily. 9. Diabetes mellitus type 2 . we will continue with Tradjenta 5 mg orally daily . 10. DDD of the Lumber spine with OA. we will continue with [place] 5/325 mg orally as needed and Soma 350 mg orally bid. 11. DVT prophylaxis . bilateral knee high Zane hose. 12. GI Prophylaxis. we will continue with protonix 40 mg IVP daily. 13. Tobacco use and dependence . smoking cessation and counseling and increased the risk for CAD, CVA and Malignancy, we will continue with Habitrol patch. 14. PAD. was supposed to go for bilateral SFA PTBA. was put on hold due to low hemoglobin and possible GI bleed. .
[2020-03-12] MEDS ORDERED: SIMETHICONE 40 MG/0.6 ML DROPS 2,000 MG/30 ML BOTTLE PO ONE (15:27)
--- NOTE | 2020-03-12 16:03 | PN ---
PROGRESS NOTE Patient is seen for followup for chronic kidney disease. She was admitted to the hospital with severe anemia and is scheduled for EGD today. Serum creatinine has improved further, down to 1.1 today from 1.5 on initial admission. PHYSICAL EXAMINATION: On examination today, blood pressure was 119/70, heart rate 86 per minute. Patient is afebrile. EXAMINATION OF THE HEART: S1 and S2. EXAMINATION OF LUNGS: Bilateral breath sounds are heard. Decreased breath sounds at bases. ABDOMEN: Soft, non-tender. Examination of lower extremities shows no significant edema. ORGAN TUNER ELECTRONIC exam is grossly intact. LABS: Labs show hemoglobin 8.1, sodium 139, potassium 4.3, chloride 106, BUN of 20, creatinine 1.1. ASSESSMENT: 1. Acute kidney injury, prerenal and from severe anemia, currently improved. 2. Severe anemia, status post esophagogastroduodenoscopy and colonoscopy with no evidence of any obvious bleeding noted. 3. Mild volume overload, currently off of IV fluids and back on home dose of Demadex. 4. Chronic kidney disease, stage 3, secondary to nephrosclerosis. Creatinine is further improved to 1.1. Previously it had been around 1.4 mg/dL. However, the creatinine could be lower secondary to component of hypervolemia. PLAN: Continue off of IV fluids. Continue with Demadex. MMODL / IJN: [id number] / JIHAN
--- NOTE | 2020-03-12 17:19 | P.PN ---
Subjective Progress Note Date: 03/12/20 This is a 69 year old white female one of my patient with a previous medical history significant for hypertension and hypertensive cardiovascular disease, mixed hyperlipidemia, diabetes mellitus type2, diabetic polyneuropathy, chronic tobacco use and dependence , COPD, and chronic pain syndrome due to severe osteoarthritis in both hips and 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 currently on chronic pain treatment, patient was hospitalized at [facility] on 10/23/2019 for acute systolic heart failure and she was found to have severe cardiomyopathy with EF 20-25% and moderate MR and TR and she was supposed to have heart cath but because of worsening renal function she was sent home as to do the heart catherization as an outpatient which was done on 01/01/2020 which showed mid LCx disease which was stented and was started on dual anti platelets therapy, also was placed on Eliquis due to paroxysmal atrial fibrillation, patient was supposed to have SOCIAL PROFESSIONALS of bilateral SFA due to severe PAD, this was scheduled on 03/12/2020 with and laboratory evaluation were done through her unionmelt operator yesterday and she was found to have HGB of 6.5 she was directed to go to the ER for evaluation a and she was given one unit of PRBCs and was admitted for evaluation by cardiology and GI foe possible GI bleed, patient denied any blood per stool no black tarry stool, and no weight loss, or significant heart burn or abdominal pain, she denied any dysphagia also and no hematuria. 03/11: patient is sitting at the edge of the bed , drinking her Golytely in preparation for her Colonoscopy and EGD in AM, she denies any chest pain or shortness of breath, continues to have low hemoglobin, receiving the second unit of PRBCs , she complains of pain in her back and bilateral lower extremities due to PAD, and spondylosis, she appears to be tolerating her treatment well. 03/12: Patient underwent upper endoscopy as well as colonoscopy did not show any evidence of acute GI bleed, she is currently getting capsule endoscopy for possible small bowel bleed, she did receive 2 units of packed red blood cells, her hemoglobin is stable at 8.1 today she denies any chest pain or shortness b reath she has no abdominal pain at this point in time, I spoke with gastroenterology about monitor the patient for another 24 hours and hopefully will send her home in the next 24 hours if her hemoglobin is stable she will be off anticoagulation unless otherwise directed by cardiology, we will postpone the procedure scheduled for the patient peripheral artery disease to the near future. Objective - Vital Signs Vital signs: Vital Signs Temp 99.4 F 03/12/20 14:04 Pulse 73 03/12/20 14:04 Resp 18 03/12/20 14:04 BP 114/61 03/12/20 14:04 Pulse Ox 96 03/12/20 14:04 Intake & Output 03/11/20 03/12/20 03/12/20 18:59 06:59 18:59 Intake Total 200 3680 200 Balance 200 3680 200 Intake: IV 200 Intake, IV Titration 60 Amount Sodium Chloride 0.9% 1, 60 000 ml @ 20 mls/hr IV . Q24H [facility] Rx#:[id number] Oral 200 3000 Blood Product 620 Rc As-1 Unit 310 [id number] Other: Voiding Method Toilet Toilet Toilet Bedside Commode Bedside Commode # Voids 2 1 2 # Bowel Movements 3 2 - Exam Review of Systems Constitutional: Reports chronic pain, Reports fatigue, Reports weakness, Denies anorexia, Denies weight gain, Denies weight loss Eyes: bilateral blurred vision, bilateral decreased vision Ears, nose, mouth and throat: Denies dysphagia, Denies neck lump, Denies sore throat Cardiovascular: Reports decreased exercise tolerance, Reports dyspnea on exertion, Reports shortness of breath, Denies chest pain, Denies leg edema, Denies lightheadedness, Denies rapid heart beat, Denies syncope Gastrointestinal: Denies abdominal pain, Denies belching, Denies bloating, Denies BRBPR, Denies change in bowel habits, Denies heartburn, Denies hem atemesis, Denies hematochezia, Denies loss of appetite, Denies melena, Denies nausea, Denies vomiting Genitourinary: Reports nocturia, Denies dysuria Musculoskeletal: Reports low back pain, Reports myalgias Musculoskeletal: right: hip pain, hip stiffness, absent: ankle pain, ankle stiffness, ankle swelling, elbow pain, elbow stiffness, elbow swelling, foot pain, foot stiffness, foot swelling, hand pain, hand stiffness, hand swelling, hip swelling, knee stiffness, knee swelling, shoulder pain, shoulder stiffness, shoulder swelling, wrist pain, wrist stiffness, wrist swelling Integumentary: Denies pruritus, Denies rash Neurological: Denies numbness, Denies weakness Psychiatric: Denies anxiety, Denies depression HEENT: Head is atraumatic normocephalic pupils were equal round reactive to light, small, sclera non icteric, mucous membranes of the mouth are somewhat dry. Neck: supple no JVP. Chest : decrease breath sounds at the bases with few ronchi minimal expiratory wheezes, no intercostal retraction or chest wall tenderness. Heart: first heart sound is depressed, second heart sound is normal there is SALOME 2/6 located at the left sternal border. Abdomen: soft non tender, non distended positive bowel sounds. Extremities: there is + 1 edema no calf tenderness DP +1 Bilaterally. Neurologic examination: patient is awake, alert and oriented X 3 CN III-XII are grossly intact, muscle power 4/5 in upper and lower extremities, deep tendon reflexes are depressed. - Labs CBC & Chem 7: 03/12/20 05:28 03/12/20 05:28 Labs: Abnormal Lab Results - Last 24 Hours (Table) 03/10/20 03/12/20 03/12/20 Range/Units 16:56 05:28 05:28 RBC 3.15 L (3.80-5.40) m/uL Hgb 8.1 L (11.4-16.0) gm/dL Hct 26.1 L (34.0-46.0) % MCHC 30.9 L (31.0-37.0) g/dL RDW 17.7 H (11.5-15.5) % Est GFR (CKD-EPI)AfAm 59.7 L (60.0-200.0) Est GFR (CKD-EPI)NonAf 51.5 L (60.0-200.0) Total Protein 5.3 L (6.2-8.2) g/dL Albumin 3.60 L (3.80-4.90) g/dL Crossmatch See Detail Assessment and Plan Assessment: Assessment and plan: 1. Acute blood loss anemia with HGB of 6.5 likely due to GI bleed, we will discontinue all anticoagulation and we will type and cross and transfuse 2 units of PRBCs, patient underwent EGD and colonoscopy that did not show evidence of acute GI bleed, she is currently getting capsule endoscopy, keep the patient off anticoagulation including aspirin Plavix and Eliquis. 2.Coronary artery disease with ischemic cardiomyopathy post LCx stent placement. we will continue with Metoprolol ER 25 mg orally twice a day and Lipitor 80 mg orally daily and hold off ASA and Plavix due to GI bleed. we will consult Cardiology.. 3. Paroxysmal atrial flutter. we will continue with Metoprolol ER 25 mg orally bid and was taken off Eliquis due to low hemoglobin and possible GI bleed. 4. Acute kidney injury on chronic kidney disease stage 3 due to acute tubular necrosis due to possible GI bleed we will continue to monitor CMP.. 5. COPD. we will continue with O2 2 L NC, we will continue with Duoneb 3 ml 4 times daily and Symbicort 160/4.5 mcg 2 puffs inhalation bid. 6. Mild Hyponatremia. we will monitor.. 7. Hypertension and hypertensive cardiovascular disease. we will continue with Metoprolol ER 25 mg orally bid.. 8. Mixed hyperlipidemia. we will continue with Lipitor 80 mg orally daily. 9. Diabetes mellitus type 2 . we will continue with Tradjenta 5 mg orally daily . 10. DDD of the Lumber spine with OA. we will continue with [place] 5/325 mg orally as needed and Soma 350 mg orally bid. 11. DVT prophylaxis . bilateral knee high Zane hose. 12. GI Prophylaxis. we will continue with protonix 40 mg IVP daily. 13. Tobacco use and dependence . smoking cessation and counseling and increased the risk for CAD, CVA and Malignancy, we will continue with Habitrol patch. 14. PAD. was supposed to go for bilateral SFA PTBA. was put on hold due to low hemoglobin and possible GI bleed. 15. Hopefully home in the next 24 hours. .
[2020-03-12] MEDS: SODIUM CHLORIDE 0.9% 1,000 ML IV SCH (23:44)
[2020-03-13 04:16] VITALS: RESP 17
[2020-03-13 07:02] LABS: Anisocytosis Slight; Basophils # (A) 0.1 k/uL (0-0.2); Basophils % (A) 1 %; Eosinophils # (A) 0.2 k/uL (0-0.7); Eosinophils % (A) 3 %; HGB 8.1 gm/dL (11.4-16.0); Hypochromasia Marked; Lymphocytes # (A) 1.7 k/uL (1.0-4.8); Lymphocytes % (A) 24 %; MCH 25.4 pg (25.0-35.0); MCV 81.9 fL (80.0-100.0); Microcytosis Slight; Monocytes # (A) 0.4 k/uL (0-1.0); Monocytes % (A) 6 %; Neutrophils # (A) 4.5 k/uL (1.3-7.7); Neutrophils % (A) 64 %; Platelet Count 241 k/uL (150-450); Poikilocytosis Marked; RBC 3.18 m/uL (3.80-5.40); RDW 17.7 % (11.5-15.5)
[2020-03-13] MEDS: SYMBICORT 160-4.5 MCG INHALER INHALATION SCH (07:17)
[2020-03-13] MEDS: IPRATROPIUM-ALBUTEROL 3 ML NEB INHALATION PRN ×2 (07:17→11:52)
[2020-03-13] MEDS: NICOTINE 14MG/24HR PATCH TRANSDERM SCH (09:16)
[2020-03-13] MEDS: carisoprodoL 350 MG TAB PO SCH (09:17)
[2020-03-13] MEDS: LINAGLIPTIN 5 MG TABLET PO SCH (09:17)
[2020-03-13] MEDS: METOPROLOL SUCCINATE (ER) 25 MG TAB.ER.24H PO SCH (09:17)
[2020-03-13] MEDS: PANTOPRAZOLE 40 MG/10 ML VIAL IV SCH (09:17)
[2020-03-13] MEDS: TORSEMIDE 20 MG TAB PO SCH (09:17)
[2020-03-13] MEDS: ATORVASTATIN 80 MG TAB PO SCH (09:17)
[2020-03-13] MEDS: LACTATED RINGERS 1,000 ML IV SCH (09:18)
[2020-03-13] MEDS: SODIUM CHLORIDE 0.9% 1,000 ML IV SCH (09:18)
--- NOTE | 2020-03-13 10:42 | P.PN ---
Subjective Progress Note Date: 03/13/20 CHIEF COMPLAINT: Peripheral vascular disease HISTORY OF PRESENT ILLNESS: Patient examined this morning at the bedside. She denies chest pain or pressure. Denies shortness of breath. Denies dark or bright red stools. Hemoglobin 8.1. She underwent EGD yesterday which was within normal limits and colonoscopy revealing scattered sigmoid diverticulosis with a 5 mm proximal rectal polyp. Patient also underwent small bowel capsule endoscopy yesterday. Results are currently pending. PHYSICAL EXAM: VITAL SIGNS: Reviewed. GENERAL: Well-developed in no acute distress. HEENT: Head is normocephalic. Pupils are equal, round. Sclerae anicteric. Mucous membranes of the mouth are moist. Neck supple. No JVD or thyromegaly LUNGS: Respirations even and unlabored. Lungs essentially clear to auscultation bilaterally. HEART: Regular rate and rhythm. S1 and S2 heard. ABDOMEN: Soft. Nondistended. Nontender. EXTREMITIES: Normal range of motion. No clubbing or cyanosis. Peripheral pulses intact. No lower extremity edema NEUROLOGIC: Awake and alert. Oriented x 3. ASSESSMENT: Anemia Peripheral vascular disease, scheduled for DIRECTOR OF EMPLOYEE DEVELOPMENT of SFA Coronary artery disease with previous stent placement to circumflex, December 2019 Cardiomyopathy, previous EF noted to be 20-25% COPD Hypertension Hyperlipidemia Diabetes mellitus, type II Chronic kidney disease PLAN: Monitor hemoglobin Hold Eliquis, plavix, and aspirin secondary to anemia. Resume when cleared by GI service secondary to recent stent placement Further recommendations pending patient course Nurse practitioner note has been reviewed by physician. Signing provider agrees with the documented findings, assessment, and plan of care. Objective - Vital Signs Vital signs: Vital Signs Temp 98.9 F 03/13/20 04:14 Pulse 80 03/13/20 07:30 Resp 17 03/13/20 04:14 BP 101/45 03/13/20 04:14 Pulse Ox 94 L 03/13/20 04:14 Intake & Output 03/12/20 03/13/20 03/13/20 18:59 06:59 18:59 Intake Total 200 560 Balance 200 560 Intake: IV 200 Intake, IV Titration 60 Amount Sodium Chloride 0.9% 1, 60 000 ml @ 20 mls/hr IV . Q24H [facility] Rx#:[id number] Oral 500 Other: Voiding Method Toilet Toilet Bedside Commode # Voids 2 2 # Bowel Movements 2 1 - Labs CBC & Chem 7: 03/13/20 06:42 03/12/20 05:28 Labs: Abnormal Lab Results - Last 24 Hours (Table) 03/12/20 03/13/20 Range/Units 05:28 06:42 RBC 3.18 L (3.80-5.40) m/uL Hgb 8.1 L (11.4-16.0) gm/dL Hct 26.0 L (34.0-46.0) % RDW 17.7 H (11.5-15.5) % Est GFR (CKD-EPI)AfAm 59.7 L (60.0-200.0) Est GFR (CKD-EPI)NonAf 51.5 L (60.0-200.0) Total Protein 5.3 L (6.2-8.2) g/dL Albumin 3.60 L (3.80-4.90) g/dL
[2020-03-13 11:44] VITALS: BP 122/59; TEMP 98.6
[2020-03-13 12:08] VITALS: PULSE 80
[2020-03-13 12:22] LABS: African American GFR (CKD) 44.6 (60.0-200.0); Albumin 3.5 g/dL (3.80-4.90); Albumin/Globulin Ratio 2.19 (1.60-3.17); Anion Gap 7.6 mmol/L (4.00-12.00); Calcium 8.6 mg/dL (8.7-10.3); Carbon Dioxide 25.4 mmol/L (21.6-31.8); Globulin 1.6 g/dL (1.6-3.3); Non-African American GFR(CKD) 38.5 (60.0-200.0); Potassium 4.5 mmol/L (3.5-5.5); Total Bilirubin 0.3 mg/dL (0.2-1.2); Total Protein 5.1 g/dL (6.2-8.2)
--- NOTE | 2020-03-13 17:18 | PN ---
PROGRESS NOTE The patient is seen for followup for acute kidney injury and chronic kidney disease. Her renal function is currently very stable with improvement in her creatinine since admission. Patient was maintained on IV fluids. Her creatinine has been about 1.1-1.4 mg/dL. IV fluids were discontinued and she is resumed on her home dose of Demadex. The patient was admitted with severe anemia and she had EGD done along with colonoscopy which did not show any active bleeding/ A capsule endoscopy is currently in progress. PHYSICAL EXAMINATION: On examination today, blood pressure is 122/59, heart rate 76 per minute, she is afebrile. Examination of the heart S1, S2. Examination of the lungs, bilateral breath sounds are heard. Abdomen is soft, nontender. Examination of lower extremities shows edema 1+ bilaterally. LOOM FIXER SUPERVISOR exam grossly intact. LAB: Show hemoglobin 8.1 sodium 138, potassium 4.5, BUN 21, creatinine 1.4. ASSESSMENT: 1. Chronic kidney disease, NKF stage 3, renal function stable. Baseline creatinine about 1.4 mg/dL. It was down to 1.1, possibly secondary to underlying mild hypervolemia. 2. Chronic kidney disease, stage 3 secondary to nephrosclerosis. Baseline creatinine about 1.4-1.5. 3. Severe anemia, status post EGD and colonoscopy with no evidence of obvious bleeding. Currently capsule endoscopy in progress. PLAN: Continue with current dose of Demadex and follow up as outpatient. MMODL / IJN: [id number] /
--- NOTE | 2020-03-13 20:24 | PN ---
PROGRESS NOTE DATE OF SERVICE: 03/13/2020 This patient is a 69-year-old pleasant white female admitted to the hospital with severe symptomatic anemia and a hemoglobin of 6.5, requiring 3 units of PRBC transfusion. She denies any active bleeding. She underwent an EGD and colonoscopy by me yesterday that showed mild antral gastritis and scattered sigmoid diverticulosis but no source of bleeding was identified. She had a small 5 mm rectal polyp that was removed. She subsequently underwent a small bowel capsule endoscopy yesterday that was completely within normal limits. No evidence of angioectasia noted. In the meantime, patient is doing well. She denies any abdominal pain. No nausea, vomiting. No rectal bleeding or melena. She wants to go home today. PHYSICAL EXAMINATION: Appears comfortable. VITAL SIGNS: Stable. Blood pressure 122/59, pulse rate 85, temperature 98.6. HEENT examination unremarkable. Conjunctivae pale. Sclerae anicteric. Oral cavity no lesions. NECK: No JVD or lymph node enlargement. CHEST: Clear to auscultation. HEART: Regular rate and rhythm. ABDOMEN: Soft, obese. Bowel sounds are positive. EXTREMITIES: No pedal edema. SKIN: No rashes. NEUROLOGIC: Alert and oriented x3. No focal deficits. LABS: Labs from today show hemoglobin is 8, WBC is 7.0, platelets are 241. BUN and creatinine are within normal limits. IMPRESSION: 1. Severe symptomatic anemia with a hemoglobin of 6.5 requiring 3 units of PRBC transfusion. Last hemoglobin is 8 g/dL. She did have an EGD and colonoscopy as well as small bowel capsule endoscopy, all of which were unremarkable other than a small rectal polyp and sigmoid diverticulosis. No obvious source of bleeding identified. The patient is hemodynamically stable. No further evidence of bleeding since being in the hospital. 2. History of peripheral vascular disease, status post angioplasty with stent placement, on aspirin, Plavix and Eliquis, currently on hold. RECOMMENDATIONS: 1. Start iron supplements. 2. Monitor CBC on a close basis. 3. Since there is no evidence of active bleeding, she can resume antiplatelets and anticoagulation at this time. She can be discharged home today with an outpatient followup in 3-4 weeks. Thank you for this consultation. MMODL / IJN: [id number] /
--- NOTE | 2020-03-15 00:24 | CDI ---
Documentation Clarification Form Date: 03/15/2020 From: Bennett Ceja Phone: If you have a question about this query, please contact Jody Almeida Rn Iv Therapy at [phone] between 8am and 5pm. Admit Date: 03/10/2020 Discharge Date: 03/13/2020 Patient Name: Nickie Gomez Visit Number: [id number] ATTENTION: The Clinical Documentation Specialists (CDI) and [facility] Coding Staff appreciate your assistance in clarifying documentation. Please respond to the clarification below the line at the bottom and electronically sign. The CDI & [facility] Coding staff will review the response and follow-up if needed. Please note: Queries are made part of the Legal Health Record. If you have any questions, please contact the author of this message via ITS. Dear Franc Mckoy MD., Conflicting documentation has been found in the medical record History/Risk Factors: COPD, DM, atrial fibrillation, diverticulitis Clinical Indicators: Creatinine 1.53H, 1.4H Treatment: IV fluids. Per Gris Hurst notes "Acute kidney injury associated with acute anemia, currently improved. Patient isstatus post IV fluids". Per your notes "Acute kidney injury on chronic kidney disease stage 3 due to acute tubular necrosis due to possible GI bleed we will continue to monitor CMP". In your opinion, what is the most clinically appropriate diagnosis for this patient? Acute Kidney Injury Acute tubular necrosis Other explanation of clinical findings Unable to determine (no explanation for clinical findings) __acute kidney injury with acute tubular necrosis MTDD
--- NOTE | 2020-03-20 06:07 | P.DS ---
Providers Date of admission: 03/10/20 18:56 Expected date of discharge: 03/13/20 Attending physician: Franc Ferro Consults: 03/10/20 18:56 Consult Physician Urgent Consulting Provider: Tato Lau Consult Reason/Comments: Peripheral vascular disease Do you want consulting provider notified?: Yes 03/10/20 18:57 Consult Physician Urgent Consulting Provider: Diane Hurt Consult Reason/Comments: anemia Do you want consulting provider notified?: Yes Primary care physician: Franc Ferro Hospital Course: This is a 69 year old white female one of my patient with a previous medical history significant for hypertension and hypertensive cardiovascular disease, mixed hyperlipidemia, diabetes mellitus type2, diabetic polyneuropathy, chronic tobacco use and dependence , COPD, and chronic pain syndrome due to severe osteoarthritis in both hips and 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 currently on chronic pain treatment, patient was hospitalized at [facility] on 10/23/2019 for acute systolic heart failure and she was found to have severe cardiomyopathy with EF 20-25% and moderate MR and TR and she was supposed to have heart cath but because of worsening renal function she was sent home as to do the heart catherization as an outpatient which was done on 01/01/2020 which showed mid LCx disease which was stented and was started on dual anti platelets therapy, also was placed on Eliquis due to paroxysmal atrial fibrillation, patient was supposed to have CUSTOMER SUCCESS SPECIALIST of bilateral SFA due to severe PAD, this was scheduled on 03/12/2020 with and laboratory evaluation were done through her pot annealer yesterday and she was found to have HGB of 6.5 she was directed to go to the ER for evaluation a and she was given one unit of PRBCs and was admitted for evaluation by cardiology and GI foe possible GI bleed, patient denied any blood per stool no black tarry stool, and no weight loss, or significant heart burn or abdominal pain, she denied any dysphagia also and no hematuria. 03/11: patient is sitting at the edge of the bed , drinking her Golytely in preparation for her Colonoscopy and EGD in AM, she denies any chest pain or shortness of breath, continues to have low hemoglobin, receiving the second unit of PRBCs , she complains of pain in her back and bilateral lower extremities due to PAD, and spondylosis, she appears to be tolerating her treatment well. 03/12: Patient underwent upper endoscopy as well as colonoscopy did not show any evidence of acute GI bleed, she is currently getting capsule endoscopy for possible small bowel bleed, she did receive 2 units of packed red blood cells, her hemoglobin is stable at 8.1 today she denies any chest pain or shortness breath she has no abdominal pain at this point in time, I spoke with gastroenterology about monitor the patient for another 24 hours and hopefully will send her home in the next 24 hours if her hemoglobin is stable she will be off anticoagulation unless otherwise directed by cardiology, we will postpone the procedure scheduled for the patient peripheral artery disease to the near future. discharge diagnoses: 1. Acute blood loss anemia with HGB of 6.5 likely due to GI bleed post EGD and colonoscopy along with Capsule endoscopy. 2.Coronary artery disease with ischemic cardiomyopathy post LCx stent placement. .. 3. Paroxysmal atrial flutter. 4. Acute kidney injury on chronic kidney disease stage 3 due to acute tubular necrosis. 5. COPD. 6. Mild Hyponatremia due to hypovolemia. 7. Hypertension and hypertensive cardiovascular disease. 8. Mixed hyperlipidemia. 9. Diabetes mellitus type 2 . 10. DDD of the Lumber spine with OA. 11. Tobacco use and dependence . 12. PAD. Plan - Discharge Summary Discharge Rx Participant: No New Discharge Prescriptions: No Action HYDROcodone/APAP 5-325MG [[place] 5-325] 1 tab PO Q12H PRN PRN Reason: Pain Carisoprodol [Soma] 350 mg PO BID PRN PRN Reason: Muscle Spasm Zolpidem Tartrate [Ambien] 10 mg PO HS Glimepiride [Amaryl] 4 mg PO BID Ipratropium-Albuterol Nebulize [Duoneb 0.5 mg-3 mg/3 ml Soln] 3 ml INHALATION RT-QID PRN PRN Reason: Shortness Of Breath Raloxifene [Evista] 60 mg PO DAILY Budesonide/Formoterol Fumarate [Symbicort 160-4.5 Mcg Inhaler] 2 puff INHALATION RT-BID Atorvastatin Calcium [Lipitor] 80 mg PO DAILY guaiFENesin [Mucinex] 600 mg PO Q12HR PRN tablet.er PRN Reason: Cough Linagliptin [Tradjenta] 5 mg PO DAILY #30 tablet Torsemide [Demadex] 20 mg PO BID #60 tablet Nicotine 14Mg/24Hr Patch [Habitrol] 1 patch TRANSDERM DAILY #30 patch Metoprolol Succinate (ER) [Toprol XL] 25 mg PO BID #60 tab.er.24h Clopidogrel [Plavix] 75 mg PO DAILY #90 tab Apixaban [Eliquis] 2.5 mg PO BID #0 Aspirin [Adult Low Dose Aspirin EC] 81 mg PO DAILY Discharge Medication List Carisoprodol [Soma] 350 mg PO BID PRN 03/08/16 [History] Glimepiride [Amaryl] 4 mg PO BID 03/08/16 [History] HYDROcodone/APAP 5-325MG [[place] 5-325] 1 tab PO Q12H PRN 03/08/16 [History] Zolpidem Tartrate [Ambien] 10 mg PO HS 03/08/16 [History] Budesonide/Formoterol Fumarate [Symbicort 160-4.5 Mcg Inhaler] 2 puff INHALATION RT-BID 10/23/19 [History] Ipratropium-Albuterol Nebulize [Duoneb 0.5 mg-3 mg/3 ml Soln] 3 ml INHALATION RT-QID PRN 10/23/19 [History] Raloxifene [Evista] 60 mg PO DAILY 10/23/19 [History] Atorvastatin Calcium [Lipitor] 80 mg PO DAILY 10/24/19 [History] Linagliptin [Tradjenta] 5 mg PO DAILY #30 tablet 10/26/19 [Rx] guaiFENesin [Mucinex] 600 mg PO Q12HR PRN tablet.er 10/26/19 [Rx] Metoprolol Succinate (ER) [Toprol XL] 25 mg PO BID #60 tab.er.24h 11/08/19 [Rx] Nicotine 14Mg/24Hr Patch [Habitrol] 1 patch TRANSDERM DAILY #30 patch 11/08/19 [Rx] Torsemide [Demadex] 20 mg PO BID #60 tablet 11/08/19 [Rx] Apixaban [Eliquis] 2.5 mg PO BID #0 01/02/20 [Rx] Clopidogrel [Plavix] 75 mg PO DAILY #90 tab 01/02/20 [Rx] Aspirin [Adult Low Dose Aspirin EC] 81 mg PO DAILY 01/24/20 [History] Follow up Appointment(s)/Referral(s): Franc Ferro MD [Primary Care Provider] - 1-2 days
== END 2020-03-13 15:01 | disposition home health service (06) | DRG 811 ==
LOC: EC 15:27 → 6NMEDSUR 18:56 → 4SSUR 03-11 00:06 → 6NMEDSUR 03-11 00:12
PROVIDERS: ADMIT Internal Medicine; ATTEND Internal Medicine
PROC: 30233N1 Transfusion of Nonautologous Red Blood Cells into Peripheral Vein, Percutaneous Approach (ICD-10-PCS; principal; 2020-03-10)
PROC: 0DBP8ZX Excision of Rectum, Via Natural or Artificial Opening Endoscopic, Diagnostic (ICD-10-PCS; principal; 2020-03-10)
PROC: 0DB98ZX Excision of Duodenum, Via Natural or Artificial Opening Endoscopic, Diagnostic (ICD-10-PCS; principal; 2020-03-10)
DX: D62 Acute posthemorrhagic anemia (principal); N17.0 Acute kidney failure with tubular necrosis; I48.20 Chronic atrial fibrillation, unspecified; I13.0 Hypertensive heart and chronic kidney disease with heart failure and stage 1 through stage 4 chronic kidney disease, or unspecified chronic kidney disease; I50.22 Chronic systolic (congestive) heart failure; E87.1 Hypo-osmolality and hyponatremia; N18.30 Chronic kidney disease, stage 3 unspecified; F17.200 Nicotine dependence, unspecified, uncomplicated; E11.22 Type 2 diabetes mellitus with diabetic chronic kidney disease; E11.42 Type 2 diabetes mellitus with diabetic polyneuropathy; E11.51 Type 2 diabetes mellitus with diabetic peripheral angiopathy without gangrene; E78.2 Mixed hyperlipidemia; G89.4 Chronic pain syndrome; I25.5 Ischemic cardiomyopathy; I48.0 Paroxysmal atrial fibrillation; J44.9 Chronic obstructive pulmonary disease, unspecified; M16.0 Bilateral primary osteoarthritis of hip; D63.1 Anemia in chronic kidney disease; K62.1 Rectal polyp; K57.30 Diverticulosis of large intestine without perforation or abscess without bleeding; K29.70 Gastritis, unspecified, without bleeding; M47.9 Spondylosis, unspecified; I25.10 Atherosclerotic heart disease of native coronary artery without angina pectoris; K21.9 Gastro-esophageal reflux disease without esophagitis; Z79.01 Long term (current) use of anticoagulants; Z79.51 Long term (current) use of inhaled steroids; Z79.02 Long term (current) use of antithrombotics/antiplatelets; Z79.82 Long term (current) use of aspirin; Z79.84 Long term (current) use of oral hypoglycemic drugs; Z79.899 Other long term (current) drug therapy; Z88.8 Allergy status to other drugs, medicaments and biological substances; Z90.49 Acquired absence of other specified parts of digestive tract; Z90.89 Acquired absence of other organs; Z98.51 Tubal ligation status; Z98.890 Other specified postprocedural states; Z98.49 Cataract extraction status, unspecified eye; Z82.49 Family history of ischemic heart disease and other diseases of the circulatory system; Z82.3 Family history of stroke; Z83.3 Family history of diabetes mellitus; Z95.5 Presence of coronary angioplasty implant and graft; Z93.3 Colostomy status
CPT/HCPCS: 36415; 36430; 43239; 45380; 80051; 80053; 82272; 82565; 84520; 85025; 85027; 85610; 85730; 86850; 86900; 86901; 86920; 88305; 91110; 93005; 94640; 96374; 99285

== ENCOUNTER → 2020-03-10 | Outpatient (CLI) | payer MEDICARE, OTHER ==
[2020-03-10 10:54] LABS: Anisocytosis Slight; HCT 21.5 % (34.0-46.0); Hypochromasia Marked; MCHC 29.2 g/dL (31.0-37.0); Mean Platelet Volume 7.8; Microcytosis Slight; Platelet Count 250 k/uL (150-450); Poikilocytosis Marked; RBC 2.61 m/uL (3.80-5.40); RDW 17.7 % (11.5-15.5); WBC 9.4 k/uL (3.8-10.6)
[2020-03-10 10:55] LABS: Potassium 4.8 mmol/L (3.5-5.1)
[2020-03-10 14:27] LABS: HGB 6.3 gm/dL (11.4-16.0); MCV 82.3 fL (80.0-100.0)
== END | disposition home or self-care (01) ==
LOC: LABPAT 09:32
PROVIDERS: ATTEND Internal Medicine Interventional Cardiology
DX: Z01.818 Encounter for other preprocedural examination (principal); I73.9 Peripheral vascular disease, unspecified
CPT/HCPCS: 36415; 80051; 82565; 84520; 85027

== ENCOUNTER → 2020-05-16 | Outpatient (CLI) | payer MEDICARE, OTHER ==
[2020-05-16 15:12] LABS: Anisocytosis Moderate; HCT 35.8 % (34.0-46.0); HGB 11.3 gm/dL (11.4-16.0); Hypochromasia Moderate; MCH 26.5 pg (25.0-35.0); MCHC 31.6 g/dL (31.0-37.0); MCV 84.1 fL (80.0-100.0); Mean Platelet Volume 8.1; Microcytosis Slight; Platelet Count 221 k/uL (150-450); RBC 4.26 m/uL (3.80-5.40); RDW 20.4 % (11.5-15.5)
[2020-05-16 15:36] LABS: Appearance,Urine Clear (Clear); Bacteria,Urine Rare /hpf; Bilirubin,Urine Negative (Negative); Blood,Urine Negative (Negative); Color,Urine Light Yellow; Glucose,Urine (UA) Negative (Negative); Hyaline Casts,Urine 10 /lpf (0-2); Ketones,Urine Negative (Negative); Leukocyte Esterase,Urine Moderate (Negative); Mucus,Urine Rare /hpf; Nitrite,Urine Negative (Negative); Protein,Urine Negative (Negative); RBC,Urine <1 /hpf (0-5); Specific Gravity,Urine 1.006 (1.001-1.035); Squamous Epithelial Cell,Urine <1 /hpf (0-4); Urobilinogen,Urine <2.0 mg/dL (<2.0); WBC,Urine 5 /hpf (0-5)
[2020-05-16 15:50] LABS: Creatinine,Urine Random 42.1 mg/dL; Protein/Creatinine Ratio,Urine 0.238
[2020-05-17 02:05] LABS: % Iron Saturation 10.03 (12.00-45.00); African American GFR (CKD) 28.8 (60.0-200.0); Anion Gap 11.3 mmol/L (4.00-12.00); Calcium 9.5 mg/dL (8.7-10.3); Carbon Dioxide 27.7 mmol/L (21.6-31.8); Magnesium 1.6 mg/dL (1.5-2.4); Non-African American GFR(CKD) 24.8 (60.0-200.0); Phosphorus 4.3 mg/dL (2.4-5.1); Uric Acid 14.1 mg/dL (2.9-7.7)
== END | disposition home or self-care (01) ==
LOC: LABWHC1 14:04
PROVIDERS: ATTEND Nurse Practitioner Family
DX: N17.9 Acute kidney failure, unspecified (principal); D50.9 Iron deficiency anemia, unspecified; E21.3 Hyperparathyroidism, unspecified; E55.9 Vitamin D deficiency, unspecified
CPT/HCPCS: 36415; 80048; 81001; 82306; 82570; 82728; 83540; 83550; 83735; 83970; 84100; 84156; 84550; 85027

== ENCOUNTER → 2020-06-18 | Outpatient (CLI) | payer MEDICARE, OTHER ==
[2020-06-18 16:09] LABS: Anisocytosis Moderate; Basophils # (A) 0.1 k/uL (0-0.2); Basophils % (A) 1 %; Eosinophils # (A) 0.2 k/uL (0-0.7); Eosinophils % (A) 3 %; HGB 12.2 gm/dL (11.4-16.0); Hypochromasia Slight; Lymphocytes # (A) 2.4 k/uL (1.0-4.8); Lymphocytes % (A) 28 %; MCH 28.3 pg (25.0-35.0); MCV 88.5 fL (80.0-100.0); Mean Platelet Volume 8.2; Microcytosis Slight; Monocytes # (A) 0.4 k/uL (0-1.0); Monocytes % (A) 5 %; Neutrophils # (A) 5.1 k/uL (1.3-7.7); Neutrophils % (A) 61 %; Platelet Count 183 k/uL (150-450); RDW 20.5 % (11.5-15.5); WBC 8.3 k/uL (3.8-10.6)
[2020-06-18 16:48] LABS: Appearance,Urine Clear (Clear); Bilirubin,Urine Negative (Negative); Blood,Urine Negative (Negative); Color,Urine Colorless; Glucose,Urine (UA) Negative (Negative); Hyaline Casts,Urine 3 /lpf (0-2); Ketones,Urine Negative (Negative); Leukocyte Esterase,Urine Trace (Negative); Mucus,Urine Rare /hpf; Nitrite,Urine Negative (Negative); Protein,Urine Negative (Negative); RBC,Urine <1 /hpf (0-5); Specific Gravity,Urine 1.005 (1.001-1.035); Urobilinogen,Urine <2.0 mg/dL (<2.0); WBC,Urine 2 /hpf (0-5)
[2020-06-19 01:11] LABS: Microalbumin Creatinine Ratio <30 mg/g Creat (0-30); Urine Creatinine 19.1 mg/dL
[2020-06-19 01:26] LABS: % Iron Saturation 12.96 (12.00-45.00); Albumin 4.2 g/dL (3.80-4.90); Albumin/Globulin Ratio 2.1 (1.60-3.17); Anion Gap 9.3 mmol/L (4.00-12.00); BUN/Creat Ratio 24.12 Ratio (12.00-20.00); Calcium 9.2 mg/dL (8.7-10.3); Carbon Dioxide 24.7 mmol/L (21.6-31.8); Magnesium 1.6 mg/dL (1.5-2.4); Non-African American GFR(CKD) 30.2 (60.0-200.0); Phosphorus 3.7 mg/dL (2.4-5.1); Potassium 4.7 mmol/L (3.5-5.5); Total Bilirubin 0.3 mg/dL (0.2-1.2); Total Protein 6.2 g/dL (6.2-8.2); Uric Acid 9.5 mg/dL (2.9-7.7)
[2020-06-19 01:34] LABS: Ferritin 20.9 ng/mL (10.0-291.0)
== END | disposition home or self-care (01) ==
LOC: LABWHC1 15:33
PROVIDERS: ATTEND Internal Medicine Interventional Cardiology
DX: N39.0 Urinary tract infection, site not specified (principal); D63.1 Anemia in chronic kidney disease; N18.32 Chronic kidney disease, stage 3b; N25.81 Secondary hyperparathyroidism of renal origin; E55.9 Vitamin D deficiency, unspecified; M10.9 Gout, unspecified; R80.9 Proteinuria, unspecified
CPT/HCPCS: 36415; 80053; 81001; 82043; 82306; 82570; 82728; 83540; 83550; 83735; 83970; 84100; 84550; 85025

== ENCOUNTER 2020-07-16 07:14 | Day surgery (SDC) | payer MEDICARE, OTHER ==
[2020-07-14 11:00] VITALS: BMI 35.4
[~2020-07-16 07:14] MED LIST changes: +ASPIRIN 325 MG TAB PO PRN; -ASPIRIN 325 MG TAB PO STA; +HEPARIN SODIUM,PORCINE 10,000 UNIT in SODIUM CHLORIDE 0.9% 1,000 ML IRRIGATION PRN; +HEPARIN SODIUM,PORCINE 2,500 UNIT in SODIUM CHLORIDE 0.9% 250 ML IRRIGATION PRN; +ZOLPIDEM 5 MG TAB PO PRN
[2020-07-16] MEDS ORDERED: IPRATROPIUM-ALBUTEROL 3 ML NEB INHALATION STA (07:36)
[2020-07-16] MEDS ORDERED: HYDROmorphone 1 MG/ML 1 ML SYRINGE ONE (07:48)
[2020-07-16] MEDS ORDERED: HYDROmorphone 1 MG/ML 1 ML SYRINGE IVP STA (07:49)
[2020-07-16] MEDS ORDERED: METOPROLOL TARTRATE 25 MG TAB PO STA (07:50)
[2020-07-16 07:54] LABS: Glucose,Whole Blood 173 mg/dL (75-99)
[2020-07-16] MEDS ORDERED: NICOTINE 14MG/24HR PATCH TRANSDERM STA (08:03)
[2020-07-16] MEDS ORDERED: ALPRAZolam 0.5 MG TAB ONE (08:13)
[2020-07-16] MEDS ORDERED: SODIUM CHLORIDE 0.9% 1,000 ML IV SCH (09:00)
[2020-07-16] MEDS: MIDAZOLAM 2 MG/2 ML VIAL IVP ONE ×2 (09:26→10:00)
[2020-07-16] MEDS: fentaNYL (PF) 50 MCG/ML 2 ML AMP IVP ONE ×2 (09:27→10:44)
[2020-07-16] MEDS ORDERED: LIDOCAINE 1% INJ 10MG/ML (20 ML MDV) SQ ONE ×2 (09:53→10:58)
[2020-07-16] MEDS: HEPARIN SODIUM 1,000 UN/ML (10ML VL) IV ONE ×2 (09:57→11:20)
[2020-07-16] MEDS ORDERED: SODIUM CHLORIDE 0.9% 500 ML 500 ML with niCARdipine 6.25 MG, NITROGLYCERIN-D5W PMX 0.05... IV ONE ×4 (11:00)
[2020-07-16] MEDS ORDERED: MIDAZOLAM 2 MG/2 ML VIAL IVP ONE ×2 (11:18→12:46)
[2020-07-16] MEDS: fentaNYL (PF) 50 MCG/ML 2 ML AMP IV ONE ×2 (11:37→12:15)
[2020-07-16] MEDS ORDERED: ONDANSETRON 4 MG/2 ML VIAL IVP ONE (12:25)
[2020-07-16] MEDS ORDERED: HYDROmorphone 0.5 MG/0.5 ML SYRINGE IVP ONE (12:46)
[2020-07-16] MEDS ORDERED: HEPARIN SODIUM 1,000 UN/ML (10ML VL) IV ONE (12:46)
[2020-07-16] MEDS ORDERED: IOPAMIDOL-250 100ML BTL INTRAARTER ONE (13:25)
[2020-07-16] MEDS ORDERED: NITROGLYCERIN 1000MCG/10ML SYRINGE INTRAARTER ONE (13:26)
[2020-07-16] MEDS ORDERED: guaiFENesin 600 MG TABLET.ER PO PRN (13:29)
[2020-07-16] MEDS ORDERED: carisoprodoL 350 MG TAB PO PRN (13:29)
[2020-07-16] MEDS ORDERED: CLOPIDOGREL 75 MG TAB PO ONE (13:33)
[2020-07-16] MEDS ORDERED: ONDANSETRON 4 MG/2 ML VIAL ONE (13:51)
[2020-07-16] MEDS ORDERED: ONDANSETRON 4 MG/2 ML VIAL IVP STA (13:55)
[2020-07-16] MEDS ORDERED: CLOPIDOGREL 75 MG TAB PO STA (14:10)
--- NOTE | 2020-07-16 14:24 | IR ---
Fluoroscopy HISTORY: Pain in left leg 71.3 minutes fluoroscopy time supplied to the referring clinician. 612 intraoperative C-arm images d ocument the procedure. See dictated report from cardiology.
[2020-07-16 15:09] LABS: Glucose,Whole Blood 228 mg/dL (75-99)
--- NOTE | 2020-07-16 15:34 | LTR ---
July 16, 2020 To: Dr. Franc Ferro Re: Jessica Patricia ([phone]) Dear Dr. Ferro, Ms. Jessica Gomez underwent today successful balloon angioplasty and stenting of the left superficial femoral artery with an excellent angiographic result and without any complication. Thank you for allowing us to participate in her care. Please do not hesitate to call if you have any question or concern. Sincerely, Tato Lau M.D. ROLANDO / CHRISTIANO: [id number] /
[2020-07-16 16:32] LABS: Glucose,Whole Blood 216 mg/dL (75-99)
[2020-07-16] MEDS: ALPRAZolam 0.25 MG TAB PO PRN (16:50)
[2020-07-16] MEDS: HYDROcodone/APAP 5-325MG 1 EACH TAB PO PRN (16:50)
[2020-07-16] MEDS: SODIUM CHLORIDE 0.9% 1,000 ML in EMPTY BAG 1 BAG IV SCH (17:38)
[2020-07-16] MEDS ORDERED: ATROPINE SULFATE 0.1 MG/ML 10ML SYRINGE ONE (17:43)
[2020-07-16] MEDS: IPRATROPIUM-ALBUTEROL 3 ML NEB INHALATION PRN (18:43)
[2020-07-16] MEDS: SYMBICORT 160-4.5 MCG INHALER INHALATION SCH (18:43)
[2020-07-16 20:32] LABS: Glucose,Whole Blood 210 mg/dL (75-99)
[2020-07-16] MEDS: METOPROLOL SUCCINATE (ER) 25 MG TAB.ER.24H PO SCH (20:34)
[2020-07-16] MEDS: FERROUS SULFATE 325 MG TAB PO SCH (20:34)
[2020-07-16] MEDS: GLIMEPIRIDE 4 MG TAB PO SCH (20:34)
[2020-07-16] MEDS ORDERED: ZOLPIDEM 10 MG TAB PO SCH (21:00)
[2020-07-16] MEDS ORDERED: ATORVASTATIN 80 MG TAB PO SCH (21:00)
--- NOTE | 2020-07-16 21:53 | PCN ---
PROCEDURE NOTE DATE OF SERVICE: 07/16/2020 PERFORMING PHYSICIAN: Tato Lau M.D. PROCEDURES PERFORMED: 1. Stenting of the left popliteal artery using a 5.0 x 140 mm Zilver PTX drug-coated stent. 2. Successful stenting of the left SFA using a 6.0 x 140 and 7.0 x 100 mm Zilver PTX drug-coated stent with excellent angiographic results. 3. Intravascular ultrasound (IVUS) of the left popliteal and left SFA. 4. Atherectomy of the left popliteal. 5. Left lower extremity angiogram. 6. Right common femoral artery angiogram. INDICATION: This is a 70-year-old female patient who is known to have coronary artery disease as well as peripheral arterial disease. She was experiencing bilateral lower extremity intermittent claudication and underwent an angiogram which revealed occluded bilateral SFA. She was brought today to undergo an intervention on the left SFA. APPROACH: Right common femoral artery. COMPLICATIONS: None. LEVEL OF SEDATION: Moderate, with sedation length of 270 minutes with a long and complex procedure. PROCEDURE DESCRIPTION: After obtaining informed consent, the patient was brought to the cardiac tin can laborer. The right common femoral artery was cannulated using micropuncture technique. The micropuncture wire passed easily. Then I placed a 6-Chinese sheath at the right common femoral artery. The sheath was 70 cm and it was a Raabe sheath. The left profunda was selected using an 0.035 stiff Glidewire with the back-up support of a 5-Chinese RIM catheter. After that I did advance my 70 cm 6-Chinese sheath over the 0.035 stiff Glidewire and 5-Chinese RIM catheter all the way to the left common femoral artery. Left lower extremity angiogram was performed and revealed normal left common femoral artery with a large profunda and occluded left SFA with 2-vessel runoff below the knee bilaterally with posterior tibial and peroneal and occluded anterior tibial artery. I was able to cross the chronic total occlusion of the left SFA using an 0.018 fisher- tipped Glidewire with the back-up support of an 0.018 CXI catheter, but at the left popliteal segment I was in subintimal space, and because of that I decided to access the left posterior tibial artery. The left posterior tibial artery was accessed using micropuncture technique under ultrasound guidance. The micropuncture wire passed easily. Then I placed a slender 5/6 Chinese at the left posterior tibial artery. After that I was able to cross the left popliteal and left SFA using an 0.018 fisher-tipped Glidewire, and the wire was advanced all the way to the left common femoral artery. Intravascular ultrasound was performed and showed that I was in the true lumen in the left popliteal, which I was concerned about initially. Please note that anticoagulation with heparin was given at the beginning of the procedure with continuous ACT monitoring throughout the procedure. After that I did atherectomy of the left popliteal using the directional atherectomy and using the HawkOne device. Subsequently balloon angioplasty was performed using a 5 mm balloon. The following angiogram showed inadequate angiographic results, and because of that I decided to go with a stent. At the left popliteal, I placed a 5 x 140 mm Zilver PTX drug-coated stent. In the distal left SFA I placed a 6.0 x 140 mm Zilver PTX drug-coated stent. Both the stents were post-dilated after that. Then in the proximal left SFA I did a drug-coated balloon, but the following angiogram showed also inadequate angiographic results, and because of that I decided to cover that with a stent. I deployed a 7.0 x 100 mm Zilver PTX drug-coated stent as well. The 3 stents were post-dilated using a 6 mm balloon. The following angiogram showed excellent angiographic results and the procedure was completed without any complication. After that I did exchange my long sheath for a short sheath using an 0.035 stiff Glidewire. Then I did selective right common femoral artery angiogram. The procedure was completed without any complication. POST-PROCEDURE MANAGEMENT: 1. Dual anti-platelet therapy. 2. Risk factor modifications. 3. Follow up with the patient. MMODL / IJN: [id number] /
[2020-07-16 23:48] VITALS: RESP 16
[2020-07-17] MEDS: SODIUM CHLORIDE 0.9% 1,000 ML in EMPTY BAG 1 BAG IV SCH (02:09)
[2020-07-17] MEDS: HYDROcodone/APAP 5-325MG 1 EACH TAB PO PRN (04:25)
[2020-07-17 06:07] LABS: Glucose,Whole Blood 173 mg/dL (75-99)
[2020-07-17] MEDS: SYMBICORT 160-4.5 MCG INHALER INHALATION SCH (07:48)
[2020-07-17] MEDS: IPRATROPIUM-ALBUTEROL 3 ML NEB INHALATION PRN (07:49)
[2020-07-17] MEDS ORDERED: LINAGLIPTIN 5 MG TABLET PO SCH (09:00)
[2020-07-17] MEDS ORDERED: allopurinoL 100 MG TAB PO SCH (09:00)
[2020-07-17] MEDS ORDERED: ASPIRIN 81 MG PO SCH (09:00)
[2020-07-17] MEDS ORDERED: RALOXIFENE 60 MG TAB PO SCH (09:00)
[2020-07-17] MEDS ORDERED: ATORVASTATIN 80 MG TAB PO SCH (09:00)
[2020-07-17] MEDS ORDERED: NICOTINE 14MG/24HR PATCH TRANSDERM SCH (09:00)
[2020-07-17] MEDS ORDERED: TORSEMIDE 20 MG TAB PO SCH ×2 (09:00)
[2020-07-17] MEDS ORDERED: CLOPIDOGREL 75 MG TAB PO SCH (09:00)
[2020-07-17] MEDS ORDERED: APIXABAN 2.5 MG TABLET PO SCH (09:00)
[2020-07-17 09:02] LABS: Calcium 8.8 mg/dL (8.4-10.2); Potassium 4.8 mmol/L (3.5-5.1)
[2020-07-17] MEDS: METOPROLOL SUCCINATE (ER) 25 MG TAB.ER.24H PO SCH (09:11)
[2020-07-17] MEDS: ALPRAZolam 0.25 MG TAB PO PRN (09:11)
[2020-07-17] MEDS: FERROUS SULFATE 325 MG TAB PO SCH (09:11)
[2020-07-17] MEDS: GLIMEPIRIDE 4 MG TAB PO SCH (09:12)
[2020-07-17 09:45] LABS: Anisocytosis Slight; Basophils % (A) 0 %; Eosinophils # (A) 0.1 k/uL (0-0.7); Eosinophils % (A) 1 %; HCT 36.5 % (34.0-46.0); HGB 11.4 gm/dL (11.4-16.0); Hypochromasia Moderate; Lymphocytes # (A) 1.2 k/uL (1.0-4.8); Lymphocytes % (A) 14 %; MCHC 31.1 g/dL (31.0-37.0); Macrocytosis Slight; Monocytes # (A) 0.5 k/uL (0-1.0); Monocytes % (A) 5 %; Neutrophils % (A) 77 %; Platelet Count 150 k/uL (150-450); RBC 3.79 m/uL (3.80-5.40); RDW 18.9 % (11.5-15.5)
[2020-07-17 10:19] LABS: MCV 96.4 fL (80.0-100.0)
[2020-07-17 12:38] LABS: Poikilocytosis (M) Present
[2020-07-17 14:25] VITALS: BP 105/59; PULSE 84; TEMP 97.4
--- NOTE | 2020-07-17 15:06 | P.CONS ---
History of Present Illness - Reason for Consult Consult date: 07/17/20 Medical Management Requesting physician: Tato Lau - Chief Complaint post SFA PTBA - History of Present Illness This is a 69 year old white female one of my patient with a previous medical history significant for hypertension and hypertensive cardiovascular disease, mixed hyperlipidemia, chronic systolic heart failure with severe cardiomyopathy with EF 20-25% and moderate mitral regurgitation, tricuspid regurgitation, paroxysmal atrial flutter, diabetes mellitus type2, diabetic polyneuropathy, chronic kidney disease stage III, COPD, PAD, chronic tobacco use and dependence , COPD, and chronic pain syndrome due to severe osteoarthritis in both hips and 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 Patient has been experiencing bilateral lower extremity intermittent claudication and underwent angiogram which revealed occluded bilateral SFA. Patient has been brought into the hospital under care of Dr. Lau status post stenting of the left popliteal artery and left SFA. Patient was recommended for dual antiplatelet therapy and risk factor modifications. Patient has had no postprocedure complications and is scheduled for discharge home today. Patient denies having any chest pain or shortness of breath. No nausea or vomiting. Review of Systems Constitutional: Denies anorexia, Denies chills, Denies fatigue, Denies fever, Denies poor appetite, Denies weakness Eyes: denies blurred vision, denies pain Ears, nose, mouth and throat: Denies dysphagia, Denies headache, Denies nasal congestion, Denies nasal discharge, Denies sore throat Cardiovascular: Reports claudication, Denies chest pain, Denies leg edema, Denies lightheadedness, Denies shortness of breath, Denies syncope Respiratory: Denies cough, Denies dyspnea, Denies hemoptysis, Denies home oxygen, Denies wheezing Gastrointestinal: Denies abdominal pain, Denies diarrhea, Denies loss of juany etite, Denies melena, Denies nausea, Denies vomiting Genitourinary: Denies dysuria, Denies hematuria, Denies urgency, Denies urinary frequency Menstruation: Reports postmenopausal Musculoskeletal: Reports low back pain, Denies frequent falls, Denies gait dysfunction, Denies muscle weakness, Denies myalgias Integumentary: Denies pruritus, Denies rash, Denies wounds Neurological: Denies change in mentation, Denies change in speech, Denies confusion, Denies numbness, Denies weakness Psychiatric: Denies anxiety, Denies depression Past Medical History Past Medical History: Atrial Fibrillation, Heart Failure, COPD, Diabetes Mellitus, Eye Disorder, Hyperlipidemia, Hypertension, Osteoarthritis (OA) Additional Past Medical History / Comment(s): eye disease stargaze natalia eyes, 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, History of Any Multi-Drug Resistant Organisms: None Reported Past Surgical History: Appendectomy, Cholecystectomy, Heart Catheterization With Stent, Joint Replacement, Orthopedic Surgery, Tonsillectomy, Tubal Ligation Additional Past Surgical History / Comment(s): mass in neck parotid gland remove d, right hip surgery, ruptured appendix- temporary colostomy with reversal, cataracts, Past Anesthesia/Blood Transfusion Reactions: No Reported Reaction Date of Last Stent Placement:: 06/2019 Past Psychological History: No Psychological Hx Reported Smoking Status: Current every day smoker Past Alcohol Use History: None Reported Additional Past Alcohol Use History / Comment(s): Has been smoking 50 yrs, 1/2 PPD. Past Drug Use History: None Reported - Past Family History Mother Family Medical History: Congestive Heart Failure (CHF), Diabetes Mellitus Additional Family Medical History / Comment(s): Mother at the age of 86 from CAD/CHF /CABG X2 and DM2. Father Family Medical History: CVA/TIA, Myocardial Infarction ([place]) Additional Family Medical History / Comment(s): Father at the age of 82 from CABGx4 and CVA Brother(s) Family Medical History: Diabetes Mellitus Additional Family Medical History / Comment(s): Patient has 4 brothers and one has diabetes mellitus type 2. Sister(s) Family Medical History: No Reported History Additional Family Medical History / Comment(s): Patient has 4 sisters. Daughter(s) Family Medical History: No Reported History Additional Family Medical History / Comment(s): Patient has 2 daughters with no major medical problems. Son(s) Family Medical History: No Reported History Additional Family Medical History / Comment(s): Patient has one son with no major medical problems. Medications and Allergies Home Medications Medication Instructions Recorded Confirmed Type Carisoprodol [Soma] 350 mg PO BID PRN 03/08/16 07/16/20 History Glimepiride [Amaryl] 4 mg PO BID 03/08/16 07/16/20 History HYDROcodone/APAP 5-325MG [Rudolph 1 tab PO Q12H PRN 03/08/16 07/16/20 History 5-325] Zolpidem Tartrate [Ambien] 10 mg PO HS 03/08/16 07/16/20 History Budesonide/Formoterol Fumarate 2 puff INHALATION RT-BID 10/23/19 07/16/20 History [Symbicort 160-4.5 Mcg Inhaler] Ipratropium-Albuterol Nebulize 3 ml INHALATION RT-QID PRN 10/23/19 07/16/20 History [Duoneb 0.5 mg-3 mg/3 ml Soln] Raloxifene [Evista] 60 mg PO DAILY 10/23/19 07/16/20 History Atorvastatin Calcium [Lipitor] 80 mg PO DAILY 10/24/19 07/16/20 History guaiFENesin [Mucinex] 600 mg PO Q12HR PRN tablet.er 10/26/19 07/14/20 Rx Metoprolol Succinate (ER) [Toprol 25 mg PO BID #60 tab.er.24h 11/08/19 07/16/20 Rx XL] Nicotine 14Mg/24Hr Patch [Habitrol] 1 patch TRANSDERM DAILY #30 patch 11/08/19 07/14/20 Rx Allopurinol [Zyloprim] 100 mg PO DAILY 07/14/20 07/16/20 History Apixaban [Eliquis] 2.5 mg PO BID 07/14/20 07/16/20 History Aspirin [Adult Low Dose Aspirin EC] 81 mg PO DAILY 07/14/20 07/16/20 History Ergocalciferol [Vitamin D2 (1250 1,250 mcg PO FR 07/14/20 07/16/20 History Mcg = 63971 Iu)] Ferrous Sulfate [Feosol] 325 mg PO BID 07/14/20 07/16/20 History Torsemide [Demadex] 10 mg PO DAILY 07/14/20 07/16/20 History Torsemide [Demadex] 20 mg PO QAM 07/14/20 07/16/20 History sitaGLIPtin PHOS/metFORMIN HCL 1 each PO BID 07/14/20 07/16/20 History [Janumet 50-1,000 mg Tablet] Allergies Allergy/AdvReac Type Severity Reaction Status Date / Time warfarin sodium Allergy "very high Verified 07/14/20 10:43 [From Coumadin] PT/INR-was told never to take" Physical Exam Vitals: Vital Signs Temp Pulse Pulse Resp BP BP Pulse Ox 07/17/20 08:01 81 07/17/20 07:49 79 07/17/20 04:00 97.6 F 93 16 124/58 94 L 07/16/20 23:46 98.1 F 75 16 133/65 98 07/16/20 20:00 97.6 F 88 18 115/72 98 07/16/20 18:59 76 07/16/20 18:44 72 07/16/20 18:27 77 16 157/72 99 07/16/20 18:15 81 146/89 07/16/20 18:10 78 18 143/77 07/16/20 18:01 142/77 07/16/20 17:54 141/68 185/91 07/16/20 17:30 82 18 145/78 186/90 100 07/16/20 16:45 75 18 144/65 177/75 99 07/16/20 16:40 78 16 152/71 182/90 99 07/16/20 16:00 98.1 F 76 16 139/76 168/74 98 07/16/20 15:10 77 18 117/56 95 07/16/20 14:40 73 18 106/51 95 07/16/20 14:24 73 18 119/55 96 07/16/20 14:10 74 16 119/60 94 L 07/16/20 13:55 77 18 119/66 92 L Intake and Output 07/16/20 07/17/20 07/17/20 22:59 06:59 14:59 Intake Total 125 Balance 125 Intake: IV 125 Sodium Chloride 0.9% 1, 125 000 ml @ 100 mls/hr IV . Q10H [facility] Rx#:[id number] Other: Voiding Method Bedpan # Voids 2 1 Weight 94.8 kg 96.8 kg HEENT: Head is atraumatic normocephalic pupils were equal round reactive to light, small, sclera non icteric, mucous membranes of the mouth are somewhat dry. Neck: supple no JVP. Chest : decrease breath sounds at the bases with few ronchi minimal expiratory wheezes, no intercostal retraction or chest wall tenderness. Heart: first heart sound is depressed, second heart sound is normal there is SALOME 2/6 located at the left sternal border. Abdomen: soft non tender, non distended positive bowel sounds. Extremities: there is + 1 edema no calf tenderness DP +1 Bilaterally. Neurologic examination: patient is awake, alert and oriented X 3 CN III-XII are grossly intact, muscle power 4/5 in upper and lower extremities, deep tendon reflexes are depressed. Results CBC & Chem 7: 07/17/20 07:54 07/17/20 07:54 Labs: Abnormal Lab Results - Last 24 Hours (Table) 07/16/20 07/16/20 07/16/20 Range/Units 15:06 16:30 20:30 POC Glucose (mg/dL) 228 H 216 H 210 H (75-99) mg/dL 07/17/20 Range/Units 06:05 POC Glucose (mg/dL) 173 H (75-99) mg/dL Assessment and Plan Assessment: 1. Severe peripheral artery disease with bilateral lower extremity intermittent claudication and angiogram revealing occluded bilateral SFA, status post stenting of the left popliteal artery, stenting of the left SFA. Continue aspirin 81 mg daily, Eliquis 2.5 mg twice daily. 2. History of coronary artery disease with chronic systolic heart failure and ischemic cardiomyopathy post LCx stent placement. we will continue with Metoprolol ER 25 mg orally twice a day and Lipitor 80 mg orally daily, aspirin and Demadex daily. 3. Paroxysmal atrial flutter. we will continue with Metoprolol ER 25 mg orally bid and Eliquis. 4. Chronic kidney disease stage 3, stable. 5. COPD without exacerbation. we will continue with O2 2 L NC, we will continue with Duoneb 3 ml 4 times daily and Symbicort 160/4.5 mcg 2 puffs inhalation bid. 6. Hospitalization February 2020 for acute blood loss anemia presenting with hemoglobin of 6.5 status post transfusion. EGD and colonoscopy failed to find source of bleeding 7. Hypertension and hypertensive cardiovascular disease. we will continue with Metoprolol ER 25 mg orally bid.. 8. Mixed hyperlipidemia. we will continue with Lipitor 80 mg orally daily. 9. Diabetes mellitus type 2 . we will continue with Tradjenta 5 mg orally daily . 10. DDD of the Lumber spine with OA. we will continue with Rudolph 5/325 mg orally as needed and Soma 350 mg orally bid. 11. DVT prophylaxis . bilateral knee high Zane hose. 12. GI Prophylaxis. we will continue with protonix 40 mg IVP daily. 13. Tobacco use and dependence. Continue nicotine patch. Thank you kindly for this consultation.
--- NOTE | 2020-07-17 21:09 | DS ---
DISCHARGE SUMMARY BRIEF HISTORY: This is a 70-year-old female patient who underwent yesterday successful recanalizing of chronically occluded left superficial femoral artery from right groin approach and left pedal approach. The patient was seen this morning. The right groin is soft and nontender and without any bruises. The patient is going to be discharged home on anticoagulation because she did develop bleeding on Plavix. She tolerated anticoagulation more than anti-platelet. She is intolerant to statin. The patient will be seen in the office in a week. MMODL / IJN: [id number] /
[2020-07-18] MEDS ORDERED: ERGOCALCIFEROL 1,250 MCG (50,000 IU) CAPSULE PO SCH (09:00)
[2020-07-18] MEDS ORDERED: metFORMIN 500 MG TAB PO SCH (09:00)
== END 2020-07-17 11:24 | disposition home or self-care (01) ==
LOC: CATHCVL 07:14 → 3SCARD 13:28 → CATHCVL 07-17 11:24
PROVIDERS: ATTEND Internal Medicine Interventional Cardiology
DX: E11.51 Type 2 diabetes mellitus with diabetic peripheral angiopathy without gangrene (principal); I70.213 Atherosclerosis of native arteries of extremities with intermittent claudication, bilateral legs; I70.92 Chronic total occlusion of artery of the extremities; I25.10 Atherosclerotic heart disease of native coronary artery without angina pectoris; I13.0 Hypertensive heart and chronic kidney disease with heart failure and stage 1 through stage 4 chronic kidney disease, or unspecified chronic kidney disease; I50.22 Chronic systolic (congestive) heart failure; I42.9 Cardiomyopathy, unspecified; N18.30 Chronic kidney disease, stage 3 unspecified; M51.36 Other intervertebral disc degeneration, lumbar region; E78.2 Mixed hyperlipidemia; M19.90 Unspecified osteoarthritis, unspecified site; I48.91 Unspecified atrial fibrillation; E11.22 Type 2 diabetes mellitus with diabetic chronic kidney disease; J44.9 Chronic obstructive pulmonary disease, unspecified; H54.62 Unqualified visual loss, left eye, normal vision right eye; F17.210 Nicotine dependence, cigarettes, uncomplicated; Z90.49 Acquired absence of other specified parts of digestive tract; Z95.5 Presence of coronary angioplasty implant and graft; Z98.51 Tubal ligation status; Z98.890 Other specified postprocedural states; Z98.41 Cataract extraction status, right eye; Z98.42 Cataract extraction status, left eye; Z96.641 Presence of right artificial hip joint; Z82.49 Family history of ischemic heart disease and other diseases of the circulatory system; Z83.3 Family history of diabetes mellitus; Z79.51 Long term (current) use of inhaled steroids; Z79.899 Other long term (current) drug therapy; Z79.82 Long term (current) use of aspirin; Z79.01 Long term (current) use of anticoagulants; Z88.8 Allergy status to other drugs, medicaments and biological substances
CPT/HCPCS: 94640 ×3; 37227; 85347; 37252; 80048; 85025; C1894 ×3; C1769 ×6; C1887; C1714; C1753; C2623; C1874 ×2; C1725; S4990 ×2; J2250; J1644 ×2; J2405; J2001; J3010; J1170 ×2; Q9966

== ENCOUNTER → 2020-08-14 | Outpatient (CLI) | payer MEDICARE, OTHER ==
[2020-08-15 09:57] LABS: African American GFR (CKD) 32.7 (60.0-200.0); Anion Gap 15.5 mmol/L (4.00-12.00); BUN/Creat Ratio 25.56 Ratio (12.00-20.00); Calcium 10.2 mg/dL (8.7-10.3); Carbon Dioxide 26.5 mmol/L (21.6-31.8); Chol/HDL Ratio 4.31; Magnesium 1.5 mg/dL (1.5-2.4); Non-African American GFR(CKD) 28.2 (60.0-200.0); Potassium 4.4 mmol/L (3.5-5.5)
== END | disposition home or self-care (01) ==
LOC: LABWHC1 15:41
PROVIDERS: ATTEND Nurse Practitioner Adult Health
DX: E78.5 Hyperlipidemia, unspecified (principal); I10 Essential (primary) hypertension
CPT/HCPCS: 36415; 80048; 80061; 83735

== ENCOUNTER → 2020-09-19 | Outpatient (CLI) | payer MEDICARE, OTHER ==
[2020-09-19 16:58] LABS: Appearance,Urine Cloudy (Clear); Bacteria,Urine Rare /hpf; Bilirubin,Urine Negative (Negative); Blood,Urine Trace (Negative); Color,Urine Light Yellow; Glucose,Urine (UA) Negative (Negative); Ketones,Urine Negative (Negative); Leukocyte Esterase,Urine Large (Negative); Mucus,Urine Rare /hpf; Nitrite,Urine Negative (Negative); PH, Urine 5.5 (5.0-8.0); Protein,Urine Negative (Negative); RBC,Urine 1 /hpf (0-5); Specific Gravity,Urine 1.002 (1.001-1.035); Squamous Epithelial Cell,Urine 1 /hpf (0-4); Urobilinogen,Urine <2.0 mg/dL (<2.0); WBC,Urine 83 /hpf (0-5)
[2020-09-19 23:08] LABS: HCT 33.4 % (37.2-46.3); HGB 10.8 g/dL (12.0-15.0); MCH 31.9 pg (27.0-32.0); MCHC 32.3 g/dL (32.0-37.0); MCV 98.5 fL (80.0-97.0); Mean Platelet Volume 11.1 fL (9.5-12.2); Platelet Count 184 X 10*3/uL (140-440); RBC 3.39 X 10*6/uL (4.10-5.20); RDW 16.2 % (11.5-14.5); WBC 11.32 X 10*3/uL (4.50-10.00)
[2020-09-20 02:37] LABS: Ferritin 45.5 ng/mL (10.0-291.0)
[2020-09-20 02:52] LABS: % Iron Saturation 21.04 (12.00-45.00); African American GFR (CKD) 27.1 (60.0-200.0); Albumin/Globulin Ratio 2.35 (1.60-3.17); BUN/Creat Ratio 15.71 Ratio (12.00-20.00); Calcium 9.4 mg/dL (8.7-10.3); Globulin 1.7 g/dL (1.6-3.3); Magnesium 1.4 mg/dL (1.5-2.4); Non-African American GFR(CKD) 23.4 (60.0-200.0); Potassium 4.3 mmol/L (3.5-5.5); Total Bilirubin 0.4 mg/dL (0.2-1.2); Total Protein 5.7 g/dL (6.2-8.2); Uric Acid 7.3 mg/dL (2.9-7.7)
[2020-09-20 05:32] LABS: Urine Creatinine 57.3 mg/dL
== END | disposition home or self-care (01) ==
LOC: LABWHC1 15:30
PROVIDERS: ATTEND Nurse Practitioner Family
DX: N39.0 Urinary tract infection, site not specified (principal); N25.81 Secondary hyperparathyroidism of renal origin; N18.32 Chronic kidney disease, stage 3b; E55.9 Vitamin D deficiency, unspecified; D64.9 Anemia, unspecified; M10.9 Gout, unspecified
CPT/HCPCS: 36415; 80053; 81001; 82043; 82306; 82570; 82728; 83540; 83550; 83735; 83970; 84100; 84550; 85027

== ENCOUNTER 2020-11-26 09:46 | Day surgery (SDC) | payer MEDICARE, OTHER ==
[~2020-11-26 09:46] MED LIST changes: -HEPARIN SODIUM,PORCINE 10,000 UNIT in SODIUM CHLORIDE 0.9% 1,000 ML IRRIGATION PRN; -HEPARIN SODIUM,PORCINE 2,500 UNIT in SODIUM CHLORIDE 0.9% 250 ML IRRIGATION PRN; -ZOLPIDEM 5 MG TAB PO PRN
[2020-11-26] MEDS ORDERED: SODIUM CHLORIDE 0.9% 1,000 ML IV ONE (10:44)
[2020-11-26 10:57] LABS: Glucose,Whole Blood 259 mg/dL (75-99)
[2020-11-26] MEDS ORDERED: SODIUM CHLORIDE 0.9% 1,000 ML IV SCH (11:00)
[2020-11-26] MEDS: ALPRAZolam 0.25 MG TAB PO PRN (11:03)
[2020-11-26] MEDS ORDERED: INSULIN ASPART (NovoLOG) 100 UNIT/ML VIAL SQ ONE (11:07)
[2020-11-26 11:20] LABS: Potassium 5.2 mmol/L (3.5-5.1)
[2020-11-26] MEDS ORDERED: carisoprodoL 350 MG TAB PO PRN (14:22)
[2020-11-26] MEDS ORDERED: guaiFENesin 600 MG TABLET.ER PO PRN (14:22)
[2020-11-26] MEDS: HYDROcodone/APAP 5-325MG 1 EACH TAB PO PRN (15:24)
[2020-11-26] MEDS: SODIUM CHLORIDE 0.9% 1,000 ML IV SCH (16:45)
[2020-11-26 17:25] LABS: Glucose,Whole Blood 367 mg/dL (75-99)
[2020-11-26] MEDS: TORSEMIDE 20 MG TAB PO SCH (18:11)
[2020-11-26] MEDS: IPRATROPIUM-ALBUTEROL 3 ML NEB INHALATION PRN (20:27)
[2020-11-26] MEDS: SYMBICORT 160-4.5 MCG INHALER INHALATION SCH (20:27)
[2020-11-26] MEDS: GLIMEPIRIDE 4 MG TAB PO SCH (21:53)
[2020-11-26] MEDS: allopurinoL 100 MG TAB PO SCH (21:53)
[2020-11-26] MEDS: FERROUS SULFATE 325 MG TAB PO SCH (21:54)
[2020-11-26] MEDS: ZOLPIDEM 5 MG TAB PO SCH (21:54)
[2020-11-26] MEDS: METOPROLOL SUCCINATE (ER) 25 MG TAB.ER.24H PO SCH (21:54)
[2020-11-27 06:57] LABS: Glucose,Whole Blood 327 mg/dL (75-99)
[2020-11-27] MEDS: ALPRAZolam 0.25 MG TAB PO PRN (07:04)
[2020-11-27] MEDS: METOPROLOL SUCCINATE (ER) 25 MG TAB.ER.24H PO SCH ×2 (07:30→20:51)
[2020-11-27] MEDS: HYDROcodone/APAP 5-325MG 1 EACH TAB PO PRN ×2 (07:30→21:31)
[2020-11-27] MEDS: ASPIRIN 81 MG PO SCH (07:31)
[2020-11-27] MEDS: SYMBICORT 160-4.5 MCG INHALER INHALATION SCH ×2 (07:34→21:48)
[2020-11-27] MEDS: IPRATROPIUM-ALBUTEROL 3 ML NEB INHALATION PRN ×2 (07:34→15:55)
[2020-11-27] MEDS ORDERED: LIDOCAINE 1% INJ 10MG/ML (20 ML MDV) SQ ONE (09:26)
[2020-11-27] MEDS: fentaNYL (PF) 50 MCG/ML 2 ML AMP IV ONE ×2 (09:27→10:14)
[2020-11-27] MEDS ORDERED: MIDAZOLAM 2 MG/2 ML VIAL IV ONE (09:28)
[2020-11-27 09:32] LABS: Glucose,Whole Blood 293 mg/dL (75-99)
[2020-11-27] MEDS: HEPARIN SODIUM 1,000 UN/ML (10ML VL) IV ONE ×2 (09:34→10:14)
[2020-11-27 09:39] VITALS: BMI 34.7
[2020-11-27] MEDS ORDERED: INSULIN ASPART (NovoLOG) 100 UNIT/ML VIAL SQ ONE (09:45)
[2020-11-27 10:08] LABS: Glucose,Whole Blood 270 mg/dL (75-99)
[2020-11-27] MEDS: NITROGLYCERIN 1000MCG/10ML SYRINGE INTRAARTER ONE ×2 (10:31→10:52)
[2020-11-27] MEDS: niCARdipine Syringe (1,000 mcg/10 mL) INTRAARTER ONE ×2 (10:31→10:52)
[2020-11-27] MEDS ORDERED: HYDROmorphone 0.5 MG/0.5 ML SYRINGE IVP ONE (10:43)
[2020-11-27] MEDS ORDERED: CLOPIDOGREL 75 MG TAB PO ONE (11:03)
[2020-11-27] MEDS ORDERED: IV FLUID CONTINUATION 500 ML IV ONE (11:04)
[2020-11-27] MEDS ORDERED: IOPAMIDOL-250 100ML BTL INTRAARTER ONE (11:04)
[2020-11-27] MEDS ORDERED: ONDANSETRON 4 MG/2 ML VIAL IVP ONE (11:25)
[2020-11-27] MEDS ORDERED: SODIUM CHLORIDE 0.9% 1,000 ML in EMPTY BAG 1 BAG IV SCH (11:30)
[2020-11-27 12:32] LABS: Glucose,Whole Blood 240 mg/dL (75-99)
[2020-11-27] MEDS ORDERED: ATROPINE SULFATE 0.1 MG/ML 10ML SYRINGE ONE (14:36)
[2020-11-27] MEDS: SODIUM CHLORIDE 0.9% 1,000 ML IV SCH (15:47)
[2020-11-27 16:50] LABS: Glucose,Whole Blood 184 mg/dL (75-99)
[2020-11-27] MEDS: allopurinoL 100 MG TAB PO SCH ×2 (17:02→20:52)
[2020-11-27] MEDS: ATORVASTATIN 80 MG TAB PO SCH (17:02)
[2020-11-27] MEDS: EZETIMIBE 10 MG TAB PO SCH (17:03)
[2020-11-27] MEDS: GLIMEPIRIDE 4 MG TAB PO SCH ×2 (17:04→21:24)
[2020-11-27] MEDS: LINAGLIPTIN 5 MG TABLET PO SCH (17:04)
[2020-11-27] MEDS: NICOTINE 14MG/24HR PATCH TRANSDERM SCH (17:04)
[2020-11-27] MEDS: FERROUS SULFATE 325 MG TAB PO SCH ×2 (17:04→20:51)
[2020-11-27] MEDS: TORSEMIDE 20 MG TAB PO SCH ×2 (17:05→17:43)
[2020-11-27] MEDS: RALOXIFENE 60 MG TAB PO SCH (17:05)
[2020-11-27] MEDS: INSULIN ASPART (NovoLOG) 100 UNIT/ML VIAL SQ SCH ×2 (17:44→20:52)
--- NOTE | 2020-11-27 20:31 | LTR ---
DATE OF SERVICE: 11/27/[address] Ferro: Ms. Jessica Gomez was admitted to the hospital today and underwent successful recanalizing, chronically occluded right SFA with an excellent angiographic results and without any complication. I want to thank you for allowing us to participate in her care. Please do not hesitate to call if you have any questions or concerns. Sincerely, MD ROLANDO Byrd / SANDHYAN: [id number] /
[2020-11-27 20:32] LABS: Glucose,Whole Blood 302 mg/dL (75-99)
[2020-11-27] MEDS: ZOLPIDEM 5 MG TAB PO SCH (20:52)
--- NOTE | 2020-11-27 22:46 | AN ---
ANGIOGRAPHY REPORT PERFORMING PHYSICIAN: Tato Lau MD. PROCEDURE PERFORMED: 1. Successful atherectomy of the right SFA using the Hawk One device with extraction of significant plaque. 2. Intravascular ultrasound (IVUS) of the right popliteal and right SFA. 3. Successful stenting of the right popliteal using 5.0 x 140 mm Zilver PTX drug- coated stent with an excellent angiographic results. 4. Successful stenting of the right SFA using 5.0 x 140 and 7.0 x 120 mm Zilver PTX drug-coated stent with an excellent angiographic results. 5. Right lower extremity angiogram. 6. Left common femoral artery angiogram. INDICATION: This is a 70-year-old female patient with known severe lower extremities peripheral arterial disease who was experiencing bilateral lower extremity resting discomfort consistent with Class IV. She underwent an angiogram and that revealed occluded bilateral SFA, where she underwent an intervention on the left SFA in the past and she was brought today to undergo an intervention on the right SFA. APPROACH: Left common femoral artery. COMPLICATION: None. LEVEL OF SEDATION: Moderate with sedation length of 103 minutes. PROCEDURE DESCRIPTION: After obtaining informed consent, the patient was brought to cardiac mill labor supervisor. The left common femoral artery was cannulated using micropuncture technique under ultrasound guidance, the micropuncture wire passed easily. Then I placed 70 cm 6- Com[place]an Raabe sheath over an 035 stiff Glidewire. I did select the right SFA using 0.035 stiff Glidewire with the backup support of 5- Comoran RIM catheter. After that, I did advance the long sheath over the wire and catheter all the way to the right common femoral artery. Anticoagulation was achieved using heparin with continuous ACT monitoring throughout the procedure. After that I did cross the CT of the right SFA using an 018 wire. I did change my wire into 014 wire and intravascular ultrasound was performed and revealed that I was in the false lumen of the popliteal segment and in the true lumen at the SFA segment. Because of that, I decided to do atherectomy only on the SFA segment. The atherectomy was performed using the Turbo Hawk device with extraction of significant plaque. Balloon angioplasty was initially performed using 4 mm and then 5 mm balloon. The following angiogram showed a long area of dissection which I decided to cover with a stent. I did stenting of the right popliteal using 50 x 140 mm balloon and for the right SFA, 5.0 x 140 and 7.0 x 120 mm. Everything was dilated using 6 mm balloon. The following angiogram showed excellent angiographic results and the procedure was completed without any complication. After that, I did exchange my long sheath into short sheath using 0.035 stiff Glidewire. After that I did selective left common femoral artery angiogram. The procedure was completed without any complication. POSTPROCEDURE MANAGEMENT: 1. Anticoagulation anti-platelet. 2. Risk factor modifications. 3. Follow up with the patient. ROLANDO / CHRISTIANO: [id number] /
[2020-11-28 06:10] LABS: Glucose,Whole Blood 292 mg/dL (75-99)
[2020-11-28] MEDS: INSULIN ASPART (NovoLOG) 100 UNIT/ML VIAL SQ SCH ×2 (06:43→11:52)
[2020-11-28 07:45] VITALS: BP 128/57; RESP 18; TEMP 99.4
[2020-11-28] MEDS: SODIUM CHLORIDE 0.9% 1,000 ML IV SCH (07:46)
[2020-11-28] MEDS: SYMBICORT 160-4.5 MCG INHALER INHALATION SCH (08:00)
[2020-11-28] MEDS: IPRATROPIUM-ALBUTEROL 3 ML NEB INHALATION PRN (08:00)
[2020-11-28 08:03] VITALS: PULSE 90
[2020-11-28 09:19] LABS: Anisocytosis Slight; Basophils % (A) 0 %; Eosinophils # (A) 0.2 k/uL (0-0.7); Eosinophils % (A) 1 %; HCT 34.3 % (34.0-46.0); HGB 10.9 gm/dL (11.4-16.0); Lymphocytes # (A) 1.3 k/uL (1.0-4.8); Lymphocytes % (A) 11 %; MCH 32.2 pg (25.0-35.0); MCHC 31.7 g/dL (31.0-37.0); MCV 101.5 fL (80.0-100.0); Macrocytosis Slight; Mean Platelet Volume 8.4; Monocytes # (A) 0.6 k/uL (0-1.0); Monocytes % (A) 4 %; Neutrophils # (A) 10.5 k/uL (1.3-7.7); Neutrophils % (A) 83 %; Platelet Count 162 k/uL (150-450); RBC 3.38 m/uL (3.80-5.40); RDW 16.1 % (11.5-15.5); WBC 12.7 k/uL (3.8-10.6)
[2020-11-28 09:27] LABS: Calcium 8.7 mg/dL (8.4-10.2); Potassium 5.1 mmol/L (3.5-5.1)
--- NOTE | 2020-11-28 09:40 | DS ---
DISCHARGE SUMMARY DATE OF ADMISSION: 11/27/2020 DATE OF DISCHARGE: 11/28/2020 BRIEF HISTORY: This is a very pleasant 70-year-old female patient who underwent yesterday successful FIELD SERVICE REPRESENTATIVE of the right SFA with good angiographic results and without any complication from left groin approach. The patient is going to be discharged home on dual anti-platelet therapy and I will follow up with the patient next week in the office. MMODL / SANDHYAN: [id number] /
[2020-11-28] MEDS: EZETIMIBE 10 MG TAB PO SCH (09:42)
[2020-11-28] MEDS: METOPROLOL SUCCINATE (ER) 25 MG TAB.ER.24H PO SCH (09:42)
[2020-11-28] MEDS: FERROUS SULFATE 325 MG TAB PO SCH (09:42)
[2020-11-28] MEDS: ASPIRIN 81 MG PO SCH (09:42)
[2020-11-28] MEDS: allopurinoL 100 MG TAB PO SCH (09:42)
[2020-11-28] MEDS: LINAGLIPTIN 5 MG TABLET PO SCH (09:42)
[2020-11-28] MEDS: ATORVASTATIN 80 MG TAB PO SCH (09:42)
[2020-11-28] MEDS: GLIMEPIRIDE 4 MG TAB PO SCH (09:42)
[2020-11-28] MEDS: NICOTINE 14MG/24HR PATCH TRANSDERM SCH (09:43)
[2020-11-28] MEDS: HYDROcodone/APAP 5-325MG 1 EACH TAB PO PRN (09:43)
[2020-11-28] MEDS: RALOXIFENE 60 MG TAB PO SCH (09:43)
[2020-11-28] MEDS: TORSEMIDE 20 MG TAB PO SCH (09:43)
--- NOTE | 2020-11-28 15:41 | IR ---
EXAMINATION TYPE: IR fishing captain femoral popliteal DATE OF EXAM: 11/27/2020 CLINICAL HISTORY: Peripheral vascular disease. TECHNIQUE: Fluoroscopy. COMPARISON: None. FINDINGS: Fluoroscopic guidance was provided during lower extremity angiogram and treatment procedur e performed by Dr. Lau. A total of 29.1 minutes of fluoroscopic time was utilized during the proced ure and 598 spot images was acquired. Please refer to procedure note for further details if necessary . IMPRESSION: As Above.
[2020-11-29 01:32] LABS: Hemoglobin A1C 8.5 % (4.0-6.0)
--- NOTE | 2020-12-24 06:39 | CDI ---
Outpatient Documentation Clarification Form Date: CDS/Superintendent Pressure Name: Chayo Apodaca Phone: If any questions, call Jody Almeida, [phone] Patient Name: Jessica Gomez Account Number: [id number] Admit Date: 11/26/20 Discharge Date: 11/28/20 ATTENTION: The [facility] Coding Staff appreciate your assistance in clarifying documentation. Please respond to the clarification below the line at the bottom and electronically sign. The [facility] coding staff will review the response and follow-up if needed. Please note: Queries are made part of the Legal Health Record. If you have any questions, please contact the [employer] [facility]. Dear Dr. Lau, Please provide clarification as to the cause of the occlusive PAD. PAD/PVD is considered unspecified. Greatest specificity is required for medical necessity support. Is underlying cause of Occlusive PAD one of the following? Arteriosclerotic disease of the arteries Arteritis Necrotic Due to embolism/thrombosis Other - please specify below Thank you for your kind consideration, MTDD
== END 2020-11-28 11:51 | disposition home or self-care (01) ==
LOC: CATHCVL 09:46 → 6NMEDSUR 15:58 → 3SCARD 11-27 11:25 → CATHCVL 11-28 11:51
PROVIDERS: ATTEND Internal Medicine Interventional Cardiology
DX: E11.51 Type 2 diabetes mellitus with diabetic peripheral angiopathy without gangrene (principal); I70.211 Atherosclerosis of native arteries of extremities with intermittent claudication, right leg; I10 Essential (primary) hypertension; E78.5 Hyperlipidemia, unspecified; Z20.822 Contact with and (suspected) exposure to COVID-19; Z82.49 Family history of ischemic heart disease and other diseases of the circulatory system; Z88.8 Allergy status to other drugs, medicaments and biological substances; I25.10 Atherosclerotic heart disease of native coronary artery without angina pectoris; Z95.5 Presence of coronary angioplasty implant and graft; F17.210 Nicotine dependence, cigarettes, uncomplicated; I34.0 Nonrheumatic mitral (valve) insufficiency; Z79.01 Long term (current) use of anticoagulants; Z79.84 Long term (current) use of oral hypoglycemic drugs; Z79.82 Long term (current) use of aspirin; Z79.890 Hormone replacement therapy; Z79.899 Other long term (current) drug therapy
CPT/HCPCS: 94640 ×6; 37227; 37252; 80048 ×2; 85025; 83036; 87635; C1894 ×2; C1769 ×6; C1725 ×4; C1714; C1753; C1874 ×2; S4990; J2250; J2405; J2001; J3010; J1644; J1170; Q9966

== ENCOUNTER → 2021-01-07 | Outpatient (CLI) | payer MEDICARE, OTHER ==
[2021-01-07 16:48] LABS: Appearance,Urine Clear (Clear); Bilirubin,Urine Negative (Negative); Blood,Urine Negative (Negative); Color,Urine Light Yellow; Glucose,Urine (UA) 4+ (Negative); Ketones,Urine Negative (Negative); Leukocyte Esterase,Urine Negative (Negative); Nitrite,Urine Negative (Negative); Protein,Urine Negative (Negative); Specific Gravity,Urine 1.007 (1.001-1.035); Urobilinogen,Urine <2.0 mg/dL (<2.0)
[2021-01-07 23:05] LABS: HCT 35.7 % (37.2-46.3); HGB 11.5 g/dL (12.0-15.0); MCH 32.5 pg (27.0-32.0); MCHC 32.2 g/dL (32.0-37.0); MCV 100.8 fL (80.0-97.0); Mean Platelet Volume 11.7 fL (9.5-12.2); Platelet Count 198 X 10*3/uL (140-440); RBC 3.54 X 10*6/uL (4.10-5.20); RDW 14.8 % (11.5-14.5); WBC 9.83 X 10*3/uL (4.50-10.00)
[2021-01-08 09:21] LABS: % Iron Saturation 52.9 (12.00-45.00); African American GFR (CKD) 24.3 (60.0-200.0); Albumin 3.8 g/dL (3.80-4.90); Albumin/Globulin Ratio 1.52 (1.60-3.17); Anion Gap 13.1 mmol/L (4.00-12.00); BUN/Creat Ratio 18.26 Ratio (12.00-20.00); Calcium 8.9 mg/dL (8.7-10.3); Carbon Dioxide 22.9 mmol/L (21.6-31.8); Globulin 2.5 g/dL (1.6-3.3); Magnesium 2.2 mg/dL (1.5-2.4); Phosphorus 4.8 mg/dL (2.4-5.1); Potassium 4.6 mmol/L (3.5-5.5); Total Bilirubin 0.4 mg/dL (0.2-1.2); Total Protein 6.3 g/dL (6.2-8.2); Uric Acid 6.8 mg/dL (2.9-7.7)
[2021-01-08 09:31] LABS: Ferritin 91.4 ng/mL (10.0-291.0)
[2021-01-08 17:45] LABS: Urine Creatinine 34.4 mg/dL
== END | disposition home or self-care (01) ==
LOC: LABWHC1 15:30
PROVIDERS: ATTEND Nurse Practitioner Family
DX: N18.4 Chronic kidney disease, stage 4 (severe) (principal); N39.0 Urinary tract infection, site not specified; N25.81 Secondary hyperparathyroidism of renal origin; D64.9 Anemia, unspecified; E55.9 Vitamin D deficiency, unspecified; M10.9 Gout, unspecified
CPT/HCPCS: 36415; 80053; 81003; 82043; 82306; 82570; 82728; 83540; 83550; 83735; 83970; 84100; 84550; 85027

== ENCOUNTER 2021-04-10 10:39 | Inpatient (IN) | payer MEDICARE, OTHER ==
[2021-04-10] MEDS ORDERED: SODIUM CHLORIDE 0.9% 1,000 ML IV STA (11:00)
--- NOTE | 2021-04-10 12:29 | XR ---
EXAMINATION TYPE: XR chest 2V DATE OF EXAM: 04/10/2021 COMPARISON: Chest x-ray 11/07/2019 HISTORY: Chest pain TECHNIQUE: Frontal and lateral views of the chest are obtained. FINDINGS: There is no focal air space opacity, pleural effusion, or pneumothorax seen. The cardiac silhouette size is stable. The osseous structures are intact. Spondylosis in the visualized spine. IMPRESSION: No acute cardiopulmonary process.
[2021-04-10 12:56] LABS: Anisocytosis Slight; Basophils % (A) 0 %; Eosinophils # (A) 0.1 k/uL (0-0.7); Eosinophils % (A) 1 %; HCT 24.7 % (34.0-46.0); Hypochromasia Marked; Lymphocytes # (A) 0.8 k/uL (1.0-4.8); Lymphocytes % (A) 19 %; MCH 28.7 pg (25.0-35.0); MCHC 28.2 g/dL (31.0-37.0); MCV 101.8 fL (80.0-100.0); Macrocytosis Moderate; Mean Platelet Volume 9.1; Monocytes # (A) 0.2 k/uL (0-1.0); Monocytes % (A) 6 %; Neutrophils # (A) 2.9 k/uL (1.3-7.7); Neutrophils % (A) 70 %; Platelet Count 205 k/uL (150-450); Poikilocytosis Moderate; RBC 2.43 m/uL (3.80-5.40); RDW 17.2 % (11.5-15.5); WBC 4.1 k/uL (3.8-10.6)
[2021-04-10] MEDS ORDERED: PANTOPRAZOLE 40 MG/10 ML VIAL IVP STA (13:13)
[2021-04-10 13:19] LABS: Albumin 3.1 g/dL (3.5-5.0); Calcium 8.7 mg/dL (8.4-10.2); INR 0.9 (<1.2); Potassium 4.2 mmol/L (3.5-5.1); Prothrombin Time 9.9 sec (9.0-12.0); Total Bilirubin 0.3 mg/dL (0.2-1.3); Total Protein 5.3 g/dL (6.3-8.2)
[2021-04-10 13:46] LABS: Partial Thromboplastin Time 19.8 sec (22.0-30.0)
--- NOTE | 2021-04-10 14:29 | CT ---
EXAMINATION TYPE: CT abdomen pelvis wo con DATE OF EXAM: 04/10/2021 COMPARISON: CT 09/09/2017 HISTORY: Low hemoglobin, gastrointestinal bleeding CT DLP: 953.4 mGycm Automated exposure control for dose reduction was used. TECHNIQUE: Helical acquisition of images from the lung bases through the pelvis. FINDINGS: Lack of intravenous contrast compromises sensitivity of the exam. Postop changes are noted along the anterior abdominal wall LUNG BASES: No significant abnormality is appreciated. AORTA: Abdominal aorta is ectatic in the infrarenal location measuring 3.3 cm. LIVER/GB: Patient is post cholecystectomy, no evident liver mass PANCREAS: No significant abnormality is seen. SPLEEN: No significant abnormality is seen. ADRENALS: No significant abnormality is seen. KIDNEYS: There are cortical cysts associated with the left kidney with the upper pole measuring 2.4 c m and 2 cm, smaller cysts in the upper pole of the right kidney REPRODUCTIVE ORGANS: No significant abnormality is seen. URINARY BLADDER: No significant abnormality is seen. BOWEL: Postoperative changes noted to be bowel in the left lower quadrant, there is some scattered d iverticular changes, no bowel obstruction, correlate for postappendectomy change FREE AIR: No Free Air is visible. ASCITES: None visible. PELVIC ADENOPATHY: None visualized. RETROPERITONEAL ADENOPATHY: No Retroperitoneal Adenopathy visible. OSSEOUS STRUCTURES: Patient is post right hip arthroplasty which causes some streak artifact. There is facet arthropathy, degenerative disc change, spinal curvature in the visualized spine. IMPRESSION: NONCONTRAST EXAM, POSTOP CHANGES. Aortic ectasia, diverticulosis and additional findings above.
--- NOTE | 2021-04-10 14:35 | ED ---
General Adult HPI - General Chief complaint: Recheck/Abnormal Lab/Rx Stated complaint: low hemoglobin Time Seen by Provider: 04/10/21 11:00 Source: patient, family, RN notes reviewed Mode of arrival: ambulatory Limitations: no limitations - History of Present Illness Initial comments: Patient is a 70-year-old female that presents emergency from a complaining of symptom medic anemia. She was sent here by primary care for abnormal hemoglobin on routine lab draw. Hemoglobin is a 6.5. Patient notes that she is also short of breath. Patient also notes she does take liquids. Patient notes that she is unsure if she is having any blood in her stools. Does not report any hematochezia or melena. She was otherwise well-appearing. She denied any chest pain shortness of breath headache nausea vomiting diarrhea constipation fever fatigue chills. - Related Data Home Medications Medication Instructions Recorded Confirmed Carisoprodol [Soma] 350 mg PO BID PRN 03/08/16 04/10/21 Glimepiride [Amaryl] 4 mg PO BID 03/08/16 04/10/21 HYDROcodone/APAP 5-325MG [[place] 1 tab PO Q8H PRN 03/08/16 04/10/21 5-325] Zolpidem Tartrate [Ambien] 10 mg PO HS 03/08/16 04/10/21 Budesonide/Formoterol Fumarate 2 puff INHALATION RT-BID 10/23/19 04/10/21 [Symbicort 160-4.5 Mcg Inhaler] Raloxifene [Evista] 60 mg PO DAILY 10/23/19 04/10/21 Atorvastatin Calcium [Lipitor] 80 mg PO DAILY 10/24/19 04/10/21 Allopurinol [Zyloprim] 100 mg PO BID 07/14/20 04/10/21 Apixaban [Eliquis] 2.5 mg PO BID 07/14/20 04/10/21 Ergocalciferol [Vitamin D2 (1250 1,250 mcg PO FR 07/14/20 04/10/21 Mcg = 20314 Iu)] Ferrous Sulfate [Iron (65 MG 325 mg PO DAILY 07/14/20 04/10/21 Elemental)] Torsemide [Demadex] 40 mg PO BID 07/14/20 04/10/21 Ezetimibe [Zetia] 10 mg PO DAILY 11/24/20 04/10/21 calcitrioL [Calcitriol] 0.25 mcg PO Q7D 11/24/20 04/10/21 Empagliflozin [Jardiance] 10 mg PO DAILY 04/10/21 04/10/21 Previous Rx's Medication Instructions Recorded Metoprolol Succinate (ER) [Toprol 25 mg PO BID #60 tab.er.24h 11/08/19 XL] Allergies Allergy/AdvReac Type Severity Reaction Status Date / Time warfarin sodium Allergy "very high Verified 04/10/21 14:46 [From Coumadin] PT/INR-was told never to take" Review of Systems ROS Statement: Those systems with pertinent positive or pertinent negative responses have been documented in the HPI. ROS Other: All systems not noted in ROS Statement are negative. 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, History of Any Multi-Drug Resistant Organisms: None Reported Past Surgical History: Appendectomy, Cholecystectomy, Heart Catheterization With Stent, Joint Replacement, Orthopedic Surgery, Tonsillectomy, Tubal Ligation Additional Past Surgical History / Comment(s): mass in neck parotid gland removed, right hip replaced surgery, ruptured appendix- temporary colostomy with reversal, cataracts, Past Anesthesia/Blood Transfusion Reactions: No Reported Reaction Date of Last Stent Placement:: 06/2019 Past Psychological History: No Psychological Hx Reported Smoking Status: Current every day smoker Past Alcohol Use History: None Reported Past Drug Use History: None Reported - Past Family History Mother Family Medical History: Congestive Heart Failure (CHF), Diabetes Mellitus Additional Family Medical History / Comment(s): Mother at the age of 86 from CAD/CHF /CABG X2 and DM2. Father Family Medical History: CVA/TIA, Myocardial Infarction ([place]) Additional Family Medical History / Comment(s): Father at the age of 82 from CABGx4 and CVA Brother(s) Family Medical History: Diabetes Mellitus Additional Family Medical History / Comment(s): Patient has 4 brothers and one has diabetes mellitus type 2. Sister(s) Family Medical History: No Reported History Additional Family Medical History / Comment(s): Patient has 4 sisters. Daughter(s) Family Medical History: No Reported History Additional Family Medical History / Comment(s): Patient has 2 daughters with no major medical problems. Son(s) Family Medical History: No Reported History Additional Family Medical History / Comment(s): Patient has one son with no major medical problems. General Exam Limitations: no limitations General appearance: alert, in no apparent distress, obese Head exam: Present: atraumatic, normocephalic, normal inspection Eye exam: Present: normal appearance, PERRL, EOMI. Absent: scleral icterus, conjunctival injection, periorbital swelling ENT exam: Present: normal exam, mucous membranes moist Neck exam: Present: normal inspection Respiratory exam: Present: normal lung sounds bilaterally. Absent: respiratory distress, wheezes, rales, rhonchi, stridor Cardiovascular Exam: Present: regular rate, normal rhythm, normal heart sounds. Absent: systolic murmur, diastolic murmur, rubs, gallop, clicks GI/Abdominal exam: Present: soft, normal bowel sounds. Absent: distended, tenderness, guarding, rebound, rigid Rectal exam: Present: normal inspection, normal rectal tone Extremities exam: Present: normal inspection, full ROM, normal capillary refill. Absent: tenderness, pedal edema, joint swelling, calf tenderness Neurological exam: Present: alert, oriented X3 Psychiatric exam: Present: normal affect, normal mood Skin exam: Present: warm, dry, intact, normal color. Absent: rash Course Vital Signs 04/10/21 04/10/21 04/10/21 10:45 12:00 12:56 Temperature 98.7 F Pulse Rate 97 81 Respiratory 18 20 20 Rate Blood Pressure 88/53 104/59 O2 Sat by Pulse 99 99 Oximetry 04/10/21 04/10/21 13:00 14:00 Temperature Pulse Rate 78 93 Respiratory 16 16 Rate Blood Pressure 104/59 110/63 O2 Sat by Pulse 99 98 Oximetry EKG Findings - EKG Comments: EKG Findings:: Ventricular rate 85 bpm, TN interval 170 ms, QRS duration 90 ms, QTC 464 ms, PRT axes 61/47/86. Normal sinus rhythm, normal ECG. Medical Decision Making - Medical Decision Making 70-year-old female sent by primary care for low hemoglobin. Labs, chest x-ray, type and screen ordered. Labs: Hemoglobin 7.0, hematocrit 24.7, CMP unremarkable from baseline., Troponin 0.056, occult blood positive. Covid test negative. Chest x-ray negative for any acute cardio pointer process. CT abdomen and pelvis shows diverticulosis and several small left renal cyst. Dr. Fontanez was consulted regarding a possible GI bleeding. She states that patient should be admitted to medicine with her on consult. Dr. Ferro was consulted and will accept the admit with cardiology and general surgery on consult. - Lab Data Result diagrams: 04/10/21 12:44 04/10/21 12:44 Lab Results 04/10/21 04/10/21 04/10/21 Range/Units 12:44 12:44 12:44 WBC 4.1 (3.8-10.6) k/uL RBC 2.43 L (3.80-5.40) m/uL Hgb 7.0 L (11.4-16.0) gm/dL Hct 24.7 L (34.0-46.0) % MCV 101.8 H (80.0-100.0) fL MCH 28.7 (25.0-35.0) pg MCHC 28.2 L (31.0-37.0) g/dL RDW 17.2 H (11.5-15.5) % Plt Count 205 (150-450) k/uL MPV 9.1 Neutrophils % 70 % Lymphocytes % 19 % Monocytes % 6 % Eosinophils % 1 % Basophils % 0 % Neutrophils # 2.9 (1.3-7.7) k/uL Lymphocytes # 0.8 L (1.0-4.8) k/uL Monocytes # 0.2 (0-1.0) k/uL Eosinophils # 0.1 (0-0.7) k/uL Basophils # 0.0 (0-0.2) k/uL Hypochromasia Marked Poikilocytosis Moderate Anisocytosis Slight Macrocytosis Moderate PT 9.9 (9.0-12.0) sec INR 0.9 (<1.2) APTT 19.8 L (22.0-30.0) sec Sodium 130 L (137-145) mmol/L Potassium 4.2 (3.5-5.1) mmol/L Chloride 100 (98-107) mmol/L Carbon Dioxide 21 L (22-30) mmol/L Anion Gap 9 mmol/L BUN 46 H (7-17) mg/dL Creatinine 1.94 H (0.52-1.04) mg/dL Est GFR (CKD-EPI)AfAm 30 (>60 ml/min/1.73 sqM) Est GFR (CKD-EPI)NonAf 26 (>60 ml/min/1.73 sqM) Glucose 267 H (74-99) mg/dL Calcium 8.7 (8.4-10.2) mg/dL Total Bilirubin 0.3 (0.2-1.3) mg/dL AST 19 (14-36) U/L ALT 13 (4-34) U/L Alkaline Phosphatase 62 (38-126) U/L Troponin I (0.000-0.034) ng/mL Total Protein 5.3 L (6.3-8.2) g/dL Albumin 3.1 L (3.5-5.0) g/dL Stool Occult Blood (Negative) Coronavirus (PCR) (Not Detectd) Blood Type Blood Type Recheck Bld Type Recheck Status Antibody Screen Crossmatch Spec Expiration Date 04/10/21 04/10/21 04/10/21 Range/Units 12:44 12:44 12:44 WBC (3.8-10.6) k/uL RBC (3.80-5.40) m/uL Hgb (11.4-16.0) gm/dL Hct (34.0-46.0) % MCV (80.0-100.0) fL MCH (25.0-35.0) pg MCHC (31.0-37.0) g/dL RDW (11.5-15.5) % Plt Count (150-450) k/uL MPV Neutrophils % % Lymphocytes % % Monocytes % % Eosinophils % % Basophils % % Neutrophils # (1.3-7.7) k/uL Lymphocytes # (1.0-4.8) k/uL Monocytes # (0-1.0) k/uL Eosinophils # (0-0.7) k/uL Basophils # (0-0.2) k/uL Hypochromasia Poikilocytosis Anisocytosis Macrocytosis PT (9.0-12.0) sec INR (<1.2) APTT (22.0-30.0) sec Sodium (137-145) mmol/L Potassium (3.5-5.1) mmol/L Chloride (98-107) mmol/L Carbon Dioxide (22-30) mmol/L Anion Gap mmol/L BUN (7-17) mg/dL Creatinine (0.52-1.04) mg/dL Est GFR (CKD-EPI)AfAm (>60 ml/min/1.73 sqM) Est GFR (CKD-EPI)NonAf (>60 ml/min/1.73 sqM) Glucose (74-99) mg/dL Calcium (8.4-10.2) mg/dL Total Bilirubin (0.2-1.3) mg/dL AST (14-36) U/L ALT (4-34) U/L Alkaline Phosphatase (38-126) U/L Troponin I 0.056 H* (0.000-0.034) ng/mL Total Protein (6.3-8.2) g/dL Albumin (3.5-5.0) g/dL Stool Occult Blood Positive H (Negative) Coronavirus (PCR) (Not Detectd) Blood Type A Negative Blood Type Recheck A Neg Bld Type Recheck Status No Antibody Screen NEGATIVE Crossmatch See Detail Spec Expiration Date 04/13/2021 - 234304/10/21 Range/Units 12:44 WBC (3.8-10.6) k/uL RBC (3.80-5.40) m/uL Hgb (11.4-16.0) gm/dL Hct (34.0-46.0) % MCV (80.0-100.0) fL MCH (25.0-35.0) pg MCHC (31.0-37.0) g/dL RDW (11.5-15.5) % Plt Count (150-450) k/uL MPV Neutrophils % % Lymphocytes % % Monocytes % % Eosinophils % % Basophils % % Neutrophils # (1.3-7.7) k/uL Lymphocytes # (1.0-4.8) k/uL Monocytes # (0-1.0) k/uL Eosinophils # (0-0.7) k/uL Basophils # (0-0.2) k/uL Hypochromasia Poikilocytosis Anisocytosis Macrocytosis PT (9.0-12.0) sec INR (<1.2) APTT (22.0-30.0) sec Sodium (137-145) mmol/L Potassium (3.5-5.1) mmol/L Chloride (98-107) mmol/L Carbon Dioxide (22-30) mmol/L Anion Gap mmol/L BUN (7-17) mg/dL Creatinine (0.52-1.04) mg/dL Est GFR (CKD-EPI)AfAm (>60 ml/min/1.73 sqM) Est GFR (CKD-EPI)NonAf (>60 ml/min/1.73 sqM) Glucose (74-99) mg/dL Calcium (8.4-10.2) mg/dL Total Bilirubin (0.2-1.3) mg/dL AST (14-36) U/L ALT (4-34) U/L Alkaline Phosphatase (38-126) U/L Troponin I (0.000-0.034) ng/mL Total Protein (6.3-8.2) g/dL Albumin (3.5-5.0) g/dL Stool Occult Blood (Negative) Coronavirus (PCR) Not Detected (Not Detectd) Blood Type Blood Type Recheck Bld Type Recheck Status Antibody Screen Crossmatch Spec Expiration Date - EKG Data -: EKG Interpreted by Me EKG shows normal: sinus rhythm Rate: normal EKG Comments: Ventricular rate 85 bpm, TN interval 170 ms, QRS duration 90 ms, QTC 464 ms, PRT axes 61/47/86. Normal sinus rhythm, normal ECG. - Radiology Data Radiology results: report reviewed, image reviewed CT abdomen and pelvis: Aortic ectasia, diverticulosis and additional findings as above. There are cortical cyst associated with the left kidney with upper pole measuring 2.4 cm and 2 cm there is some scattered diverticular changes, no bowel obstruction, Chest x-ray: No acute cardiopulmonary process. Disposition Clinical Impression: GI bleed, Symptomatic anemia Disposition: ADMITTED IP TO THIS HOSP Condition: Stable Is patient prescribed a controlled substance at d/c from ED?: No Referrals: Franc Ferro MD [Primary Care Provider] - 1-2 days Time of Disposition: 14:53
[2021-04-10] MEDS ORDERED: NALOXONE 0.4 MG/ML 1 ML VIAL IV PRN (14:51)
[2021-04-10] MEDS ORDERED: carisoprodoL 350 MG TAB PO PRN (17:59)
[2021-04-10] MEDS ORDERED: ERGOCALCIFEROL 1,250 MCG (50,000 IU) CAPSULE PO SCH (18:00)
[2021-04-10] MEDS: SODIUM CHLORIDE 0.9% 1,000 ML IV SCH ×2 (18:05→23:37)
[2021-04-10] MEDS: HYDROcodone/APAP 5-325MG 1 EACH TAB PO PRN (18:56)
[2021-04-10] MEDS: SYMBICORT 160-4.5 MCG INHALER INHALATION SCH (20:14)
[2021-04-10 20:18] LABS: Glucose,Whole Blood 358 mg/dL (75-99)
[2021-04-10] MEDS ORDERED: TORSEMIDE 20 MG TAB PO SCH (21:00)
[2021-04-10] MEDS ORDERED: ZOLPIDEM 5 MG TAB PO SCH (21:00)
[2021-04-10] MEDS: GLIMEPIRIDE 4 MG TAB PO SCH (21:43)
[2021-04-10] MEDS: INSULIN ASPART (NovoLOG) 100 UNIT/ML VIAL SQ SCH (21:44)
[2021-04-10] MEDS: allopurinoL 100 MG TAB PO SCH (21:44)
[2021-04-10] MEDS: METOPROLOL SUCCINATE (ER) 25 MG TAB.ER.24H PO SCH (21:45)
[2021-04-11 06:13] LABS: Glucose,Whole Blood 215 mg/dL (75-99)
[2021-04-11] MEDS: INSULIN ASPART (NovoLOG) 100 UNIT/ML VIAL SQ SCH ×2 (06:47→13:04)
[2021-04-11] MEDS ORDERED: FUROSEMIDE 10 MG/ML 4 ML VIAL IV STA (07:35)
[2021-04-11] MEDS: SYMBICORT 160-4.5 MCG INHALER INHALATION SCH (08:26)
[2021-04-11] MEDS: SODIUM CHLORIDE 0.9% 1,000 ML IV SCH (08:49)
[2021-04-11] MEDS ORDERED: APIXABAN 2.5 MG TABLET PO SCH (09:00)
[2021-04-11] MEDS ORDERED: TORSEMIDE 20 MG TAB PO SCH (09:00)
[2021-04-11] MEDS ORDERED: PANTOPRAZOLE 40 MG/10 ML VIAL IV SCH (09:00)
[2021-04-11] MEDS ORDERED: CYANOCOBALAMIN 1,000 MCG/ML 1 ML VIAL IM SCH (09:00)
[2021-04-11] MEDS ORDERED: FERROUS SULFATE 325 MG TAB PO SCH (09:00)
[2021-04-11] MEDS ORDERED: EZETIMIBE 10 MG TAB PO SCH (09:00)
[2021-04-11] MEDS ORDERED: NON FORMULARY DRUG (Empagliflozin [Jardiance] 10 MG Tablet) PO SCH (09:00)
[2021-04-11] MEDS ORDERED: ATORVASTATIN 80 MG TAB PO SCH (09:00)
[2021-04-11] MEDS: GLIMEPIRIDE 4 MG TAB PO SCH (09:08)
[2021-04-11] MEDS: allopurinoL 100 MG TAB PO SCH (09:08)
[2021-04-11] MEDS: METOPROLOL SUCCINATE (ER) 25 MG TAB.ER.24H PO SCH (09:09)
[2021-04-11] MEDS: FUROSEMIDE 20 MG TAB PO SCH ×3 (09:09→16:05)
--- NOTE | 2021-04-11 10:14 | P.HPIM ---
History of Present Illness 70-year-old female came in because of anemia patient isn't in the PCPs office because of hemoglobin being below 7. Patient is [place] Citizen of PR[facility] transfusion and present hemoglobin is 7. Patient doesn't have any clinical evidence of JVD patient has.stools lead 1 stool a day and this is because of iron supplementation she has been taking. Patient had GE history of GI bleed in the past. Patient will be transposed 01 more unit of PRBC. Patient also mildly hyponatremic at 1:30 patient does have significant history of congestive heart failure with EF of around 20-25% presently doesn't have the AICD at this time. Patient is also on Eliquis. Patient has elevated MCV because of which I obtain B12 levels and folate levels can be obtained as an outpatient patient will be given B12 injection discussed her care with her primary care physician. Fasting her chronic medical problems I wanted to keep her one more day of but patient wanted to go home because of that reason I'll transfuse her 1 more unit as her hemoglobin is still borderline at 7 and patient is going home on Eliquis, patient was a resumed on home dose of Demadex and patient will be given additional dose of IV Lasix as she is receiving IV fluids. Patient is bit hyponatremic there is no evidence of CHF exacerbation considering her advanced CHF and patient the clinically doesn't appear to be dehydrated either because of which are good and continue her diuretics in spite of sodium being low. REVIEW OF SYSTEMS: CONSTITUTIONAL: No fever, no malaise, no fatigue. HEENT: No recent visual problems or hearing problems. Denied any sore throat. CARDIOVASCULAR: No chest pain, orthopnea, PND, no palpitations, no syncope. PULMONARY: No shortness of breath, no cough, no hemoptysis. GASTROINTESTINAL: No diarrhea, no nausea, no vomiting, no abdominal pain. NEUROLOGICAL: No headaches, no weakness, no numbness. HEMATOLOGICAL: Denies any bleeding or petechiae. GENITOURINARY: Denies any burning micturition, frequency, or urgency. MUSCULOSKELETAL/RHEUMATOLOGICAL: Denies any joint pain, swelling, or any muscle pain. ENDOCRINE: Denies any polyuria or polydipsia. The rest of the 14-point review of systems is negative. PHYSICAL EXAMINATION: GENERAL: The patient is alert and oriented x3, not in any acute distress. Well developed, well nourished. HEENT: Pupils are round and equally reacting to light. EOMI. No scleral icterus. Does have conjunctival pallor. Normocephalic, atraumatic. No pharyngeal erythema. No thyromegaly. CARDIOVASCULAR: S1 and S2 present. No murmurs, rubs, or gallops. PULMONARY: Chest is clear to auscultation, no wheezing or crackles. ABDOMEN: Soft, nontender, nondistended, normoactive bowel sounds. No palpable organomegaly. MUSCULOSKELETAL: No joint swelling or deformity. EXTREMITIES: No cyanosis, clubbing, or pedal edema. NEUROLOGICAL: Gross neurological examination did not reveal any focal deficits. SKIN: No rashes. Assessment and plan -Severe anemia received 1 unit appear consider transfusion patient will be transfused 1 more unit. Patient's anemia appears to be chronic no evidence of acute GI bleed as mentioned above. Patient does have a chronic anemia probably B12 or folate deficiency labs of which were ordered patient will be given B12 injection and also by mouth supplementation of B12 and folate -Congestive heart failure chronic systolic dysfunction without any acute exacerbation patient has EF of around 20-20%. -Atrial fibrillation patient on Eliquis which will be continued patient is presently sinus rhythm at rate controlled n -type 2 diabetes mellitus uncontrolled elevated blood sugars patient may need to Lantus as well along with her home regimen. 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, History of Any Multi-Drug Resistant Organisms: None Reported Past Surgical History: Appendectomy, Cholecystectomy, Heart Catheterization With Stent, Joint Replacement, Orthopedic Surgery, Tonsillectomy, Tubal Ligation Additional Past Surgical History / Comment(s): mass in neck parotid gland removed, right hip replaced surgery, ruptured appendix- temporary colostomy with reversal, cataracts, stent in bilateral legs Past Anesthesia/Blood Transfusion Reactions: No Reported Reaction Date of Last Stent Placement:: 06/2019 Past Psychological History: No Psychological Hx Reported Smoking Status: Current every day smoker Past Alcohol Use History: None Reported Additional Past Alcohol Use History / Comment(s): Has been smoking 50 yrs, 1/2 PPD. Past Drug Use History: None Reported - Past Family History Mother Family Medical History: Congestive Heart Failure (CHF), Diabetes Mellitus Additional Family Medical History / Comment(s): Mother at the age of 86 from CAD/CHF /CABG X2 and DM2. Father Family Medical History: CVA/TIA, Myocardial Infarction ([place]) Additional Family Medical History / Comment(s): Father at the age of 82 from CABGx4 and CVA Brother(s) Family Medical History: Diabetes Mellitus Additional Family Medical History / Comment(s): Patient has 4 brothers and one has diabetes mellitus type 2. Sister(s) Family Medical History: No Reported History Additional Family Medical History / Comment(s): Patient has 4 sisters. Daughter(s) Family Medical History: No Reported History Additional Family Medical History / Comment(s): Patient has 2 daughters with no major medical problems. Son(s) Family Medical History: No Reported History Additional Family Medical History / Comment(s): Patient has one son with no major medical problems. Medications and Allergies Home Medications Medication Instructions Recorded Confirmed Type Carisoprodol [Soma] 350 mg PO BID PRN 03/08/16 04/10/21 History Glimepiride [Amaryl] 4 mg PO BID 03/08/16 04/10/21 History HYDROcodone/APAP 5-325MG [[place] 1 tab PO Q8H PRN 03/08/16 04/10/21 History 5-325] Zolpidem Tartrate [Ambien] 10 mg PO HS 03/08/16 04/10/21 History Budesonide/Formoterol Fumarate 2 puff INHALATION RT-BID 10/23/19 04/10/21 History [Symbicort 160-4.5 Mcg Inhaler] Raloxifene [Evista] 60 mg PO DAILY 10/23/19 04/10/21 History Atorvastatin Calcium [Lipitor] 80 mg PO DAILY 10/24/19 04/10/21 History Metoprolol Succinate (ER) [Toprol 25 mg PO BID #60 tab.er.24h 11/08/19 04/10/21 Rx XL] Allopurinol [Zyloprim] 100 mg PO BID 07/14/20 04/10/21 History Apixaban [Eliquis] 2.5 mg PO BID 07/14/20 04/10/21 History Ergocalciferol [Vitamin D2 (1250 1,250 mcg PO FR 07/14/20 04/10/21 History Mcg = 94411 Iu)] Ferrous Sulfate [Iron (65 MG 325 mg PO DAILY 07/14/20 04/10/21 History Elemental)] Torsemide [Demadex] 40 mg PO BID 07/14/20 04/10/21 History Ezetimibe [Zetia] 10 mg PO DAILY 11/24/20 04/10/21 History calcitrioL [Calcitriol] 0.25 mcg PO Q7D 11/24/20 04/10/21 History Empagliflozin [Jardiance] 10 mg PO DAILY 04/10/21 04/10/21 History Folic Acid-Vit B Complex-Vit C 1 mg PO DAILY #30 capsule 04/11/21 Rx [Nephrocaps] Allergies Allergy/AdvReac Type Severity Reaction Status Date / Time warfarin sodium Allergy "very high Verified 04/10/21 14:46 [From Coumadin] PT/INR-was told never to take" Physical Exam Vitals: Vital Signs Temp Pulse Pulse Resp BP BP Pulse Ox 04/11/21 04:00 81 22 105/43 100 04/11/21 00:00 93 20 114/54 96 04/10/21 20:00 97.5 F L 88 18 109/53 96 04/10/21 18:21 98.5 F 94 16 109/56 98 04/10/21 17:22 98.4 F 102 H 18 105/52 98 04/10/21 17:08 98.4 F 102 H 16 105/52 98 04/10/21 16:38 99.4 F 98 16 123/57 100 04/10/21 16:28 99.4 F 91 16 106/69 96 04/10/21 14:00 93 16 110/63 98 04/10/21 13:00 78 16 104/59 99 04/10/21 12:56 81 20 104/59 99 04/10/21 12:00 20 04/10/21 10:45 98.7 F 97 18 88/53 99 Intake and Output 04/10/21 04/11/21 04/11/21 22:59 06:59 14:59 Intake Total 490 480 Balance 490 480 Intake: Oral 180 480 Blood Product 310 Rc As-1 Unit 310 [id number] Other: # Voids 1 1 1 # Bowel Movements 1 1 Weight 88.18 kg 89.4 kg Results CBC & Chem 7: 04/10/21 12:44 04/10/21 12:44 Labs: Abnormal Lab Results - Last 24 Hours (Table) 04/10/21 04/10/21 04/10/21 Range/Units 12:44 12:44 12:44 RBC 2.43 L (3.80-5.40) m/uL Hgb 7.0 L (11.4-16.0) gm/dL Hct 24.7 L (34.0-46.0) % MCV 101.8 H (80.0-100.0) fL MCHC 28.2 L (31.0-37.0) g/dL RDW 17.2 H (11.5-15.5) % Lymphocytes # 0.8 L (1.0-4.8) k/uL APTT 19.8 L (22.0-30.0) sec Sodium 130 L (137-145) mmol/L Carbon Dioxide 21 L (22-30) mmol/L BUN 46 H (7-17) mg/dL Creatinine 1.94 H (0.52-1.04) mg/dL Glucose 267 H (74-99) mg/dL POC Glucose (mg/dL) (75-99) mg/dL Troponin I (0.000-0.034) ng/mL Total Protein 5.3 L (6.3-8.2) g/dL Albumin 3.1 L (3.5-5.0) g/dL Stool Occult Blood (Negative) Crossmatch 04/10/21 04/10/21 04/10/21 Range/Units 12:44 12:44 12:44 RBC (3.80-5.40) m/uL Hgb (11.4-16.0) gm/dL Hct (34.0-46.0) % MCV (80.0-100.0) fL MCHC (31.0-37.0) g/dL RDW (11.5-15.5) % Lymphocytes # (1.0-4.8) k/uL APTT (22.0-30.0) sec Sodium (137-145) mmol/L Carbon Dioxide (22-30) mmol/L BUN (7-17) mg/dL Creatinine (0.52-1.04) mg/dL Glucose (74-99) mg/dL POC Glucose (mg/dL) (75-99) mg/dL Troponin I 0.056 H* (0.000-0.034) ng/mL Total Protein (6.3-8.2) g/dL Albumin (3.5-5.0) g/dL Stool Occult Blood Positive H (Negative) Crossmatch See Detail 04/10/21 04/11/21 Range/Units 20:17 06:13 RBC (3.80-5.40) m/uL Hgb (11.4-16.0) gm/dL Hct (34.0-46.0) % MCV (80.0-100.0) fL MCHC (31.0-37.0) g/dL RDW (11.5-15.5) % Lymphocytes # (1.0-4.8) k/uL APTT (22.0-30.0) sec Sodium (137-145) mmol/L Carbon Dioxide (22-30) mmol/L BUN (7-17) mg/dL Creatinine (0.52-1.04) mg/dL Glucose (74-99) mg/dL POC Glucose (mg/dL) 358 H 215 H (75-99) mg/dL Troponin I (0.000-0.034) ng/mL Total Protein (6.3-8.2) g/dL Albumin (3.5-5.0) g/dL Stool Occult Blood (Negative) Crossmatch Thrombosis Risk Factor Assmnt - Choose All That Apply Each Risk Factor Represents 2 Points: Age 61-74 years Thrombosis Risk Factor Assessment Total Risk Factor Score: 2 Thrombosis Risk Factor Assessment Level: Low Risk
--- NOTE | 2021-04-11 10:14 | P.DS ---
Providers Date of admission: 04/10/21 14:51 Attending physician: Franc Ferro Consults: 04/10/21 14:51 Consult Physician Urgent Consulting Provider: Sherlyn Fontanez Consult Reason/Comments: GI bleed Do you want consulting provider notified?: Already Contacted Consult Physician Urgent Consulting Provider: Tato Lau Consult Reason/Comments: symptomatic anemia Do you want consulting provider notified?: Yes Primary care physician: Franc Ferro Hospital Course: As mentioned in HPI please note HPI for further details. Patient Condition at Discharge: Stable Plan - Discharge Summary New Discharge Prescriptions: New Folic Acid-Vit B Complex-Vit C [Nephrocaps] 1 mg PO DAILY #30 capsule Continue HYDROcodone/APAP 5-325MG [Adena 5-325] 1 tab PO Q8H PRN PRN Reason: Pain Carisoprodol [Soma] 350 mg PO BID PRN PRN Reason: Muscle Spasm Zolpidem Tartrate [Ambien] 10 mg PO HS Glimepiride [Amaryl] 4 mg PO BID Raloxifene [Evista] 60 mg PO DAILY Budesonide/Formoterol Fumarate [Symbicort 160-4.5 Mcg Inhaler] 2 puff INHALATION RT-BID Atorvastatin Calcium [Lipitor] 80 mg PO DAILY Metoprolol Succinate (ER) [Toprol XL] 25 mg PO BID #60 tab.er.24h Apixaban [Eliquis] 2.5 mg PO BID Ferrous Sulfate [Iron (65 MG Elemental)] 325 mg PO DAILY Ergocalciferol [Vitamin D2 (1250 Mcg = 87714 Iu)] 1,250 mcg PO FR Torsemide [Demadex] 40 mg PO BID Allopurinol [Zyloprim] 100 mg PO BID Empagliflozin [Jardiance] 10 mg PO DAILY Ezetimibe [Zetia] 10 mg PO DAILY calcitrioL [Calcitriol] 0.25 mcg PO Q7D Discharge Medication List Carisoprodol [Soma] 350 mg PO BID PRN 03/08/16 [History] Glimepiride [Amaryl] 4 mg PO BID 03/08/16 [History] HYDROcodone/APAP 5-325MG [Adena 5-325] 1 tab PO Q8H PRN 03/08/16 [History] Zolpidem Tartrate [Ambien] 10 mg PO HS 03/08/16 [History] Budesonide/Formoterol Fumarate [Symbicort 160-4.5 Mcg Inhaler] 2 puff INHALATION RT-BID 10/23/19 [History] Raloxifene [Evista] 60 mg PO DAILY 10/23/19 [History] Atorvastatin Calcium [Lipitor] 80 mg PO DAILY 10/24/19 [History] Metoprolol Succinate (ER) [Toprol XL] 25 mg PO BID #60 tab.er.24h 11/08/19 [Rx] Allopurinol [Zyloprim] 100 mg PO BID 07/14/20 [History] Apixaban [Eliquis] 2.5 mg PO BID 07/14/20 [History] Ergocalciferol [Vitamin D2 (1250 Mcg = 84184 Iu)] 1,250 mcg PO FR 07/14/20 [History] Ferrous Sulfate [Iron (65 MG Elemental)] 325 mg PO DAILY 07/14/20 [History] Torsemide [Demadex] 40 mg PO BID 07/14/20 [History] Ezetimibe [Zetia] 10 mg PO DAILY 11/24/20 [History] calcitrioL [Calcitriol] 0.25 mcg PO Q7D 11/24/20 [History] Empagliflozin [Jardiance] 10 mg PO DAILY 04/10/21 [History] Folic Acid-Vit B Complex-Vit C [Nephrocaps] 1 mg PO DAILY #30 capsule 04/11/21 [Rx] Follow up Appointment(s)/Referral(s): Franc Ferro MD [Primary Care Provider] - 3 Days Ambulatory/Diagnostic Orders: Basic Metabolic Panel [LAB.AMB] Time Frame: 3 Days, Location: None Selected Discharge Disposition: HOME SELF-CARE
[2021-04-11 10:16] LABS: Anisocytosis Slight; Basophils % (A) 0 %; Eosinophils % (A) 1 %; HCT 24.3 % (34.0-46.0); HGB 7.3 gm/dL (11.4-16.0); Hypochromasia Marked; Lymphocytes # (A) 0.4 k/uL (1.0-4.8); Lymphocytes % (A) 13 %; MCH 30.1 pg (25.0-35.0); MCHC 29.9 g/dL (31.0-37.0); MCV 100.6 fL (80.0-100.0); Macrocytosis Moderate; Mean Platelet Volume 9.5; Monocytes # (A) 0.2 k/uL (0-1.0); Monocytes % (A) 5 %; Neutrophils # (A) 2.5 k/uL (1.3-7.7); Neutrophils % (A) 78 %; Platelet Count 184 k/uL (150-450); Poikilocytosis Marked; RBC 2.41 m/uL (3.80-5.40); RDW 18.3 % (11.5-15.5); WBC 3.2 k/uL (3.8-10.6)
[2021-04-11 10:28] LABS: African American GFR (CKD) 35 (>60 ml/min/1.73 sqM); Anion Gap 6 mmol/L; Blood Urea Nitrogen 34 mg/dL (7-17); Carbon Dioxide 20 mmol/L (22-30); Chloride 107 mmol/L (98-107); Glucose 361 mg/dL (74-99); Non-African American GFR(CKD) 31 (>60 ml/min/1.73 sqM); Potassium 4.4 mmol/L (3.5-5.1); Sodium 133 mmol/L (137-145)
[2021-04-11 10:44] VITALS: RESP 18
[2021-04-11 11:38] LABS: Glucose,Whole Blood 356 mg/dL (75-99)
--- NOTE | 2021-04-11 12:05 | P.GSCN ---
History of Present Illness Consult date: 04/11/21 History of present illness: CHIEF COMPLAINT: Anemia HISTORY OF PRESENT ILLNESS: The patient is a 70 year old female who presented to the emergency room per recommendation of her primary care doctor due to low hemoglobin found on her most recent lab work yesterday. Her outpatient Hgb was 6.5 mg/dL. On presentation to the emergency room, her repeat hemoglobin was 7.0. She reports last colonoscopy was over 5 years. She has history of colon polyps removed. She denies reports of gross blood in stools. She denies abdominal pain. She is being transfused 1 u pRBC at this time. General surgery is consulted for gastrointestinal bleed. She denies abdominal pain. She takes Eliquis for atrial fibrillation. PAST MEDICAL HISTORY: See list and reviewed PAST SURGICAL HISTORY: See list and reviewed MEDICATIONS: See list and reviewed ALLERGIES: See list and reviewed SOCIAL HISTORY: See list and reviewed FAMILY HISTORY: See list and reviewed REVIEW OF ORGAN SYSTEMS: CONSTITUTIONAL: No fevers or chills. No recent weight loss. EYES: Legally blind. HEENT: No difficulties with hearing. No nosebleeds. No difficulty swallowing. RESPIRATORY: Has chronic obstructive pulmonary disease. Has tobacco abuse disorder. CARDIOVASCULAR: Had heart catheterization with stent placement. Has hyperlipidemia. Has hypertensive heart disease. Has atrial fibrillation. Has congestive heart failure. GASTROINTESTINAL: Denies fatty food intolerance. Denies change in bowel habits and gas bloat. GENITOURINARY: Denies any blood in urine or increased urinary frequency. NEUROLOGICAL: Denies any numbness or tingling along the distal extremities. No seizure disorders or headaches. MUSCULOSKELETAL: Has back pain, stiffness or joint arthritis. Has osteoporosis. Has gout. SKIN: No current skin cancer. No rash. PSYCHIATRIC: Denies current depression or suicidal thoughts. ENDOCRINE: Denies current thyroid disorders. Has diabetes type II. HEME/LYMPHATIC: On anticoagulant. ALLERGY/IMMUNOLOGY: No immunoglobulin therapy. No immune deficiencies. BREAST: Denies current breast lumps, pain or nipple discharge. PHYSICAL EXAM: VITALS: Reviewed CONSTITUTIONAL: Well developed and in no acute distress. EYES: Conjuctivae without sclera icterus. Extraocular movements grossly intact. HEAD, EARS, NOSE, THROAT: Moist buccal mucosa. Head is atraumatic, normocephalic. Hears conversational speech. No nasal drainage. NECK: Supple. No JV distention. No thyroidomegaly. RESPIRATORY: Non-labored respirations and equal bilateral excursions. No gross wheezes. CARDIOVASCULAR: Irregular rate and rhythm. Palpable 2+ radial pulses. ABDOMEN: Protuberant, non-tender. LYMPH: No neck lymphadenopathy. MUSCULOSKELETAL: Nail and fingers with good capillary refill. SKIN: Warm and well perfused with good skin turgor. NEUROLOGIC: Cranial nerves II through XII grossly intact. No focal or lateralizing signs. PSYCH: Appropriate affect. Alert and oriented to person, place and time. Displays appropriate insight. CLINCAL LABS: Reviewed. WBC 4.1 on presentation. Hgb on presentation 7.0. Stool occult positive for blood. IMAGING: CT of the abdomen and pelvis reviewed demonstrates medical related kidney disease. No active GI bleeding or fluid collection in abdomen. Prior ventral abdominal hernia identified of the lower abdomen. This is my independent interpretation. RADIOLOGY: Report reviewed CT of the abdomen demonstrated 2-cm cyst along the left upper pole of the kidney. Presence of diverticulosis with aortic ectasia. ASSESSMENT: 1. Anemia with stool occult positive. 2. Chronic anticoagulant use. 3. COPD 4. Atrial fibrillation. 5. Blood transfusion PLAN: 1. Patient comes in with low blood count, Hgb less than 8.0 and receiving blood transfusion. 2. Recommend upper and lower endoscopy in presence of GI bleed. 3. She is on a blood thinner that increases her risk for bleed. Recommend hold anti-coagulant 4. Recommend re-check Hgb after blood transfusion. Thank you for this kind consultation. Past Medical History Past Medical History: Atrial Fibrillation, Heart Failure, COPD, Diabetes Melli tus, Eye Disorder, Hyperlipidemia, Hypertension, Osteoarthritis (OA), Vascular Disorder Additional Past Medical History / Comment(s): eye disease stargaze natalia eyes, 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, History of Any Multi-Drug Resistant Organisms: None Reported Past Surgical History: Appendectomy, Cholecystectomy, Heart Catheterization With Stent, Joint Replacement, Orthopedic Surgery, Tonsillectomy, Tubal Ligation Additional Past Surgical History / Comment(s): mass in neck parotid gland removed, right hip replaced surgery, ruptured appendix- temporary colostomy with reversal, cataracts, stent in bilateral legs Past Anesthesia/Blood Transfusion Reactions: No Reported Reaction Date of Last Stent Placement:: 06/2019 Past Psychological History: No Psychological Hx Reported Smoking Status: Current every day smoker Past Alcohol Use History: None Reported Additional Past Alcohol Use History / Comment(s): Has been smoking 50 yrs, 1/2 PPD. Past Drug Use History: None Reported - Past Family History Mother Family Medical History: Congestive Heart Failure (CHF), Diabetes Mellitus Additional Family Medical History / Comment(s): Mother at the age of 86 from CAD/CHF /CABG X2 and DM2. Father Family Medical History: CVA/TIA, Myocardial Infarction (PA) Additional Family Medical History / Comment(s): Father at the age of 82 from CABGx4 and CVA Brother(s) Family Medical History: Diabetes Mellitus Additional Family Medical History / Comment(s): Patient has 4 brothers and one has diabetes mellitus type 2. Sister(s) Family Medical History: No Reported History Additional Family Medical History / Comment(s): Patient has 4 sisters. Daughter(s) Family Medical History: No Reported History Additional Family Medical History / Comment(s): Patient has 2 daughters with no major medical problems. Son(s) Family Medical History: No Reported History Additional Family Medical History / Comment(s): Patient has one son with no major medical problems. Medications and Allergies Home Medications Medication Instructions Recorded Confirmed Type Carisoprodol [Soma] 350 mg PO BID PRN 03/08/16 04/10/21 History Glimepiride [Amaryl] 4 mg PO BID 03/08/16 04/10/21 History HYDROcodone/APAP 5-325MG [[place] 1 tab PO Q8H PRN 03/08/16 04/10/21 History 5-325] Zolpidem Tartrate [Ambien] 10 mg PO HS 03/08/16 04/10/21 History Budesonide/Formoterol Fumarate 2 puff INHALATION RT-BID 10/23/19 04/10/21 History [Symbicort 160-4.5 Mcg Inhaler] Raloxifene [Evista] 60 mg PO DAILY 10/23/19 04/10/21 History Atorvastatin Calcium [Lipitor] 80 mg PO DAILY 10/24/19 04/10/21 History Metoprolol Succinate (ER) [Toprol 25 mg PO BID #60 tab.er.24h 11/08/19 04/10/21 Rx XL] Allopurinol [Zyloprim] 100 mg PO BID 07/14/20 04/10/21 History Apixaban [Eliquis] 2.5 mg PO BID 07/14/20 04/10/21 History Ergocalciferol [Vitamin D2 (1250 1,250 mcg PO FR 07/14/20 04/10/21 History Mcg = 10640 Iu)] Ferrous Sulfate [Iron (65 MG 325 mg PO DAILY 07/14/20 04/10/21 History Elemental)] Torsemide [Demadex] 40 mg PO BID 07/14/20 04/10/21 History Ezetimibe [Zetia] 10 mg PO DAILY 11/24/20 04/10/21 History calcitrioL [Calcitriol] 0.25 mcg PO Q7D 11/24/20 04/10/21 History Empagliflozin [Jardiance] 10 mg PO DAILY 04/10/21 04/10/21 History Folic Acid-Vit B Complex-Vit C 1 mg PO DAILY #30 capsule 04/11/21 Rx [Nephrocaps] Allergies Allergy/AdvReac Type Severity Reaction Status Date / Time warfarin sodium Allergy "very high Verified 04/10/21 14:46 [From Coumadin] PT/INR-was told never to take" Surgical - Exam Vital Signs Temp Pulse Resp BP Pulse Ox 98.7 F 97 18 88/53 99 04/10/21 10:45 04/10/21 10:45 04/10/21 10:45 04/10/21 10:45 04/10/21 10:45 Results - Labs 04/11/21 09:44 04/11/21 09:44 Abnormal Lab Results - Last 24 Hours (Table) 04/10/21 04/10/21 04/10/21 Range/Units 12:44 12:44 12:44 WBC (3.8-10.6) k/uL RBC 2.43 L (3.80-5.40) m/uL Hgb 7.0 L (11.4-16.0) gm/dL Hct 24.7 L (34.0-46.0) % MCV 101.8 H (80.0-100.0) fL MCHC 28.2 L (31.0-37.0) g/dL RDW 17.2 H (11.5-15.5) % Lymphocytes # 0.8 L (1.0-4.8) k/uL APTT 19.8 L (22.0-30.0) sec Sodium 130 L (137-145) mmol/L Carbon Dioxide 21 L (22-30) mmol/L BUN 46 H (7-17) mg/dL Creatinine 1.94 H (0.52-1.04) mg/dL Glucose 267 H (74-99) mg/dL POC Glucose (mg/dL) (75-99) mg/dL Calcium (8.4-10.2) mg/dL Troponin I (0.000-0.034) ng/mL Total Protein 5.3 L (6.3-8.2) g/dL Albumin 3.1 L (3.5-5.0) g/dL Stool Occult Blood (Negative) Crossmatch 04/10/21 04/10/21 04/10/21 Range/Units 12:44 12:44 12:44 WBC (3.8-10.6) k/uL RBC (3.80-5.40) m/uL Hgb (11.4-16.0) gm/dL Hct (34.0-46.0) % MCV (80.0-100.0) fL MCHC (31.0-37.0) g/dL RDW (11.5-15.5) % Lymphocytes # (1.0-4.8) k/uL APTT (22.0-30.0) sec Sodium (137-145) mmol/L Carbon Dioxide (22-30) mmol/L BUN (7-17) mg/dL Creatinine (0.52-1.04) mg/dL Glucose (74-99) mg/dL POC Glucose (mg/dL) (75-99) mg/dL Calcium (8.4-10.2) mg/dL Troponin I 0.056 H* (0.000-0.034) ng/mL Total Protein (6.3-8.2) g/dL Albumin (3.5-5.0) g/dL Stool Occult Blood Positive H (Negative) Crossmatch See Detail 04/10/21 04/11/21 04/11/21 Range/Units 20:17 06:13 09:44 WBC (3.8-10.6) k/uL RBC (3.80-5.40) m/uL Hgb (11.4-16.0) gm/dL Hct (34.0-46.0) % MCV (80.0-100.0) fL MCHC (31.0-37.0) g/dL RDW (11.5-15.5) % Lymphocytes # (1.0-4.8) k/uL APTT (22.0-30.0) sec Sodium 133 L (137-145) mmol/L Carbon Dioxide 20 L (22-30) mmol/L BUN 34 H (7-17) mg/dL Creatinine 1.68 H (0.52-1.04) mg/dL Glucose 361 H (74-99) mg/dL POC Glucose (mg/dL) 358 H 215 H (75-99) mg/dL Calcium 8.0 L (8.4-10.2) mg/dL Troponin I (0.000-0.034) ng/mL Total Protein (6.3-8.2) g/dL Albumin (3.5-5.0) g/dL Stool Occult Blood (Negative) Crossmatch 04/11/21 Range/Units 09:44 WBC 3.2 L (3.8-10.6) k/uL RBC 2.41 L (3.80-5.40) m/uL Hgb 7.3 L (11.4-16.0) gm/dL Hct 24.3 L (34.0-46.0) % MCV 100.6 H (80.0-100.0) fL MCHC 29.9 L (31.0-37.0) g/dL RDW 18.3 H (11.5-15.5) % Lymphocytes # 0.4 L (1.0-4.8) k/uL APTT (22.0-30.0) sec Sodium (137-145) mmol/L Carbon Dioxide (22-30) mmol/L BUN (7-17) mg/dL Creatinine (0.52-1.04) mg/dL Glucose (74-99) mg/dL POC Glucose (mg/dL) (75-99) mg/dL Calcium (8.4-10.2) mg/dL Troponin I (0.000-0.034) ng/mL Total Protein (6.3-8.2) g/dL Albumin (3.5-5.0) g/dL Stool Occult Blood (Negative) Crossmatch Diabetes panel 04/10/21 04/11/21 Range/Units 12:44 09:44 Sodium 130 L 133 L (137-145) mmol/L Potassium 4.2 4.4 (3.5-5.1) mmol/L Chloride 100 107 (98-107) mmol/L Carbon Dioxide 21 L 20 L (22-30) mmol/L BUN 46 H 34 H (7-17) mg/dL Creatinine 1.94 H 1.68 H (0.52-1.04) mg/dL Glucose 267 H 361 H (74-99) mg/dL Calcium 8.7 8.0 L (8.4-10.2) mg/dL AST 19 (14-36) U/L ALT 13 (4-34) U/L Alkaline Phosphatase 62 (38-126) U/L Total Protein 5.3 L (6.3-8.2) g/dL Albumin 3.1 L (3.5-5.0) g/dL Calcium panel 04/10/21 04/11/21 Range/Units 12:44 09:44 Calcium 8.7 8.0 L (8.4-10.2) mg/dL Albumin 3.1 L (3.5-5.0) g/dL Pituitary panel 04/10/21 04/11/21 Range/Units 12:44 09:44 Sodium 130 L 133 L (137-145) mmol/L Potassium 4.2 4.4 (3.5-5.1) mmol/L Chloride 100 107 (98-107) mmol/L Carbon Dioxide 21 L 20 L (22-30) mmol/L BUN 46 H 34 H (7-17) mg/dL Creatinine 1.94 H 1.68 H (0.52-1.04) mg/dL Glucose 267 H 361 H (74-99) mg/dL Calcium 8.7 8.0 L (8.4-10.2) mg/dL Adrenal panel 04/10/21 04/11/21 Range/Units 12:44 09:44 Sodium 130 L 133 L (137-145) mmol/L Potassium 4.2 4.4 (3.5-5.1) mmol/L Chloride 100 107 (98-107) mmol/L Carbon Dioxide 21 L 20 L (22-30) mmol/L BUN 46 H 34 H (7-17) mg/dL Creatinine 1.94 H 1.68 H (0.52-1.04) mg/dL Glucose 267 H 361 H (74-99) mg/dL Calcium 8.7 8.0 L (8.4-10.2) mg/dL Total Bilirubin 0.3 (0.2-1.3) mg/dL AST 19 (14-36) U/L ALT 13 (4-34) U/L Alkaline Phosphatase 62 (38-126) U/L Total Protein 5.3 L (6.3-8.2) g/dL Albumin 3.1 L (3.5-5.0) g/dL Assessment and Plan (1) Iron deficiency anemia Status: Acute Code(s): D50.9 - IRON DEFICIENCY ANEMIA, UNSPECIFIED SNOMED Code(s): 53778572 (2) Anemia Status: Acute Code(s): D64.9 - ANEMIA, UNSPECIFIED SNOMED Code(s): 677136902 (3) COPD exacerbation Status: Acute Code(s): J44.1 - CHRONIC OBSTRUCTIVE PULMONARY DISEASE W (ACUTE) EXACERBATION SNOMED Code(s): 090729212 (4) GI bleed Status: Acute Code(s): K92.2 - GASTROINTESTINAL HEMORRHAGE, UNSPECIFIED SNOMED Code(s): 43221216 (5) Symptomatic anemia Status: Acute Code(s): D64.9 - ANEMIA, UNSPECIFIED SNOMED Code(s): 956358322 (6) Chronic anticoagulation Status: Acute Code(s): Z79.01 - FDC (CURRENT) USE OF ANTICOAGULANTS SNOMED Code(s): 496218835 (7) Atrial fibrillation Status: Acute Code(s): I48.91 - UNSPECIFIED ATRIAL FIBRILLATION SNOMED Code(s): 87719101
[2021-04-11] MEDS: HYDROcodone/APAP 5-325MG 1 EACH TAB PO PRN (14:00)
--- NOTE | 2021-04-11 15:54 | CONS ---
CONSULTATION Mrs. Gomez is a 70-year-old female who is followed by Dr. Ferro, has a known history of coronary artery disease, history of peripheral vascular disease, history of paroxysmal atrial fibrillation, diabetes, chronic tobacco use, who yesterday had lab data and was noted to be anemic. In view of that, she was referred to the hospital and subsequently admitted. Patient is legally blind but has not noted any change in the color of her stool. She denies any nausea or vomiting. She denies any chest pain. She was feeling weak and more dyspneic. She denies any palpitations. She has been in sinus mechanism since her admission and has no evidence of recurrent atrial fibrillation. She has unfortunately continued to smoke. She has chronic peripheral edema but no clear PND or orthopnea. She has undergone bilateral stenting of the SFA as well as prior percutaneous revascularization by Dr. Lau. She has an ejection fraction of 40%. Her coronary risk factors are remarkable for hypertension, chronic tobacco use and hyperlipidemia. She is diabetic. Her medications include Eliquis 2.5 mg twice a day, Lipitor 80 mg daily, Jardiance 10 mg daily, Zetia 10 mg daily, Amaryl, , metoprolol succinate 25 mg twice a day, 40 mg twice a day and calcitriol. REVIEW OF SYSTEMS: RESPIRATORY SYSTEM: She had dyspnea on exertion. No recent wheezing or cough. GI SYSTEM: She denies any nausea or vomiting. She is unaware of any GI bleeding. SYSTEM: No dysuria or hematuria. NERVOUS SYSTEM: She has no history of stroke or seizure. PHYSICAL EXAMINATION: She is a 70-year-old female, alert, oriented, in no apparent distress. Blood pressure 106/46 with a heart rate in the 80s. HEAD: Normocephalic. EYES: Sclerae anicteric. NECK: No bruit. LUNGS: Decreased air exchange. No wheezes. HEART: Regular rate and rhythm. S1, S2. No S3. With systolic ejection murmur. No diastolic murmur. No rub. ABDOMEN: Soft, nontender. EXTREMITIES: Plus 2 edema documented in the past. LAB DATA: On admission her hemoglobin was 7. It is 7.3 at this time. Patient has received a transfusion. Her BUN and creatinine are 34 and 1.6, potassium 4.4, her troponin 0.056. She is heme-positive. Her EKG revealed a sinus mechanism, normal axis and intervals. No acute changes. She was evaluated by Dr. Fontanez, who recommended endoscopy. IMPRESSION: 1. Severe anemia with gastrointestinal bleeding. 2. History of coronary artery disease. 3. Mild troponin elevation with no evidence to suggest acute coronary syndrome, most likely related to the demand/supply mismatch. 4. History of cardiomyopathy with chronic peripheral edema. 5. Peripheral vascular disease. 6. Chronic kidney disease. 7. Diabetes. 8. Hyperlipidemia. RECOMMENDATIONS: From the cardiac standpoint, I will hold her anticoagulation at this time in view of the positive heme. Continue the rest of her medical regimen. Patient is anxious to go home, and I will leave that decision to her primary care physician. She will follow as an outpatient with Dr. Lau. Thank you for this consult. Will follow with you. ROLANDO / CHRISTIANO: [id number] /
[2021-04-11 16:50] LABS: Glucose,Whole Blood 154 mg/dL (75-99)
[2021-04-11 17:22] VITALS: TEMP 98.6
[2021-04-11 17:50] VITALS: BP 113/54; PULSE 86
[2021-04-11 20:14] LABS: % Iron Saturation 12.65 (12.00-45.00); Iron 33 ug/dL (50-170); Total Iron Binding Capacity 263 ug/dL (228-460)
[2021-04-11 20:26] LABS: Vitamin B12 >2000.0 pg/mL (200.0-944.0)
--- NOTE | 2021-04-15 09:20 | CDI ---
Documentation Clarification Form Date: 04/15/21 From: Sarah Johnson Admit Date: 04/10/2021 02:51:00 PM Patient Name: Jessica Gomez Visit Number: [id number] Discharge Date: 04/11/2021 05:15:00 PM ATTENTION: The Clinical Documentation Specialists (CDI) and [facility] Coding Staff appreciate your assistance in clarifying documentation. Please respond to the clarification below the line at the bottom and electronically sign. The CDI & [facility] Coding staff will review the response and follow-up if needed. Please note: Queries are made part of the Legal Health Record. If you have any questions, please contact the author of this message via ITS. Dr. Dolores Bourgeois, CKD is documented per Dr Barraza's consult on 04/11, but is not noted in subsequent documentation. Clarification is requested. History/Risk Factors: Iron deficiency due to chronic GI blood loss, hyponatremia, HTN, chronic systolic CHF, COPD, DM Patients Historical BUN/CR/GFR -: none available Clinical Indicators: see below Current BUN: 46, 34, Current CR: 1.94, 1.68 Current GFR: 26, 31 Treatment: IV Lasix, switched to Demadex Please clarify the stage of the CKD, if known: [ ] CKD ruled out [ ] CKD Stage 1 (GFR > 90) [ ] CKD Stage 2 (GFR 60-89) [ x ] CKD Stage 3 (GFR 30-59) [ ] CKD Stage 3a (GFR 45-59) [ ] CKD Stage 3b (GFR 30-44) [ ] CKD Stage 4 (GFR 15-29) [ ] CKD Stage 5 (GFR <15) [ ] ESRD [ ] Other, please specify [ ] Unable to determine MTDD
== END 2021-04-11 17:15 | disposition home or self-care (01) | DRG 812 ==
LOC: EC 10:39 → 3SCARD 14:51
PROVIDERS: ADMIT Internal Medicine; ATTEND Internal Medicine
PROC: 30233N1 Transfusion of Nonautologous Red Blood Cells into Peripheral Vein, Percutaneous Approach (ICD-10-PCS; principal; 2021-04-10)
DX: D50.0 Iron deficiency anemia secondary to blood loss (chronic) (principal); I42.9 Cardiomyopathy, unspecified; E87.1 Hypo-osmolality and hyponatremia; I50.22 Chronic systolic (congestive) heart failure; I13.0 Hypertensive heart and chronic kidney disease with heart failure and stage 1 through stage 4 chronic kidney disease, or unspecified chronic kidney disease; J44.1 Chronic obstructive pulmonary disease with (acute) exacerbation; E11.22 Type 2 diabetes mellitus with diabetic chronic kidney disease; E11.51 Type 2 diabetes mellitus with diabetic peripheral angiopathy without gangrene; I48.0 Paroxysmal atrial fibrillation; I77.819 Aortic ectasia, unspecified site; E11.65 Type 2 diabetes mellitus with hyperglycemia; N18.30 Chronic kidney disease, stage 3 unspecified; Z20.822 Contact with and (suspected) exposure to COVID-19; R19.5 Other fecal abnormalities; H54.8 Legal blindness, as defined in USA; E78.5 Hyperlipidemia, unspecified; K57.90 Diverticulosis of intestine, part unspecified, without perforation or abscess without bleeding; I25.10 Atherosclerotic heart disease of native coronary artery without angina pectoris; R77.8 Other specified abnormalities of plasma proteins; M19.90 Unspecified osteoarthritis, unspecified site; K46.9 Unspecified abdominal hernia without obstruction or gangrene; N28.1 Cyst of kidney, acquired; F17.210 Nicotine dependence, cigarettes, uncomplicated; Z71.6 Tobacco abuse counseling; E66.9 Obesity, unspecified; Z68.32 Body mass index [BMI] 32.0-32.9, adult; Z79.01 Long term (current) use of anticoagulants; Z79.51 Long term (current) use of inhaled steroids; Z79.84 Long term (current) use of oral hypoglycemic drugs; Z79.810 Long term (current) use of selective estrogen receptor modulators (SERMs); Z79.899 Other long term (current) drug therapy; Z90.49 Acquired absence of other specified parts of digestive tract; Z87.19 Personal history of other diseases of the digestive system; Z95.5 Presence of coronary angioplasty implant and graft; Z90.89 Acquired absence of other organs; Z98.51 Tubal ligation status; Z96.641 Presence of right artificial hip joint; Z86.39 Personal history of other endocrine, nutritional and metabolic disease; Z98.42 Cataract extraction status, left eye; Z98.41 Cataract extraction status, right eye; Z95.820 Peripheral vascular angioplasty status with implants and grafts; Z98.890 Other specified postprocedural states; Z88.8 Allergy status to other drugs, medicaments and biological substances; Z83.3 Family history of diabetes mellitus; Z82.49 Family history of ischemic heart disease and other diseases of the circulatory system; Z82.3 Family history of stroke
CPT/HCPCS: 36415; 71046; 74176; 80048; 80053; 80061; 82272; 82607; 83036; 83540; 83550; 83735; 83880; 83970; 84100; 84439; 84443; 84484; 84550; 85025; 85610; 85730; 86850; 86900; 86901; 86920; 87635; 93005; 94640; 96361; 96374; 99285

== ENCOUNTER 2021-04-22 16:52 | Inpatient (IN) | payer MEDICARE, OTHER ==
[2021-04-22] MEDS ORDERED: SODIUM CHLORIDE 0.9% 500 ML 500 ML IV STA (17:36)
[2021-04-22] MEDS ORDERED: MORPHINE SULFATE 2 MG/ML SYRINGE IVP STA (17:36)
[2021-04-22] MEDS ORDERED: ONDANSETRON 4 MG/2 ML VIAL IVP STA (17:36)
--- NOTE | 2021-04-22 17:58 | ED ---
SOB HPI - General Source: EMS Mode of arrival: EMS Limitations: no limitations <Angie Gutierrez - Last Filed: 04/22/21 22:43> <Karla Cline - Last Filed: 04/30/21 01:28> - General Chief Complaint: Weakness Stated Complaint: Weakness Time Seen by Provider: 04/22/21 17:14 - History of Present Illness Initial Comments: 71 year-old female patient presents to the emergency department for evaluation of vomiting, shortness of breath, and weakness. States she has been sick for the last 4-5 days. She denies any abdominal pain or diarrhea. Denies fever or chills. States she gets very winded when she walks. States she gets dizzy and weak whenever she stands up. Denies chest pain. Was recently admitted for low hemoglobin, required blood transfusion, they apparently ruled out GI bleed. She does take blood thinner for afib. Patient denies any recent rash, fever, chills, cough, shortness of breath, chest pain, abdominal pain, nausea, vomiting, diarrhea, constipation, back pain, numbness, tingling, dizziness, w eakness, hematuria, dysuria, urinary urgency, urinary frequency, headache, visual changes, or any other complaints. (Angie Gutierrez) - Related Data Home Medications Medication Instructions Recorded Confirmed Carisoprodol [Soma] 350 mg PO BID PRN 03/08/16 04/22/21 Glimepiride [Amaryl] 4 mg PO BID 03/08/16 04/22/21 HYDROcodone/APAP 5-325MG [Dickens 1 tab PO Q8H PRN 03/08/16 04/22/21 5-325] Zolpidem Tartrate [Ambien] 10 mg PO HS 03/08/16 04/22/21 Budesonide/Formoterol Fumarate 2 puff INHALATION RT-BID 10/23/19 04/22/21 [Symbicort 160-4.5 Mcg Inhaler] Raloxifene [Evista] 60 mg PO DAILY 10/23/19 04/22/21 Atorvastatin Calcium [Lipitor] 80 mg PO DAILY 10/24/19 04/22/21 Allopurinol [Zyloprim] 100 mg PO BID 07/14/20 04/22/21 Ergocalciferol [Vitamin D2 (1250 1,250 mcg PO FR 07/14/20 04/22/21 Mcg = 95602 Iu)] Ferrous Sulfate [Iron (65 MG 325 mg PO DAILY 07/14/20 04/22/21 Elemental)] Torsemide [Demadex] 40 mg PO BID 07/14/20 04/22/21 Ezetimibe [Zetia] 10 mg PO DAILY 11/24/20 04/22/21 calcitrioL [Calcitriol] 0.25 mcg PO Q7D 11/24/20 04/22/21 Empagliflozin [Jardiance] 10 mg PO DAILY 04/10/21 04/22/21 Triphrocaps 1 cap PO DAILY 04/22/21 04/22/21 Previous Rx's Medication Instructions Recorded Metoprolol Succinate (ER) [Toprol 12.5 mg PO DAILY #60 04/28/21 XL] Pantoprazole Sodium [Protonix] 40 mg PO AC-BID #60 tab 04/28/21 Allergies Allergy/AdvReac Type Severity Reaction Status Date / Time warfarin sodium Allergy "very high Verified 04/22/21 18:40 [From Coumadin] PT/INR-was told never to take" Review of Systems ROS Other: All systems not noted in ROS Statement are negative. <Angie Gutierrez - Last Filed: 04/22/21 22:43> ROS Other: All systems not noted in ROS Statement are negative. <Karla Cline - Last Filed: 04/30/21 01:28> ROS Statement: Those systems with pertinent positive or pertinent negative responses have been documented in the HPI. 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, History of Any Multi-Drug Resistant Organisms: None Reported Past Surgical History: Appendectomy, Cholecystectomy, Heart Catheterization With Stent, Joint Replacement, Orthopedic Surgery, Tonsillectomy, Tubal Ligation Additional Past Surgical History / Comment(s): mass in neck parotid gland removed, right hip replaced surgery, ruptured appendix- temporary colostomy with reversal, cataracts, stent in bilateral legs Past Anesthesia/Blood Transfusion Reactions: No Reported Reaction Date of Last Stent Placement:: 06/2019 Past Psychological History: No Psychological Hx Reported Smoking Status: Current every day smoker Past Alcohol Use History: None Reported Past Drug Use History: None Reported - Past Family History Mother Family Medical History: Congestive Heart Failure (CHF), Diabetes Mellitus Additional Family Medical History / Comment(s): Mother at the age of 86 from CAD/CHF /CABG X2 and DM2. Father Family Medical History: CVA/TIA, Myocardial Infarction (SD) Additional Family Medical History / Comment(s): Father at the age of 82 from CABGx4 and CVA Brother(s) Family Medical History: Diabetes Mellitus Additional Family Medical History / Comment(s): Patient has 4 brothers and one has diabetes mellitus type 2. Sister(s) Family Medical History: No Reported History Additional Family Medical History / Comment(s): Patient has 4 sisters. Daughter(s) Family Medical History: No Reported History Additional Family Medical History / Comment(s): Patient has 2 daughters with no major medical problems. Son(s) Family Medical History: No Reported History Additional Family Medical History / Comment(s): Patient has one son with no major medical problems. <Angie Gutierrez M - Last Filed: 04/22/21 22:43> General Exam Limitations: no limitations General appearance: alert, in no apparent distress, other (This is a well- developed, well-nourished elderly female agent in no acute distress.) ENT exam: Present: normal exam, normal oropharynx, mucous membranes moist Respiratory exam: Present: normal lung sounds bilaterally. Absent: respiratory distress, wheezes, rales, rhonchi, stridor Cardiovascular Exam: Present: regular rate, normal rhythm, normal heart sounds. Absent: systolic murmur, diastolic murmur, rubs, gallop, clicks GI/Abdominal exam: Present: soft, normal bowel sounds. Absent: distended, tenderness, guarding, rebound, rigid Neurological exam: Present: alert, oriented X3, CN II-XII intact Psychiatric exam: Present: normal affect, normal mood Skin exam: Present: warm, dry, intact, normal color. Absent: rash <Angie Gutierrez M - Last Filed: 04/22/21 22:43> Course Vital Signs 04/22/21 04/22/21 04/22/21 17:07 18:30 20:53 Temperature 98.9 F 98.4 F Pulse Rate 98 95 93 Respiratory 18 18 17 Rate Blood Pressure 94/34 94/60 101/47 O2 Sat by Pulse 99 96 96 Oximetry 04/22/21 04/22/21 04/22/21 21:03 21:33 23:25 Temperature 98.4 F 98.4 F 98.4 F Pulse Rate 89 90 77 Respiratory 18 20 17 Rate Blood Pressure 102/45 94/54 108/47 O2 Sat by Pulse 98 95 99 Oximetry 04/22/21 04/23/21 04/23/21 23:42 00:12 02:35 Temperature 98.4 F 98.3 F 98.2 F Pulse Rate 87 89 78 Respiratory 17 17 18 Rate Blood Pressure 105/58 97/55 100/62 O2 Sat by Pulse 99 99 99 Oximetry 04/23/21 04/23/21 04/23/21 08:55 09:24 12:10 Temperature 99.3 F Pulse Rate 98 93 Respiratory 18 18 Rate Blood Pressure 103/55 86/58 103/39 O2 Sat by Pulse 98 Oximetry 04/23/21 04/23/21 04/23/21 12:20 12:50 14:00 Temperature 99.0 F 98.9 F 98.5 F Pulse Rate 98 92 97 Respiratory 18 18 18 Rate Blood Pressure 102/55 114/72 94/59 O2 Sat by Pulse 97 Oximetry Medical Decision Making - Lab Data Result diagrams: 04/22/21 17:59 04/22/21 17:59 - EKG Data -: EKG Interpreted by [place] - Radiology Data Radiology results: report reviewed, image reviewed <Angie Gutierrez - Last Filed: 04/22/21 22:43> - Lab Data Result diagrams: 04/28/21 08:03 04/27/21 06:17 <Karla Cline - Last Filed: 04/30/21 01:28> - Medical Decision Making 71-year-old female patient presents to the emergency department today for evaluation of shortness of breath, dizziness, weakness. Physical examination did reveal skin pallor. Lungs are clear to auscultation. Abdomen soft and nontender. She denied black or bloody stools. Labs reviewed and did reveal decreased hemoglobin at 5.6. Elevated troponin at 0.1. We did order blood transfusion. Did speak with the patient and offer to transfer her to another facility with GI specialist available. Patient did refuse transfer. She saw Dr. Fontanez during her last inpatient stay. She will be admitted here, Dr. Fontanez consulted. Dr. Ferro is accepting. Case discussed with my attending Dr. Cline. (Angie Gutierrez) I was available for consultation in the emergency department. The history and physical exam were done by the midlevel provider. I was consulted for this patients care. I reviewed the case with the midlevel provider and based on their presentation of the patient, I agree with the assessment, medical decision making and plan of care as documented. Chart was dictated using [employer] dictation software. Attempts were made to correct any dictation errors however some typographical errors may persist. (Karla Cline) - Lab Data Lab Results 04/22/21 04/22/21 04/22/21 Range/Units 17:59 17:59 17:59 WBC 5.9 (3.8-10.6) k/uL RBC 1.95 L (3.80-5.40) m/uL Hgb 5.6 L* D (11.4-16.0) gm/dL Hct 19.5 L* (34.0-46.0) % MCV 100.3 H (80.0-100.0) fL MCH 28.9 (25.0-35.0) pg MCHC 28.8 L (31.0-37.0) g/dL RDW 17.8 H (11.5-15.5) % Plt Count 205 (150-450) k/uL MPV 9.2 Neutrophils % 87 % Lymphocytes % 8 % Monocytes % 4 % Eosinophils % 0 % Basophils % 0 % Neutrophils # 5.1 (1.3-7.7) k/uL Lymphocytes # 0.5 L (1.0-4.8) k/uL Monocytes # 0.2 (0-1.0) k/uL Eosinophils # 0.0 (0-0.7) k/uL Basophils # 0.0 (0-0.2) k/uL Hypochromasia Marked Poikilocytosis Moderate Anisocytosis Slight Macrocytosis Slight PT 10.2 (9.0-12.0) sec INR 0.9 (<1.2) APTT 21.2 L (22.0-30.0) sec Sodium 129 L (137-145) mmol/L Potassium 3.8 (3.5-5.1) mmol/L Chloride 98 (98-107) mmol/L Carbon Dioxide 22 (22-30) mmol/L Anion Gap 9 mmol/L BUN 50 H (7-17) mg/dL Creatinine 1.99 H (0.52-1.04) mg/dL Est GFR (CKD-EPI)AfAm 29 (>60 ml/min/1.73 sqM) Est GFR (CKD-EPI)NonAf 25 (>60 ml/min/1.73 sqM) Glucose 263 H (74-99) mg/dL Calcium 7.8 L (8.4-10.2) mg/dL Magnesium 2.4 H (1.6-2.3) mg/dL Total Bilirubin 0.3 (0.2-1.3) mg/dL AST 24 (14-36) U/L ALT 13 (4-34) U/L Alkaline Phosphatase 48 (38-126) U/L Troponin I (0.000-0.034) ng/mL NT-Pro-B Natriuret Pep pg/mL Total Protein 4.4 L (6.3-8.2) g/dL Albumin 2.6 L (3.5-5.0) g/dL Coronavirus (PCR) (Not Detectd) Blood Type Blood Type Recheck Bld Type Recheck Status Antibody Screen Crossmatch Spec Expiration Date 04/22/21 04/22/21 04/22/21 Range/Units 17:59 18:11 19:01 WBC (3.8-10.6) k/uL RBC (3.80-5.40) m/uL Hgb (11.4-16.0) gm/dL Hct (34.0-46.0) % MCV (80.0-100.0) fL MCH (25.0-35.0) pg MCHC (31.0-37.0) g/dL RDW (11.5-15.5) % Plt Count (150-450) k/uL MPV Neutrophils % % Lymphocytes % % Monocytes % % Eosinophils % % Basophils % % Neutrophils # (1.3-7.7) k/uL Lymphocytes # (1.0-4.8) k/uL Monocytes # (0-1.0) k/uL Eosinophils # (0-0.7) k/uL Basophils # (0-0.2) k/uL Hypochromasia Poikilocytosis Anisocytosis Macrocytosis PT (9.0-12.0) sec INR (<1.2) APTT (22.0-30.0) sec Sodium (137-145) mmol/L Potassium (3.5-5.1) mmol/L Chloride (98-107) mmol/L Carbon Dioxide (22-30) mmol/L Anion Gap mmol/L BUN (7-17) mg/dL Creatinine (0.52-1.04) mg/dL Est GFR (CKD-EPI)AfAm (>60 ml/min/1.73 sqM) Est GFR (CKD-EPI)NonAf (>60 ml/min/1.73 sqM) Glucose (74-99) mg/dL Calcium (8.4-10.2) mg/dL Magnesium (1.6-2.3) mg/dL Total Bilirubin (0.2-1.3) mg/dL AST (14-36) U/L ALT (4-34) U/L Alkaline Phosphatase (38-126) U/L Troponin I 0.107 H* (0.000-0.034) ng/mL NT-Pro-B Natriuret Pep 3180 pg/mL Total Protein (6.3-8.2) g/dL Albumin (3.5-5.0) g/dL Coronavirus (PCR) (Not Detectd) Blood Type A Negative Blood Type Recheck A Neg Bld Type Recheck Status No Antibody Screen NEGATIVE Crossmatch See Detail Spec Expiration Date 04/25/2021 - 230004/22/21 Range/Units 19:01 WBC (3.8-10.6) k/uL RBC (3.80-5.40) m/uL Hgb (11.4-16.0) gm/dL Hct (34.0-46.0) % MCV (80.0-100.0) fL MCH (25.0-35.0) pg MCHC (31.0-37.0) g/dL RDW (11.5-15.5) % Plt Count (150-450) k/uL MPV Neutrophils % % Lymphocytes % % Monocytes % % Eosinophils % % Basophils % % Neutrophils # (1.3-7.7) k/uL Lymphocytes # (1.0-4.8) k/uL Monocytes # (0-1.0) k/uL Eosinophils # (0-0.7) k/uL Basophils # (0-0.2) k/uL Hypochromasia Poikilocytosis Anisocytosis Macrocytosis PT (9.0-12.0) sec INR (<1.2) APTT (22.0-30.0) sec Sodium (137-145) mmol/L Potassium (3.5-5.1) mmol/L Chloride (98-107) mmol/L Carbon Dioxide (22-30) mmol/L Anion Gap mmol/L BUN (7-17) mg/dL Creatinine (0.52-1.04) mg/dL Est GFR (CKD-EPI)AfAm (>60 ml/min/1.73 sqM) Est GFR (CKD-EPI)NonAf (>60 ml/min/1.73 sqM) Glucose (74-99) mg/dL Calcium (8.4-10.2) mg/dL Magnesium (1.6-2.3) mg/dL Total Bilirubin (0.2-1.3) mg/dL AST (14-36) U/L ALT (4-34) U/L Alkaline Phosphatase (38-126) U/L Troponin I (0.000-0.034) ng/mL NT-Pro-B Natriuret Pep pg/mL Total Protein (6.3-8.2) g/dL Albumin (3.5-5.0) g/dL Coronavirus (PCR) Not Detected (Not Detectd) Blood Type Blood Type Recheck Bld Type Recheck Status Antibody Screen Crossmatch Spec Expiration Date - EKG Data EKG Comments: EKG obtained at 1711 shows normal sinus rhythm with a ventricular rate of 96, MA interval 162, QRS duration 90, QT 398, QTC 502. No evidence of ST elevation or depression. (Angie Gutierrez) - Radiology Data View x-ray of the chest is obtained. Report was reviewed in its entirety. Impression by Dr. Melendez shows normal chest. No change. (Angie Gutierrez) Disposition Decision to Admit Reason: Admit from EC Decision Date: 04/22/21 Decision Time: 20:11 <Angie Gutierrez - Last Filed: 04/22/21 22:43> <Karla Cline - Last Filed: 04/30/21 01:28> Clinical Impression: Anemia, GI bleed, Dyspnea, Elevated troponin Disposition: ADMITTED IP TO THIS [facility] Condition: Stable
[2021-04-22 18:26] LABS: Anisocytosis Slight; Basophils % (A) 0 %; Eosinophils % (A) 0 %; Hypochromasia Marked; Lymphocytes # (A) 0.5 k/uL (1.0-4.8); Lymphocytes % (A) 8 %; MCH 28.9 pg (25.0-35.0); MCHC 28.8 g/dL (31.0-37.0); MCV 100.3 fL (80.0-100.0); Macrocytosis Slight; Mean Platelet Volume 9.2; Monocytes # (A) 0.2 k/uL (0-1.0); Monocytes % (A) 4 %; Neutrophils # (A) 5.1 k/uL (1.3-7.7); Neutrophils % (A) 87 %; Platelet Count 205 k/uL (150-450); Poikilocytosis Moderate; RBC 1.95 m/uL (3.80-5.40); RDW 17.8 % (11.5-15.5); WBC 5.9 k/uL (3.8-10.6)
[2021-04-22 18:34] LABS: HCT 19.5 % (34.0-46.0); HGB 5.6 gm/dL (11.4-16.0)
[2021-04-22 18:37] LABS: Albumin 2.6 g/dL (3.5-5.0); Calcium 7.8 mg/dL (8.4-10.2); Magnesium 2.4 mg/dL (1.6-2.3); Potassium 3.8 mmol/L (3.5-5.1); Total Bilirubin 0.3 mg/dL (0.2-1.3); Total Protein 4.4 g/dL (6.3-8.2)
[2021-04-22 18:54] LABS: INR 0.9 (<1.2); Partial Thromboplastin Time 21.2 sec (22.0-30.0); Prothrombin Time 10.2 sec (9.0-12.0)
--- NOTE | 2021-04-22 19:20 | XR ---
EXAMINATION TYPE: XR chest 2V DATE OF EXAM: 04/22/2021 COMPARISON: 04/10/2021 HISTORY: Weakness TECHNIQUE: 2 views FINDINGS: Heart and mediastinum are normal. Lungs are clear. Diaphragm is normal. Bony thorax is inta ct. IMPRESSION: Normal chest. No change.
[2021-04-22] MEDS ORDERED: NALOXONE 0.4 MG/ML 1 ML VIAL IV PRN (19:57)
[2021-04-23 00:15] LABS: Appearance,Urine Cloudy (Clear); Bacteria,Urine Rare /hpf; Bilirubin,Urine Negative (Negative); Blood,Urine Negative (Negative); Color,Urine Yellow; Glucose,Urine (UA) 4+ (Negative); Hyaline Casts,Urine 5 /lpf (0-2); Ketones,Urine Negative (Negative); Leukocyte Esterase,Urine Small (Negative); Mucus,Urine Rare /hpf; Nitrite,Urine Negative (Negative); Protein,Urine Negative (Negative); RBC,Urine 1 /hpf (0-5); Specific Gravity,Urine 1.014 (1.001-1.035); Squamous Epithelial Cell,Urine 4 /hpf (0-4); Urobilinogen,Urine <2.0 mg/dL (<2.0); WBC,Urine 8 /hpf (0-5)
[2021-04-23] MEDS: ZOLPIDEM 5 MG TAB PO SCH ×2 (01:41→20:32)
[2021-04-23 03:30] LABS: Anisocytosis Slight; Basophils % (A) 0 %; Eosinophils # (A) 0.1 k/uL (0-0.7); Eosinophils % (A) 1 %; HCT 23.7 % (34.0-46.0); Hypochromasia Marked; Lymphocytes # (A) 0.7 k/uL (1.0-4.8); Lymphocytes % (A) 14 %; MCV 96.8 fL (80.0-100.0); Macrocytosis Slight; Mean Platelet Volume 8.5; Monocytes # (A) 0.3 k/uL (0-1.0); Monocytes % (A) 5 %; Neutrophils # (A) 4.1 k/uL (1.3-7.7); Neutrophils % (A) 78 %; Platelet Count 194 k/uL (150-450); Poikilocytosis Marked; RBC 2.45 m/uL (3.80-5.40); RDW 17.3 % (11.5-15.5); WBC 5.2 k/uL (3.8-10.6)
[2021-04-23 03:35] LABS: HGB 7.6 gm/dL (11.4-16.0)
[2021-04-23 06:57] LABS: Anisocytosis Slight; Basophils % (A) 0 %; Eosinophils # (A) 0.1 k/uL (0-0.7); Eosinophils % (A) 1 %; Hypochromasia Marked; Lymphocytes # (A) 0.8 k/uL (1.0-4.8); Lymphocytes % (A) 19 %; MCH 30.2 pg (25.0-35.0); MCHC 31.7 g/dL (31.0-37.0); MCV 95.4 fL (80.0-100.0); Macrocytosis Slight; Mean Platelet Volume 8.6; Monocytes # (A) 0.2 k/uL (0-1.0); Monocytes % (A) 5 %; Neutrophils # (A) 3.2 k/uL (1.3-7.7); Neutrophils % (A) 73 %; Platelet Count 181 k/uL (150-450); Poikilocytosis Marked; RBC 2.31 m/uL (3.80-5.40); RDW 17.5 % (11.5-15.5); WBC 4.5 k/uL (3.8-10.6)
[2021-04-23] MEDS: GLIMEPIRIDE 4 MG TAB PO SCH ×2 (08:51→20:47)
[2021-04-23] MEDS: SYMBICORT 160-4.5 MCG INHALER INHALATION SCH ×2 (08:51→19:25)
[2021-04-23] MEDS: allopurinoL 100 MG TAB PO SCH ×2 (08:51→20:33)
[2021-04-23] MEDS: RALOXIFENE 60 MG TAB PO SCH (08:52)
[2021-04-23] MEDS: EZETIMIBE 10 MG TAB PO SCH (08:52)
[2021-04-23] MEDS: FERROUS SULFATE 325 MG TAB PO SCH (08:52)
[2021-04-23] MEDS: ATORVASTATIN 80 MG TAB PO SCH (08:53)
[2021-04-23 08:59] LABS: Calcium 8.1 mg/dL (8.4-10.2); Potassium 3.3 mmol/L (3.5-5.1)
[2021-04-23] MEDS ORDERED: carisoprodoL 350 MG TAB PO PRN (09:00)
[2021-04-23] MEDS ORDERED: TORSEMIDE 20 MG TAB PO SCH (09:00)
[2021-04-23] MEDS ORDERED: POTASSIUM CHLORIDE 20 MEQ in WATER FOR INJECTION 1 100ML.BAG IVPB STA (09:03)
[2021-04-23] MEDS ORDERED: SODIUM CHLORIDE 0.9% 500 ML 500 ML IV ONE ×2 (09:06→09:12)
[2021-04-23] MEDS: PANTOPRAZOLE 40 MG/10 ML VIAL IVP SCH ×2 (10:00→21:25)
[2021-04-23 11:33] LABS: Anisocytosis Slight; Basophils % (A) 0 %; Eosinophils # (A) 0.1 k/uL (0-0.7); Eosinophils % (A) 1 %; HGB 7.9 gm/dL (11.4-16.0); Hypochromasia Marked; Lymphocytes # (A) 0.6 k/uL (1.0-4.8); Lymphocytes % (A) 11 %; MCH 29.6 pg (25.0-35.0); MCHC 30.4 g/dL (31.0-37.0); MCV 97.6 fL (80.0-100.0); Macrocytosis Slight; Monocytes # (A) 0.3 k/uL (0-1.0); Monocytes % (A) 5 %; Neutrophils # (A) 4.3 k/uL (1.3-7.7); Neutrophils % (A) 80 %; Platelet Count 197 k/uL (150-450); Poikilocytosis Marked; RBC 2.66 m/uL (3.80-5.40); RDW 17.4 % (11.5-15.5); WBC 5.3 k/uL (3.8-10.6)
--- NOTE | 2021-04-23 12:47 | P.GSCN ---
History of Present Illness Consult date: 04/23/21 History of present illness: CHIEF COMPLAINT: This breath and weakness HISTORY OF PRESENT ILLNESS: The patient is a 70 year old female who presented to the emergency room with complaints of shortness of breath and weakness. Admitting labs showed a hemoglobin of 5.6 and she was transfused 2 units of PRBC transfusion. Gen. surgery was consulted for anemia with possible GI bleed. The patient was recently admitted a little over a week ago with similar complaints. Patient does have a history of atrial fibrillation on Eliquis which was held for short time during her last admission and patient was sent home. She reports last colonoscopy was over 5 years. She has history of colon polyps removed. She denies any abdominal pain. States she does have some mild cramping prior to having bowel movements. States her bowel movements have been normal pattern, states they have been black. Her repeat hemoglobin this morning was 7.0, pr imary medicine team ordering another unit of PRBC transfusion. Patient also noted to be hypotensive. She is afebrile. PAST MEDICAL HISTORY: Atrial fibrillation, COPD, diabetes mellitus, eye disorder, hyperlipidemia, hypertension, osteoarthritis, vascular disorder PAST SURGICAL HISTORY: Appendectomy, cholecystectomy, heart catheterization with stent, joint replacement, orthopedic surgery, tonsillectomy and tubal ligation MEDICATIONS: See list. ALLERGIES: See list. SOCIAL HISTORY: No illicit drug use. REVIEW OF SYSTEMS: CONSTITUTIONAL: Denies fever or chills. HEENT: Denies blurred vision, vision changes, or eye pain. Denies hemoptysis ENDOCRINE: Denies heat or cold intolerance. CARDIOVASCULAR: Denies chest pain or pressure. RESPIRATORY: As above, dyspnea on exertion. GASTROINTESTINAL: Denies abdominal pain. Denies nausea or vomiting. Reports black stools. Denies any hematochezia. Denies hematemesis. NEURO: Denies history of His crit seizures. PSYCH: No depression or suicidal ideation HEMATOLOGIC: Denies bleeding disorders. LYMPHATIC: The patient denies any lumps and bumps around the neck. GENITOURINARY: Denies any blood in urine or increased urinary frequency. MUSCULOSKELETAL: Denies myalgias. Denies joint swelling. Denies decreased range of motion beyond patients baseline. SKIN: Denies pruitis. Denies rash. PHYSICAL EXAM: VITAL SIGNS: Reviewed GENERAL: Well-developed in no acute distress. HEENT: No sclera icterus. Extraocular movements grossly intact. Moist buccal mucosa. Head is atraumatic, normocephalic. Hears conversational speech. No nasal drainage. NECK: Supple without lymphadenopathy. CHEST: Non-labored respirations and equal bilateral excursions. CARDIOVASCULAR: Palpable 2+ radial pulses. ABDOMEN: Soft. Nondistended. Nontender MUSCULOSKELETAL: No clubbing or cyanosis. NEUROLOGIC: No focal or lateralizing signs. Cranial nerves II through XII grossly intact. PSYCH: Appropriate affect. Alert and oriented to person, place and time. SKIN: Well perfused. Good skin turgor. LABORATORY DATA: WBC 5.3 hemoglobin 7.9 hematocrit 26 platelet count 197,000 Sodium 132 potassium 3.3 magnesium 2.4 BUN 50 creatinine 2.0 glucose 144 Troponin 0.092 IMAGING: Chest x-ray: Normal chest. No change ASSESSMENT: 1. Anemia with stool occult positive. 2. Chronic anticoagulation use 3. History of atrial fibrillation 4. COPD PLAN: - Clear liquid diet, nothing by mouth after midnight - Protonic 40 mg twice a day - Replace potassium - Agree with PRBC transfusion - Repeat CBC, BMP in the morning - Plan for EGD tomorrow Thank you for this consultation, and allowing us take part in the plan of care of your patient during her hospital stay. The impression and plan of care has been dictated as directed. Dr. Fontanez I performed a history and examination of this patient, discussed the same with the dictator. I agree with the dictator's note ,documented as a scribe. Any additional findings or plans will be noted. 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, History of Any Multi-Drug Resistant Organisms: None Reported Past Surgical History: Appendectomy, Cholecystectomy, Heart Catheterization With Stent, Joint Replacement, Orthopedic Surgery, Tonsillectomy, Tubal Ligation Additional Past Surgical History / Comment(s): mass in neck parotid gland removed, right hip replaced surgery, ruptured appendix- temporary colostomy with reversal, cataracts, stent in bilateral legs Past Anesthesia/Blood Transfusion Reactions: No Reported Reaction Date of Last Stent Placement:: 06/2019 Past Psychological History: No Psychological Hx Reported Smoking Status: Current every day smoker Past Alcohol Use History: None Reported Past Drug Use History: None Reported - Past Family History Mother Family Medical History: Congestive Heart Failure (CHF), Diabetes Mellitus Additional Family Medical History / Comment(s): Mother at the age of 86 from CAD/CHF /CABG X2 and DM2. Father Family Medical History: CVA/TIA, Myocardial Infarction (CA) Additional Family Medical History / Comment(s): Father at the age of 82 from CABGx4 and CVA Brother(s) Family Medical History: Diabetes Mellitus Additional Family Medical History / Comment(s): Patient has 4 brothers and one has diabetes mellitus type 2. Sister(s) Family Medical History: No Reported History Additional Family Medical History / Comment(s): Patient has 4 sisters. Daughter(s) Family Medical History: No Reported History Additional Family Medical History / Comment(s): Patient has 2 daughters with no major medical problems. Son(s) Family Medical History: No Reported History Additional Family Medical History / Comment(s): Patient has one son with no major medical problems. Medications and Allergies Home Medications Medication Instructions Recorded Confirmed Type Carisoprodol [Soma] 350 mg PO BID PRN 03/08/16 04/22/21 History Glimepiride [Amaryl] 4 mg PO BID 03/08/16 04/22/21 History HYDROcodone/APAP 5-325MG [[place] 1 tab PO Q8H PRN 03/08/16 04/22/21 History 5-325] Zolpidem Tartrate [Ambien] 10 mg PO HS 03/08/16 04/22/21 History Budesonide/Formoterol Fumarate 2 puff INHALATION RT-BID 10/23/19 04/22/21 H istory [Symbicort 160-4.5 Mcg Inhaler] Raloxifene [Evista] 60 mg PO DAILY 10/23/19 04/22/21 History Atorvastatin Calcium [Lipitor] 80 mg PO DAILY 10/24/19 04/22/21 History Metoprolol Succinate (ER) [Toprol 25 mg PO BID #60 tab.er.24h 11/08/19 04/22/21 Rx XL] Allopurinol [Zyloprim] 100 mg PO BID 07/14/20 04/22/21 History Apixaban [Eliquis] 2.5 mg PO BID 07/14/20 04/22/21 History Ergocalciferol [Vitamin D2 (1250 1,250 mcg PO FR 07/14/20 04/22/21 History Mcg = 38058 Iu)] Ferrous Sulfate [Iron (65 MG 325 mg PO DAILY 07/14/20 04/22/21 History Elemental)] Torsemide [Demadex] 40 mg PO BID 07/14/20 04/22/21 History Ezetimibe [Zetia] 10 mg PO DAILY 11/24/20 04/22/21 History calcitrioL [Calcitriol] 0.25 mcg PO Q7D 11/24/20 04/22/21 History Empagliflozin [Jardiance] 10 mg PO DAILY 04/10/21 04/22/21 History Triphrocaps 1 cap PO DAILY 04/22/21 04/22/21 History Allergies Allergy/AdvReac Type Severity Reaction Status Date / Time warfarin sodium Allergy "very high Verified 04/22/21 18:40 [From Coumadin] PT/INR-was told never to take" Surgical - Exam Vital Signs Temp Pulse Resp BP Pulse Ox 98.9 F 98 18 94/34 99 04/22/21 17:07 04/22/21 17:07 04/22/21 17:07 04/22/21 17:07 04/22/21 17:07 Results - Labs 04/23/21 10:56 04/23/21 05:41 Abnormal Lab Results - Last 24 Hours (Table) 04/22/21 04/22/21 04/22/21 Range/Units 17:59 17:59 17:59 RBC 1.95 L (3.80-5.40) m/uL Hgb 5.6 L* D (11.4-16.0) gm/dL Hct 19.5 L* (34.0-46.0) % MCV 100.3 H (80.0-100.0) fL MCHC 28.8 L (31.0-37.0) g/dL RDW 17.8 H (11.5-15.5) % Lymphocytes # 0.5 L (1.0-4.8) k/uL APTT 21.2 L (22.0-30.0) sec Sodium 129 L (137-145) mmol/L Potassium (3.5-5.1) mmol/L BUN 50 H (7-17) mg/dL Creatinine 1.99 H (0.52-1.04) mg/dL Glucose 263 H (74-99) mg/dL Calcium 7.8 L (8.4-10.2) mg/dL Magnesium 2.4 H (1.6-2.3) mg/dL Troponin I (0.000-0.034) ng/mL Total Protein 4.4 L (6.3-8.2) g/dL Albumin 2.6 L (3.5-5.0) g/dL Urine Appearance (Clear) Urine Glucose (UA) (Negative) Ur Leukocyte Esterase (Negative) Urine WBC (0-5) /hpf Urine Bacteria (None) /hpf Hyaline Casts (0-2) /lpf Urine Mucus (None) /hpf Stool Occult Blood (Negative) Crossmatch 04/22/21 04/22/21 04/22/21 Range/Units 17:59 19:01 23:27 RBC (3.80-5.40) m/uL Hgb (11.4-16.0) gm/dL Hct (34.0-46.0) % MCV (80.0-100.0) fL MCHC (31.0-37.0) g/dL RDW (11.5-15.5) % Lymphocytes # (1.0-4.8) k/uL APTT (22.0-30.0) sec Sodium (137-145) mmol/L Potassium (3.5-5.1) mmol/L BUN (7-17) mg/dL Creatinine (0.52-1.04) mg/dL Glucose (74-99) mg/dL Calcium (8.4-10.2) mg/dL Magnesium (1.6-2.3) mg/dL Troponin I 0.107 H* (0.000-0.034) ng/mL Total Protein (6.3-8.2) g/dL Albumin (3.5-5.0) g/dL Urine Appearance Cloudy H (Clear) Urine Glucose (UA) 4+ H (Negative) Ur Leukocyte Esterase Small H (Negative) Urine WBC 8 H (0-5) /hpf Urine Bacteria Rare H (None) /hpf Hyaline Casts 5 H (0-2) /lpf Urine Mucus Rare H (None) /hpf Stool Occult Blood (Negative) Crossmatch See Detail 04/23/21 04/23/21 04/23/21 Range/Units 01:25 01:37 02:54 RBC 2.45 L (3.80-5.40) m/uL Hgb 7.6 L D (11.4-16.0) gm/dL Hct 23.7 L (34.0-46.0) % MCV (80.0-100.0) fL MCHC (31.0-37.0) g/dL RDW 17.3 H (11.5-15.5) % Lymphocytes # 0.7 L (1.0-4.8) k/uL APTT (22.0-30.0) sec Sodium (137-145) mmol/L Potassium (3.5-5.1) mmol/L BUN (7-17) mg/dL Creatinine (0.52-1.04) mg/dL Glucose (74-99) mg/dL Calcium (8.4-10.2) mg/dL Magnesium (1.6-2.3) mg/dL Troponin I 0.113 H* (0.000-0.034) ng/mL Total Protein (6.3-8.2) g/dL Albumin (3.5-5.0) g/dL Urine Appearance (Clear) Urine Glucose (UA) (Negative) Ur Leukocyte Esterase (Negative) Urine WBC (0-5) /hpf Urine Bacteria (None) /hpf Hyaline Casts (0-2) /lpf Urine Mucus (None) /hpf Stool Occult Blood Positive H (Negative) Crossmatch 04/23/21 04/23/21 04/23/21 Range/Units 05:41 05:41 05:41 RBC 2.31 L (3.80-5.40) m/uL Hgb 7.0 L (11.4-16.0) gm/dL Hct 22.0 L (34.0-46.0) % MCV (80.0-100.0) fL MCHC (31.0-37.0) g/dL RDW 17.5 H (11.5-15.5) % Lymphocytes # 0.8 L (1.0-4.8) k/uL APTT (22.0-30.0) sec Sodium 132 L (137-145) mmol/L Potassium 3.3 L (3.5-5.1) mmol/L BUN 50 H (7-17) mg/dL Creatinine 2.00 H (0.52-1.04) mg/dL Glucose 144 H (74-99) mg/dL Calcium 8.1 L (8.4-10.2) mg/dL Magnesium (1.6-2.3) mg/dL Troponin I 0.092 H* (0.000-0.034) ng/mL Total Protein (6.3-8.2) g/dL Albumin (3.5-5.0) g/dL Urine Appearance (Clear) Urine Glucose (UA) (Negative) Ur Leukocyte Esterase (Negative) Urine WBC (0-5) /hpf Urine Bacteria (None) /hpf Hyaline Casts (0-2) /lpf Urine Mucus (None) /hpf Stool Occult Blood (Negative) Crossmatch Diabetes panel 04/22/21 04/23/21 Range/Units 17:59 05:41 Sodium 129 L 132 L (137-145) mmol/L Potassium 3.8 3.3 L (3.5-5.1) mmol/L Chloride 98 105 (98-107) mmol/L Carbon Dioxide 22 23 (22-30) mmol/L BUN 50 H 50 H (7-17) mg/dL Creatinine 1.99 H 2.00 H (0.52-1.04) mg/dL Glucose 263 H 144 H (74-99) mg/dL Calcium 7.8 L 8.1 L (8.4-10.2) mg/dL AST 24 (14-36) U/L ALT 13 (4-34) U/L Alkaline Phosphatase 48 (38-126) U/L Total Protein 4.4 L (6.3-8.2) g/dL Albumin 2.6 L (3.5-5.0) g/dL Calcium panel 04/22/21 04/23/21 Range/Units 17:59 05:41 Calcium 7.8 L 8.1 L (8.4-10.2) mg/dL Albumin 2.6 L (3.5-5.0) g/dL Pituitary panel 04/22/21 04/23/21 Range/Units 17:59 05:41 Sodium 129 L 132 L (137-145) mmol/L Potassium 3.8 3.3 L (3.5-5.1) mmol/L Chloride 98 105 (98-107) mmol/L Carbon Dioxide 22 23 (22-30) mmol/L BUN 50 H 50 H (7-17) mg/dL Creatinine 1.99 H 2.00 H (0.52-1.04) mg/dL Glucose 263 H 144 H (74-99) mg/dL Calcium 7.8 L 8.1 L (8.4-10.2) mg/dL Adrenal panel 04/22/21 04/23/21 Range/Units 17:59 05:41 Sodium 129 L 132 L (137-145) mmol/L Potassium 3.8 3.3 L (3.5-5.1) mmol/L Chloride 98 105 (98-107) mmol/L Carbon Dioxide 22 23 (22-30) mmol/L BUN 50 H 50 H (7-17) mg/dL Creatinine 1.99 H 2.00 H (0.52-1.04) mg/dL Glucose 263 H 144 H (74-99) mg/dL Calcium 7.8 L 8.1 L (8.4-10.2) mg/dL Total Bilirubin 0.3 (0.2-1.3) mg/dL AST 24 (14-36) U/L ALT 13 (4-34) U/L Alkaline Phosphatase 48 (38-126) U/L Total Protein 4.4 L (6.3-8.2) g/dL Albumin 2.6 L (3.5-5.0) g/dL
--- NOTE | 2021-04-23 13:00 | P.CNPUL ---
History of Present Illness Consult date: 04/23/21 Chief complaint: anemia History of present illness: This is a 71-year-old female patient who came into the ED because of generalized weakness and dizziness. The patient was found to have borderline low blood pressure and she was found to be profoundly anemic with a hemoglobin of 5.6. Apparently she was having some melanotic stool an outpatient basis for the past 1 week. The patient has had no recent endoscopies. Her previous EGD and col onoscopy was done many years back. She has since approximately atrial fibrillation the patient takes anticoagulation in the form of Eliquis. Her coagulation profile was normal. Platelet count was 197. The patient denies taking any form of nonsteroidal anti-inflammatory medication patient denies being alcoholic. No 71 peptic ulcer disease. There is stool was melanotic and the patient has no hematemesis. She remains hemodynamically stable in the emergency. She received a total of 3 units of packed RBC and the subsequent hemoglobin came up to 7.9. Dr. Jade Is Currently on the Case regarding EGD on This Patient. No Other Chest Pain. Altered Mentation. No Syncope. No Falls. No Abdominal Pain or Distention. No Other Complaints Otherwise for Now. The Patient Is Resting Comfortably in Her Bed at This Point in Time. Review of Systems Constitutional: Reports weakness Eyes: denies as per HPI, denies blurred vision, denies bulging eye, denies decreased vision, denies diplopia, denies discharge, denies dry eye, denies irritation, denies itching, denies pain, denies photophobia, denies loss of peripheral vision, denies loss of vision, denies tunnel vision/blind spots Ears: deny: decreased hearing, ear discharge, earache, tinnitus Ears, nose, mouth and throat: Reports as per HPI, Reports post-nasal drip Breasts: absent: as per HPI, change in shape, gynecomastia, masses, nipple discharge, pain, skin changes, swelling Cardiovascular: Reports decreased exercise tolerance, Reports dyspnea on exertion Respiratory: Reports dyspnea Gastrointestinal: Reports melena Genitourinary: Reports as per HPI Menstruation: Reports as per HPI Musculoskeletal: Reports as per HPI Musculoskeletal: absent: ankle pain, ankle stiffness, ankle swelling, as per HPI, elbow pain, elbow stiffness, elbow swelling, foot pain, foot stiffness, foot swelling, hand pain, hand stiffness, hand swelling, hip pain, hip stiffness, hip swelling, knee pain, knee stiffness, knee swelling, shoulder pain, shoulder stiffness, shoulder swelling, wrist pain, wrist stiffness, wrist swelling Integumentary: Reports as per HPI Neurological: Reports weakness Psychiatric: Reports as per HPI Endocrine: Reports as per HPI Hematologic/Lymphatic: Reports as per HPI 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, History of Any Multi-Drug Resistant Organisms: None Reported Past Surgical History: Appendectomy, Cholecystectomy, Heart Catheterization With Stent, Joint Replacement, Orthopedic Surgery, Tonsillectomy, Tubal Ligation Additional Past Surgical History / Comment(s): mass in neck parotid gland removed, right hip replaced surgery, ruptured appendix- temporary colostomy with reversal, cataracts, stent in bilateral legs Past Anesthesia/Blood Transfusion Reactions: No Reported Reaction Date of Last Stent Placement:: 06/2019 Past Psychological History: No Psychological Hx Reported Smoking Status: Current every day smoker Past Alcohol Use History: None Reported Past Drug Use History: None Reported - Past Family History Mother Family Medical History: Congestive Heart Failure (CHF), Diabetes Mellitus Additional Family Medical History / Comment(s): Mother at the age of 86 from CAD/CHF /CABG X2 and DM2. Father Family Medical History: CVA/TIA, Myocardial Infarction (MA) Additional Family Medical History / Comment(s): Father at the age of 82 from CABGx4 and CVA Brother(s) Family Medical History: Diabetes Mellitus Additional Family Medical History / Comment(s): Patient has 4 brothers and one has diabetes mellitus type 2. Sister(s) Family Medical History: No Reported History Additional Family Medical History / Comment(s): Patient has 4 sisters. Daughter(s) Family Medical History: No Reported History Additional Family Medical History / Comment(s): Patient has 2 daughters with no major medical problems. Son(s) Family Medical History: No Reported History Additional Family Medical History / Comment(s): Patient has one son with no major medical problems. Medications and Allergies Home Medications Medication Instructions Recorded Confirmed Type Carisoprodol [Soma] 350 mg PO BID PRN 03/08/16 04/22/21 History Glimepiride [Amaryl] 4 mg PO BID 03/08/16 04/22/21 History HYDROcodone/APAP 5-325MG [[place] 1 tab PO Q8H PRN 03/08/16 04/22/21 History 5-325] Zolpidem Tartrate [Ambien] 10 mg PO HS 03/08/16 04/22/21 History Budesonide/Formoterol Fumarate 2 puff INHALATION RT-BID 10/23/19 04/22/21 History [Symbicort 160-4.5 Mcg Inhaler] Raloxifene [Evista] 60 mg PO DAILY 10/23/19 04/22/21 History Atorvastatin Calcium [Lipitor] 80 mg PO DAILY 10/24/19 04/22/21 History Metoprolol Succinate (ER) [Toprol 25 mg PO BID #60 tab.er.24h 11/08/19 04/22/21 Rx XL] Allopurinol [Zyloprim] 100 mg PO BID 07/14/20 04/22/21 History Apixaban [Eliquis] 2.5 mg PO BID 07/14/20 04/22/21 History Ergocalciferol [Vitamin D2 (1250 1,250 mcg PO FR 07/14/20 04/22/21 History Mcg = 64772 Iu)] Ferrous Sulfate [Iron (65 MG 325 mg PO DAILY 07/14/20 04/22/21 History Elemental)] Torsemide [Demadex] 40 mg PO BID 07/14/20 04/22/21 History Ezetimibe [Zetia] 10 mg PO DAILY 11/24/20 04/22/21 History calcitrioL [Calcitriol] 0.25 mcg PO Q7D 11/24/20 04/22/21 History Empagliflozin [Jardiance] 10 mg PO DAILY 04/10/21 04/22/21 History Triphrocaps 1 cap PO DAILY 04/22/21 04/22/21 History Allergies Allergy/AdvReac Type Severity Reaction Status Date / Time warfarin sodium Allergy "very high Verified 04/22/21 18:40 [From Coumadin] PT/INR-was told never to take" Physical Exam Vitals: Vital Signs Temp Pulse Resp BP Pulse Ox 04/23/21 12:20 99.0 F 98 18 102/55 04/23/21 12:10 99.3 F 93 18 103/39 04/23/21 09:24 86/58 04/23/21 08:55 98 18 103/55 98 04/23/21 02:35 98.2 F 78 18 100/62 99 04/23/21 00:12 98.3 F 89 17 97/55 99 04/22/21 23:42 98.4 F 87 17 105/58 99 04/22/21 23:25 98.4 F 77 17 108/47 99 04/22/21 21:33 98.4 F 90 20 94/54 95 04/22/21 21:03 98.4 F 89 18 102/45 98 04/22/21 20:53 98.4 F 93 17 101/47 96 04/22/21 18:30 95 18 94/60 96 04/22/21 17:07 98.9 F 98 18 94/34 99 Intake and Output 04/22/21 04/23/21 04/23/21 22:59 06:59 14:59 Intake Total 0 620 0 Balance 0 620 0 Intake: Blood Product 0 620 0 Rc As-1 Unit 310 [id number] Rc As-1 Unit 0 [id number] Rc As-1 Unit 0 310 [id number] Other: Weight 87.997 kg The patient appeared well nourished and normally developed. Vital signs as documented. Head exam is unremarkable. No scleral icterus or corneal arcus noted. Neck is without jugular venous distension, thyromegaly, or carotid bruits . Carotid upstrokes are brisk bilaterally. Lungs are clear to auscultation and percussion. Cardiac exam reveals the PMI to be normally sized and situated. Rhythm is regular. First and second heart sounds normal. No murmurs, rubs or gallops. Abdominal exam reveals normal bowel sounds, no masses, no organomegaly and no aortic enlargement. Extremities are nonedematous and both femoral and pedal pulses are normal.Examination of the skin revealed no evidence of significant rashes, suspicious appearing nevi or other concerning lesions.Neurologically, the patient is awake and alert and the patient does not have any focal neurological deficit. Cranial nerves are essentially intact. Results - Laboratory Findings CBC and BMP: 04/23/21 10:56 04/23/21 05:41 PT/INR, D-dimer PT 10.2 sec (9.0-12.0) 04/22/21 17:59 INR 0.9 (<1.2) 04/22/21 17:59 Abnormal lab findings: Abnormal Labs 04/22/21 04/22/21 04/22/21 17:59 17:59 17:59 RBC 1.95 L Hgb 5.6 L* D Hct 19.5 L* MCV 100.3 H MCHC 28.8 L RDW 17.8 H Lymphocytes # 0.5 L APTT 21.2 L Sodium 129 L Potassium BUN 50 H Creatinine 1.99 H Glucose 263 H Calcium 7.8 L Magnesium 2.4 H Troponin I Total Protein 4.4 L Albumin 2.6 L Urine Appearance Urine Glucose (UA) Ur Leukocyte Esterase Urine WBC Urine Bacteria Hyaline Casts Urine Mucus Stool Occult Blood Crossmatch 04/22/21 04/22/21 04/22/21 17:59 19:01 23:27 RBC Hgb Hct MCV MCHC RDW Lymphocytes # APTT Sodium Potassium BUN Creatinine Glucose Calcium Magnesium Troponin I 0.107 H* Total Protein Albumin Urine Appearance Cloudy H Urine Glucose (UA) 4+ H Ur Leukocyte Esterase Small H Urine WBC 8 H Urine Bacteria Rare H Hyaline Casts 5 H Urine Mucus Rare H Stool Occult Blood Crossmatch See Detail 04/23/21 04/23/21 04/23/21 01:25 01:37 02:54 RBC 2.45 L Hgb 7.6 L D Hct 23.7 L MCV MCHC RDW 17.3 H Lymphocytes # 0.7 L APTT Sodium Potassium BUN Creatinine Glucose Calcium Magnesium Troponin I 0.113 H* Total Protein Albumin Urine Appearance Urine Glucose (UA) Ur Leukocyte Esterase Urine WBC Urine Bacteria Hyaline Casts Urine Mucus Stool Occult Blood Positive H Crossmatch 04/23/21 04/23/21 04/23/21 05:41 05:41 05:41 RBC 2.31 L Hgb 7.0 L Hct 22.0 L MCV MCHC RDW 17.5 H Lymphocytes # 0.8 L APTT Sodium 132 L Potassium 3.3 L BUN 50 H Creatinine 2.00 H Glucose 144 H Calcium 8.1 L Magnesium Troponin I 0.092 H* Total Protein Albumin Urine Appearance Urine Glucose (UA) Ur Leukocyte Esterase Urine WBC Urine Bacteria Hyaline Casts Urine Mucus Stool Occult Blood Crossmatch 04/23/21 10:56 RBC 2.66 L Hgb 7.9 L Hct 26.0 L MCV MCHC 30.4 L RDW 17.4 H Lymphocytes # 0.6 L APTT Sodium Potassium BUN Creatinine Glucose Calcium Magnesium Troponin I Total Protein Albumin Urine Appearance Urine Glucose (UA) Ur Leukocyte Esterase Urine WBC Urine Bacteria Hyaline Casts Urine Mucus Stool Occult Blood Crossmatch Assessment and Plan Plan: 1 upper GI bleeding of a subacute in nature. The patient's hemoglobin was down to 5.6 at time of admission. The patient received a total of 3 units of packed RBC and the patient's hemoglobin is up to 7.9. She is hemodynamically stable.. No hematemesis. Eliquis is currently on hold 2 blood loss anemia, being transfused with packed RBC. 3 COPD 4 history of atrial fibrillation current rhythm is sinus and the patient remai mary on Eliquis 5 history of congestion heart failure 6 diabetes mellitus 7 legal blindness 8 hypertension 9 osteoarthritis 10 chronic kidney disease, with a baseline creatinine of around 1.8-2 consistent with stage IV chronic kidney disease 11 coronary artery disease, with a limited troponin leak as the patient was profoundly anemic. No EKG changes in patient's history of any chest pain. Plan This patient's condition is stable for now. The patient has been transfused with packed RBC. No signs of any acute bleeding and Eliquis has been discontinued. General surgeries on the case. For all this reasons, the patient is stable and the patient can be transferred to a medical surgical floor with remote telemetry. There is some limited troponin leak. Needs to be monitored. This is probably related to the profound anemia that the patient encountered with her GI bleeding. She is free of any angina. No cardiac arrhythmias have been noted. Overall cardiovascular status is stable. 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 The patient will be kept nothing by mouth for now. Continue IV fluids and the patient is currently on gentle IV fluid resuscitation with normal saline at the rate of 50 mL an hour. Showed a received a total of 3 L. We'll admit to the medical floor with remote telemetry. Pulmonary and critical care services will see it only on an as-needed basis. We will cover this patient with IV Protonix. GI consultation, general surgery consultation for EGD within next 24 hours.
[2021-04-23] MEDS ORDERED: FUROSEMIDE 10 MG/ML 2 ML VIAL IV STA (13:09)
[2021-04-23] MEDS ORDERED: PEG 3350-NA SULF,BICARB,CL/KCL 4,000 ML BOTTLE PO ONE (14:23)
--- NOTE | 2021-04-23 15:00 | P.HPIM ---
History of Present Illness H&P Date: 04/23/21 HISTORY OF PRESENT ILLNESS This is a 71-year-old white female patient with a previous medical history significant for chronic systolic heart failure with severe cardiomyopathy with EF of 20-25%, valvular heart disease with moderate MR and TR, paroxysmal atrial fibrillation on eliquis, hypertension and hypertensive cardiovascular disease, mixed hyperlipidemia, diabetes mellitus type 2, diabetic polyneuropathy, chronic tobacco use and dependence, COPD, and chronic pain syndrome due to severe osteo arthritis in both hips and 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, chronic kidney disease stage III. Patient has history of acute blood loss anemia from suspected GI source, status post EGD and colonoscopy along with capsule endoscopy without finding a source of bleeding. Testing all done by Dr. Neha Hurt 02/2020. Patient subsequently underwent GRAB JACK MAN of the right SFA on 11/[address] Lau and on long-term anticoagulation with eliquis. Heart catheterization 12/2019 showed mid LCx disease which was stented and started on dual antiplatelet therapy at that time and was also started on eliquis at that time for paroxysmal atrial fibrillation. Patient states that she developed black diarrhea for about 1 week and then started vomiting yesterday. She denies having any cough and no chest pain. She was hospitalized over the weekend after she was found to have a hemoglobin of 6.5 and was transfused 2 units of packed RBCs, eliquis was placed on hold patient requested to be discharged home. Patient returned to [facility] emergency center for evaluation and found to have a hemoglobin of 5.6. She was transfused 2 units packed RBCs with hemoglobin of 7.6 followed by 7. 0-1/3 unit of packed RBCs ordered. Patient was hypotensive in the emergency center with an status post 2 500 mL fluid boluses. Patient states that she feels stronger after having transfusion. Eliquis is on hold. Patient has been seen by multiple consultants including Dr. Jade with plan for EGD thank you and colonoscopy scheduled for tomorrow. Patient's been seen by pulmonary medicine as well. Patient is seen today in the emergency center waiting for a bed on the [facility] floor as patient has been downgraded by Dr. Martinez. REVIEW OF SYSTEMS Constitutional: No fever, no chills, no night sweats. No weight change. Reports weakness, reports fatigue no lethargy. No daytime sleepiness. EENT: No headache. No blurred vision or double vision, no loss of vision. No loss of Hearing, no ringing in the ears, no dizziness. No nasal drainage or congestion. No epistaxis. No sore throat. Lungs: No shortness of breath, cough, no sputum production. No wheezing. Cardiovascular: No chest pain, no lower extremity edema. No palpitations. No paroxysmal nocturnal dyspnea. No orthopnea. No lightheadedness or dizziness. No syncopal episodes. Abdominal: No abdominal pain. No nausea, vomiting. Reports diarrhea. No constipation. Reports bloody or tarry stools. No loss of appetite. Genitourinary: No dysuria, increased frequency, urgency. No urinary retention. Musculoskeletal: No myalgias. Reports muscle weakness, no gait dysfunction, no frequent falls. No back pain. No neck pain. Integumentary: No wounds, no lesions. No rash or pruritus. No unusual bruising. No change in hair or nails. Neurologic: No aphasia. No facial droop. No change in mentation. No head injury. No headache. No paralysis. No paresthesia. Psychiatric: No depression. No anxiety. No mood swings. Endocrine: No abnormal blood sugars. No weight change. No excessive sweating or thirst. No cold intolerance. MEDICAL HISTORY Chronic systolic heart failure Severe cardiomyopathy with EF of 20-25% Valvular heart disease with moderate MR and TR Paroxysmal atrial fibrillation Hypertension hypertensive cardiovascular disease Hyperlipidemia Diabetes mellitus type 2 Diabetic polyneuropathy Tobacco use and dependence COPD Degenerative disc disease of the lumbar spine Osteoarthritis bilateral hips Chronic pain syndrome Chronic kidney disease stage III Peripheral vascular disease GI bleed SURGICAL HISTORY EGD, colonoscopy, capsule endoscopy 02/2020 Appendectomy Cholecystectomy Heart catheterization and stent Tonsillectomy Tubal ligation Parotid gland resection Right hip arthroplasty Colostomy with reversal Cataract removal and intraocular lens implants PCI right SFA SOCIAL HISTORY Patient is a smoker of half a pack per day for 50 years. No alcohol use, marijuana or illicit drug use. FAMILY HISTORY Father at age 82 from CABG 4 in CVA. Mother at age 86 from coronary artery disease, heart failure, history of CABG 2 vessels and diabetes mellitus type 2. Patient has 4 brothers and one has diabetes type 2. Patient has 4 sisters. Patient has 2 daughters with no major medical problems and one son with no major medical problems.. PHYSICAL EXAMINATION Gen: This is a 71-year-old female. Patient is sitting up on the edge of the bed and appears to be comfortable and in no acute distress. HEENT: Head is atraumatic, normocephalic. Pupils equal, round. Sclerae is anicteric. NECK: Supple. No JVD. No lymphadenopathy. No thyromegaly. LUNGS: Decreased breath sounds bilaterally with few scattered rhonchi and minimal expiratory wheeze, no intercostal retractions, no chest wall tenderness. HEART: First heart sound is depressed, second heart sound is normal, SALOME 2/6 at the left sternal border. ABDOMEN: Soft. Bowel sounds are present. No masses. No tenderness. EXTREMITIES: No pedal edema. No calf tenderness. NEUROLOGICAL: Patient is awake, alert and oriented x3. Cranial nerves 2 through 12 are grossly intact. Muscle power 4/5 in the upper and lower extremities. ASSESSMENT AND PLAN 1. Acute blood loss anemia most likely from upper GI source. Patient is status post transfusion of 3 units of packed RBCs. Monitor CBC every 6 hours and transfuse as appropriate. 2. Acute GI bleed. Consult with Gen. surgery appreciated. Patient is schedul ed tomorrow for EGD and colonoscopy. Continue Protonix 40 mg IV push twice daily. 3. Hypotension secondary to acute blood loss, status post 500 mL fluid bolus 2. Monitor blood pressure closely. 4. Hypokalemia status post replacement. 5. Elevated troponins. Cardiology consult. 6. Severe peripheral artery disease with bilateral lower extremity intermittent claudication status post GRAB JACK MAN right SFA, status post stenting of the left popliteal artery, stenting of the left SFA. Hold aspirin 81 mg daily, Eliquis 2.5 mg twice daily. 7. History of coronary artery disease with chronic systolic heart failure and ischemic cardiomyopathy post LCx stent placement. Hold Metoprolol ER 25 mg oral ly twice a day due to hypotension, continue Lipitor 80 mg orally daily, and hold Demadex. 8. Paroxysmal atrial fibrillation. Hold Metoprolol ER 25 mg orally bid and Eliquis. 9. Chronic kidney disease stage 3, stable. 10. COPD without exacerbation. Continue Symbicort 160/4.5 mcg 2 puffs inhalation bid. 11. Hospitalization February 2020 for acute blood loss anemia presenting with hemoglobin of 6.5 status post transfusion. EGD and colonoscopy failed to find source of bleeding 12. Hypertension and hypertensive cardiovascular disease. Hold Metoprolol ER 25 mg orally bid.. 13. Hyperlipidemia. we will continue with Lipitor 80 mg orally daily. 14. Diabetes mellitus type 2. Continue with Amaryl 4 mg twice daily, Jardiance 10 mg daily . 15. DDD of the Lumber spine with OA. we will continue with Dallas 5/325 mg orally as needed and Soma 350 mg orally bid. 16. DVT prophylaxis. Bilateral knee high Zane hose. 12. GI Prophylaxis. we will continue with protonix 40 mg IVP daily. 13. Tobacco use and dependence. Continue nicotine patch. 14. COVID-19 testing negative. Patient has been hospitalized during a pandemic. Patient will be admitted to the hospital for a minimum of 2 night stay. DISCHARGE PLAN TBD. Impression and plan of care have been directed as dictated by the signing physician. Ami Hanna nurse practitioner acting as scribe for signing physician. 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, History of Any Multi-Drug Resistant Organisms: None Reported Past Surgical History: Appendectomy, Cholecystectomy, Heart Catheterization With Stent, Joint Replacement, Orthopedic Surgery, Tonsillectomy, Tubal Ligation Additional Past Surgical History / Comment(s): mass in neck parotid gland removed, right hip replaced surgery, ruptured appendix- temporary colostomy with reversal, cataracts, stent in bilateral legs Past Anesthesia/Blood Transfusion Reactions: No Reported Reaction Date of Last Stent Placement:: 06/2019 Past Psychological History: No Psychological Hx Reported Smoking Status: Current every day smoker Past Alcohol Use History: None Reported Past Drug Use History: None Reported - Past Family History Mother Family Medical History: Congestive Heart Failure (CHF), Diabetes Mellitus Additional Family Medical History / Comment(s): Mother at the age of 86 from CAD/CHF /CABG X2 and DM2. Father Family Medical History: CVA/TIA, Myocardial Infarction (ID) Additional Family Medical History / Comment(s): Father at the age of 82 from CABGx4 and CVA Brother(s) Family Medical History: Diabetes Mellitus Additional Family Medical History / Comment(s): Patient has 4 brothers and one has diabetes mellitus type 2. Sister(s) Family Medical History: No Reported History Additional Family Medical History / Comment(s): Patient has 4 sisters. Daughter(s) Family Medical History: No Reported History Additional Family Medical History / Comment(s): Patient has 2 daughters with no major medical problems. Son(s) Family Medical History: No Reported History Additional Family Medical History / Comment(s): Patient has one son with no major medical problems. Medications and Allergies Home Medications Medication Instructions Recorded Confirmed Type Carisoprodol [Soma] 350 mg PO BID PRN 03/08/16 04/22/21 History Glimepiride [Amaryl] 4 mg PO BID 03/08/16 04/22/21 History HYDROcodone/APAP 5-325MG [[place] 1 tab PO Q8H PRN 03/08/16 04/22/21 History 5-325] Zolpidem Tartrate [Ambien] 10 mg PO HS 03/08/16 04/22/21 History Budesonide/Formoterol Fumarate 2 puff INHALATION RT-BID 10/23/19 04/22/21 History [Symbicort 160-4.5 Mcg Inhaler] Raloxifene [Evista] 60 mg PO DAILY 10/23/19 04/22/21 History Atorvastatin Calcium [Lipitor] 80 mg PO DAILY 10/24/19 04/22/21 History Metoprolol Succinate (ER) [Toprol 25 mg PO BID #60 tab.er.24h 11/08/19 04/22/21 Rx XL] Allopurinol [Zyloprim] 100 mg PO BID 07/14/20 04/22/21 History Apixaban [Eliquis] 2.5 mg PO BID 07/14/20 04/22/21 History Ergocalciferol [Vitamin D2 (1250 1,250 mcg PO FR 07/14/20 04/22/21 History Mcg = 24368 Iu)] Ferrous Sulfate [Iron (65 MG 325 mg PO DAILY 07/14/20 04/22/21 History Elemental)] Torsemide [Demadex] 40 mg PO BID 07/14/20 04/22/21 History Ezetimibe [Zetia] 10 mg PO DAILY 11/24/20 04/22/21 History calcitrioL [Calcitriol] 0.25 mcg PO Q7D 11/24/20 04/22/21 History Empagliflozin [Jardiance] 10 mg PO DAILY 04/10/21 04/22/21 History Triphrocaps 1 cap PO DAILY 04/22/21 04/22/21 History Allergies Allergy/AdvReac Type Severity Reaction Status Date / Time warfarin sodium Allergy "very high Verified 04/22/21 18:40 [From Coumadin] PT/INR-was told never to take" Physical Exam Vitals: Vital Signs Temp Pulse Resp BP Pulse Ox 04/23/21 12:20 99.0 F 98 18 102/55 04/23/21 12:10 99.3 F 93 18 103/39 04/23/21 09:24 86/58 04/23/21 08:55 98 18 103/55 98 04/23/21 02:35 98.2 F 78 18 100/62 99 04/23/21 00:12 98.3 F 89 17 97/55 99 04/22/21 23:42 98.4 F 87 17 105/58 99 04/22/21 23:25 98.4 F 77 17 108/47 99 04/22/21 21:33 98.4 F 90 20 94/54 95 04/22/21 21:03 98.4 F 89 18 102/45 98 04/22/21 20:53 98.4 F 93 17 101/47 96 04/22/21 18:30 95 18 94/60 96 04/22/21 17:07 98.9 F 98 18 94/34 99 Intake and Output 04/22/21 04/23/21 04/23/21 22:59 06:59 14:59 Intake Total 0 620 0 Balance 0 620 0 Intake: Blood Product 0 620 0 Rc As-1 Unit 310 [id number] Rc As-1 Unit 0 [id number] Rc As-1 Unit 0 310 [id number] Other: Weight 87.997 kg Results CBC & Chem 7: 04/23/21 10:56 04/23/21 05:41 Labs: Abnormal Lab Results - Last 24 Hours (Table) 04/22/21 04/22/21 04/22/21 Range/Units 17:59 17:59 17:59 RBC 1.95 L (3.80-5.40) m/uL Hgb 5.6 L* D (11.4-16.0) gm/dL Hct 19.5 L* (34.0-46.0) % MCV 100.3 H (80.0-100.0) fL MCHC 28.8 L (31.0-37.0) g/dL RDW 17.8 H (11.5-15.5) % Lymphocytes # 0.5 L (1.0-4.8) k/uL APTT 21.2 L (22.0-30.0) sec Sodium 129 L (137-145) mmol/L Potassium (3.5-5.1) mmol/L BUN 50 H (7-17) mg/dL Creatinine 1.99 H (0.52-1.04) mg/dL Glucose 263 H (74-99) mg/dL Calcium 7.8 L (8.4-10.2) mg/dL Magnesium 2.4 H (1.6-2.3) mg/dL Troponin I (0.000-0.034) ng/mL Total Protein 4.4 L (6.3-8.2) g/dL Albumin 2.6 L (3.5-5.0) g/dL Urine Appearance (Clear) Urine Glucose (UA) (Negative) Ur Leukocyte Esterase (Negative) Urine WBC (0-5) /hpf Urine Bacteria (None) /hpf Hyaline Casts (0-2) /lpf Urine Mucus (None) /hpf Stool Occult Blood (Negative) Crossmatch 04/22/21 04/22/21 04/22/21 Range/Units 17:59 19:01 23:27 RBC (3.80-5.40) m/uL Hgb (11.4-16.0) gm/dL Hct (34.0-46.0) % MCV (80.0-100.0) fL MCHC (31.0-37.0) g/dL RDW (11.5-15.5) % Lymphocytes # (1.0-4.8) k/uL APTT (22.0-30.0) sec Sodium (137-145) mmol/L Potassium (3.5-5.1) mmol/L BUN (7-17) mg/dL Creatinine (0.52-1.04) mg/dL Glucose (74-99) mg/dL Calcium (8.4-10.2) mg/dL Magnesium (1.6-2.3) mg/dL Troponin I 0.107 H* (0.000-0.034) ng/mL Total Protein (6.3-8.2) g/dL Albumin (3.5-5.0) g/dL Urine Appearance Cloudy H (Clear) Urine Glucose (UA) 4+ H (Negative) Ur Leukocyte Esterase Small H (Negative) Urine WBC 8 H (0-5) /hpf Urine Bacteria Rare H (None) /hpf Hyaline Casts 5 H (0-2) /lpf Urine Mucus Rare H (None) /hpf Stool Occult Blood (Negative) Crossmatch See Detail 04/23/21 04/23/21 04/23/21 Range/Units 01:25 01:37 02:54 RBC 2.45 L (3.80-5.40) m/uL Hgb 7.6 L D (11.4-16.0) gm/dL Hct 23.7 L (34.0-46.0) % MCV (80.0-100.0) fL MCHC (31.0-37.0) g/dL RDW 17.3 H (11.5-15.5) % Lymphocytes # 0.7 L (1.0-4.8) k/uL APTT (22.0-30.0) sec Sodium (137-145) mmol/L Potassium (3.5-5.1) mmol/L BUN (7-17) mg/dL Creatinine (0.52-1.04) mg/dL Glucose (74-99) mg/dL Calcium (8.4-10.2) mg/dL Magnesium (1.6-2.3) mg/dL Troponin I 0.113 H* (0.000-0.034) ng/mL Total Protein (6.3-8.2) g/dL Albumin (3.5-5.0) g/dL Urine Appearance (Clear) Urine Glucose (UA) (Negative) Ur Leukocyte Esterase (Negative) Urine WBC (0-5) /hpf Urine Bacteria (None) /hpf Hyaline Casts (0-2) /lpf Urine Mucus (None) /hpf Stool Occult Blood Positive H (Negative) Crossmatch 04/23/21 04/23/21 04/23/21 Range/Units 05:41 05:41 05:41 RBC 2.31 L (3.80-5.40) m/uL Hgb 7.0 L (11.4-16.0) gm/dL Hct 22.0 L (34.0-46.0) % MCV (80.0-100.0) fL MCHC (31.0-37.0) g/dL RDW 17.5 H (11.5-15.5) % Lymphocytes # 0.8 L (1.0-4.8) k/uL APTT (22.0-30.0) sec Sodium 132 L (137-145) mmol/L Potassium 3.3 L (3.5-5.1) mmol/L BUN 50 H (7-17) mg/dL Creatinine 2.00 H (0.52-1.04) mg/dL Glucose 144 H (74-99) mg/dL Calcium 8.1 L (8.4-10.2) mg/dL Magnesium (1.6-2.3) mg/dL Troponin I 0.092 H* (0.000-0.034) ng/mL Total Protein (6.3-8.2) g/dL Albumin (3.5-5.0) g/dL Urine Appearance (Clear) Urine Glucose (UA) (Negative) Ur Leukocyte Esterase (Negative) Urine WBC (0-5) /hpf Urine Bacteria (None) /hpf Hyaline Casts (0-2) /lpf Urine Mucus (None) /hpf Stool Occult Blood (Negative) Crossmatch 04/23/21 Range/Units 10:56 RBC 2.66 L (3.80-5.40) m/uL Hgb 7.9 L (11.4-16.0) gm/dL Hct 26.0 L (34.0-46.0) % MCV (80.0-100.0) fL MCHC 30.4 L (31.0-37.0) g/dL RDW 17.4 H (11.5-15.5) % Lymphocytes # 0.6 L (1.0-4.8) k/uL APTT (22.0-30.0) sec Sodium (137-145) mmol/L Potassium (3.5-5.1) mmol/L BUN (7-17) mg/dL Creatinine (0.52-1.04) mg/dL Glucose (74-99) mg/dL Calcium (8.4-10.2) mg/dL Magnesium (1.6-2.3) mg/dL Troponin I (0.000-0.034) ng/mL Total Protein (6.3-8.2) g/dL Albumin (3.5-5.0) g/dL Urine Appearance (Clear) Urine Glucose (UA) (Negative) Ur Leukocyte Esterase (Negative) Urine WBC (0-5) /hpf Urine Bacteria (None) /hpf Hyaline Casts (0-2) /lpf Urine Mucus (None) /hpf Stool Occult Blood (Negative) Crossmatch
[2021-04-23] MEDS: NON FORMULARY DRUG (Empagliflozin [Jardiance] 10 MG Tablet) PO SCH (16:36)
[2021-04-23] MEDS: NICOTINE 14MG/24HR PATCH TRANSDERM SCH (16:55)
[2021-04-23] MEDS: SODIUM CHLORIDE 0.9% 500 ML 500 ML IV SCH (16:56)
[2021-04-23 18:11] LABS: Anisocytosis Slight; Basophils % (A) 0 %; Eosinophils % (A) 1 %; HCT 28.4 % (34.0-46.0); HGB 8.8 gm/dL (11.4-16.0); Hypochromasia Marked; Lymphocytes # (A) 0.6 k/uL (1.0-4.8); Lymphocytes % (A) 13 %; MCH 29.7 pg (25.0-35.0); MCHC 31.2 g/dL (31.0-37.0); MCV 95.4 fL (80.0-100.0); Macrocytosis Slight; Monocytes # (A) 0.2 k/uL (0-1.0); Monocytes % (A) 4 %; Neutrophils # (A) 3.5 k/uL (1.3-7.7); Neutrophils % (A) 80 %; Platelet Count 184 k/uL (150-450); Poikilocytosis Marked; RBC 2.98 m/uL (3.80-5.40); RDW 16.9 % (11.5-15.5); WBC 4.5 k/uL (3.8-10.6)
[2021-04-23] MEDS: HYDROcodone/APAP 5-325MG 1 EACH TAB PO PRN (20:32)
[2021-04-23 20:39] LABS: Glucose,Whole Blood 201 mg/dL (75-99)
[2021-04-24] MEDS: SYMBICORT 160-4.5 MCG INHALER INHALATION SCH ×2 (07:32→20:04)
[2021-04-24] MEDS: FERROUS SULFATE 325 MG TAB PO SCH (07:41)
[2021-04-24] MEDS: GLIMEPIRIDE 4 MG TAB PO SCH ×2 (07:41→20:10)
[2021-04-24] MEDS: EZETIMIBE 10 MG TAB PO SCH (07:42)
[2021-04-24] MEDS: allopurinoL 100 MG TAB PO SCH ×2 (07:48→20:10)
[2021-04-24] MEDS: ATORVASTATIN 80 MG TAB PO SCH (07:48)
[2021-04-24] MEDS: NON FORMULARY DRUG (Empagliflozin [Jardiance] 10 MG Tablet) PO SCH (07:49)
[2021-04-24] MEDS: RALOXIFENE 60 MG TAB PO SCH (07:49)
[2021-04-24] MEDS: NICOTINE 14MG/24HR PATCH TRANSDERM SCH (07:50)
[2021-04-24] MEDS: PANTOPRAZOLE 40 MG/10 ML VIAL IVP SCH ×2 (07:50→20:26)
[2021-04-24] MEDS ORDERED: ERGOCALCIFEROL 1,250 MCG (50,000 IU) CAPSULE PO SCH (09:00)
[2021-04-24] MEDS: HYDROcodone/APAP 5-325MG 1 EACH TAB PO PRN ×2 (09:39→19:12)
--- NOTE | 2021-04-24 10:08 | P.CRDCN ---
History of Present Illness History of present illness: HISTORY OF PRESENTING ILLNESS This is a pleasant 71-year-old female past medical history significant for coronary artery disease status post PCI mid circumflex in 12/2019, ischemic cardiomyopathy, hypertension, dyslipidemia, type 2 diabetes, former smoker, paroxysmal atrial fibrillation, peripheral artery disease status post PRODUCTION CONTROL SPECIALIST of the right SFA 11/2020, legally blind. She follows in the office with Dr. Lau. We have been asked to see in consultation for elevated troponin. Patient presents emergency department on 04/22/2021 with complaints of fatigue, dizziness, and dark stools. Patient was recently admitted on 04/10/2021 for severe anemia as well with GI bleed, her Eliquis was held. She states she did not take it for a few days, However, outpatient, patient states she restarted taking the Eliquis. She has not followed up with Dr. Lau since 02/2021, unclear why she restarted h er Eliquis. This admission, she was found to be hypotensive and a hemoglobin of 5.6. She has received 3 units of PRBCs. Plan for patient to undergo EGD today. She states that she has quit smoking. She denies alcohol use. She denies any history of stroke, seizure. Patient denies any chest pain, shortness of breath, lightheadedness, dizziness, syncope or presyncope. She denies any bleeding in her urine. She denies any symptoms of orthopnea or PND. DIAGNOSTICS EKG reveals sinus rhythm, heart rate 96, no significant ST or T-wave abnormalities. Telemetry tracings indicate sinus mechanism Chest xray no acute cardiopulmonary process Laboratory reviewed, troponin 0.10, 0.11, 0.092. Sodium 132, potassium 3.3, BUN 50, serum creatinine 2.0, stool occult positive, WBC 4.5, hemoglobin 8.8, pl atelets 184. Most recent echocardiogram in the office 05/2020 revealed an EF 40%, moderate left ventricular hypertrophy, mild to moderate mitral regurgitation, mild tricuspid regurgitation Current home medications include Eliquis 2.5 mg twice a day, allopurinol, atorvastatin 80 mg daily, Zetia 10 mg daily, metoprolol succinate 25 mg twice a day REVIEW OF SYSTEMS At the time of my exam: CONSTITUTIONAL: Denies fever or chills. CARDIOVASCULAR: Denies chest pain, shortness of breath, orthopnea, PND or palpitations. RESPIRATORY: Denies cough. GASTROINTESTINAL: Denies abdominal pain, diarrhea, constipation, nausea or vomiting. MUSCULOSKELETAL: Denies myalgias. NEUROLOGIC: Denies numbness, tingling, headacbe or weakness. ENDOCRINE: positive fatigue and tired. Denies weight change, polydipsia or polyurina. GENITOURINARY: Denies burning, hematuria or urgency with micturation. HEMATOLOGIC: Denies history of anemia or bleeding. PHYSICAL EXAMINATION Blood pressure 96/58, heart rate 97, afebrile oxygen saturation 95% on room air CONSTITUTIONAL: No apparent distress. HEENT: Head is normocephalic. Pupils are equal, round. Sclerae anicteric. Mucous membranes of the mouth are moist. No JVD. No carotid bruit. CHEST EXAMINATION: Lungs are clear to auscultation. No chest wall tenderness is noted on palpation or with deep breathing. HEART EXAMINATION: Regular rate and rhythm. S1, S2 heard. Systolic murmur at apex. ABDOMEN: Soft, nontender. Positive bowel sounds. EXTREMITIES: 2+ peripheral pulses, no lower extremity edema and no calf tenderness. NEUROLOGIC EXAMINATION: Patient is awake, alert and oriented x3. ASSESSMENT Severe anemia with GI bleed Paroxysmal atrial fibrillation [id number] score 6, anticoagulation on hold due to GI bleed. History of coronary disease status post PCI mid circumflex in 12/2019 Ischemic cardiomyopathy EF of 40% Mild troponin elevation with no evidence to suggest acute coronary syndrome, most likely due to demand/supply mismatch to due to anemia History of peripheral artery disease status post PRODUCTION CONTROL SPECIALIST of the right SFA 11/2020 Type 2 diabetes History of hypertension, hypertensive inpatient History of hyperlipidemia Former nicotine dependence PLAN From cardiology perspective, hold anticoagulation at this time in view of anemia. Continue the rest of her medical regimen. No absolute contraindication to undergo EGD from a cardiology perspective. We'll follow the patient as needed. Please reach out with any further questions or concerns. Recommend follow up with Dr. Lau next week patient has a scheduled appointment on 04/28/21 at 09:45AM. Nurse Practitioner note has been reviewed, I agree with a documented findings and plan of care. Patient was seen and examined. 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, History of Any Multi-Drug Resistant Organisms: None Reported Past Surgical History: Appendectomy, Cholecystectomy, Heart Catheterization With Stent, Joint Replacement, Orthopedic Surgery, Tonsillectomy, Tubal Ligation Additional Past Surgical History / Comment(s): mass in neck parotid gland removed, right hip replaced surgery, ruptured appendix- temporary colostomy with reversal, cataracts, stent in bilateral legs Past Anesthesia/Blood Transfusion Reactions: No Reported Reaction Date of Last Stent Placement:: 06/2019 Past Psychological History: No Psychological Hx Reported Smoking Status: Current every day smoker Past Alcohol Use History: None Reported Past Drug Use History: None Reported - Past Family History Mother Family Medical History: Congestive Heart Failure (CHF), Diabetes Mellitus Additional Family Medical History / Comment(s): Mother at the age of 86 from CAD/CHF /CABG X2 and DM2. Father Family Medical History: CVA/TIA, Myocardial Infarction (ND) Additional Family Medical History / Comment(s): Father at the age of 82 from CABGx4 and CVA Brother(s) Family Medical History: Diabetes Mellitus Additional Family Medical History / Comment(s): Patient has 4 brothers and one has diabetes mellitus type 2. Sister(s) Family Medical History: No Reported History Additional Family Medical History / Comment(s): Patient has 4 sisters. Daughter(s) Family Medical History: No Reported History Additional Family Medical History / Comment(s): Patient has 2 daughters with no major medical problems. Son(s) Family Medical History: No Reported History Additional Family Medical History / Comment(s): Patient has one son with no major medical problems. Medications and Allergies Home Medications Medication Instructions Recorded Confirmed Type Carisoprodol [Soma] 350 mg PO BID PRN 03/08/16 04/22/21 History Glimepiride [Amaryl] 4 mg PO BID 03/08/16 04/22/21 History HYDROcodone/APAP 5-325MG [[place] 1 tab PO Q8H PRN 03/08/16 04/22/21 History 5-325] Zolpidem Tartrate [Ambien] 10 mg PO HS 03/08/16 04/22/21 History Budesonide/Formoterol Fumarate 2 puff INHALATION RT-BID 10/23/19 04/22/21 History [Symbicort 160-4.5 Mcg Inhaler] Raloxifene [Evista] 60 mg PO DAILY 10/23/19 04/22/21 History Atorvastatin Calcium [Lipitor] 80 mg PO DAILY 10/24/19 04/22/21 History Metoprolol Succinate (ER) [Toprol 25 mg PO BID #60 tab.er.24h 11/08/19 04/22/21 Rx XL] Allopurinol [Zyloprim] 100 mg PO BID 07/14/20 04/22/21 History Apixaban [Eliquis] 2.5 mg PO BID 07/14/20 04/22/21 History Ergocalciferol [Vitamin D2 (1250 1,250 mcg PO FR 07/14/20 04/22/21 History Mcg = 10978 Iu)] Ferrous Sulfate [Iron (65 MG 325 mg PO DAILY 07/14/20 04/22/21 History Elemental)] Torsemide [Demadex] 40 mg PO BID 07/14/20 04/22/21 History Ezetimibe [Zetia] 10 mg PO DAILY 11/24/20 04/22/21 History calcitrioL [Calcitriol] 0.25 mcg PO Q7D 11/24/20 04/22/21 History Empagliflozin [Jardiance] 10 mg PO DAILY 04/10/21 04/22/21 History Triphrocaps 1 cap PO DAILY 04/22/21 04/22/21 History Allergies Allergy/AdvReac Type Severity Reaction Status Date / Time warfarin sodium Allergy "very high Verified 04/22/21 18:40 [From Coumadin] PT/INR-was told never to take" Physical Exam Vitals: Vital Signs Temp Pulse Pulse Resp BP BP BP 04/24/21 04:30 98.5 F 97 20 96/58 04/23/21 20:00 18 04/23/21 19:58 97.7 F 110 H 18 107/50 04/23/21 19:31 104 H 18 116/69 04/23/21 14:00 98.8 F 18 124/62 04/23/21 12:50 98.9 F 92 18 114/72 04/23/21 12:20 99.0 F 98 18 102/55 04/23/21 12:10 99.3 F 93 18 103/39 Pulse Ox 04/24/21 04:30 95 04/23/21 20:00 04/23/21 19:58 98 04/23/21 19:31 96 04/23/21 14:00 96 04/23/21 12:50 04/23/21 12:20 04/23/21 12:10 Intake and Output 04/23/21 04/24/21 04/24/21 22:59 06:59 14:59 Intake Total 260 0 Output Total 1 Balance 260 -1 Intake: Intake, IV Titration 60 Amount Sodium Chloride 0.9% 500 60 ml 500 ml @ 20 mls/hr IV .Q24H [facility] Rx#:[id number] Oral 200 0 Output: Urine/Stool Mix 1 Other: Voiding Method Toilet # Voids 1 # Bowel Movements 4 2 Weight 88 kg Results 04/23/21 17:55 04/23/21 05:41 CBC 04/23/21 04/23/21 Range/Units 10:56 17:55 WBC 5.3 4.5 (3.8-10.6) k/uL RBC 2.66 L 2.98 L (3.80-5.40) m/uL Hgb 7.9 L 8.8 L (11.4-16.0) gm/dL Hct 26.0 L 28.4 L (34.0-46.0) % Plt Count 197 184 (150-450) k/uL Current Medications Generic Name Dose Route Start Last Admin Trade Name Freq PRN Reason Stop Dose Admin Hydrocodone Bitart/Acetaminophen 1 each 04/22/21 23:38 04/24/21 09:39 Hydrocodone/Apap 5-325mg 1 Each Tab PO 1 each Q8H PRN Administration Pain Allopurinol 100 mg 04/23/21 09:00 04/24/21 07:48 Allopurinol 100 Mg Tab PO Not Given BID [facility] Atorvastatin Calcium 80 mg 04/23/21 09:00 04/24/21 07:48 Atorvastatin 80 Mg Tab PO Not Given DAILY [facility] Budesonide/Formoterol Fumarate 2 puff 04/23/21 08:00 04/24/21 07:32 Symbicort 160-4.5 Mcg Inhaler INHALATION 2 puff RT-BID [facility] Administration Calcitriol 0.25 mcg 04/28/21 09:00 Calcitriol 0.25 Mcg Cap PO Q7D [facility] Carisoprodol 350 mg 04/23/21 09:00 04/23/21 01:41 Carisoprodol 350 Mg Tab PO 350 mg BID PRN Administration Muscle Spasm Ezetimibe 10 mg 04/23/21 09:00 04/24/21 07:42 Ezetimibe 10 Mg Tab PO Not Given DAILY [facility] Ergocalciferol 1,250 mcg 04/24/21 09:00 04/24/21 07:49 Ergocalciferol 1,250 Mcg (50,000 Iu) Capsule PO Not Given FR [facility] Ferrous Sulfate 325 mg 04/23/21 09:00 04/24/21 07:41 Ferrous Sulfate 325 Mg Tab PO Not Given DAILY [facility] Glimepiride 4 mg 04/23/21 09:00 04/24/21 07:41 Glimepiride 4 Mg Tab PO Not Given BID [facility] Sodium Chloride 500 mls @ 20 mls/hr 04/23/21 13:00 04/23/21 16:56 Saline 0.9% IV 20 mls/hr .Q24H [facility] Administration Naloxone HCl 0.2 mg 04/22/21 19:57 Naloxone 0.4 Mg/Ml 1 Ml Vial IV Q2M PRN Opioid Reversal Nicotine 1 patch 04/23/21 15:00 04/24/21 07:50 Nicotine 14mg/24hr Patch TRANSDERM 1 patch DAILY [facility] Administration Non-Formulary Medication 10 mg 04/23/21 09:00 04/24/21 07:49 Empagliflozin [Jardiance] PO Not Given DAILY [facility] Pantoprazole Sodium 40 mg 04/23/21 09:15 04/24/21 07:50 Pantoprazole 40 Mg/10 Ml Vial IVP 40 mg BID [facility] Administration Raloxifene HCl 60 mg 04/23/21 09:00 04/24/21 07:49 Raloxifene 60 Mg Tab PO Not Given DAILY [facility] Zolpidem Tartrate 10 mg 04/22/21 23:45 04/23/21 20:32 Zolpidem 5 Mg Tab PO 10 mg HS [facility] Administration Intake and Output 04/23/21 04/24/21 04/24/21 22:59 06:59 14:59 Intake Total 260 0 Output Total 1 Balance 260 -1 Intake: Intake, IV Titration 60 Amount Sodium Chloride 0.9% 500 60 ml 500 ml @ 20 mls/hr IV .Q24H [facility] Rx#:[id number] Oral 200 0 Output: Urine/Stool Mix 1 Other: Voiding Method Toilet # Voids 1 # Bowel Movements 4 2 Weight 88 kg 04/23/21 17:55 04/23/21 05:41
[2021-04-24 11:45] LABS: African American GFR (CKD) 29 (>60 ml/min/1.73 sqM); Anion Gap 2 mmol/L; Blood Urea Nitrogen 40 mg/dL (7-17); Calcium 8.2 mg/dL (8.4-10.2); Carbon Dioxide 26 mmol/L (22-30); Chloride 107 mmol/L (98-107); Glucose 66 mg/dL (74-99); Non-African American GFR(CKD) 25 (>60 ml/min/1.73 sqM); Sodium 135 mmol/L (137-145)
[2021-04-24 12:02] LABS: Anisocytosis Slight; Basophils % (A) 0 %; Eosinophils % (A) 1 %; HCT 26.7 % (34.0-46.0); HGB 8.3 gm/dL (11.4-16.0); Hypochromasia Marked; Lymphocytes # (A) 0.7 k/uL (1.0-4.8); Lymphocytes % (A) 15 %; MCH 30.2 pg (25.0-35.0); MCHC 31.2 g/dL (31.0-37.0); MCV 96.8 fL (80.0-100.0); Macrocytosis Slight; Mean Platelet Volume 9.2; Monocytes # (A) 0.2 k/uL (0-1.0); Monocytes % (A) 5 %; Neutrophils # (A) 3.7 k/uL (1.3-7.7); Neutrophils % (A) 78 %; Platelet Count 183 k/uL (150-450); Poikilocytosis Marked; RBC 2.76 m/uL (3.80-5.40); WBC 4.7 k/uL (3.8-10.6)
[2021-04-24 12:07] LABS: Glucose,Whole Blood 76 mg/dL (75-99)
[2021-04-24] MEDS: POTASSIUM CHLORIDE 10 MEQ in WATER FOR INJECTION 1 100ML.BAG IVPB SCH ×4 (13:07→19:37)
[2021-04-24] MEDS: SODIUM CHLORIDE 0.9% 500 ML 500 ML IV SCH (13:17)
[2021-04-24] MEDS ORDERED: POTASSIUM CHLORIDE ER 20 MEQ TAB.ER PO STA (13:33)
--- NOTE | 2021-04-24 13:35 | P.PN ---
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 Patient has history of acute blood loss anemia from suspected GI source, status post EGD and colonoscopy along with capsule endoscopy without finding a source of bleeding. Testing all done by Dr. Neha Hurt 02/2020. Patient subsequently underwent STULL HEWER of the right SFA on 11/[address] Lau and on long-term anticoagulation with eliquis. Heart catheter ization 12/2019 showed mid LCx disease which was stented and started on dual antiplatelet therapy at that time and was also started on eliquis at that time for paroxysmal atrial fibrillation. Patient states that she developed black diarrhea for about 1 week and then started vomiting yesterday. She denies having any cough and no chest pain. She was hospitalized over the weekend after she was found to have a hemoglobin of 6.5 and was transfused 2 units of packed RBCs, eliquis was placed on hold patient requested to be discharged home. Patient returned to [facility] emergency center for evaluation and found to have a hemoglobin of 5.6. She was transfused 2 units packed RBCs with hemoglobin of 7.6 followed by 7. 0-1/3 unit of packed RBCs ordered. Patient was hypotensive in the emergency center with an status post 2 500 mL fluid boluses. Patient states that she feels stronger after having transfusion. Eliquis is on hold. Patient has been seen by multiple consultants including Dr. Jade with plan for EGD thank you and colonoscopy scheduled for tomorrow. Patient's been seen by pulmonary medicine as well. Patient is seen today in the emergency center waiting for a bed on the [facility] floor as patient has been downgraded by Dr. Martinez. 04/24: Patient is laying down in bed she appears a bit weaker today, she denies any chest pain, or shortness breath, she has been seen in consultation by cardiology because of elevation of her troponin, she has no abdominal pain, she did not have any further bleeding, she did receive a total of 3 units of packed red blood cells, she is scheduled to go for an EGD and colonoscopy after that, we will replace her potassium. REVIEW OF SYSTEMS Constitutional: No fever, no chills, no night sweats. No weight change. Reports weakness, reports fatigue no lethargy. No daytime sleepiness. EENT: No headache. No blurred vision or double vision, no loss of vision. No loss of Hearing, no ringing in the ears, no dizziness. No nasal drainage or congestion. No epistaxis. No sore throat. Lungs: No shortness of breath, cough, no sputum production. No wheezing. Cardiovascular: No chest pain, no lower extremity edema. No palpitations. No paroxysmal nocturnal dyspnea. No orthopnea. No lightheadedness or dizziness. No syncopal episodes. Abdominal: No abdominal pain. No nausea, vomiting. Reports diarrhea. No constipation. Reports bloody or tarry stools. No loss of appetite. Genitourinary: No dysuria, increased frequency, urgency. No urinary retention. Musculoskeletal: No myalgias. Reports muscle weakness, no gait dysfunction, no frequent falls. No back pain. No neck pain. Integumentary: No wounds, no lesions. No rash or pruritus. No unusual bruising. No change in hair or nails. Neurologic: No aphasia. No facial droop. No change in mentation. No head injury. No headache. No paralysis. No paresthesia. Psychiatric: No depression. No anxiety. No mood swings. Endocrine: No abnormal blood sugars. No weight change. No excessive sweating or thirst. No cold intolerance. PHYSICAL EXAMINATION Gen: This is a 71-year-old female. Patient is sitting up on the edge of the bed and appears to be comfortable and in no acute distress. HEENT: Head is atraumatic, normocephalic. Pupils equal, round. Sclerae is anicteric. NECK: Supple. No JVD. No lymphadenopathy. No thyromegaly. LUNGS: Decreased breath sounds bilaterally with few scattered rhonchi and minimal expiratory wheeze, no intercostal retractions, no chest wall tenderness. HEART: First heart sound is depressed, second heart sound is normal, SALOME 2/6 at the left sternal border. ABDOMEN: Soft. Bowel sounds are present. No masses. No tenderness. EXTREMITIES: No pedal edema. No calf tenderness. NEUROLOGICAL: Patient is awake, alert and oriented x3. Cranial nerves 2 through 12 are grossly intact. Muscle power 4/5 in the upper and lower extremities. ASSESSMENT AND PLAN 1. Acute blood loss anemia most likely from upper GI source. Patient is status post transfusion of 3 units of packed RBCs. Monitor CBC every 6 hours and transfuse as appropriate. 2. Acute GI bleed. Consult with Gen. surgery appreciated. Patient is scheduled for EGD and colonoscopy. Continue Protonix 40 mg IV push twice daily. 3. Hypotension secondary to acute blood loss, status post 500 mL fluid bolus 2. Monitor blood pressure closely. 4. Hypokalemia status post replacement. 5. Elevated troponins. Cardiology consult. 6. Severe peripheral artery disease with bilateral lower extremity intermittent claudication status post STULL HEWER right SFA, status post stenting of the left popliteal artery, stenting of the left SFA. Hold aspirin 81 mg daily, Eliquis 2.5 mg twice daily. 7. History of coronary artery disease with chronic systolic heart failure and ischemic cardiomyopathy post LCx stent placement. Hold Metoprolol ER 25 mg orally twice a day due to hypotension, continue Lipitor 80 mg orally daily, and hold Demadex. 8. Paroxysmal atrial fibrillation. Hold Metoprolol ER 25 mg orally bid and Eliquis. 9. Chronic kidney disease stage 3, stable. 10. COPD without exacerbation. Continue Symbicort 160/4.5 mcg 2 puffs inhalation bid. 11. Hospitalization February 2020 for acute blood loss anemia presenting with hemoglobin of 6.5 status post transfusion. EGD and colonoscopy failed to find source of bleeding 12. Hypertension and hypertensive cardiovascular disease. Hold Metoprolol ER 25 mg orally bid.. 13. Hyperlipidemia. we will continue with Lipitor 80 mg orally daily. 14. Diabetes mellitus type 2. Continue with Amaryl 4 mg twice daily, Jardiance 10 mg daily . 15. DDD of the Lumber spine with OA. we will continue with [place] 5/325 mg orally as needed and Soma 350 mg orally bid. 16. DVT prophylaxis. Bilateral knee high Zane hose. 12. GI Prophylaxis. we will continue with protonix 40 mg IVP daily. 13. Tobacco use and dependence. Continue nicotine patch. 14. COVID-19 testing negative. Patient has been hospitalized during a pandemic. Objective - Vital Signs Vital signs: Vital Signs Temp 98.5 F 04/24/21 04:30 Pulse 97 04/24/21 04:30 Resp 20 04/24/21 04:30 BP 96/58 04/24/21 04:30 Pulse Ox 95 04/24/21 04:30 Intake & Output 04/23/21 04/24/21 04/24/21 18:59 06:59 18:59 Intake Total 310 260 Output Total 1 Balance 310 259 Weight 88 kg Intake: Intake, IV Titration 60 Amount Sodium Chloride 0.9% 500 60 ml 500 ml @ 20 mls/hr IV .Q24H [facility] Rx#:[id number] Oral 200 Blood Product 310 Rc As-1 Unit 310 [id number] Output: Urine/Stool Mix 1 Other: Voiding Method Toilet # Voids 1 # Bowel Movements 2 - Labs CBC & Chem 7: 04/24/21 10:51 04/24/21 10:51 Labs: Abnormal Lab Results - Last 24 Hours (Table) 04/22/21 04/22/21 04/23/21 Range/Units 19:01 23:27 05:41 RBC (3.80-5.40) m/uL Hgb (11.4-16.0) gm/dL Hct (34.0-46.0) % MCHC (31.0-37.0) g/dL RDW (11.5-15.5) % Lymphocytes # (1.0-4.8) k/uL Sodium 132 L (137-145) mmol/L Potassium 3.3 L (3.5-5.1) mmol/L BUN 50 H (7-17) mg/dL Creatinine 2.00 H (0.52-1.04) mg/dL Glucose 144 H (74-99) mg/dL POC Glucose (mg/dL) (75-99) mg/dL Calcium 8.1 L (8.4-10.2) mg/dL Urine Appearance Cloudy H (Clear) Urine Glucose (UA) 4+ H (Negative) Ur Leukocyte Esterase Small H (Negative) Urine WBC 8 H (0-5) /hpf Urine Bacteria Rare H (None) /hpf Hyaline Casts 5 H (0-2) /lpf Urine Mucus Rare H (None) /hpf Crossmatch See Detail 11/11/21 11/11/21 11/11/21 Range/Units 10:56 17:55 20:37 RBC 2.66 L 2.98 L (3.80-5.40) m/uL Hgb 7.9 L 8.8 L (11.4-16.0) gm/dL Hct 26.0 L 28.4 L (34.0-46.0) % MCHC 30.4 L (31.0-37.0) g/dL RDW 17.4 H 16.9 H (11.5-15.5) % Lymphocytes # 0.6 L 0.6 L (1.0-4.8) k/uL Sodium (137-145) mmol/L Potassium (3.5-5.1) mmol/L BUN (7-17) mg/dL Creatinine (0.52-1.04) mg/dL Glucose (74-99) mg/dL POC Glucose (mg/dL) 201 H (75-99) mg/dL Calcium (8.4-10.2) mg/dL Urine Appearance (Clear) Urine Glucose (UA) (Negative) Ur Leukocyte Esterase (Negative) Urine WBC (0-5) /hpf Urine Bacteria (None) /hpf Hyaline Casts (0-2) /lpf Urine Mucus (None) /hpf Crossmatch
--- NOTE | 2021-04-24 13:50 | P.PN ---
Subjective Progress Note Date: 04/24/21 This is a 71-year-old female patient who came into the ED because of generalized weakness and dizziness. The patient was found to have borderline low blood pressure and she was found to be profoundly anemic with a hemoglobin of 5.6. Apparently she was having some melanotic stool an outpatient basis for the past 1 week. The patient has had no recent endoscopies. Her previous EGD and colonoscopy was done many years back. She has since approximately atrial fibrillation the patient takes anticoagulation in the form of Eliquis. Her coagulation profile was normal. Platelet count was 197. The patient denies taking any form of nonsteroidal anti-inflammatory medication patient denies being alcoholic. No 71 peptic ulcer disease. There is stool was melanotic and the patient has no hematemesis. She remains hemodynamically stable in the emergency. She received a total of 3 units of packed RBC and the subsequent hemoglobin came up to 7.9. Dr. Jade Is Currently on the Case regarding EGD on This Patient. No Other Chest Pain. Altered Mentation. No Syncope. No Falls. No Abdominal Pain or Distention. No Other Complaints Otherwise for Now. The Patient Is Resting Comfortably in Her Bed at This Point in Time. The patient is seen today 03/24/2021 in follow-up on the regular medical floor. She is currently resting comfortably in bed. Awake and alert in no acute distress. No worsening shortness of breath, cough or congestion. She is maintaining good O2 saturations in the 90s on room air. Denies any abdominal discomfort. She is status post 3 units of packed red blood cells this admission. Current hemoglobin 8.3. White count 4.7. Platelets 183. Sodium 135. Potassium 3.0. Creatinine 1.99. She remains on IV Protonix twice a day. The plan is for EGD/colonoscopy. Objective - Vital Signs Vital signs: Vital Signs Temp 98.7 F 04/24/21 12:00 Pulse 105 H 04/24/21 12:00 Resp 17 04/24/21 12:00 BP 113/69 04/24/21 12:00 Pulse Ox 95 04/24/21 12:00 Intake & Output 04/23/21 04/24/21 04/24/21 18:59 06:59 18:59 Intake Total 310 260 Output Total 1 Balance 310 259 Weight 88 kg Intake: Intake, IV Titration 60 Amount Sodium Chloride 0.9% 500 60 ml 500 ml @ 20 mls/hr IV .Q24H [facility] Rx#:[id number] Oral 200 Blood Product 310 Rc As-1 Unit 310 [id number] Output: Urine/Stool Mix 1 Other: Voiding Method Toilet # Voids 1 1 # Bowel Movements 2 - Exam The patient is a very pleasant 71-year-old female patient who appears well nourished and normally developed. Vital signs as documented. Head exam is unremarkable. No scleral icterus or corneal arcus noted. Neck is without jugular venous distension, thyromegaly, or carotid bruits. Carotid upstrokes are brisk bilaterally. Lungs are clear to auscultation and percussion. Cardiac exam reveals the PMI to be normally sized and situated. Rhythm is regular. First and second heart sounds normal. No murmurs, rubs or gallops. Abdominal exam reveals normal bowel sounds, no masses, no organomegaly and no aortic enlargement. Extremities are nonedematous and both femoral and pedal pulses are normal.Examination of the skin revealed no evidence of significant rashes, suspicious appearing nevi or other concerning lesions.Neurologically, the patient is awake and alert and the patient does not have any focal neurological deficit. Cranial nerves are essentially intact. - Labs CBC & Chem 7: 04/24/21 10:51 04/24/21 10:51 Labs: Abnormal Lab Results - Last 24 Hours (Table) 04/22/21 04/23/21 04/23/21 Range/Units 19:01 17:55 20:37 RBC 2.98 L (3.80-5.40) m/uL Hgb 8.8 L (11.4-16.0) gm/dL Hct 28.4 L (34.0-46.0) % RDW 16.9 H (11.5-15.5) % Lymphocytes # 0.6 L (1.0-4.8) k/uL Sodium (137-145) mmol/L Potassium (3.5-5.1) mmol/L BUN (7-17) mg/dL Creatinine (0.52-1.04) mg/dL Glucose (74-99) mg/dL POC Glucose (mg/dL) 201 H (75-99) mg/dL Calcium (8.4-10.2) mg/dL Crossmatch See Detail 11/12/21 11/12/21 Range/Units 10:51 10:51 RBC 2.76 L (3.80-5.40) m/uL Hgb 8.3 L (11.4-16.0) gm/dL Hct 26.7 L (34.0-46.0) % RDW 17.0 H (11.5-15.5) % Lymphocytes # 0.7 L (1.0-4.8) k/uL Sodium 135 L (137-145) mmol/L Potassium 3.0 L (3.5-5.1) mmol/L BUN 40 H (7-17) mg/dL Creatinine 1.99 H (0.52-1.04) mg/dL Glucose 66 L (74-99) mg/dL POC Glucose (mg/dL) (75-99) mg/dL Calcium 8.2 L (8.4-10.2) mg/dL Crossmatch Assessment and Plan Assessment: 1 upper GI bleeding of a subacute in nature. The patient's hemoglobin was down to 5.6 at time of admission. The patient received a total of 3 units of packed RBC and the patient's hemoglobin is up to 8.3. She is hemodynamically stable.. No hematemesis. Eliquis is currently on hold 2 blood loss anemia, received 3 units of packed red blood cells. 3 COPD 4 history of atrial fibrillation current rhythm is sinus and the patient remained on Eliquis 5 history of congestion heart failure 6 diabetes mellitus 7 legal blindness 8 hypertension 9 osteoarthritis 10 chronic kidney disease, with a baseline creatinine of around 1.8-2 consistent with stage IV chronic kidney disease 11 coronary artery disease, with a limited troponin leak as the patient was profoundly anemic. No EKG changes in patient's history of any chest pain. Plan: The patient was seen and evaluated by Dr. Martinez She is currently stable from the pulmonary standpoint On room air, continuing on Symbicort and albuterol Awaiting EGD/colonoscopy We will see as needed I, the cosigning physician, performed a history & physical examination of the patient. Lungs sounds are clear. Maintaining good O2 saturations in the 90s on room air. I discussed the assessment and plan of care with my nurse practitioner, Shonda Rabago. I attest to the above note as dictated by her.
[2021-04-24] MEDS ORDERED: IV FLUID CONTINUATION 1,000 ML IV ONE (15:26)
[2021-04-24] MEDS ORDERED: PHENYLEPHRINE-0.9% NACL SYG 1,000 MCG/10 ML SYRINGE ONE (15:30)
[2021-04-24] MEDS ORDERED: PROPOFOL 10 MG/ML 20 ML VIAL IV ONE (15:30)
--- NOTE | 2021-04-24 16:25 | P.PCN ---
Date of Procedure: 04/24/21 Description of Procedure: PREOPERATIVE DIAGNOSIS: Acute gastrointestinal bleeding Positive stool occult blood Status post blood transfusions Anticoagulant use POSTOPERATIVE DIAGNOSIS: Acute gastrointestinal bleeding Positive stool occult blood Status post blood transfusions Anticoagulant use OPERATION: Esophagogastroduodenoscopy SURGEON: Sherlyn Fontanez MD ANESTHESIA: MAC. INDICATIONS: The patient is a 71-year-old female who presents with acute gastrointestinal bleeding. Benefits and risks of the procedure were described. Informed consent was obtained. DESCRIPTION: The patient was brought into the endoscopy suite and laid in the left lateral decubitus position. An Olympus gastroscope was passed along the posterior oropharynx down to the distal esophagus where the squamocolumnar junction was encountered at 35 cm from the incisors. The stomach was entered and reflux was found. Additional findings are listed below. The first through third portion of the duodenum was examined and unremarkable. Retroflexion of the scope confirmed Hill grade 2 lower esophageal valve. The squamocolumnar junction demonstrated LA grade A erosive esophagitis. The stomach was desufflated. The patient tolerated the procedure well. FINDINGS: Squamocolumnar junction 35 cm from the incisors. Diaphragmatic hiatus at 35 cm. Hill grade 2 lower esophageal valve. LA grade A erosive esophagitis. No active duodenitis. No stigmata of bleeding RECOMMENDATIONS: 1. Diet as tolerated 2. Upper endoscopy as needed
--- NOTE | 2021-04-24 16:31 | P.PCN ---
Date of Procedure: 04/24/21 Description of Procedure: PREOPERATIVE DIAGNOSIS: Acute blood loss anemia status post transfusion Positive occult stool Gastrointestinal bleeding with hematochezia POSTOPERATIVE DIAGNOSIS: Acute blood loss anemia status post transfusion Positive occult stool Gastrointestinal bleeding with hematochezia Small bowel gastrointestinal bleed OPERATION: Colonoscopy to the cecum, ileocecal valve and appendiceal orifice SURGEON: Sherlyn Fontanez MD. ANESTHESIA: MAC. INDICATIONS: The patient is a 71-year-old female who presents with gastrointestinal bleeding status post blood transfusion. Benefits and risks were described and informed consent was obtained. DESCRIPTION OF PROCEDURE: The patient had undergone attempted Golytely prep 2 L. The patient had been brought into the operating room and laid in the left lateral decubitus position. After adequate intravenous sedation, the rectum was examined with 2% lidocaine jelly. External hemorrhoid was found. The rectal tone was normal limits. Moderate darrel blood clots were found throughout the colon. An Olympus colonoscope was gently advanced to the cecum with clear visualization of the ileocecal valve including appendiceal orifice. No moderate sigmoid diverticulosis was found. Fresh blood was found emanating from the ileocecal valve consistent with small bowel bleed. No active colonic bleeding was found. No intraluminal masses were identified within the colon. No large colonic polyps were found. No evidence of focal colitis was found. Retroflexion of the scope demonstrated grade 1 internal hemorrhoids with recent inflammation. The colon was desufflated. The patient had tolerated the procedure well. Withdrawal time was over 6 minutes. FINDINGS: Aronchick preparation quality scale 3 (1-5) limitation due to fresh bleeding with blood clots Internal hemorrhoids, grade 1 No thrombosed hemorrhoid identified. No arteriovenous malformations. No adenomatous polyps. No focal colitis. No moderate sigmoid diverticulosis was found. Fresh blood was found emanating from the ileocecal valve consistent with small bowel bleed. RECOMMENDATIONS: 1. Diet as tolerated 2. Avoid anticoagulants with small bowel bleed. 3. May benefit from capsule endoscopy or push enteroscopy Plan - Discharge Summary New Discharge Prescriptions: No Action HYDROcodone/APAP 5-325MG [Laura 5-325] 1 tab PO Q8H PRN PRN Reason: Pain Carisoprodol [Soma] 350 mg PO BID PRN PRN Reason: Muscle Spasm Zolpidem Tartrate [Ambien] 10 mg PO HS Glimepiride [Amaryl] 4 mg PO BID Raloxifene [Evista] 60 mg PO DAILY Budesonide/Formoterol Fumarate [Symbicort 160-4.5 Mcg Inhaler] 2 puff I NHALATION RT-BID Atorvastatin Calcium [Lipitor] 80 mg PO DAILY Metoprolol Succinate (ER) [Toprol XL] 25 mg PO BID #60 tab.er.24h Apixaban [Eliquis] 2.5 mg PO BID Ferrous Sulfate [Iron (65 MG Elemental)] 325 mg PO DAILY Ergocalciferol [Vitamin D2 (1250 Mcg = 70316 Iu)] 1,250 mcg PO FR Torsemide [Demadex] 40 mg PO BID Allopurinol [Zyloprim] 100 mg PO BID Empagliflozin [Jardiance] 10 mg PO DAILY Ezetimibe [Zetia] 10 mg PO DAILY calcitrioL [Calcitriol] 0.25 mcg PO Q7D Triphrocaps 1 cap PO DAILY Discharge Medication List Carisoprodol [Soma] 350 mg PO BID PRN 03/08/16 [History] Glimepiride [Amaryl] 4 mg PO BID 03/08/16 [History] HYDROcodone/APAP 5-325MG [Laura 5-325] 1 tab PO Q8H PRN 03/08/16 [History] Zolpidem Tartrate [Ambien] 10 mg PO HS 03/08/16 [History] Budesonide/Formoterol Fumarate [Symbicort 160-4.5 Mcg Inhaler] 2 puff INHALATION RT-BID 10/23/19 [History] Raloxifene [Evista] 60 mg PO DAILY 10/23/19 [History] Atorvastatin Calcium [Lipitor] 80 mg PO DAILY 10/24/19 [History] Metoprolol Succinate (ER) [Toprol XL] 25 mg PO BID #60 tab.er.24h 11/08/19 [Rx] Allopurinol [Zyloprim] 100 mg PO BID 07/14/20 [History] Apixaban [Eliquis] 2.5 mg PO BID 07/14/20 [History] Ergocalciferol [Vitamin D2 (1250 Mcg = 61090 Iu)] 1,250 mcg PO FR 07/14/20 [History] Ferrous Sulfate [Iron (65 MG Elemental)] 325 mg PO DAILY 07/14/20 [History] Torsemide [Demadex] 40 mg PO BID 07/14/20 [History] Ezetimibe [Zetia] 10 mg PO DAILY 11/24/20 [History] calcitrioL [Calcitriol] 0.25 mcg PO Q7D 11/24/20 [History] Empagliflozin [Jardiance] 10 mg PO DAILY 04/10/21 [History] Triphrocaps 1 cap PO DAILY 04/22/21 [History] Follow up Appointment(s)/Referral(s): Franc Frero MD [Primary Care Provider] - 1-2 days Tato Lau MD [STAFF PHYSICIAN] - 04/28/21 9:45 am
[2021-04-24 17:53] LABS: Glucose,Whole Blood 261 mg/dL (75-99)
[2021-04-24 19:37] LABS: Glucose,Whole Blood 383 mg/dL (75-99)
[2021-04-24] MEDS: METOPROLOL SUCCINATE (ER) 25 MG TAB.ER.24H PO SCH (20:11)
[2021-04-24] MEDS: ZOLPIDEM 5 MG TAB PO SCH (20:11)
[2021-04-25] MEDS: HYDROcodone/APAP 5-325MG 1 EACH TAB PO PRN ×2 (05:29→19:23)
[2021-04-25 06:54] LABS: Glucose,Whole Blood 184 mg/dL (75-99)
[2021-04-25] MEDS: SYMBICORT 160-4.5 MCG INHALER INHALATION SCH ×2 (07:40→19:40)
[2021-04-25 08:11] LABS: Anisocytosis Slight; Basophils % (A) 0 %; Eosinophils # (A) 0.1 k/uL (0-0.7); Eosinophils % (A) 2 %; HCT 25.1 % (34.0-46.0); HGB 7.6 gm/dL (11.4-16.0); Hypochromasia Marked; Lymphocytes # (A) 0.7 k/uL (1.0-4.8); Lymphocytes % (A) 17 %; MCH 30.1 pg (25.0-35.0); MCHC 30.4 g/dL (31.0-37.0); MCV 99.2 fL (80.0-100.0); Macrocytosis Slight; Monocytes # (A) 0.2 k/uL (0-1.0); Monocytes % (A) 6 %; Neutrophils # (A) 2.9 k/uL (1.3-7.7); Neutrophils % (A) 73 %; Platelet Count 160 k/uL (150-450); Poikilocytosis Marked; RBC 2.53 m/uL (3.80-5.40); WBC 3.9 k/uL (3.8-10.6)
[2021-04-25] MEDS: NICOTINE 14MG/24HR PATCH TRANSDERM SCH (08:45)
[2021-04-25] MEDS: METOPROLOL SUCCINATE (ER) 25 MG TAB.ER.24H PO SCH ×2 (08:46→20:52)
[2021-04-25] MEDS: NON FORMULARY DRUG (Empagliflozin [Jardiance] 10 MG Tablet) PO SCH (08:47)
[2021-04-25] MEDS: allopurinoL 100 MG TAB PO SCH ×2 (08:47→20:47)
[2021-04-25] MEDS: EZETIMIBE 10 MG TAB PO SCH (08:47)
[2021-04-25] MEDS: GLIMEPIRIDE 4 MG TAB PO SCH ×2 (08:47→20:47)
[2021-04-25] MEDS: FERROUS SULFATE 325 MG TAB PO SCH (08:47)
[2021-04-25] MEDS: ATORVASTATIN 80 MG TAB PO SCH (08:47)
[2021-04-25] MEDS: RALOXIFENE 60 MG TAB PO SCH (08:48)
[2021-04-25] MEDS: PANTOPRAZOLE 40 MG/10 ML VIAL IVP SCH ×2 (08:48→20:47)
--- NOTE | 2021-04-25 11:07 | P.PN ---
Subjective Progress Note Date: 04/25/21 Principal diagnosis: GI bleed Patient has no new complaints. She did have a small amount of motor and stool this morning. Hemoglobin 7.6. She is mildly tachycardic. Patient denies pain. She would like to go home. Objective - Vital Signs Vital signs: Vital Signs Temp 98.1 F 04/25/21 04:49 Pulse 93 04/25/21 04:49 Resp 18 04/25/21 04:49 BP 105/65 04/25/21 04:49 Pulse Ox 97 04/25/21 04:49 Intake & Output 04/24/21 04/25/21 04/25/21 18:59 06:59 18:59 Intake Total 560 200 Balance 560 200 Intake: IV 300 Intake, IV Titration 200 200 Amount Potassium Chloride 10 meq 200 200 In Water For Injection 1 100ml.bag @ 100 mls/hr IVPB Q1HR [facility] Rx#: [id number] Oral 60 Other: Voiding Method Toilet Bedside Commode # Voids 3 # Bowel Movements 1 - Exam Abdomen: Soft, nontender, nondistended - Labs CBC & Chem 7: 04/25/21 07:20 04/24/21 10:51 Labs: Abnormal Lab Results - Last 24 Hours (Table) 04/24/21 04/24/21 04/24/21 Range/Units 10:51 10:51 17:52 RBC 2.76 L (3.80-5.40) m/uL Hgb 8.3 L (11.4-16.0) gm/dL Hct 26.7 L (34.0-46.0) % MCHC (31.0-37.0) g/dL RDW 17.0 H (11.5-15.5) % Lymphocytes # 0.7 L (1.0-4.8) k/uL Sodium 135 L (137-145) mmol/L Potassium 3.0 L (3.5-5.1) mmol/L BUN 40 H (7-17) mg/dL Creatinine 1.99 H (0.52-1.04) mg/dL Glucose 66 L (74-99) mg/dL POC Glucose (mg/dL) 261 H (75-99) mg/dL Calcium 8.2 L (8.4-10.2) mg/dL 04/24/21 04/25/2104/25/21 Range/Units 19:36 06:50 07:20 RBC 2.53 L (3.80-5.40) m/uL Hgb 7.6 L (11.4-16.0) gm/dL Hct 25.1 L (34.0-46.0) % MCHC 30.4 L (31.0-37.0) g/dL RDW 17.0 H (11.5-15.5) % Lymphocytes # 0.7 L (1.0-4.8) k/uL Sodium (137-145) mmol/L Potassium (3.5-5.1) mmol/L BUN (7-17) mg/dL Creatinine (0.52-1.04) mg/dL Glucose (74-99) mg/dL POC Glucose (mg/dL) 383 H 184 H (75-99) mg/dL Calcium (8.4-10.2) mg/dL Assessment and Plan (1) GI bleed Narrative/Plan: Patient with GI bleed. Small bowel source is suspected. Patient is now off of her anticoagulation. Continue to monitor GI bleeding. Agree with plans for capsule endoscopy either later during this hospitalization or as outpatient if bleeding stops. Current Visit: Yes Status: Acute Code(s): K92.2 - GASTROINTESTINAL HEMORRHAGE, UNSPECIFIED SNOMED Code(s): 37496725
[2021-04-25] MEDS: SODIUM CHLORIDE 0.9% 500 ML 500 ML IV SCH (12:49)
[2021-04-25 13:54] LABS: African American GFR (CKD) 29.3 (60.0-200.0); Albumin 2.7 g/dL (3.8-4.9); Albumin/Globulin Ratio 2.01 (1.60-3.17); Anion Gap 11.2 mmol/L (4.00-12.00); BUN/Creat Ratio 15.05 Ratio (12.00-20.00); Blood Urea Nitrogen 29.5 mg/dL (9.0-27.0); Calcium 8.2 mg/dL (8.7-10.3); Carbon Dioxide 21.1 mmol/L (21.6-31.8); Globulin 1.3 g/dL (1.6-3.3); Magnesium 2.4 mg/dL (1.5-2.4); Non-African American GFR(CKD) 25.3 (60.0-200.0); Potassium 3.9 mmol/L (3.5-5.5); Total Bilirubin 0.3 mg/dL (0.30-1.20)
[2021-04-25 17:14] LABS: Glucose,Whole Blood 282 mg/dL (75-99)
[2021-04-25 20:23] LABS: Glucose,Whole Blood 282 mg/dL (75-99)
[2021-04-25] MEDS: ZOLPIDEM 5 MG TAB PO SCH (20:47)
[2021-04-26] MEDS: HYDROcodone/APAP 5-325MG 1 EACH TAB PO PRN ×2 (05:56→15:51)
[2021-04-26 06:10] LABS: Anisocytosis Slight; Basophils # (A) 0.1 k/uL (0-0.2); Basophils % (A) 1 %; Eosinophils # (A) 0.1 k/uL (0-0.7); Eosinophils % (A) 2 %; HCT 23.9 % (34.0-46.0); HGB 7.1 gm/dL (11.4-16.0); Hypochromasia Marked; Lymphocytes # (A) 0.8 k/uL (1.0-4.8); Lymphocytes % (A) 19 %; MCH 30.2 pg (25.0-35.0); MCHC 29.7 g/dL (31.0-37.0); MCV 101.7 fL (80.0-100.0); Macrocytosis Moderate; Mean Platelet Volume 8.8; Monocytes # (A) 0.2 k/uL (0-1.0); Monocytes % (A) 4 %; Neutrophils # (A) 3.2 k/uL (1.3-7.7); Neutrophils % (A) 70 %; Platelet Count 191 k/uL (150-450); Poikilocytosis Moderate; RBC 2.35 m/uL (3.80-5.40); RDW 16.9 % (11.5-15.5); WBC 4.5 k/uL (3.8-10.6)
[2021-04-26 07:29] LABS: Glucose,Whole Blood 200 mg/dL (75-99)
[2021-04-26] MEDS: SYMBICORT 160-4.5 MCG INHALER INHALATION SCH ×2 (07:31→19:50)
[2021-04-26] MEDS: allopurinoL 100 MG TAB PO SCH ×2 (08:16→20:14)
[2021-04-26] MEDS: METOPROLOL SUCCINATE (ER) 25 MG TAB.ER.24H PO SCH ×2 (08:16→20:14)
[2021-04-26] MEDS: EZETIMIBE 10 MG TAB PO SCH (08:16)
[2021-04-26] MEDS: GLIMEPIRIDE 4 MG TAB PO SCH ×2 (08:16→20:14)
[2021-04-26] MEDS: FERROUS SULFATE 325 MG TAB PO SCH (08:16)
[2021-04-26] MEDS: ATORVASTATIN 80 MG TAB PO SCH (08:17)
[2021-04-26] MEDS: PANTOPRAZOLE 40 MG/10 ML VIAL IVP SCH ×2 (08:17→20:14)
[2021-04-26] MEDS: NICOTINE 14MG/24HR PATCH TRANSDERM SCH (08:17)
[2021-04-26] MEDS: RALOXIFENE 60 MG TAB PO SCH (08:17)
[2021-04-26] MEDS ORDERED: SODIUM FERRIC GLUCONAT-SUCROSE 125 MG in SODIUM CHLORIDE 0.9% 100 ML IVPB ONE (09:00)
--- NOTE | 2021-04-26 09:04 | P.PN ---
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 Patient has history of acute blood loss anemia from suspected GI source, status post EGD and colonoscopy along with capsule endoscopy without finding a source of bleeding. Testing all done by Dr. Neha Hurt 02/2020. Patient subsequently underwent SEWER SYSTEM SUPERVISOR of the right SFA on 11/[address] Lau and on long-term anticoagulation with eliquis. Heart catheterization 12/2019 showed mid LCx disease which was stented and started on dual antiplatelet therapy at that time and was also started on eliquis at that time for paroxysmal atrial fibrillation. Patient states that she developed black diarrhea for about 1 week and then started vomiting yesterday. She denies having any cough and no chest pain. She was hospitalized over the weekend after she was found to have a hemoglobin of 6.5 and was transfused 2 units of packed RBCs, eliquis was placed on hold patient requested to be discharged home. Patient returned to [facility] emergency center for evaluation and found to have a hemoglobin of 5.6. She was transfused 2 units packed RBCs with hemoglobin of 7.6 followed by 7. 0-1/3 unit of packed RBCs ordered. Patient was hypotensive in the emergency center with an status post 2 500 mL fluid boluses. Patient states that she feels stronger after having transfusion. Eliquis is on hold. Patient has been seen by multiple consultants including Dr. Jade with plan for EGD thank you and colonoscopy scheduled for tomorrow. Patient's been seen by pulmonary medicine as well. Patient is seen today in the emergency center waiting for a bed on the [facility] floor as patient has been downgraded by Dr. Martinez. 04/24: Patient is laying down in bed she appears a bit weaker today, she denies any chest pain, or shortness breath, she has been seen in consultation by cardiology because of elevation of her troponin, she has no abdominal pain, she did not have any further bleeding, she did receive a total of 3 units of packed red blood cells, she is scheduled to go for an EGD and colonoscopy after that, we will replace her potassium. 04/25: Patient is laying down in bed she continues to be somewhat weak, her hemoglobin is stable at 7.6, patient will be started on iron supplement 325 mg orally once every day, we'll monitor the patient another 24 hours of removing stable we'll discharge her home tomorrow morning patient will need to have a capsule endoscopy even though she did have that in the past, did not show any evidence of acute bleed however based on the EGD and colonoscopy that the patient had yesterday there is evidence of small bowel bleed and she has to continue to be off Eliquis for now. 04/26: Patient is laying down in bed she is eager to get out of the hospital however her hemoglobin drifted down to 7.1, she continues to have some GI bleed despite stopping her anticoagulation, I will recommend for the patient to see in the hospital and have Endoscopy Tomorrow Morning as an inpatient, try to obtain a GI follow-up as well, patient already had an EGD and colonoscopy that suggested a small bowel bleed. REVIEW OF SYSTEMS Constitutional: No fever, no chills, no night sweats. No weight change. Reports weakness, reports fatigue no lethargy. No daytime sleepiness. EENT: No headache. No blurred vision or double vision, no loss of vision. No loss of Hearing, no ringing in the ears, no dizziness. No nasal drainage or congestion. No epistaxis. No sore throat. Lungs: No shortness of breath, cough, no sputum production. No wheezing. Cardiovascular: No chest pain, no lower extremity edema. No palpitations. No paroxysmal nocturnal dyspnea. No orthopnea. No lightheadedness or dizziness. No syncopal episodes. Abdominal: No abdominal pain. No nausea, vomiting. Reports diarrhea. No constipation. Reports bloody or tarry stools. No loss of appetite. Genitourinary: No dysuria, increased frequency, urgency. No urinary retention. Musculoskeletal: No myalgias. Reports muscle weakness, no gait dysfunction, no frequent falls. No back pain. No neck pain. Integumentary: No wounds, no lesions. No rash or pruritus. No unusual bruising. No change in hair or nails. Neurologic: No aphasia. No facial droop. No change in mentation. No head injury. No headache. No paralysis. No paresthesia. Psychiatric: No depression. No anxiety. No mood swings. Endocrine: No abnormal blood sugars. No weight change. No excessive sweating or thirst. No cold intolerance. PHYSICAL EXAMINATION Gen: This is a 71-year-old female. Patient is sitting up on the edge of the bed and appears to be comfortable and in no acute distress. HEENT: Head is atraumatic, normocephalic. Pupils equal, round. Sclerae is anicteric. NECK: Supple. No JVD. No lymphadenopathy. No thyromegaly. LUNGS: Decreased breath sounds bilaterally with few scattered rhonchi and minimal expiratory wheeze, no intercostal retractions, no chest wall tenderness. HEART: First heart sound is depressed, second heart sound is normal, SALOME 2/6 at the left sternal border. ABDOMEN: Soft. Bowel sounds are present. No masses. No tenderness. EXTREMITIES: No pedal edema. No calf tenderness. NEUROLOGICAL: Patient is awake, alert and oriented x3. Cranial nerves 2 through 12 are grossly intact. Muscle power 4/5 in the upper and lower extremities. ASSESSMENT AND PLAN 1. Acute blood loss anemia most likely small bowel bleed according to the EGD and colonoscopy as the patient did have significant bleeding around the ileocecal valve. Patient is status post 3 units of packed red blood cell transfusion, we will continue with iron supplement, patient will need to have a capsule endoscopy repeated since her initial one was negative 2. Acute GI bleed. Consult with Gen. surgery appreciated. Patient is status post EGD and colonoscopy that was done yesterday that showed evidence of small bowel bleed, recommended for the patient to go for repeated capsule endoscopy continue Protonix 40 mg IV push every 12 hours. 3. Hypotension secondary to acute blood loss, status post 500 mL fluid bolus 2. Monitor blood pressure closely. 4. Hypokalemia status post replacement. 5. Elevated troponins. Likely related to severe anemia monitor the patient closely patient does not have any evidence of any NSTEMI and is not having any chest pain. 6. Severe peripheral artery disease with bilateral lower extremity intermittent claudication status post SEWER SYSTEM SUPERVISOR right SFA, status post stenting of the left popliteal artery, stenting of the left SFA. patient is currently off blood thinners. 7. History of coronary artery disease with chronic systolic heart failure and ischemic cardiomyopathy post LCx stent placement. Hold Metoprolol ER 25 mg orally twice a day due to hypotension, continue Lipitor 80 mg orally daily, and hold Demadex. 8. Paroxysmal atrial fibrillation. Hold Metoprolol ER 25 mg orally bid and Eliquis. 9. Chronic kidney disease stage 3, stable. 10. COPD without exacerbation. Continue Symbicort 160/4.5 mcg 2 puffs inhalation bid. 11. Hospitalization February 2020 for acute blood loss anemia presenting with hemoglobin of 6.5 status post transfusion. EGD and colonoscopy failed to find source of bleeding 12. Hypertension and hypertensive cardiovascular disease. Hold Metoprolol ER 25 mg orally bid.. 13. Hyperlipidemia. we will continue with Lipitor 80 mg orally daily. 14. Diabetes mellitus type 2. Continue with Amaryl 4 mg twice daily, Jardiance 10 mg daily . 15. DDD of the Lumber spine with OA. we will continue with [place] 5/325 mg orally as needed and Soma 350 mg orally bid. 16. DVT prophylaxis. Bilateral knee high Zane hose. 17. GI Prophylaxis. we will continue with protonix 40 mg IVP daily. 18. Tobacco use and dependence. Continue nicotine patch. 19. COVID-19 testing negative. Patient has been hospitalized during a pandemic. 20. We'll continue to monitor the patient very closely. Objective - Vital Signs Vital signs: Vital Signs Temp 98.9 F 04/26/21 04:17 Pulse 92 04/26/21 04:17 Resp 18 04/26/21 04:17 BP 104/54 04/26/21 04:17 Pulse Ox 97 04/26/21 04:17 Intake & Output 04/25/21 04/26/21 04/26/21 18:59 06:59 18:59 Intake Total 340 Output Total 1 Balance -1 340 Weight 92 kg Intake: Intake, IV Titration 340 Amount Sodium Chloride 0.9% 500 340 ml 500 ml @ 20 mls/hr IV .Q24H [facility] Rx#:[id number] Output: Urine/Stool Mix 1 Other: Voiding Method Toilet Bedside Commode # Bowel Movements 1 - Labs CBC & Chem 7: 04/26/21 05:19 04/25/21 07:20 Labs: Abnormal Lab Results - Last 24 Hours (Table) 04/25/21 04/25/21 04/25/21 Range/Units 07:20 17:12 20:17 RBC (3.80-5.40) m/uL Hgb (11.4-16.0) gm/dL Hct (34.0-46.0) % MCV (80.0-100.0) fL MCHC (31.0-37.0) g/dL RDW (11.5-15.5) % Lymphocytes # (1.0-4.8) k/uL Carbon Dioxide 21.1 L (21.6-31.8) mmol/L BUN 29.5 H (9.0-27.0) mg/dL Creatinine 2.0 H (0.6-1.5) mg/dL Est GFR (CKD-EPI)AfAm 29.3 L (60.0-200.0) Est GFR (CKD-EPI)NonAf 25.3 L (60.0-200.0) Glucose 162 H (70-110) mg/dL POC Glucose (mg/dL) 282 H 282 H (75-99) mg/dL Calcium 8.2 L (8.7-10.3) mg/dL Total Protein 4.0 L (6.2-8.2) g/dL Albumin 2.7 L (3.8-4.9) g/dL Globulin 1.3 L (1.6-3.3) g/dL 04/26/21 04/26/21 Range/Units 05:19 07:21 RBC 2.35 L (3.80-5.40) m/uL Hgb 7.1 L (11.4-16.0) gm/dL Hct 23.9 L (34.0-46.0) % MCV 101.7 H (80.0-100.0) fL MCHC 29.7 L (31.0-37.0) g/dL RDW 16.9 H (11.5-15.5) % Lymphocytes # 0.8 L (1.0-4.8) k/uL Carbon Dioxide (21.6-31.8) mmol/L BUN (9.0-27.0) mg/dL Creatinine (0.6-1.5) mg/dL Est GFR (CKD-EPI)AfAm (60.0-200.0) Est GFR (CKD-EPI)NonAf (60.0-200.0) Glucose (70-110) mg/dL POC Glucose (mg/dL) 200 H (75-99) mg/dL Calcium (8.7-10.3) mg/dL Total Protein (6.2-8.2) g/dL Albumin (3.8-4.9) g/dL Globulin (1.6-3.3) g/dL
[2021-04-26 10:04] LABS: African American GFR (CKD) 29.9 (60.0-200.0); Albumin 2.5 g/dL (3.8-4.9); Albumin/Globulin Ratio 1.88 (1.60-3.17); Anion Gap 8.9 mmol/L (4.00-12.00); BUN/Creat Ratio 13.37 Ratio (12.00-20.00); Blood Urea Nitrogen 25.8 mg/dL (9.0-27.0); Calcium 7.9 mg/dL (8.7-10.3); Carbon Dioxide 20.4 mmol/L (21.6-31.8); Globulin 1.3 g/dL (1.6-3.3); Non-African American GFR(CKD) 25.8 (60.0-200.0); Total Bilirubin 0.2 mg/dL (0.30-1.20); Total Protein 3.8 g/dL (6.2-8.2)
[2021-04-26] MEDS: NON FORMULARY DRUG (Empagliflozin [Jardiance] 10 MG Tablet) PO SCH (10:56)
[2021-04-26] MEDS: ALPRAZolam 0.25 MG TAB PO PRN (11:11)
[2021-04-26] MEDS: IPRATROPIUM-ALBUTEROL 3 ML NEB INHALATION SCH ×3 (11:22→19:50)
[2021-04-26 11:26] LABS: Glucose,Whole Blood 267 mg/dL (75-99)
--- NOTE | 2021-04-26 12:07 | P.PN ---
Subjective Progress Note Date: 04/26/21 Principal diagnosis: GI bleed Patient said she had a small bloody stool today. White blood cell count 4.5, hemoglobin 7.1. His hemoglobin 7.6. Denies abdominal pain. Tolerating diet. Objective - Vital Signs Vital signs: Vital Signs Temp 98.6 F 04/26/21 11:10 Pulse 92 04/26/21 11:34 Resp 18 04/26/21 11:10 BP 109/64 04/26/21 11:10 Pulse Ox 97 04/26/21 11:10 Intake & Output 04/25/21 04/26/21 04/26/21 18:59 06:59 18:59 Intake Total 340 Output Total 1 Balance -1 340 Weight 92 kg Intake: Intake, IV Titration 340 Amount Sodium Chloride 0.9% 500 340 ml 500 ml @ 20 mls/hr IV .Q24H [facility] Rx#:[id number] Output: Urine/Stool Mix 1 Other: Voiding Method Toilet Bedside Commode # Voids 1 # Bowel Movements 1 - Exam Abdomen: Soft, nontender, nondistended - Labs CBC & Chem 7: 04/26/21 05:19 04/26/21 05:19 Labs: Abnormal Lab Results - Last 24 Hours (Table) 04/25/21 04/25/21 04/25/21 Range/Units 07:20 17:12 20:17 RBC (3.80-5.40) m/uL Hgb (11.4-16.0) gm/dL Hct (34.0-46.0) % MCV (80.0-100.0) fL MCHC (31.0-37.0) g/dL RDW (11.5-15.5) % Lymphocytes # (1.0-4.8) k/uL Carbon Dioxide 21.1 L (21.6-31.8) mmol/L BUN 29.5 H (9.0-27.0) mg/dL Creatinine 2.0 H (0.6-1.5) mg/dL Est GFR (CKD-EPI)AfAm 29.3 L (60.0-200.0) Est GFR (CKD-EPI)NonAf 25.3 L (60.0-200.0) Glucose 162 H (70-110) mg/dL POC Glucose (mg/dL) 282 H 282 H (75-99) mg/dL Calcium 8.2 L (8.7-10.3) mg/dL Total Bilirubin (0.30-1.20) mg/dL Total Protein 4.0 L (6.2-8.2) g/dL Albumin 2.7 L (3.8-4.9) g/dL Globulin 1.3 L (1.6-3.3) g/dL 04/26/21 04/26/21 04/26/21 Range/Units 05:19 05:19 07:21 RBC 2.35 L (3.80-5.40) m/uL Hgb 7.1 L (11.4-16.0) gm/dL Hct 23.9 L (34.0-46.0) % MCV 101.7 H (80.0-100.0) fL MCHC 29.7 L (31.0-37.0) g/dL RDW 16.9 H (11.5-15.5) % Lymphocytes # 0.8 L (1.0-4.8) k/uL Carbon Dioxide 20.4 L (21.6-31.8) mmol/L BUN (9.0-27.0) mg/dL Creatinine 1.9 H (0.6-1.5) mg/dL Est GFR (CKD-EPI)AfAm 29.9 L (60.0-200.0) Est GFR (CKD-EPI)NonAf 25.8 L (60.0-200.0) Glucose 190 H (70-110) mg/dL POC Glucose (mg/dL) 200 H (75-99) mg/dL Calcium 7.9 L (8.7-10.3) mg/dL Total Bilirubin 0.20 L (0.30-1.20) mg/dL Total Protein 3.8 L (6.2-8.2) g/dL Albumin 2.5 L (3.8-4.9) g/dL Globulin 1.3 L (1.6-3.3) g/dL 04/26/21 Range/Units 11:12 RBC (3.80-5.40) m/uL Hgb (11.4-16.0) gm/dL Hct (34.0-46.0) % MCV (80.0-100.0) fL MCHC (31.0-37.0) g/dL RDW (11.5-15.5) % Lymphocytes # (1.0-4.8) k/uL Carbon Dioxide (21.6-31.8) mmol/L BUN (9.0-27.0) mg/dL Creatinine (0.6-1.5) mg/dL Est GFR (CKD-EPI)AfAm (60.0-200.0) Est GFR (CKD-EPI)NonAf (60.0-200.0) Glucose (70-110) mg/dL POC Glucose (mg/dL) 267 H (75-99) mg/dL Calcium (8.7-10.3) mg/dL Total Bilirubin (0.30-1.20) mg/dL Total Protein (6.2-8.2) g/dL Albumin (3.8-4.9) g/dL Globulin (1.6-3.3) g/dL Assessment and Plan (1) GI bleed Narrative/Plan: Continue diet as tolerated. Continue to monitor for bleeding off anticoagulation. Small bowel capsule endoscopy will be arranged. Repeat labs tomorrow Current Visit: Yes Status: Acute Code(s): K92.2 - GASTROINTESTINAL HEMORRHAGE, UNSPECIFIED SNOMED Code(s): 42649124
[2021-04-26] MEDS: SODIUM CHLORIDE 0.9% 500 ML 500 ML IV SCH (14:08)
[2021-04-26 17:19] LABS: Glucose,Whole Blood 210 mg/dL (75-99)
[2021-04-26 19:50] LABS: Glucose,Whole Blood 219 mg/dL (75-99)
[2021-04-26] MEDS: ZOLPIDEM 5 MG TAB PO SCH (20:14)
[2021-04-27] MEDS: ALPRAZolam 0.25 MG TAB PO PRN (04:16)
[2021-04-27 07:00] LABS: Anisocytosis Slight; Basophils % (A) 0 %; Eosinophils # (A) 0.1 k/uL (0-0.7); Eosinophils % (A) 2 %; HCT 22.2 % (34.0-46.0); Hypochromasia Marked; Lymphocytes # (A) 0.6 k/uL (1.0-4.8); Lymphocytes % (A) 14 %; MCH 30.3 pg (25.0-35.0); MCHC 30.9 g/dL (31.0-37.0); MCV 97.9 fL (80.0-100.0); Macrocytosis Slight; Mean Platelet Volume 9.6; Monocytes # (A) 0.2 k/uL (0-1.0); Monocytes % (A) 5 %; Neutrophils # (A) 3.3 k/uL (1.3-7.7); Neutrophils % (A) 76 %; Platelet Count 178 k/uL (150-450); Poikilocytosis Marked; RBC 2.27 m/uL (3.80-5.40); RDW 17.7 % (11.5-15.5); WBC 4.3 k/uL (3.8-10.6)
[2021-04-27 07:15] LABS: ALT 14 U/L (4-34); AST 19 U/L (14-36); African American GFR (CKD) 36 (>60 ml/min/1.73 sqM); Albumin/Globulin Ratio 1.1; Alkaline Phosphatase 55 U/L (38-126); Anion Gap 2 mmol/L; Blood Urea Nitrogen 31 mg/dL (7-17); Calcium 8.1 mg/dL (8.4-10.2); Carbon Dioxide 23 mmol/L (22-30); Chloride 110 mmol/L (98-107); Globulin 1.8 g/dL; Glucose 176 mg/dL (74-99); Non-African American GFR(CKD) 31 (>60 ml/min/1.73 sqM); Potassium 4.1 mmol/L (3.5-5.1); Sodium 135 mmol/L (137-145); Total Bilirubin 0.2 mg/dL (0.2-1.3); Total Protein 3.8 g/dL (6.3-8.2)
[2021-04-27 07:23] LABS: HGB 6.9 gm/dL (11.4-16.0)
[2021-04-27 07:45] LABS: Glucose,Whole Blood 197 mg/dL (75-99)
[2021-04-27] MEDS: SYMBICORT 160-4.5 MCG INHALER INHALATION SCH ×2 (07:47→19:30)
[2021-04-27] MEDS: IPRATROPIUM-ALBUTEROL 3 ML NEB INHALATION SCH ×4 (07:47→19:30)
[2021-04-27] MEDS: GLIMEPIRIDE 4 MG TAB PO SCH ×2 (08:54→21:21)
[2021-04-27] MEDS: allopurinoL 100 MG TAB PO SCH ×2 (08:54→20:56)
[2021-04-27] MEDS: NICOTINE 14MG/24HR PATCH TRANSDERM SCH (08:54)
[2021-04-27] MEDS: EZETIMIBE 10 MG TAB PO SCH (08:55)
[2021-04-27] MEDS: METOPROLOL SUCCINATE (ER) 25 MG TAB.ER.24H PO SCH (08:55)
[2021-04-27] MEDS: FERROUS SULFATE 325 MG TAB PO SCH (08:55)
[2021-04-27] MEDS: PANTOPRAZOLE 40 MG/10 ML VIAL IVP SCH ×2 (08:55→20:56)
[2021-04-27] MEDS: ATORVASTATIN 80 MG TAB PO SCH (08:55)
[2021-04-27] MEDS: HYDROcodone/APAP 5-325MG 1 EACH TAB PO PRN (09:04)
[2021-04-27] MEDS: NON FORMULARY DRUG (Empagliflozin [Jardiance] 10 MG Tablet) PO SCH (09:17)
[2021-04-27] MEDS ORDERED: MAGNESIUM CITRATE 296 ML BOTTLE PO ONE (10:02)
--- NOTE | 2021-04-27 11:57 | P.PN ---
<Netta Sanchez - Last Filed: 04/27/21 11:50> Subjective Progress Note Date: 04/27/21 CHIEF COMPLAINT: GI bleed HISTORY OF PRESENT ILLNESS: The patient is a 70 year old female who presented to the emergency room with complaints of shortness of breath and weakness. Admitting labs showed a hemoglobin of 5.6 and she was transfused 2 units of PRBC transfusion. Gen. surgery was consulted for anemia with possible GI bleed. Patient is status post EGD that did reveal erosive esophagitis and colonoscopy that has showed internal hemorrhoids and fresh blood was found at ileocecal valve consistent with small bowel bleed. GI service currently on consult for possible capsule endoscopy or push enteroscopy. Patient's hemoglobin did drop to 6.9 again she still having maroon-colored stools. And she is receiving going to receive 1 unit of blood that was ordered by medicine service. Afebrile. WBC 4.3 Hgb decreased from 7.1-6.9 Patient denies any abdominal pain. Patient did receive a dose of IV iron yesterday PHYSICAL EXAM: VITAL SIGNS: Reviewed. GENERAL: Well-developed in no acute distress. HEENT: No sclera icterus. Extraocular movements grossly intact. Moist buccal mucosa. Head is atraumatic, normocephalic. ABDOMEN: Soft. Nondistended. Nontender. NEUROLOGIC: Alert and oriented. Cranial nerves II through XII grossly intact. ASSESSMENT: 1. Acute GI bleed with acute blood loss anemia. Colonoscopy had shown fresh blood at the ileocecal valve consistent with a small bowel bleed 2. History of atrial fibrillation and had been on anticoagulation 3. COPD history PLAN: -Awaiting further GI plans of possible capsule endoscopy versus push enteroscopy -Continue to monitor hemoglobin and transfuse as needed -Continue to monitor for signs or symptoms of bleeding -Continue to hold anticoagulation -Continue Protonix Physician Chemical Preparer note has been reviewed by physician. Signing provider agrees with the documented findings, assessment, and plan of care. Objective - Vital Signs Vital signs: Vital Signs Temp 98.7 F 04/27/21 04:52 Pulse 92 04/27/21 11:15 Resp 18 04/27/21 04:52 BP 92/45 04/27/21 08:52 Pulse Ox 97 04/27/21 04:52 Intake & Output 04/26/21 04/27/21 04/27/21 18:59 06:59 18:59 Intake Total 100 120 Balance 100 120 Intake: Intake, IV Titration 100 Amount Sodium Ferric Gluconat- 100 Sucrose 125 mg In Sodium Chloride 0.9% 100 ml @ 100 mls/hr IVPB ONCE ONE Rx#:[id number] Oral 120 Other: Voiding Method Toilet Bedside Commode # Voids 1 # Bowel Movements 1 - Labs CBC & Chem 7: 04/27/21 06:17 04/27/21 06:17 Labs: Abnormal Lab Results - Last 24 Hours (Table) 04/26/21 04/26/21 04/27/21 Range/Units 17:09 19:49 06:17 RBC 2.27 L (3.80-5.40) m/uL Hgb 6.9 L* (11.4-16.0) gm/dL Hct 22.2 L (34.0-46.0) % MCHC 30.9 L (31.0-37.0) g/dL RDW 17.7 H (11.5-15.5) % Lymphocytes # 0.6 L (1.0-4.8) k/uL Sodium (137-145) mmol/L Chloride (98-107) mmol/L BUN (7-17) mg/dL Creatinine (0.52-1.04) mg/dL Glucose (74-99) mg/dL POC Glucose (mg/dL) 210 H 219 H (75-99) mg/dL Calcium (8.4-10.2) mg/dL Total Protein (6.3-8.2) g/dL Albumin (3.5-5.0) g/dL Crossmatch 04/27/21 04/27/21 04/27/21 Range/Units 06:17 07:44 08:39 RBC (3.80-5.40) m/uL Hgb (11.4-16.0) gm/dL Hct (34.0-46.0) % MCHC (31.0-37.0) g/dL RDW (11.5-15.5) % Lymphocytes # (1.0-4.8) k/uL Sodium 135 L (137-145) mmol/L Chloride 110 H (98-107) mmol/L BUN 31 H (7-17) mg/dL Creatinine 1.67 H (0.52-1.04) mg/dL Glucose 176 H (74-99) mg/dL POC Glucose (mg/dL) 197 H (75-99) mg/dL Calcium 8.1 L (8.4-10.2) mg/dL Total Protein 3.8 L (6.3-8.2) g/dL Albumin 2.0 L (3.5-5.0) g/dL Crossmatch See Detail <Sherlyn Fontanez N - Last Filed: 04/27/21 20:12> Subjective CHIEF COMPLAINT: Gastrointestinal bleeding HISTORY OF PRESENT ILLNESS: The patient is a 71-year-old female with gastr ointestinal bleeding status post upper and lower endoscopy, 04/24/21 with findings of GI bleeding from the small bowel. She reports no recent bowel movement today. Nursing reports she had dark stool, no gross blood. She denies any abdominal pain. She is undergoing capsule endoscopy. ROS: No reports of nausea and vomiting. No fevers or chills. No new chest pain. No productive sputum PHYSICAL EXAM: VITAL SIGNS: Reviewed CONSTITUTIONAL: Well developed and in no acute distress. EYES: Conjuctivae without sclera icterus. Extraocular movements grossly intact. HEAD, EARS, NOSE, THROAT: Moist buccal mucosa. Head is atraumatic, normocephalic. Hears conversational speech. No nasal drainage. RESPIRATORY: Non-labored respirations and equal bilateral excursions. CARDIOVASCULAR: Palpable 2+ radial pulses. ABDOMEN: Soft. No peritonitis. Non-tender. MUSCULOSKELETAL: No gross deformity of the lower extremities noted. No clubbing. No cyanosis. SKIN: Good skin turgor. Well perfused. NEUROLOGIC: Cranial nerves II through XII grossly intact. No focal or lateralizing signs. PSYCH: Appropriate affect. Alert and oriented to person, place and time. CLINICAL LABS: Reviewed. Hgb down from 7.1 to 6.9. WBC normal 4.3. ASSESSMENT: 1. Gastrointestinal bleeding. PLAN: 1. Diet per GI 2. Pill endoscopy or push enteroscopy per GI. 3. Recommend no anticoagulants. Objective - Vital Signs Vital signs: Vital Signs Temp 98.6 F 04/27/21 15:09 Pulse 88 04/27/21 19:42 Resp 18 04/27/21 11:51 BP 95/58 04/27/21 15:09 Pulse Ox 96 04/27/21 15:09 Intake & Output 04/27/21 04/27/21 04/28/21 06:59 18:59 06:59 Intake Total 120 679 Balance 120 679 Intake: Oral 120 400 Blood Product 279 Rc Pheresis 2 As3 Unit 279 [id number] Other: Voiding Method Toilet Bedside Commode # Voids 4 # Bowel Movements 1 4 - Labs CBC & Chem 7: 04/27/21 06:17 04/27/21 06:17 Labs: Abnormal Lab Results - Last 24 Hours (Table) 04/22/21 04/27/21 04/27/21 Range/Units 19:01 06:17 06:17 RBC 2.27 L (3.80-5.40) m/uL Hgb 6.9 L* (11.4-16.0) gm/dL Hct 22.2 L (34.0-46.0) % MCHC 30.9 L (31.0-37.0) g/dL RDW 17.7 H (11.5-15.5) % Lymphocytes # 0.6 L (1.0-4.8) k/uL Sodium 135 L (137-145) mmol/L Chloride 110 H (98-107) mmol/L BUN 31 H (7-17) mg/dL Creatinine 1.67 H (0.52-1.04) mg/dL Glucose 176 H (74-99) mg/dL POC Glucose (mg/dL) (75-99) mg/dL Calcium 8.1 L (8.4-10.2) mg/dL Total Protein 3.8 L (6.3-8.2) g/dL Albumin 2.0 L (3.5-5.0) g/dL Crossmatch See Detail 04/27/21 04/27/21 04/27/21 Range/Units 07:44 08:39 11:59 RBC (3.80-5.40) m/uL Hgb (11.4-16.0) gm/dL Hct (34.0-46.0) % MCHC (31.0-37.0) g/dL RDW (11.5-15.5) % Lymphocytes # (1.0-4.8) k/uL Sodium (137-145) mmol/L Chloride (98-107) mmol/L BUN (7-17) mg/dL Creatinine (0.52-1.04) mg/dL Glucose (74-99) mg/dL POC Glucose (mg/dL) 197 H 176 H (75-99) mg/dL Calcium (8.4-10.2) mg/dL Total Protein (6.3-8.2) g/dL Albumin (3.5-5.0) g/dL Crossmatch See Detail 04/27/21 Range/Units 18:07 RBC (3.80-5.40) m/uL Hgb (11.4-16.0) gm/dL Hct (34.0-46.0) % MCHC (31.0-37.0) g/dL RDW (11.5-15.5) % Lymphocytes # (1.0-4.8) k/uL Sodium (137-145) mmol/L Chloride (98-107) mmol/L BUN (7-17) mg/dL Creatinine (0.52-1.04) mg/dL Glucose (74-99) mg/dL POC Glucose (mg/dL) 198 H (75-99) mg/dL Calcium (8.4-10.2) mg/dL Total Protein (6.3-8.2) g/dL Albumin (3.5-5.0) g/dL Crossmatch Assessment and Plan (1) Acute blood loss anemia Current Visit: Yes Status: Acute Code(s): D62 - ACUTE POSTHEMORRHAGIC ANEMIA SNOMED Code(s): 010041436 (2) Anemia Current Visit: Yes Status: Acute Code(s): D64.9 - ANEMIA, UNSPECIFIED SNOMED Code(s): 600480415 (3) GI bleed Current Visit: Yes Status: Acute Code(s): K92.2 - GASTROINTESTINAL HEMORRHAGE, UNSPECIFIED SNOMED Code(s): 32314388 (4) Iron deficiency anemia Current Visit: No Status: Acute Code(s): D50.9 - IRON DEFICIENCY ANEMIA, UNSPECIFIED SNOMED Code(s): 57413279 (5) Symptomatic anemia Current Visit: No Status: Acute Code(s): D64.9 - ANEMIA, UNSPECIFIED SNOMED Code(s): 000469217
[2021-04-27 12:08] LABS: Glucose,Whole Blood 176 mg/dL (75-99)
--- NOTE | 2021-04-27 12:19 | P.PN ---
Subjective Progress Note Date: 04/27/21 HISTORY OF PRESENT ILLNESS This is a 71-year-old white female patient with a previous medical history sign ificant for chronic systolic heart failure with severe cardiomyopathy with EF of 20-25%, valvular heart disease with moderate MR and TR, paroxysmal atrial fibrillation on eliquis, hypertension and hypertensive cardiovascular disease, mixed hyperlipidemia, diabetes mellitus type 2, diabetic polyneuropathy, chronic tobacco use and dependence, COPD, and chronic pain syndrome due to severe osteoarthritis in both hips and 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, chronic kidney disease stage III. Patient has history of acute blood loss anemia from suspected GI source, status post EGD and colonoscopy along with capsule endoscopy without finding a source of bleeding. Testing all done by Dr. Neha Hrut 02/2020. Patient subsequently underwent BEE PRODUCER of the right SFA on 11/[address] Lau and on long-term anticoagulation with eliquis. Heart catheterization 12/2019 showed mid LCx disease which was stented and started on dual antiplatelet therapy at that time and was also started on eliquis at that time for paroxysmal atrial fibrillation. Patient states that she developed black diarrhea for about 1 week and then started vomiting yesterday. She denies having any cough and no chest pain. She was hospitalized over the weekend after she was found to have a hemoglobin of 6.5 and was transfused 2 units of packed RBCs, eliquis was placed on hold patient requested to be discharged home. Patient returned to [facility] emergency center for evaluation and found to have a hemoglobin of 5.6. She was transfused 2 units packed RBCs with hemoglobin of 7.6 followed by 7. 0-1/3 unit of packed RBCs ordered. Patient was hypotensive in the emergency center with an status post 2 500 mL fluid boluses. Patient states that she feels stronger after having transfusion. Eliquis is on hold. Patient has been seen by multiple consultants including Dr. Jade with plan for EGD thank you and colonoscopy scheduled for tomorrow. Patient's been seen by pulmonary medicine as well. Patient is seen today in the emergency center waiting for a bed on the [facility] floor as patient has been downgraded by Dr. Martinez. 04/24: Patient is laying down in bed she appears a bit weaker today, she denies any chest pain, or shortness breath, she has been seen in consultation by cardiology because of elevation of her troponin, she has no abdominal pain, she did not have any further bleeding, she did receive a total of 3 units of packed red blood cells, she is scheduled to go for an EGD and colonoscopy after that, we will replace her potassium. 04/25: Patient is laying down in bed she continues to be somewhat weak, her hemoglobin is stable at 7.6, patient will be started on iron supplement 325 mg orally once every day, we'll monitor the patient another 24 hours of removing stable we'll discharge her home tomorrow morning patient will need to have a capsule endoscopy even though she did have that in the past, did not show any evidence of acute bleed however based on the EGD and colonoscopy that the patient had yesterday there is evidence of small bowel bleed and she has to c ontinue to be off Eliquis for now. 04/26: Patient is laying down in bed she is eager to get out of the hospital however her hemoglobin drifted down to 7.1, she continues to have some GI bleed despite stopping her anticoagulation, I will recommend for the patient to see in the hospital and have Endoscopy Tomorrow Morning as an inpatient, try to obtain a GI follow-up as well, patient already had an EGD and colonoscopy that suggested a small bowel bleed. 04/27: Consult with GI has been added for capsule endoscopy. Patient does state she had 1 bowel movement this morning but did have a little blood in it. Hemoglobin 6.9 and one unit of packed RBCs ordered. She's been afebrile, heart rate 101, blood pressure 88/50, pulse ox 97% on room air. Metoprolol decreased to 12.5 mg once daily. Patient started on Xanax yesterday with improvement of her anxiety. REVIEW OF SYSTEMS Constitutional: No fever, no chills, no night sweats. No weight change. Reports weakness, reports fatigue no lethargy. No daytime sleepiness. EENT: No headache. No blurred vision or double vision, no loss of vision. No loss of Hearing, no ringing in the ears, no dizziness. No nasal drainage or congestion. No epistaxis. No sore throat. Lungs: No shortness of breath, cough, no sputum production. No wheezing. Cardiovascular: No chest pain, no lower extremity edema. No palpitations. No paroxysmal nocturnal dyspnea. No orthopnea. No lightheadedness or dizziness. No syncopal episodes. Abdominal: No abdominal pain. No nausea, vomiting. Reports diarrhea. No constipation. Reports bloody or tarry stools. No loss of appetite. Genitourinary: No dysuria, increased frequency, urgency. No urinary retention. Musculoskeletal: No myalgias. Reports muscle weakness, no gait dysfunction, no frequent falls. No back pain. No neck pain. Integumentary: No wounds, no lesions. No rash or pruritus. No unusual bruising. No change in hair or nails. Neurologic: No aphasia. No facial droop. No change in mentation. No head injury. No headache. No paralysis. No paresthesia. Psychiatric: No depression. Reported anxiety. No mood swings. Endocrine: No abnormal blood sugars. No weight change. No excessive sweating or thirst. No cold intolerance. PHYSICAL EXAMINATION Gen: This is a 71-year-old female. Patient is sitting up on the edge of the bed and appears to be comfortable and in no acute distress. HEENT: Head is atraumatic, normocephalic. Pupils equal, round. Sclerae is anicteric. NECK: Supple. No JVD. No lymphadenopathy. No thyromegaly. LUNGS: Decreased breath sounds bilaterally with few scattered rhonchi and minimal expiratory wheeze, no intercostal retractions, no chest wall tenderness. HEART: First heart sound is depressed, second heart sound is normal, SALOME 2/6 at the left sternal border. ABDOMEN: Soft. Bowel sounds are present. No masses. No tenderness. EXTREMITIES: No pedal edema. No calf tenderness. Dorsalis pedis palpable bilaterally. NEUROLOGICAL: Patient is awake, alert and oriented x3. Cranial nerves 2 through 12 are grossly intact. Muscle power 4/5 in the upper and lower extremities. ASSESSMENT AND PLAN 1. Acute blood loss anemia most likely small bowel bleed according to the EGD and colonoscopy as the patient did have significant bleeding around the ileocecal valve. Patient is status post 3 units of packed red blood cell transfusion, we will continue with iron supplement, patient will need to have a capsule endoscopy repeated since her initial one was negative, consult with GI added 2. Acute GI bleed. Consult with Gen. surgery appreciated. Patient is status post EGD and colonoscopy that was done yesterday that showed evidence of small bowel bleed, recommended for the patient to go for repeated capsule endoscopy continue Protonix 40 mg IV push every 12 hours. 3. Hypotension secondary to acute blood loss, status post 500 mL fluid bolus 2. Monitor blood pressure closely. Metoprolol will be decreased to 12.5 mg once daily. 4. Hypokalemia status post replacement. 5. Elevated troponins. Likely related to severe anemia monitor the patient closely patient does not have any evidence of any NSTEMI and is not having any chest pain. 6. Severe peripheral artery disease with bilateral lower extremity intermittent claudication status post BEE PRODUCER right SFA, status post stenting of the left popliteal artery, stenting of the left SFA. patient is currently off blood thinners. 7. History of coronary artery disease with chronic systolic heart failure and ischemic cardiomyopathy post LCx stent placement. Hold Metoprolol ER 25 mg orally twice a day due to hypotension, continue Lipitor 80 mg orally daily, and hold Demadex. 8. Paroxysmal atrial fibrillation. Hold Metoprolol ER 25 mg orally bid and Eliquis. 9. Chronic kidney disease stage 3, stable. 10. COPD without exacerbation. Continue Symbicort 160/4.5 mcg 2 puffs inhalation bid. 11. Hospitalization February 2020 for acute blood loss anemia presenting with hemoglobin of 6.5 status post transfusion. EGD and colonoscopy failed to find source of bleeding 12. Hypertension and hypertensive cardiovascular disease. Hold Metoprolol ER 25 mg orally bid.. 13. Hyperlipidemia. we will continue with Lipitor 80 mg orally daily. 14. Diabetes mellitus type 2. Continue with Amaryl 4 mg twice daily, Jardiance 10 mg daily . 15. DDD of the Lumber spine with OA. we will continue with [place] 5/325 mg orally as needed and Soma 350 mg orally bid. 16. DVT prophylaxis. Bilateral knee high Zane hose. 17. GI Prophylaxis. we will continue with protonix 40 mg IVP daily. 18. Tobacco use and dependence. Continue nicotine patch. 19. COVID-19 testing negative. Patient has been hospitalized during a pandemic. 20. We'll continue to monitor the patient very closely. Impression and plan of care have been directed as dictated by the signing physician. Ami Hanna nurse practitioner acting as scribe for signing physician. Objective - Vital Signs Vital signs: Vital Signs Temp 98.7 F 04/27/21 04:52 Pulse 92 04/27/21 11:15 Resp 18 04/27/21 04:52 BP 92/45 04/27/21 08:52 Pulse Ox 97 04/27/21 04:52 Intake & Output 04/26/21 04/27/21 04/27/21 18:59 06:59 18:59 Intake Total 100 120 Balance 100 120 Intake: Intake, IV Titration 100 Amount Sodium Ferric Gluconat- 100 Sucrose 125 mg In Sodium Chloride 0.9% 100 ml @ 100 mls/hr IVPB ONCE ONE Rx#:[id number] Oral 120 Other: Voiding Method Toilet Bedside Commode # Voids 1 # Bowel Movements 1 - Labs CBC & Chem 7: 04/27/21 06:17 04/27/21 06:17 Labs: Abnormal Lab Results - Last 24 Hours (Table) 04/26/21 04/26/21 04/27/21 Range/Units 17:09 19:49 06:17 RBC 2.27 L (3.80-5.40) m/uL Hgb 6.9 L* (11.4-16.0) gm/dL Hct 22.2 L (34.0-46.0) % MCHC 30.9 L (31.0-37.0) g/dL RDW 17.7 H (11.5-15.5) % Lymphocytes # 0.6 L (1.0-4.8) k/uL Sodium (137-145) mmol/L Chloride (98-107) mmol/L BUN (7-17) mg/dL Creatinine (0.52-1.04) mg/dL Glucose (74-99) mg/dL POC Glucose (mg/dL) 210 H 219 H (75-99) mg/dL Calcium (8.4-10.2) mg/dL Total Protein (6.3-8.2) g/dL Albumin (3.5-5.0) g/dL Crossmatch 04/27/21 04/27/21 04/27/21 Range/Units 06:17 07:44 08:39 RBC (3.80-5.40) m/uL Hgb (11.4-16.0) gm/dL Hct (34.0-46.0) % MCHC (31.0-37.0) g/dL RDW (11.5-15.5) % Lymphocytes # (1.0-4.8) k/uL Sodium 135 L (137-145) mmol/L Chloride 110 H (98-107) mmol/L BUN 31 H (7-17) mg/dL Creatinine 1.67 H (0.52-1.04) mg/dL Glucose 176 H (74-99) mg/dL POC Glucose (mg/dL) 197 H (75-99) mg/dL Calcium 8.1 L (8.4-10.2) mg/dL Total Protein 3.8 L (6.3-8.2) g/dL Albumin 2.0 L (3.5-5.0) g/dL Crossmatch See Detail 04/27/21 Range/Units 11:59 RBC (3.80-5.40) m/uL Hgb (11.4-16.0) gm/dL Hct (34.0-46.0) % MCHC (31.0-37.0) g/dL RDW (11.5-15.5) % Lymphocytes # (1.0-4.8) k/uL Sodium (137-145) mmol/L Chloride (98-107) mmol/L BUN (7-17) mg/dL Creatinine (0.52-1.04) mg/dL Glucose (74-99) mg/dL POC Glucose (mg/dL) 176 H (75-99) mg/dL Calcium (8.4-10.2) mg/dL Total Protein (6.3-8.2) g/dL Albumin (3.5-5.0) g/dL Crossmatch
--- NOTE | 2021-04-27 12:20 | P.CONS ---
History of Present Illness - Reason for Consult Consult date: 04/27/21 GI bleed Requesting physician: Franc Ferro - Chief Complaint Anemia, GI bleed - History of Present Illness The patient is a 70 year old female who presented to the emergency room on 04/22/2021 with complaints of shortness of breath and weakness. Admitting labs showed a hemoglobin of 5.6 and she was transfused 2 units of PRBC transfusion. She has a past medical history of atrial fibrillation, heart failure, COPD, diabetes mellitus, hyperlipidemia, hypertension and vascular disorder. Patient had been on Eliquis which is currently on hold. Patient had been seen in [facility] [address] Bee had an EGD and colonoscopy. EGD was normal and colonoscopy revealed scattered sigmoid diverticulosis without any active bleeding. Patient then underwent a small bowel capsule March 122019 that essentially was normal with no evidence of any bleeding. Gen. surgery was consulted for anemia with possible GI bleed. Dr. Fontanez performed EGD and colonoscopy on 04/24/2021. EGD revealed LA grade a erosive esophagitis with no active duodenitis or active bleeding. Colonoscopy with findings of grade 1 internal hemorrhoids and fresh blood was found emanating from the ileocecal valve consistent with small bowel bleed. The patient continued to have a low hemoglobin with reports of small amounts of maroon colored stool. Patient had a drop in her hemoglobin today to 6.9 and is scheduled to receive 1 unit of PRBC transfusion. She is currently denying any abdominal pain, nausea, or vomiting. She has been nothing by mouth since midnight. Review of Systems REVIEW OF SYSTEMS: CARDIOPULMONARY: No chest pain or shortness of breath. Productive cough. Gastrointestinal: No abdominal pain. No nausea or vomiting. No hematemesis, coffee-ground emesis. Reported small amount of maroon colored stool. GENITOURINARY: No dysuria or hematuria. MUSCULOSKELETAL: Reports normal range of motion., Joint pain. SKIN: No rashes. No jaundice. ENDOCRINE: No chills, fevers. No excessive weight gain or loss. No polydipsia or polyuria. PSYCHIATRIC: Unremarkable. NEUROLOGY: No change in mental status. Denies dizziness, headache. ENT: Vision unremarkable. CONSTITUTIONAL: No recent weight loss. No fever, chills, night sweats. 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, History of Any Multi-Drug Resistant Organisms: None Reported Past Surgical History: Appendectomy, Cholecystectomy, Heart Catheterization With Stent, Joint Replacement, Orthopedic Surgery, Tonsillectomy, Tubal Ligation Additional Past Surgical History / Comment(s): mass in neck parotid gland removed, right hip replaced surgery, ruptured appendix- temporary colostomy with reversal, cataracts, stent in bilateral legs Past Anesthesia/Blood Transfusion Reactions: No Reported Reaction Date of Last Stent Placement:: 06/2019 Past Psychological History: No Psychological Hx Reported Smoking Status: Current every day smoker Past Alcohol Use History: None Reported Past Drug Use History: None Reported - Past Family History Mother Family Medical History: Congestive Heart Failure (CHF), Diabetes Mellitus Additional Family Medical History / Comment(s): Mother at the age of 86 from CAD/CHF /CABG X2 and DM2. Father Family Medical History: CVA/TIA, Myocardial Infarction (OK) Additional Family Medical History / Comment(s): Father at the age of 82 from CABGx4 and CVA Brother(s) Family Medical History: Diabetes Mellitus Additional Family Medical History / Comment(s): Patient has 4 brothers and one has diabetes mellitus type 2. Sister(s) Family Medical History: No Reported History Additional Family Medical History / Comment(s): Patient has 4 sisters. Daughter(s) Family Medical History: No Reported History Additional Family Medical History / Comment(s): Patient has 2 daughters with no major medical problems. Son(s) Family Medical History: No Reported History Additional Family Medical History / Comment(s): Patient has one son with no major medical problems. Medications and Allergies Home Medications Medication Instructions Recorded Confirmed Type Carisoprodol [Soma] 350 mg PO BID PRN 03/08/16 04/22/21 History Glimepiride [Amaryl] 4 mg PO BID 03/08/16 04/22/21 History HYDROcodone/APAP 5-325MG [[place] 1 tab PO Q8H PRN 03/08/16 04/22/21 History 5-325] Zolpidem Tartrate [Ambien] 10 mg PO HS 03/08/16 04/22/21 History Budesonide/Formoterol Fumarate 2 puff INHALATION RT-BID 10/23/19 04/22/21 History [Symbicort 160-4.5 Mcg Inhaler] Raloxifene [Evista] 60 mg PO DAILY 10/23/19 04/22/21 History Atorvastatin Calcium [Lipitor] 80 mg PO DAILY 10/24/19 04/22/21 History Metoprolol Succinate (ER) [Toprol 25 mg PO BID #60 tab.er.24h 11/08/19 04/22/21 Rx XL] Allopurinol [Zyloprim] 100 mg PO BID 07/14/20 04/22/21 History Apixaban [Eliquis] 2.5 mg PO BID 07/14/20 04/22/21 History Ergocalciferol [Vitamin D2 (1250 1,250 mcg PO FR 07/14/20 04/22/21 History Mcg = 11313 Iu)] Ferrous Sulfate [Iron (65 MG 325 mg PO DAILY 07/14/20 04/22/21 History Elemental)] Torsemide [Demadex] 40 mg PO BID 07/14/20 04/22/21 History Ezetimibe [Zetia] 10 mg PO DAILY 11/24/20 04/22/21 History calcitrioL [Calcitriol] 0.25 mcg PO Q7D 11/24/20 04/22/21 History Empagliflozin [Jardiance] 10 mg PO DAILY 04/10/21 04/22/21 History Triphrocaps 1 cap PO DAILY 04/22/21 04/22/21 History Allergies Allergy/AdvReac Type Severity Reaction Status Date / Time warfarin sodium Allergy "very high Verified 04/22/21 18:40 [From Coumadin] PT/INR-was told never to take" Physical Exam Vitals: Vital Signs Temp Pulse Pulse Resp BP BP Pulse Ox 04/27/21 08:52 85 92/45 04/27/21 04:52 98.7 F 101 H 18 88/50 97 04/26/21 20:38 98.8 F 97 18 111/63 98 04/26/21 20:02 92 04/26/21 19:52 90 04/26/21 15:27 92 04/26/21 15:16 88 04/26/21 11:34 92 04/26/21 11:22 92 04/26/21 11:10 98.6 F 88 18 109/64 97 Intake and Output 04/26/21 04/27/21 04/27/21 22:59 06:59 14:59 Intake Total 220 Balance 220 Intake: Intake, IV Titration 100 Amount Sodium Ferric Gluconat- 100 Sucrose 125 mg In Sodium Chloride 0.9% 100 ml @ 100 mls/hr IVPB ONCE ONE Rx#:[id number] Oral 120 Other: # Bowel Movements 1 General appearance: The patient is alert, oriented, appears in no acute distress. HET: Head is normocephalic and atraumatic. Conjunctiva pink. Sclera anicteric. Neck: Supple without lymphadenopathy. Trachea midline. Heart: S1 S2. Regular rate and rhythm. Lungs: Diminshed with scattered rhonchi. Abdomen: Soft, nontender, nondistended with bowel sounds. No guarding or rigidity. Skin: No rashes. No jaundice. Extremities: Normal skin color and turgor. No pedal edema. Neurological: No focal deficits. Alert and oriented x3. Results CBC & Chem 7: 04/27/21 06:17 04/27/21 06:17 Labs: Abnormal Lab Results - Last 24 Hours (Table) 04/26/21 04/26/21 04/26/21 Range/Units 05:19 11:12 17:09 RBC (3.80-5.40) m/uL Hgb (11.4-16.0) gm/dL Hct (34.0-46.0) % MCHC (31.0-37.0) g/dL RDW (11.5-15.5) % Lymphocytes # (1.0-4.8) k/uL Sodium (137-145) mmol/L Chloride (98-107) mmol/L Carbon Dioxide 20.4 L (21.6-31.8) mmol/L BUN (7-17) mg/dL Creatinine 1.9 H (0.6-1.5) mg/dL Est GFR (CKD-EPI)AfAm 29.9 L (60.0-200.0) Est GFR (CKD-EPI)NonAf 25.8 L (60.0-200.0) Glucose 190 H (70-110) mg/dL POC Glucose (mg/dL) 267 H 210 H (75-99) mg/dL Calcium 7.9 L (8.7-10.3) mg/dL Total Bilirubin 0.20 L (0.30-1.20) mg/dL Total Protein 3.8 L (6.2-8.2) g/dL Albumin 2.5 L (3.8-4.9) g/dL Globulin 1.3 L (1.6-3.3) g/dL 04/26/21 04/27/21 04/27/21 Range/Units 19:49 06:17 06:17 RBC 2.27 L (3.80-5.40) m/uL Hgb 6.9 L* (11.4-16.0) gm/dL Hct 22.2 L (34.0-46.0) % MCHC 30.9 L (31.0-37.0) g/dL RDW 17.7 H (11.5-15.5) % Lymphocytes # 0.6 L (1.0-4.8) k/uL Sodium 135 L (137-145) mmol/L Chloride 110 H (98-107) mmol/L Carbon Dioxide (21.6-31.8) mmol/L BUN 31 H (7-17) mg/dL Creatinine 1.67 H (0.6-1.5) mg/dL Est GFR (CKD-EPI)AfAm (60.0-200.0) Est GFR (CKD-EPI)NonAf (60.0-200.0) Glucose 176 H (70-110) mg/dL POC Glucose (mg/dL) 219 H (75-99) mg/dL Calcium 8.1 L (8.7-10.3) mg/dL Total Bilirubin (0.30-1.20) mg/dL Total Protein 3.8 L (6.2-8.2) g/dL Albumin 2.0 L (3.8-4.9) g/dL Globulin (1.6-3.3) g/dL 04/27/21 Range/Units 07:44 RBC (3.80-5.40) m/uL Hgb (11.4-16.0) gm/dL Hct (34.0-46.0) % MCHC (31.0-37.0) g/dL RDW (11.5-15.5) % Lymphocytes # (1.0-4.8) k/uL Sodium (137-145) mmol/L Chloride (98-107) mmol/L Carbon Dioxide (21.6-31.8) mmol/L BUN (7-17) mg/dL Creatinine (0.6-1.5) mg/dL Est GFR (CKD-EPI)AfAm (60.0-200.0) Est GFR (CKD-EPI)NonAf (60.0-200.0) Glucose (70-110) mg/dL POC Glucose (mg/dL) 197 H (75-99) mg/dL Calcium (8.7-10.3) mg/dL Total Bilirubin (0.30-1.20) mg/dL Total Protein (6.2-8.2) g/dL Albumin (3.8-4.9) g/dL Globulin (1.6-3.3) g/dL Assessment and Plan (1) GI bleed Narrative/Plan: 71-year-old female who presented to the emergency department with complaints of shortness of breath and weakness. Patient prior to this admission was here recently admitted for the same thing with the anemia. At that time general surgery was consulted and it was recommended patient undergo an endoscopic evaluation however patient was discharged home and restarted on her Eliquis for her atrial fibrillation. The patient then returned back again with anemia with a hemoglobin of 5.9 with 2 units of PRBC transfusion. Gen. surgery was consulted as there was no GI coverage and the patient underwent an EGD and colonoscopy. At that time 04/24/21 EGD with no significant findings and no signs of GI blood loss. Colonoscopy is some fresh blood found coming from the ileocecal valve consistent with small bowel bleed. Again today patient had a drop in her hemoglobin to 6.9 and is going to be receiving her fourth unit of PRBC transfusion this admission. Patient is stating that she is having small amounts of maroon colored stool. She continues to deny any abdominal pain, nausea, or vomiting. She denies any previous history of peptic ulcer disease or NSAID use. Eliquis has been on hold since his admission. Current Visit: Yes Status: Acute Code(s): K92.2 - GASTROINTESTINAL HEMORRH AGE, UNSPECIFIED SNOMED Code(s): 40837945 (2) Anemia Current Visit: Yes Status: Acute Code(s): D64.9 - ANEMIA, UNSPECIFIED SNOMED Code(s): 949570516 (3) Atrial fibrillation Narrative/Plan: Cardiology following. Recommend continue holding anticoagulation. Current Visit: No Status: Acute Code(s): I48.91 - UNSPECIFIED ATRIAL F IBRILLATION SNOMED Code(s): 30671289 Plan: 1. Keep patient nothing by mouth 2. Give bottle of magnesium citrate statin 3. Patient scheduled for small bowel video capsule endoscopy this afternoon 4. Patient may have clear liquid diet 2 hours after small bowel capsule endoscopy administered and regular diet 4 hours after. 5. Daily CBC, transfuse for hemoglobin less than 7 6. Continue to hold anticoagulation 7. Iron studies ordered Thank you for this consultation, we will continue to follow Dr. Neha Hurt I agree with the dictator's note, documented as a scribe by Katiuska Styles.
[2021-04-27] MEDS ORDERED: SIMETHICONE 40 MG/0.6 ML DROPS 2,000 MG/30 ML BOTTLE PO ONE (13:55)
[2021-04-27 18:08] LABS: Glucose,Whole Blood 198 mg/dL (75-99)
[2021-04-27] MEDS: ZOLPIDEM 5 MG TAB PO SCH (20:56)
[2021-04-27] MEDS: SODIUM CHLORIDE 0.9% 500 ML 500 ML IV SCH (20:58)
[2021-04-27 21:15] LABS: Glucose,Whole Blood 240 mg/dL (75-99)
[2021-04-28 07:40] LABS: Glucose,Whole Blood 150 mg/dL (75-99)
--- NOTE | 2021-04-28 08:35 | P.DS ---
Providers Date of admission: 04/22/21 19:42 Expected date of discharge: 04/28/21 Attending physician: rFanc Ferro Consults: 04/22/21 20:11 Consult Physician Routine Consulting Provider: Sherlyn Fontanez Consult Reason/Comments: GI bleed; Anemia Do you want consulting provider notified?: Yes 04/23/21 09:14 Consult Physician Routine Consulting Provider: Cherrie Martinez Consult Reason/Comments: icu management Do you want consulting provider notified?: Yes 04/23/21 14:51 Consult Physician Routine Consulting Provider: Daphney Carrillo Consult Reason/Comments: elevated troponins Do you want consulting provider notified?: Yes 04/27/21 08:11 Consult Physician Routine Consulting Provider: Diane Hurt Consult Reason/Comments: capsule endoscopy Do you want consulting provider notified?: Yes [facility] Course: HISTORY OF PRESENT ILLNESS This is a 71-year-old white female patient with a previous medical history significant for chronic systolic heart failure with severe cardiomyopathy with EF of 20-25%, valvular heart disease with moderate MR and TR, paroxysmal atrial fibrillation on eliquis, hypertension and hypertensive cardiovascular disease, mixed hyperlipidemia, diabetes mellitus type 2, diabetic polyneuropathy, chronic tobacco use and dependence, COPD, and chronic pain syndrome due to severe osteoarthritis in both hips and 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, chronic kidney disease stage III. Patient has history of acute blood loss anemia from suspected GI source, status post EGD and colonoscopy along with capsule endoscopy without finding a source of bleeding. Testing all done by Dr. Neha Hurt 02/2020. Patient subsequently underwent RECORD CHANGER ASSEMBLER of the right SFA on 11/[address] Lau and on long-term anticoagulation with eliquis. Heart catheterization 12/2019 showed mid LCx disease which was stented and started on dual antiplatelet therapy at that time and was also started on eliquis at that time for paroxysmal atrial fibrillation. Patient states that she developed black diarrhea for about 1 week and then started vomiting yesterday. She denies having any cough and no chest pain. She was hospitalized over the weekend after she was found to have a hemoglobin of 6.5 and was transfused 2 units of packed RBCs, eliquis was placed on hold patient requested to be discharged home. Patient returned to [facility] emergency center for evaluation and found to have a hemoglobin of 5.6. She was transfused 2 units packed RBCs with hemoglobin of 7.6 followed by 7. 0-1/3 unit of packed RBCs ordered. Patient was hypotensive in the emergency center with an status post 2 500 mL fluid boluses. Patient states that she feels stronger after having transfusion. Eliquis is on hold. Patient has been seen by multiple consultants including Dr. Jade with plan for EGD thank you and colonoscopy scheduled for tomorrow. Patient's been seen by pulmonary medicine as well. Patient is seen today in the emergency center waiting for a bed on the [facility] floor as patient has been downgraded by Dr. Martinez. 04/24: Patient is laying down in bed she appears a bit weaker today, she denies any chest pain, or shortness breath, she has been seen in consultation by cardiology because of elevation of her troponin, she has no abdominal pain, she did not have any further bleeding, she did receive a total of 3 units of packed red blood cells, she is scheduled to go for an EGD and colonoscopy after that, we will replace her potassium. 04/25: Patient is laying down in bed she continues to be somewhat weak, her hemoglobin is stable at 7.6, patient will be started on iron supplement 325 mg orally once every day, we'll monitor the patient another 24 hours of removing stable we'll discharge her home tomorrow morning patient will need to have a capsule endoscopy even though she did have that in the past, did not show any evidence of acute bleed however based on the EGD and colonoscopy that the patient had yesterday there is evidence of small bowel bleed and she has to continue to be off Eliquis for now. 04/26: Patient is laying down in bed she is eager to get out of the hospital however her hemoglobin drifted down to 7.1, she continues to have some GI bleed despite stopping her anticoagulation, I will recommend for the patient to see in the hospital and have Endoscopy Tomorrow Morning as an inpatient, try to obtain a GI follow-up as well, patient already had an EGD and colonoscopy that suggested a small bowel bleed. 04/27: Consult with GI has been added for capsule endoscopy. Patient does state she had 1 bowel movement this morning but did have a little blood in it. Hemoglobin 6.9 and one unit of packed RBCs ordered. She's been afebrile, heart rate 101, blood pressure 88/50, pulse ox 97% on room air. Metoprolol decreased to 12.5 mg once daily. Patient started on Xanax yesterday with improvement of her anxiety. 04/28: Patient states that she is feeling well and much better since admission. She underwent capsule endoscopy yesterday afternoon and this is been reported as no bleeding. Even: A 0.0. We will continue to hold eliquis and patient will f ollow-up in the office for repeat blood work and determine next step and the plan. Pressure remains on the low side 95/59 and she will continue on the lower dose of Toprol-XL at 12.5 mg daily. Patient will be discharged today in stable condition. Discharge diagnoses 1. Acute blood loss anemia most likely small bowel bleed according to the EGD and colonoscopy as the patient did have significant bleeding around the ileocecal valve. Patient is status post 4 units of packed red blood cell transfusion. 2. Acute GI bleed status post EGD and colonoscopy negative for GI bleed. Capsule endoscopy did not identify source of bleeding. 3. Hypotension secondary to acute blood loss, status post fluid bolus. 4. Hypokalemia status post replacement. 5. Elevated troponins secondary to type II acute [place]. 6. Severe peripheral artery disease with bilateral lower extremity intermittent claudication status post RECORD CHANGER ASSEMBLER right SFA, status post stenting of the left popliteal artery, stenting of the left SFA. 7. History of coronary artery disease with chronic systolic heart failure and ischemic cardiomyopathy post LCx stent placement. 8. Paroxysmal atrial fibrillation. 9. Chronic kidney disease stage 3, stable. 10. COPD without exacerbation. 11. Hospitalization February 2020 for acute blood loss anemia presenting with hemoglobin of 6.5 status post transfusion. EGD and colonoscopy failed to find source of bleeding 12. Hypertension and hypertensive cardiovascular disease. 13. Hyperlipidemia. 14. Diabetes mellitus type 2. 15. DDD of the Lumber spine with OA. 16. Tobacco use and dependence. 17. COVID-19 testing negative. Patient has been hospitalized during a pandemic. Discharge plan: Home Greater than 35 minutes was utilized and coordinating patient's discharge. Impression and plan of care have been directed as dictated by the signing physician. Ami Hanna nurse practitioner acting as scribe for signing physician. Patient Condition at Discharge: Stable Plan - Discharge Summary New Discharge Prescriptions: New Pantoprazole Sodium [Protonix] 40 mg PO AC-BID #60 tab Continue HYDROcodone/APAP 5-325MG [[place] 5-325] 1 tab PO Q8H PRN PRN Reason: Pain Carisoprodol [Soma] 350 mg PO BID PRN PRN Reason: Muscle Spasm Zolpidem Tartrate [Ambien] 10 mg PO HS Glimepiride [Amaryl] 4 mg PO BID Raloxifene [Evista] 60 mg PO DAILY Budesonide/Formoterol Fumarate [Symbicort 160-4.5 Mcg Inhaler] 2 puff INHALATION RT-BID Atorvastatin Calcium [Lipitor] 80 mg PO DAILY Ferrous Sulfate [Iron (65 MG Elemental)] 325 mg PO DAILY Ergocalciferol [Vitamin D2 (1250 Mcg = 65175 Iu)] 1,250 mcg PO FR Torsemide [Demadex] 40 mg PO BID Allopurinol [Zyloprim] 100 mg PO BID Empagliflozin [Jardiance] 10 mg PO DAILY Ezetimibe [Zetia] 10 mg PO DAILY calcitrioL [Calcitriol] 0.25 mcg PO Q7D Triphrocaps 1 cap PO DAILY Changed Metoprolol Succinate (ER) [Toprol XL] 12.5 mg PO DAILY #60 Discontinued Apixaban [Eliquis] 2.5 mg PO BID Discharge Medication List Carisoprodol [Soma] 350 mg PO BID PRN 03/08/16 [History] Glimepiride [Amaryl] 4 mg PO BID 03/08/16 [History] HYDROcodone/APAP 5-325MG [[place] 5-325] 1 tab PO Q8H PRN 03/08/16 [History] Zolpidem Tartrate [Ambien] 10 mg PO HS 03/08/16 [History] Budesonide/Formoterol Fumarate [Symbicort 160-4.5 Mcg Inhaler] 2 puff INHALATION RT-BID 10/23/19 [History] Raloxifene [Evista] 60 mg PO DAILY 10/23/19 [History] Atorvastatin Calcium [Lipitor] 80 mg PO DAILY 10/24/19 [History] Allopurinol [Zyloprim] 100 mg PO BID 07/14/20 [History] Ergocalciferol [Vitamin D2 (1250 Mcg = 18912 Iu)] 1,250 mcg PO FR 07/14/20 [Hi story] Ferrous Sulfate [Iron (65 MG Elemental)] 325 mg PO DAILY 07/14/20 [History] Torsemide [Demadex] 40 mg PO BID 07/14/20 [History] Ezetimibe [Zetia] 10 mg PO DAILY 11/24/20 [History] calcitrioL [Calcitriol] 0.25 mcg PO Q7D 11/24/20 [History] Empagliflozin [Jardiance] 10 mg PO DAILY 04/10/21 [History] Triphrocaps 1 cap PO DAILY 04/22/21 [History] Metoprolol Succinate (ER) [Toprol XL] 12.5 mg PO DAILY #60 04/28/21 [Rx] Pantoprazole Sodium [Protonix] 40 mg PO AC-BID #60 tab 04/28/21 [Rx] Follow up Appointment(s)/Referral(s): Franc Ferro MD [Primary Care Provider] - 1 Week (I could not reach the office please call tomorrow to schedule your follow up appointment.) Tato Lau MD [STAFF PHYSICIAN] - 04/28/21 9:45 am (They will call you with an appointment time and date.) Patient Instructions/Handouts: Dyspnea (DC), Anemia (DC) Discharge Disposition: HOME SELF-CARE
[2021-04-28] MEDS: SYMBICORT 160-4.5 MCG INHALER INHALATION SCH (08:47)
[2021-04-28] MEDS: IPRATROPIUM-ALBUTEROL 3 ML NEB INHALATION SCH ×2 (08:47→11:39)
[2021-04-28 08:48] LABS: Anisocytosis Slight; HCT 25.6 % (34.0-46.0); Hypochromasia Marked; MCH 30.1 pg (25.0-35.0); MCHC 31.2 g/dL (31.0-37.0); MCV 96.6 fL (80.0-100.0); Macrocytosis Slight; Mean Platelet Volume 9.1; Platelet Count 192 k/uL (150-450); Poikilocytosis Marked; RBC 2.65 m/uL (3.80-5.40); RDW 17.5 % (11.5-15.5)
[2021-04-28 08:58] VITALS: BMI 33.7
[2021-04-28] MEDS: HYDROcodone/APAP 5-325MG 1 EACH TAB PO PRN (09:19)
[2021-04-28] MEDS: NICOTINE 14MG/24HR PATCH TRANSDERM SCH (09:19)
[2021-04-28] MEDS: GLIMEPIRIDE 4 MG TAB PO SCH (09:19)
[2021-04-28] MEDS: ATORVASTATIN 80 MG TAB PO SCH (09:19)
[2021-04-28] MEDS: FERROUS SULFATE 325 MG TAB PO SCH (09:19)
[2021-04-28] MEDS: allopurinoL 100 MG TAB PO SCH (09:19)
[2021-04-28] MEDS: EZETIMIBE 10 MG TAB PO SCH (09:19)
[2021-04-28] MEDS: METOPROLOL SUCCINATE (ER) 25 MG TAB.ER.24H PO SCH (09:20)
[2021-04-28] MEDS: PANTOPRAZOLE 40 MG/10 ML VIAL IVP SCH (09:20)
[2021-04-28] MEDS: NON FORMULARY DRUG (Empagliflozin [Jardiance] 10 MG Tablet) PO SCH (09:23)
[2021-04-28] MEDS: ALPRAZolam 0.25 MG TAB PO PRN (11:57)
--- NOTE | 2021-04-28 12:30 | P.PN ---
Subjective Progress Note Date: 04/28/21 CHIEF COMPLAINT: GI bleed HISTORY OF PRESENT ILLNESS: The patient is a 70 year old female who presented to the emergency room with complaints of shortness of breath and weakness. Admitting labs showed a hemoglobin of 5.6 and she was transfused 2 units of PRBC transfusion. Patient is status post EGD that did reveal erosive esophagitis and colonoscopy that has showed internal hemorrhoids and fresh blood was found at ileocecal valve consistent with small bowel bleed. Patient started capsule endoscopy. She's had no bowel movements today. She did have 1 bowel movement yesterday which was Maroon colored. She received a unit of blood yesterday. Hemoglobin has improved from 6.9-8.0. Afebrile heart rate 109 BP 94/60 PHYSICAL EXAM: VITAL SIGNS: Reviewed. GENERAL: Well-developed in no acute distress. HEENT: No sclera icterus. Extraocular movements grossly intact. Moist buccal mucosa. Head is atraumatic, normocephalic. ABDOMEN: Soft. Nondistended. Nontender. NEUROLOGIC: Alert and oriented. Cranial nerves II through XII grossly intact. ASSESSMENT: 1. Acute GI bleed with acute blood loss anemia. Colonoscopy had shown fresh blood at the ileocecal valve consistent with a small bowel bleed 2. History of atrial fibrillation and had been on anticoagulation 3. COPD history PLAN: -Capsule Endoscopy in Progress -Continue to monitor for signs or symptoms of bleeding -Continue to hold anticoagulation -Continue Protonix -Possible discharge later today Physician Orthopedic Surgeon note has been reviewed by physician. Signing provider agrees with the documented findings, assessment, and plan of care. Objective - Vital Signs Vital signs: Vital Signs Temp 98.3 F 04/28/21 04:30 Pulse 109 H 04/28/21 09:10 Resp 20 04/28/21 04:30 BP 94/60 04/28/21 09:10 Pulse Ox 96 04/28/21 04:30 Intake & Output 04/27/21 04/28/21 04/28/21 18:59 06:59 18:59 Intake Total 679 540 Balance 679 540 Weight 92 kg Intake: Oral 400 540 Blood Product 279 Rc Pheresis 2 As3 Unit 279 [id number] Other: Voiding Method Toilet Toilet Bedside Commode Bedside Commode # Voids 4 2 # Bowel Movements 4 0 - Labs CBC & Chem 7: 04/28/21 08:03 04/27/21 06:17 Labs: Abnormal Lab Results - Last 24 Hours (Table) 04/27/21 04/27/21 04/27/21 Range/Units 06:17 08:39 18:07 RBC (3.80-5.40) m/uL Hgb (11.4-16.0) gm/dL Hct (34.0-46.0) % RDW (11.5-15.5) % POC Glucose (mg/dL) 198 H (75-99) mg/dL Iron 33 L (50-170) ug/dL TIBC 204 L (228-460) ug/dL Transferrin 146.0 L (204.0-354.0) mg/dL Crossmatch See Detail 04/27/21 04/28/21 04/28/21 Range/Units 21:10 07:31 08:03 RBC 2.65 L (3.80-5.40) m/uL Hgb 8.0 L (11.4-16.0) gm/dL Hct 25.6 L (34.0-46.0) % RDW 17.5 H (11.5-15.5) % POC Glucose (mg/dL) 240 H 150 H (75-99) mg/dL Iron (50-170) ug/dL TIBC (228-460) ug/dL Transferrin (204.0-354.0) mg/dL Crossmatch
[2021-04-28 12:33] LABS: Glucose,Whole Blood 229 mg/dL (75-99)
[2021-04-28 12:47] VITALS: BP 95/59; PULSE 107; RESP 18; TEMP 98
--- NOTE | 2021-04-28 14:27 | P.PN ---
Subjective Progress Note Date: 04/28/21 -year-old female who presented to the emergency department last week with complaints of shortness of breath and weakness. She had been admitted about a week prior for same symptoms and anemia. On this admission she was also noted to be anemic, with a hemoglobin down to 5.6 on admission. She underwent EGD and colonoscopy by Dr. Jade on 04/24/2021 that showed some bleeding from the ileocecal valve. Yesterday the patient had a drop in her hemoglobin again to 6.9 and received another unit of PRBC transfusion. Repeat hemoglobin today 8.0. The patient underwent a small bowel video capsule endoscopy yesterday afternoon that shows no evidence of any old blood or active bleeding. There was no AVMs noted. Today she states she is feeling well, shortness of breath improved, weakness improved. She is eating and tolerating her diet. Denies any abdominal pain. No further bowel movements today. Objective - Vital Signs Vital signs: Vital Signs Temp 98.3 F 04/28/21 04:30 Pulse 96 04/28/21 04:30 Resp 20 04/28/21 04:30 BP 99/53 04/28/21 04:30 Pulse Ox 96 04/28/21 04:30 Intake & Output 04/27/21 04/28/21 04/28/21 18:59 06:59 18:59 Intake Total 679 540 Balance 679 540 Intake: Oral 400 540 Blood Product 279 Rc Pheresis 2 As3 Unit 279 [id number] Other: Voiding Method Toilet Toilet Bedside Commode Bedside Commode # Voids 4 2 # Bowel Movements 4 0 - Exam General appearance: The patient is alert, oriented, appears in no acute distress. HET: Head is normocephalic and atraumatic. Conjunctiva pink. Sclera anicteric. Neck: Supple without lymphadenopathy. Abdomen: Soft, nontender, nondistended with bowel sounds. No guarding or rigidity. Extremities: Normal skin color and turgor. No pedal edema Skin: No rashes, no jaundice Neurological: No focal deficits. Alert and oriented -3. - Labs CBC & Chem 7: 04/28/21 08:03 04/27/21 06:17 Labs: Abnormal Lab Results - Last 24 Hours (Table) 04/22/21 04/27/21 04/27/21 Range/Units 19:01 06:17 08:39 POC Glucose (mg/dL) (75-99) mg/dL Iron 33 L (50-170) ug/dL TIBC 204 L (228-460) ug/dL Transferrin 146.0 L (204.0-354.0) mg/dL Crossmatch See Detail See Detail 04/27/21 04/27/21 04/27/21 Range/Units 11:59 18:07 21:10 POC Glucose (mg/dL) 176 H 198 H 240 H (75-99) mg/dL Iron (50-170) ug/dL TIBC (228-460) ug/dL Transferrin (204.0-354.0) mg/dL Crossmatch 04/28/21 Range/Units 07:31 POC Glucose (mg/dL) 150 H (75-99) mg/dL Iron (50-170) ug/dL TIBC (228-460) ug/dL Transferrin (204.0-354.0) mg/dL Crossmatch Assessment and Plan (1) GI bleed Narrative/Plan: 71-year-old female who presented to the emergency department with complaints of shortness of breath and weakness. Patient prior to this admission was here recently admitted for the same thing with the anemia. At that time general surgery was consulted and it was recommended patient undergo an endoscopic evaluation however patient was discharged home and restarted on her Eliquis for her atrial fibrillation. The patient then returned back again with anemia with a hemoglobin of 5.9 with 2 units of PRBC transfusion. Gen. surgery was consul cara as there was no GI coverage and the patient underwent an EGD and colonoscopy. At that time 04/24/21 EGD with no significant findings and no signs of GI blood loss. Colonoscopy is some fresh blood found coming from the ileocecal valve consistent with small bowel bleed. Again today patient had a drop in her hemoglobin to 6.9 and is going to be receiving her fourth unit of PRBC transfusion this admission. Patient is stating that she is having small amounts of maroon colored stool. She continues to deny any abdominal pain, nausea, or vomiting. She denies any previous history of peptic ulcer disease or NSAID use. Eliquis has been on hold since his admission. Patient underwent small bowel video capsule endoscopy with no blood or active bleeding noted. No AVMs noted. Recommend patient to remain off anticoagulation for another couple days, then may be resumed. Recommend outpatient surveillance of hemoglobin. Current Visit: Yes Status: Acute Code(s): K92.2 - GASTROINTESTINAL HEMORRHAGE, UNSPECIFIED SNOMED Code(s): 27285167 (2) Anemia Current Visit: Yes Status: Acute Code(s): D64.9 - ANEMIA, UNSPECIFIED SNOMED Code(s): 802578626 (3) Atrial fibrillation Narrative/Plan: Cardiology following. Recommend continue holding anticoagulation. Current Visit: No Status: Acute Code(s): I48.91 - UNSPECIFIED ATRIAL FIBRILLATION SNOMED Code(s): 32261808 Plan: 1. Diet as tolerated 2. Repeat CBC 3. Continue to hold anticoagulation for 1-2 more days then may resume 4. Iron studies consistent with iron deficiency anemia Thank you for this consultation, patient is cleared for discharge by gastroenterology Dr. Neha Hurt I agree with the dictator's note, documented as a scribe by Katiuska Styles.
== END 2021-04-28 16:08 | disposition home or self-care (01) | DRG 377 ==
LOC: EC 16:52 → 3SCARD 19:42 → 2SICU 04-23 09:26 → 5NMEDONC 04-23 13:20
PROVIDERS: ADMIT Internal Medicine; ATTEND Internal Medicine
PROC: 30233N1 Transfusion of Nonautologous Red Blood Cells into Peripheral Vein, Percutaneous Approach (ICD-10-PCS; 2021-04-22)
PROC: 0DJ08ZZ Inspection of Upper Intestinal Tract, Via Natural or Artificial Opening Endoscopic (ICD-10-PCS; principal; 2021-04-24 07:30)
PROC: 0DJD8ZZ Inspection of Lower Intestinal Tract, Via Natural or Artificial Opening Endoscopic (ICD-10-PCS; 2021-04-24 07:30)
DX: K92.2 Gastrointestinal hemorrhage, unspecified (principal); I21.4 Non-ST elevation (NSTEMI) myocardial infarction; D62 Acute posthemorrhagic anemia; I50.22 Chronic systolic (congestive) heart failure; N18.4 Chronic kidney disease, stage 4 (severe); I13.0 Hypertensive heart and chronic kidney disease with heart failure and stage 1 through stage 4 chronic kidney disease, or unspecified chronic kidney disease; K22.10 Ulcer of esophagus without bleeding; K22.11 Ulcer of esophagus with bleeding; E11.42 Type 2 diabetes mellitus with diabetic polyneuropathy; E78.2 Mixed hyperlipidemia; E87.6 Hypokalemia; F17.200 Nicotine dependence, unspecified, uncomplicated; F41.9 Anxiety disorder, unspecified; G89.4 Chronic pain syndrome; H54.8 Legal blindness, as defined in USA; I25.10 Atherosclerotic heart disease of native coronary artery without angina pectoris; I25.5 Ischemic cardiomyopathy; I48.0 Paroxysmal atrial fibrillation; J44.9 Chronic obstructive pulmonary disease, unspecified; K21.9 Gastro-esophageal reflux disease without esophagitis; K57.30 Diverticulosis of large intestine without perforation or abscess without bleeding; K64.0 First degree hemorrhoids; M16.0 Bilateral primary osteoarthritis of hip; E11.22 Type 2 diabetes mellitus with diabetic chronic kidney disease; E11.51 Type 2 diabetes mellitus with diabetic peripheral angiopathy without gangrene; Z20.822 Contact with and (suspected) exposure to COVID-19; I95.9 Hypotension, unspecified; Z79.01 Long term (current) use of anticoagulants; Z79.51 Long term (current) use of inhaled steroids; Z79.82 Long term (current) use of aspirin; Z79.84 Long term (current) use of oral hypoglycemic drugs; Z79.899 Other long term (current) drug therapy; Z82.3 Family history of stroke; Z82.49 Family history of ischemic heart disease and other diseases of the circulatory system; Z83.3 Family history of diabetes mellitus; Z87.19 Personal history of other diseases of the digestive system; Z95.5 Presence of coronary angioplasty implant and graft; Z96.1 Presence of intraocular lens; Z96.641 Presence of right artificial hip joint
CPT/HCPCS: 36415; 43235; 45378; 71046; 80048; 80053; 81001; 82272; 82728; 83540; 83550; 83735; 83880; 84484; 85025; 85027; 85610; 85730; 86850; 86900; 86901; 86920; 87635; 91110; 93005; 94640; 96361; 96374; 99285

== ENCOUNTER 2021-05-03 08:57 | Emergency (ER) | payer MEDICARE, OTHER ==
[2021-05-03] MEDS ORDERED: SODIUM CHLORIDE 0.9% 500 ML 500 ML IV STA (09:35)
[2021-05-03 10:21] LABS: Anisocytosis Slight; Basophils % (A) 0 %; Eosinophils % (A) 0 %; Hypochromasia Marked; Lymphocytes # (A) 0.8 k/uL (1.0-4.8); Lymphocytes % (A) 11 %; MCH 29.6 pg (25.0-35.0); MCV 98.6 fL (80.0-100.0); Macrocytosis Slight; Mean Platelet Volume 8.5; Monocytes # (A) 0.3 k/uL (0-1.0); Monocytes % (A) 4 %; Neutrophils # (A) 5.9 k/uL (1.3-7.7); Neutrophils % (A) 84 %; Platelet Count 223 k/uL (150-450); Poikilocytosis Marked; RBC 1.69 m/uL (3.80-5.40); RDW 19.3 % (11.5-15.5); WBC 7.1 k/uL (3.8-10.6)
[2021-05-03 10:25] LABS: Albumin 2.1 g/dL (3.5-5.0); Calcium 7.4 mg/dL (8.4-10.2); Magnesium 2.3 mg/dL (1.6-2.3); Potassium 3.9 mmol/L (3.5-5.1); Total Bilirubin 0.4 mg/dL (0.2-1.3); Total Protein 3.8 g/dL (6.3-8.2)
[2021-05-03 10:29] LABS: HCT 16.6 % (34.0-46.0)
[2021-05-03 10:31] LABS: Prothrombin Time 11.1 sec (9.0-12.0)
[2021-05-03 10:35] LABS: Partial Thromboplastin Time 18.4 sec (22.0-30.0)
--- NOTE | 2021-05-03 10:42 | XR ---
EXAMINATION TYPE: XR chest 2V DATE OF EXAM: 05/03/2021 COMPARISON: 04/22/2021 HISTORY: 71 years Female. STUDY INDICATION GIVEN: Weakness . TECHNIQUE: Frontal and lateral chest radiographs IMPRESSION: No focal airspace disease, pneumothorax or pleural effusion. The cardiomediastinal silhouette is within normal limits. No acute osseous abnormality seen.
[2021-05-03 10:53] LABS: Polychromasia Present
--- NOTE | 2021-05-03 10:59 | ED ---
Weakness HPI - General Source: patient, EMS, RN notes reviewed, old records reviewed Mode of arrival: EMS Limitations: no limitations <Halina Arnold - Last Filed: 05/03/21 15:00> <Angely Laurent - Last Filed: 05/03/21 18:27> - General Chief complaint: Weakness Stated complaint: Weakness Time Seen by Provider: 05/03/21 09:01 - History of Present Illness Initial comments: Patient is a 71-year-old female with history of A. fib, heart failure, diabetes, hypertension, recent anemia/GI bleed, presenting to the emergency Department with complaints of weakness, nausea and lightheadedness over the past couple days. Patient was recently admitted and discharged about 5 days ago for acute anemia and GI bleed. She was evaluated and sent home and she was stable with outpatient follow-up. Patient states over the past 4-5 days she continued to have blood in her stool and has been feeling weak. She describes her stool as very dark, dark red in nature, she is on iron supplements. She states her appetite is very low. She denies any pains anywhere, no abdominal pain, no chest pain or shortness of breath. Is on a Eliquis secondary to her A. fib however during her recent hospital stay, they did discontinue Eliquis. She has not restarted this. Patient has no further complaints at this time. Upon arr ival to the ER, she has hypotensive at 84/48, rest of vitals normal. (Halina Arnold) - Related Data Home Medications Medication Instructions Recorded Confirmed Carisoprodol [Soma] 350 mg PO BID PRN 03/08/16 05/03/21 Glimepiride [Amaryl] 4 mg PO BID 03/08/16 05/03/21 HYDROcodone/APAP 5-325MG [Wade 1 tab PO Q8H PRN 03/08/16 05/03/21 5-325] Zolpidem Tartrate [Ambien] 10 mg PO HS 03/08/16 05/03/21 Budesonide/Formoterol Fumarate 2 puff INHALATION RT-BID 10/23/19 05/03/21 [Symbicort 160-4.5 Mcg Inhaler] Raloxifene [Evista] 60 mg PO DAILY 10/23/19 05/03/21 Atorvastatin Calcium [Lipitor] 80 mg PO DAILY 10/24/19 05/03/21 Allopurinol [Zyloprim] 100 mg PO BID 07/14/20 05/03/21 Ergocalciferol [Vitamin D2 (1250 1,250 mcg PO FR 07/14/20 05/03/21 Mcg = 01129 Iu)] Ferrous Sulfate [Iron (65 MG 325 mg PO DAILY 07/14/20 05/03/21 Elemental)] Torsemide [Demadex] 40 mg PO BID 07/14/20 05/03/21 Ezetimibe [Zetia] 10 mg PO DAILY 11/24/20 05/03/21 calcitrioL [Calcitriol] 0.25 mcg PO Q7D 11/24/20 05/03/21 Empagliflozin [Jardiance] 10 mg PO DAILY 04/10/21 05/03/21 Triphrocaps 1 cap PO DAILY 04/22/21 05/03/21 Previous Rx's Medication Instructions Recorded Metoprolol Succinate (ER) [Toprol 12.5 mg PO DAILY #60 04/28/21 XL] Pantoprazole Sodium [Protonix] 40 mg PO AC-BID #60 tab 04/28/21 Allergies Allergy/AdvReac Type Severity Reaction Status Date / Time warfarin sodium Allergy "very high Verified 04/22/21 18:40 [From Coumadin] PT/INR-was told never to take" apixaban [From Eliquis] AdvReac GI BLEED Verified 05/03/21 10:30 Review of Systems ROS Other: All systems not noted in ROS Statement are negative. <Halina Arnold - Last Filed: 05/03/21 15:00> ROS Other: All systems not noted in ROS Statement are negative. <Angely Laurent - Last Filed: 05/03/21 18:27> ROS Statement: Those systems with pertinent positive or pertinent negative responses have been documented in the HPI. 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, History of Any Multi-Drug Resistant Organisms: None Reported Past Surgical History: Appendectomy, Cholecystectomy, Heart Catheterization With Stent, Joint Replacement, Orthopedic Surgery, Tonsillectomy, Tubal Ligation Additional Past Surgical History / Comment(s): mass in neck parotid gland removed, right hip replaced surgery, ruptured appendix- temporary colostomy with reversal, cataracts, stent in bilateral legs Past Anesthesia/Blood Transfusion Reactions: No Reported Reaction Date of Last Stent Placement:: 06/2019 Past Psychological History: No Psychological Hx Reported Smoking Status: Current every day smoker Past Alcohol Use History: None Reported Past Drug Use History: None Reported - Past Family History Mother Family Medical History: Congestive Heart Failure (CHF), Diabetes Mellitus Additional Family Medical History / Comment(s): Mother at the age of 86 from CAD/CHF /CABG X2 and DM2. Father Family Medical History: CVA/TIA, Myocardial Infarction ([place]) Additional Family Medical History / Comment(s): Father at the age of 82 from CABGx4 and CVA Brother(s) Family Medical History: Diabetes Mellitus Additional Family Medical History / Comment(s): Patient has 4 brothers and one has diabetes mellitus type 2. Sister(s) Family Medical History: No Reported History Additional Family Medical History / Comment(s): Patient has 4 sisters. Daughter(s) Family Medical History: No Reported History Additional Family Medical History / Comment(s): Patient has 2 daughters with no major medical problems. Son(s) Family Medical History: No Reported History Additional Family Medical History / Comment(s): Patient has one son with no major medical problems. <Halina Arnold L - Last Filed: 05/03/21 15:00> General Exam Rectal exam: Present: normal rectal tone, heme (+) stool, black stool, hemorrhoids (Small external hemorrhoid) <Halina Arnold L - Last Filed: 05/03/21 15:00> - General Exam Comments Initial Comments: GENERAL: Patient is well-developed and well-nourished. Patient is nontoxic and in no acute distress. HEAD: Atraumatic, normocephalic. EYES: Pupils equal round and reactive to light, extraocular movements intact, sclera anicteric, conjunctiva are normal. Eyelids were unremarkable. ENT: TMs normal, nares patent, oropharynx clear without exudates. Moist mucous membranes. NECK: Normal range of motion, supple without lymphadenopathy or JVD. LUNGS: Unlabored respirations. Breath sounds clear to auscultation bilaterally and equal. No wheezes rales or rhonchi. HEART: Regular rate and rhythm without murmurs, rubs or gallops. ABDOMEN: Soft, nontender, normoactive bowel sounds. No guarding, no rebound. No masses appreciated. MUSCULOSKELETAL: Normal extremities with adequate strength and normal range of motion, no pitting or edema. No clubbing or cyanosis. NEUROLOGICAL: Patient is alert and oriented x 3. Motor and sensory are also intact. Cranial nerves II through XII grossly intact. Symmetrical smile. Normal speech, normal gait. PSYCH: Normal mood, normal affect. SKIN: Warm, Dry, normal turgor, no rashes or lesions noted. (Halina Arnold) Course <Halina Arnold - Last Filed: 05/03/21 15:00> Vital Signs 05/03/21 05/03/21 05/03/21 08:59 11:17 12:20 Temperature 98.4 F 98.5 F Pulse Rate 98 108 H 109 H Respiratory 18 18 18 Rate Blood Pressure 84/48 98/46 82/48 O2 Sat by Pulse 97 97 Oximetry 05/03/21 05/03/21 05/03/21 12:30 12:45 14:18 Temperature 98.7 F 98.4 F Pulse Rate 105 H 112 H 100 Respiratory 18 18 18 Rate Blood Pressure 86/47 98/40 97/55 O2 Sat by Pulse 95 97 97 Oximetry 05/03/21 05/03/21 05/03/21 14:19 14:51 15:31 Temperature 98.1 F Pulse Rate 105 H 98 98 Respiratory 18 20 18 Rate Blood Pressure 99/53 94/50 100/56 O2 Sat by Pulse 97 97 Oximetry 05/03/21 05/03/21 15:55 17:26 Temperature Pulse Rate 98 99 Respiratory 18 18 Rate Blood Pressure 112/57 100/56 O2 Sat by Pulse 97 97 Oximetry - Reevaluation(s) Reevaluation #1: 05/03/21 11:05 Patient's hemoglobin was found to be a 5.0 today. We did order 2 units of packed red blood cells. I spoke to our surgeon on-call, Dr. Quintero, He was not comfortable keeping patient here without GI coverage as patient has already been evaluated by surgery and GI upon her last admission last week. We spoke with [facility] who declined admission. [facility] also declined admission due to no ICU beds. 05/03/21 11:14 [facility] also declined. 05/03/21 11:32 [facility] also declined. 05/03/21 13:23 Patient is currently receiving her first unit of blood, her vital signs remain stable. Plan is to finish both units of blood, Re-try transfer to possibly [facility] in hope of not needing an ICU bed if vitals are more stable. 05/03/21 15:00 Patient currently receiving her second unit of blood. Her vital signs have remained stable and improved. Patient was signed out to Dr. Laurent at shift change. (Halina Arnold) EKG Findings - EKG Comments: EKG Findings:: Sinus tachycardia with occasional PVCs, nonspecific ST abnormality is, no signs of acute ST segment elevation. Ventricular rate 109, MI interval 150, QT 354. Similar to previous on 04/22/2021. <Halina Arnold - Last Filed: 05/03/21 15:00> Medical Decision Making - Lab Data Result diagrams: 05/03/21 10:02 05/03/21 10:02 <Halina Arnold - Last Filed: 05/03/21 15:00> - Lab Data Result diagrams: 05/03/21 17:50 05/03/21 10:02 <Angely Laurent - Last Filed: 05/03/21 18:27> - Medical Decision Making Patient was seen and evaluated by the day shift team, patient presented with a chronic GI bleed acute weakness found to have a hemoglobin of 5. Initially discussion with [facility] in [place] transfer was refused due to patient needing ICU level care. 8 additional hospitals were contacted but were not able to accept the patient due to capacity. During her stay in the emergency department the patient received 2 units of PRBCs as well as a 500 mL bolus of fluids. Repeat hemoglobin is 7.4, systolic blood pressure is 112, lemuel ent has been in the emergency department for 9 hours without any active GI bleeding. At this time I do feel the patient is stable for admission to a floor bed. Patient care was discussed with Dr. [place] who feels he is exhausted all treatment options patient needs to be evaluated a facility that can possibly do IR for bleeding control. Patient care was again discussed with [facility] transfer team, now the patient has been stabilized they accept the transfer. (Angely Laurent) - Lab Data Lab Results 05/03/21 05/03/21 05/03/21 Range/Units 10:02 10:02 10:02 WBC 7.1 (3.8-10.6) k/uL RBC 1.69 L (3.80-5.40) m/uL Hgb 5.0 L* D (11.4-16.0) gm/dL Hct 16.6 L* (34.0-46.0) % MCV 98.6 (80.0-100.0) fL MCH 29.6 (25.0-35.0) pg MCHC 30.0 L (31.0-37.0) g/dL RDW 19.3 H (11.5-15.5) % Plt Count 223 (150-450) k/uL MPV 8.5 Neutrophils % 84 % Lymphocytes % 11 % Monocytes % 4 % Eosinophils % 0 % Basophils % 0 % Neutrophils # 5.9 (1.3-7.7) k/uL Lymphocytes # 0.8 L (1.0-4.8) k/uL Monocytes # 0.3 (0-1.0) k/uL Eosinophils # 0.0 (0-0.7) k/uL Basophils # 0.0 (0-0.2) k/uL Manual Slide Review Performed Polychromasia Present Hypochromasia Marked Poikilocytosis Marked Anisocytosis Slight Macrocytosis Slight PT 11.1 (9.0-12.0) sec INR 1.0 (<1.2) APTT 18.4 L (22.0-30.0) sec Sodium 133 L (137-145) mmol/L Potassium 3.9 (3.5-5.1) mmol/L Chloride 105 (98-107) mmol/L Carbon Dioxide 22 (22-30) mmol/L Anion Gap 6 mmol/L BUN 45 H (7-17) mg/dL Creatinine 2.14 H (0.52-1.04) mg/dL Est GFR (CKD-EPI)AfAm 26 (>60 ml/min/1.73 sqM) Est GFR (CKD-EPI)NonAf 23 (>60 ml/min/1.73 sqM) Glucose 162 H (74-99) mg/dL Plasma Lactic Acid Asif (0.7-2.0) mmol/L Calcium 7.4 L (8.4-10.2) mg/dL Magnesium 2.3 (1.6-2.3) mg/dL Total Bilirubin 0.4 (0.2-1.3) mg/dL AST 19 (14-36) U/L ALT 15 (4-34) U/L Alkaline Phosphatase 45 (38-126) U/L Troponin I (0.000-0.034) ng/mL Total Protein 3.8 L (6.3-8.2) g/dL Albumin 2.1 L (3.5-5.0) g/dL Urine Color Urine Appearance (Clear) Urine pH (5.0-8.0) Ur Specific [place] (1.001-1.035) Urine Protein (Negative) Urine Glucose (UA) (Negative) Urine Ketones (Negative) Urine Blood (Negative) Urine Nitrite (Negative) Urine Bilirubin (Negative) Urine Urobilinogen (<2.0) mg/dL Ur Leukocyte Esterase (Negative) Stool Occult Blood (Negative) Coronavirus (PCR) (Not Detectd) Blood Type Blood Type Recheck Bld Type Recheck Status Antibody Screen Crossmatch Spec Expiration Date 05/03/21 05/03/21 05/03/21 Range/Units 10:02 10:02 10:02 WBC (3.8-10.6) k/uL RBC (3.80-5.40) m/uL Hgb (11.4-16.0) gm/dL Hct (34.0-46.0) % MCV (80.0-100.0) fL MCH (25.0-35.0) pg MCHC (31.0-37.0) g/dL RDW (11.5-15.5) % Plt Count (150-450) k/uL MPV Neutrophils % % Lymphocytes % % Monocytes % % Eosinophils % % Basophils % % Neutrophils # (1.3-7.7) k/uL Lymphocytes # (1.0-4.8) k/uL Monocytes # (0-1.0) k/uL Eosinophils # (0-0.7) k/uL Basophils # (0-0.2) k/uL Manual Slide Review Polychromasia Hypochromasia Poikilocytosis Anisocytosis Macrocytosis PT (9.0-12.0) sec INR (<1.2) APTT (22.0-30.0) sec Sodium (137-145) mmol/L Potassium (3.5-5.1) mmol/L Chloride (98-107) mmol/L Carbon Dioxide (22-30) mmol/L Anion Gap mmol/L BUN (7-17) mg/dL Creatinine (0.52-1.04) mg/dL Est GFR (CKD-EPI)AfAm (>60 ml/min/1.73 sqM) Est GFR (CKD-EPI)NonAf (>60 ml/min/1.73 sqM) Glucose (74-99) mg/dL Plasma Lactic Acid Asif 1.9 (0.7-2.0) mmol/L Calcium (8.4-10.2) mg/dL Magnesium (1.6-2.3) mg/dL Total Bilirubin (0.2-1.3) mg/dL AST (14-36) U/L ALT (4-34) U/L Alkaline Phosphatase (38-126) U/L Troponin I 0.288 H* (0.000-0.034) ng/mL Total Protein (6.3-8.2) g/dL Albumin (3.5-5.0) g/dL Urine Color Urine Appearance (Clear) Urine pH (5.0-8.0) Ur Specific [place] (1.001-1.035) Urine Protein (Negative) Urine Glucose (UA) (Negative) Urine Ketones (Negative) Urine Blood (Negative) Urine Nitrite (Negative) Urine Bilirubin (Negative) Urine Urobilinogen (<2.0) mg/dL Ur Leukocyte Esterase (Negative) Stool Occult Blood (Negative) Coronavirus (PCR) Not Detected (Not Detectd) Blood Type Blood Type Recheck Bld Type Recheck Status Antibody Screen Crossmatch Spec Expiration Date 05/03/21 05/03/21 05/03/21 Range/Units 10:25 10:40 16:55 WBC (3.8-10.6) k/uL RBC (3.80-5.40) m/uL Hgb (11.4-16.0) gm/dL Hct (34.0-46.0) % MCV (80.0-100.0) fL MCH (25.0-35.0) pg MCHC (31.0-37.0) g/dL RDW (11.5-15.5) % Plt Count (150-450) k/uL MPV Neutrophils % % Lymphocytes % % Monocytes % % Eosinophils % % Basophils % % Neutrophils # (1.3-7.7) k/uL Lymphocytes # (1.0-4.8) k/uL Monocytes # (0-1.0) k/uL Eosinophils # (0-0.7) k/uL Basophils # (0-0.2) k/uL Manual Slide Review Polychromasia Hypochromasia Poikilocytosis Anisocytosis Macrocytosis PT (9.0-12.0) sec INR (<1.2) APTT (22.0-30.0) sec Sodium (137-145) mmol/L Potassium (3.5-5.1) mmol/L Chloride (98-107) mmol/L Carbon Dioxide (22-30) mmol/L Anion Gap mmol/L BUN (7-17) mg/dL Creatinine (0.52-1.04) mg/dL Est GFR (CKD-EPI)AfAm (>60 ml/min/1.73 sqM) Est GFR (CKD-EPI)NonAf (>60 ml/min/1.73 sqM) Glucose (74-99) mg/dL Plasma Lactic Acid Asif (0.7-2.0) mmol/L Calcium (8.4-10.2) mg/dL Magnesium (1.6-2.3) mg/dL Total Bilirubin (0.2-1.3) mg/dL AST (14-36) U/L ALT (4-34) U/L Alkaline Phosphatase (38-126) U/L Troponin I (0.000-0.034) ng/mL Total Protein (6.3-8.2) g/dL Albumin (3.5-5.0) g/dL Urine Color Yellow Urine Appearance Clear (Clear) Urine pH 5.0 (5.0-8.0) Ur Specific [place] 1.014 (1.001-1.035) Urine Protein Negative (Negative) Urine Glucose (UA) 3+ H (Negative) Urine Ketones Negative (Negative) Urine Blood Negative (Negative) Urine Nitrite Negative (Negative) Urine Bilirubin Negative (Negative) Urine Urobilinogen <2.0 (<2.0) mg/dL Ur Leukocyte Esterase Negative (Negative) Stool Occult Blood Positive H (Negative) Coronavirus (PCR) (Not Detectd) Blood Type A Negative Blood Type Recheck A Neg Bld Type Recheck Status No Antibody Screen NEGATIVE Crossmatch See Detail Spec Expiration Date 05/06/2021 - 232405/03/21 Range/Units 17:50 WBC 6.4 (3.8-10.6) k/uL RBC 2.46 L (3.80-5.40) m/uL Hgb 7.4 L D (11.4-16.0) gm/dL Hct 23.1 L (34.0-46.0) % MCV 93.9 (80.0-100.0) fL MCH 29.9 (25.0-35.0) pg MCHC 31.9 (31.0-37.0) g/dL RDW 17.9 H (11.5-15.5) % Plt Count 176 (150-450) k/uL MPV 8.4 Neutrophils % 74 % Lymphocytes % 18 % Monocytes % 5 % Eosinophils % 1 % Basophils % 0 % Neutrophils # 4.8 (1.3-7.7) k/uL Lymphocytes # 1.2 (1.0-4.8) k/uL Monocytes # 0.3 (0-1.0) k/uL Eosinophils # 0.0 (0-0.7) k/uL Basophils # 0.0 (0-0.2) k/uL Manual Slide Review Polychromasia Hypochromasia Moderate Poikilocytosis Marked Anisocytosis Slight Macrocytosis Slight PT (9.0-12.0) sec INR (<1.2) APTT (22.0-30.0) sec Sodium (137-145) mmol/L Potassium (3.5-5.1) mmol/L Chloride (98-107) mmol/L Carbon Dioxide (22-30) mmol/L Anion Gap mmol/L BUN (7-17) mg/dL Creatinine (0.52-1.04) mg/dL Est GFR (CKD-EPI)AfAm (>60 ml/min/1.73 sqM) Est GFR (CKD-EPI)NonAf (>60 ml/min/1.73 sqM) Glucose (74-99) mg/dL Plasma Lactic Acid Asif (0.7-2.0) mmol/L Calcium (8.4-10.2) mg/dL Magnesium (1.6-2.3) mg/dL Total Bilirubin (0.2-1.3) mg/dL AST (14-36) U/L ALT (4-34) U/L Alkaline Phosphatase (38-126) U/L Troponin I (0.000-0.034) ng/mL Total Protein (6.3-8.2) g/dL Albumin (3.5-5.0) g/dL Urine Color Urine Appearance (Clear) Urine pH (5.0-8.0) Ur Specific [place] (1.001-1.035) Urine Protein (Negative) Urine Glucose (UA) (Negative) Urine Ketones (Negative) Urine Blood (Negative) Urine Nitrite (Negative) Urine Bilirubin (Negative) Urine Urobilinogen (<2.0) mg/dL Ur Leukocyte Esterase (Negative) Stool Occult Blood (Negative) Coronavirus (PCR) (Not Detectd) Blood Type Blood Type Recheck Bld Type Recheck Status Antibody Screen Crossmatch Spec Expiration Date Disposition <Halina Arnold - Last Filed: 05/03/21 15:00> Is patient prescribed a controlled substance at d/c from ED?: No - Out of Hospital Transfer - Req. Specs Out of Hospital Transfer - Requested Specifics: Other Emergency Center ([facility]) <Angely Laurent - Last Filed: 05/03/21 18:27> Clinical Impression: Acute on chronic anemia, GI bleeding Disposition: OTHER INSTITUTION NOT DEFINED Condition: Serious Referrals: Franc Ferro MD [Primary Care Provider] - 1-2 days
[2021-05-03] MEDS ORDERED: PANTOPRAZOLE 40 MG/10 ML VIAL IVP STA (11:11)
[2021-05-03] MEDS ORDERED: HYDROcodone/APAP 5-325MG 1 EACH TAB PO STA (12:10)
[2021-05-03 15:01] VITALS: TEMP 98.1
[2021-05-03 17:25] LABS: Appearance,Urine Clear (Clear); Bilirubin,Urine Negative (Negative); Blood,Urine Negative (Negative); Color,Urine Yellow; Glucose,Urine (UA) 3+ (Negative); Ketones,Urine Negative (Negative); Leukocyte Esterase,Urine Negative (Negative); Nitrite,Urine Negative (Negative); Protein,Urine Negative (Negative); Specific Gravity,Urine 1.014 (1.001-1.035); Urobilinogen,Urine <2.0 mg/dL (<2.0)
[2021-05-03 18:02] LABS: Anisocytosis Slight; Basophils % (A) 0 %; Eosinophils % (A) 1 %; HCT 23.1 % (34.0-46.0); Hypochromasia Moderate; Lymphocytes # (A) 1.2 k/uL (1.0-4.8); Lymphocytes % (A) 18 %; MCH 29.9 pg (25.0-35.0); MCHC 31.9 g/dL (31.0-37.0); MCV 93.9 fL (80.0-100.0); Macrocytosis Slight; Mean Platelet Volume 8.4; Monocytes # (A) 0.3 k/uL (0-1.0); Monocytes % (A) 5 %; Neutrophils # (A) 4.8 k/uL (1.3-7.7); Neutrophils % (A) 74 %; Platelet Count 176 k/uL (150-450); Poikilocytosis Marked; RBC 2.46 m/uL (3.80-5.40); RDW 17.9 % (11.5-15.5); WBC 6.4 k/uL (3.8-10.6)
[2021-05-03 18:08] LABS: HGB 7.4 gm/dL (11.4-16.0)
[2021-05-03 19:26] VITALS: BP 100/50; PULSE 88; RESP 20
== END 2021-05-03 20:01 | disposition other institution (70) ==
LOC: EC 08:57
DX: D64.9 Anemia, unspecified (principal); K92.2 Gastrointestinal hemorrhage, unspecified; I48.91 Unspecified atrial fibrillation; I11.0 Hypertensive heart disease with heart failure; I50.9 Heart failure, unspecified; E11.9 Type 2 diabetes mellitus without complications; J44.9 Chronic obstructive pulmonary disease, unspecified; E78.5 Hyperlipidemia, unspecified; M19.90 Unspecified osteoarthritis, unspecified site; F17.200 Nicotine dependence, unspecified, uncomplicated; Z90.49 Acquired absence of other specified parts of digestive tract; Z90.89 Acquired absence of other organs; Z98.51 Tubal ligation status
CPT/HCPCS: 99285; 96374; 96361 ×2; 36430; 36415; 93005; 86900; 86901; 80053; 83605; 83735; 84484; 85025; 85610; 85730; 86850; 86920; 82272; 81003; 87635; 71046; P9016; C9113

== ENCOUNTER → 2021-06-26 | Outpatient (CLI) | payer MEDICARE, OTHER ==
[2021-06-26 20:43] LABS: HCT 43.1 % (37.2-46.3); HGB 13.2 g/dL (12.0-15.0); MCH 30.6 pg (27.0-32.0); MCHC 30.6 g/dL (32.0-37.0); MCV 99.8 fL (80.0-97.0); Mean Platelet Volume 11.6 fL (9.5-12.2); Platelet Count 197 X 10*3/uL (140-440); RBC 4.32 X 10*6/uL (4.10-5.20); RDW 14.5 % (11.5-14.5); WBC 9.26 X 10*3/uL (4.50-10.00)
[2021-06-26 21:57] LABS: % Iron Saturation 36.3 (12.00-45.00); African American GFR (CKD) 29.1 (60.0-200.0); Albumin 4.1 g/dL (3.8-4.9); Anion Gap 12.5 mmol/L (10.00-18.00); BUN/Creat Ratio 12.94 Ratio (12.00-20.00); Blood Urea Nitrogen 25.5 mg/dL (9.0-27.0); Calcium 9.2 mg/dL (8.7-10.3); Carbon Dioxide 27.1 mmol/L (20.0-27.5); Ferritin 81.6 ng/mL (10.0-291.0); Globulin 2.1 g/dL (1.6-3.3); Magnesium 2.5 mg/dL (1.5-2.4); Non-African American GFR(CKD) 25.1 (60.0-200.0); Phosphorus 4.5 mg/dL (2.4-5.1); Potassium 5.3 mmol/L (3.5-5.5); Total Bilirubin 0.2 mg/dL (0.30-1.20); Total Protein 6.2 g/dL (6.2-8.2); Uric Acid 6.7 mg/dL (2.9-7.7)
[2021-06-26 22:09] LABS: Microalbumin Creatinine Ratio <30 mg/g Creat (0-30); Urine Creatinine 26.7 mg/dL (28.0-217.0)
[2021-06-26 23:41] LABS: Appearance,Urine Clear (Clear); Color,Urine Yellow (Yellow); Specific Gravity,Urine 1.011 (1.001-1.030)
[2021-06-26 23:42] LABS: Bacteria,Urine None Seen /HPF (None Seen)
== END | disposition home or self-care (01) ==
LOC: LABWHC1 12:40
PROVIDERS: ATTEND Internal Medicine
DX: D64.9 Anemia, unspecified (principal); N39.0 Urinary tract infection, site not specified; N25.81 Secondary hyperparathyroidism of renal origin; E55.9 Vitamin D deficiency, unspecified; N18.4 Chronic kidney disease, stage 4 (severe)
CPT/HCPCS: 36415; 80053; 81001; 82043; 82306; 82570; 82728; 83540; 83550; 83735; 83970; 84100; 84550; 85027

== ENCOUNTER → 2021-10-01 | Outpatient (CLI) | payer MEDICARE, OTHER ==
[2021-10-01 15:10] LABS: Basophils # (A) 0.07 X 10*3/uL (0.00-0.10); Basophils % (A) 0.8 %; Eosinophils # (A) 0.17 X 10*3/uL (0.04-0.35); Eosinophils % (A) 1.9 %; HCT 43.6 % (37.2-46.3); HGB 13.7 g/dL (12.0-15.0); Immature Grans, Automated 0.5 %; Lymphocytes % (A) 19.7 %; MCH 30.9 pg (27.0-32.0); MCHC 31.4 g/dL (32.0-37.0); MCV 98.2 fL (80.0-97.0); Mean Platelet Volume 11.9 fL (9.5-12.2); Monocytes # (A) 0.57 X 10*3/uL (0.20-1.00); Monocytes % (A) 6.2 %; NRBC Per 100 WBC 0 /100 WBCS (0.0-0.0); Neutrophils # (A) 6.49 X 10*3/uL (1.80-7.70); Neutrophils % (A) 70.9 %; Platelet Count 165 X 10*3/uL (140-440); RBC 4.44 X 10*6/uL (4.10-5.20); RDW 14.5 % (11.5-14.5); WBC 9.15 X 10*3/uL (4.50-10.00)
[2021-10-01 15:49] LABS: Appearance,Urine Clear (Clear); Bacteria,Urine None Seen /HPF (None Seen); Bilirubin,Urine Negative (Negative); Blood,Urine Negative (Negative); Color,Urine Yellow (Yellow); Ketones,Urine Negative (Negative); Nitrite,Urine Negative (Negative); PH, Urine 6.5 (5.0-8.0); Specific Gravity,Urine 1.022 (1.001-1.030); Urobilinogen,Urine 0.2 (0.2,1.0)
[2021-10-01 16:36] LABS: % Iron Saturation 20.82 (12.00-45.00); African American GFR (CKD) 28.3 (60.0-200.0); Albumin 3.9 g/dL (3.8-4.9); Albumin/Globulin Ratio 1.66 (1.60-3.17); Anion Gap 14.8 mmol/L (10.00-18.00); BUN/Creat Ratio 19.11 Ratio (12.00-20.00); Blood Urea Nitrogen 38.6 mg/dL (9.0-27.0); Calcium 9.4 mg/dL (8.7-10.3); Carbon Dioxide 22.8 mmol/L (20.0-27.5); Globulin 2.4 g/dL (1.6-3.3); Magnesium 2.7 mg/dL (1.5-2.4); Non-African American GFR(CKD) 24.4 (60.0-200.0); Phosphorus 4.1 mg/dL (2.4-5.1); Potassium 5.4 mmol/L (3.5-5.5); Total Bilirubin 0.4 mg/dL (0.30-1.20); Total Protein 6.3 g/dL (6.2-8.2); Uric Acid 6.2 mg/dL (2.9-7.7)
[2021-10-01 16:49] LABS: HDL Cholesterol 34.1 mg/dL (40.00-60.00); T4, Free (Free Thyroxine) 1.1 ng/dL (0.800-1.800)
[2021-10-01 17:25] LABS: LDL Cholesterol,Direct Reflex 55.3 mg/dL (0.00-129.00)
[2021-10-01 17:26] LABS: Chol/HDL Ratio 6.86 Ratio
[2021-10-01 18:32] LABS: Microalbumin Creatinine Ratio <30 mg/g Creat (0-30); Urine Creatinine 95.7 mg/dL (28.0-217.0)
== END | disposition home or self-care (01) ==
LOC: LABWHC1 09:17
PROVIDERS: ATTEND Nurse Practitioner Family
DX: I12.9 Hypertensive chronic kidney disease with stage 1 through stage 4 chronic kidney disease, or unspecified chronic kidney disease (principal); E11.22 Type 2 diabetes mellitus with diabetic chronic kidney disease; E78.2 Mixed hyperlipidemia; N25.81 Secondary hyperparathyroidism of renal origin; N39.0 Urinary tract infection, site not specified; M10.9 Gout, unspecified; D64.9 Anemia, unspecified; E55.9 Vitamin D deficiency, unspecified
CPT/HCPCS: 36415; 80053; 80061; 81001; 82043; 82306; 82570; 82728; 83036; 83540; 83550; 83721; 83735; 83970; 84100; 84439; 84443; 84550; 85025

== ENCOUNTER → 2021-12-29 | Outpatient (CLI) | payer MEDICARE, OTHER ==
[2021-12-29 14:07] LABS: Appearance,Urine Clear (Clear); Bilirubin,Urine Negative (Negative); Blood,Urine Negative (Negative); Color,Urine Yellow (Yellow); Ketones,Urine Negative (Negative); Nitrite,Urine Negative (Negative); PH, Urine 5.5 (5.0-8.0); Specific Gravity,Urine 1.023 (1.001-1.030); Urobilinogen,Urine 0.2 (0.2,1.0)
[2021-12-29 14:12] LABS: HCT 43.5 % (37.2-46.3); HGB 13.8 g/dL (12.0-15.0); MCH 30.2 pg (27.0-32.0); MCHC 31.7 g/dL (32.0-37.0); MCV 95.2 fL (80.0-97.0); Mean Platelet Volume 11.4 fL (9.5-12.2); NRBC Per 100 WBC 0 /100 WBCS (0.0-0.0); Platelet Count 194 X 10*3/uL (140-440); RBC 4.57 X 10*6/uL (4.10-5.20); RDW 14.2 % (11.5-14.5); WBC 7.74 X 10*3/uL (4.50-10.00)
[2021-12-29 14:45] LABS: African American GFR (CKD) 32.5 (60.0-200.0); Albumin 3.9 g/dL (3.8-4.9); Albumin/Globulin Ratio 1.7 (1.60-3.17); Anion Gap 10.8 mmol/L (10.00-18.00); BUN/Creat Ratio 15.89 Ratio (12.00-20.00); Blood Urea Nitrogen 28.6 mg/dL (9.0-27.0); Calcium 9.4 mg/dL (8.7-10.3); Carbon Dioxide 23.2 mmol/L (20.0-27.5); Globulin 2.3 g/dL (1.6-3.3); HDL Cholesterol 29.3 mg/dL (40.00-60.00); Potassium 4.9 mmol/L (3.5-5.5); T4, Free (Free Thyroxine) 0.94 ng/dL (0.800-1.800); Total Bilirubin 0.3 mg/dL (0.30-1.20); Total Protein 6.2 g/dL (6.2-8.2); Uric Acid 6.4 mg/dL (2.9-7.7)
[2021-12-29 15:05] LABS: Chol/HDL Ratio 10.44 Ratio; LDL Cholesterol,Direct Reflex 59.9 mg/dL (0.00-129.00)
== END | disposition home or self-care (01) ==
LOC: LABWHC1 10:21
PROVIDERS: ATTEND Internal Medicine
DX: E11.9 Type 2 diabetes mellitus without complications (principal); E78.2 Mixed hyperlipidemia; I50.22 Chronic systolic (congestive) heart failure; N18.4 Chronic kidney disease, stage 4 (severe); D64.9 Anemia, unspecified; N39.0 Urinary tract infection, site not specified; R80.9 Proteinuria, unspecified; N25.81 Secondary hyperparathyroidism of renal origin; E55.9 Vitamin D deficiency, unspecified; M10.9 Gout, unspecified
CPT/HCPCS: 36415; 80053; 80061; 81003; 83036; 83721; 83970; 84439; 84443; 84550; 85027

== ENCOUNTER → 2022-04-09 | Outpatient (CLI) | payer MEDICARE, OTHER ==
[2022-04-09 18:01] LABS: Appearance,Urine Clear (Clear); Bilirubin,Urine Negative (Negative); Blood,Urine Negative (Negative); Color,Urine Yellow (Yellow); Ketones,Urine Negative (Negative); Nitrite,Urine Negative (Negative); Urobilinogen,Urine 0.2 (0.2,1.0)
[2022-04-09 18:06] LABS: Basophils # (A) 0.07 X 10*3/uL (0.00-0.10); Basophils % (A) 0.8 %; Eosinophils # (A) 0.14 X 10*3/uL (0.04-0.35); Eosinophils % (A) 1.7 %; HGB 13.5 g/dL (12.0-15.0); Immature Grans, Automated 0.2 %; Lymphocytes % (A) 25.2 %; MCH 30.9 pg (27.0-32.0); MCHC 32.1 g/dL (32.0-37.0); MCV 96.1 fL (80.0-97.0); Mean Platelet Volume 11.3 fL (9.5-12.2); Monocytes # (A) 0.46 X 10*3/uL (0.20-1.00); Monocytes % (A) 5.5 %; NRBC Per 100 WBC 0 /100 WBCS (0.0-0.0); Neutrophils # (A) 5.53 X 10*3/uL (1.80-7.70); Neutrophils % (A) 66.6 %; Platelet Count 219 X 10*3/uL (140-440); RBC 4.37 X 10*6/uL (4.10-5.20); RDW 14.4 % (11.5-14.5); WBC 8.32 X 10*3/uL (4.50-10.00)
[2022-04-09 19:14] LABS: % Iron Saturation 29.29 (12.00-45.00); African American GFR (CKD) 22.9 (60.0-200.0); Albumin 4.5 g/dL (3.8-4.9); Albumin/Globulin Ratio 1.88 (1.60-3.17); Anion Gap 14.6 mmol/L (10.00-18.00); BUN/Creat Ratio 12.29 Ratio (12.00-20.00); Blood Urea Nitrogen 29.5 mg/dL (9.0-27.0); Calcium 9.6 mg/dL (8.7-10.3); Carbon Dioxide 24.4 mmol/L (20.0-27.5); Globulin 2.4 g/dL (1.6-3.3); Magnesium 2.4 mg/dL (1.5-2.4); Non-African American GFR(CKD) 19.8 (60.0-200.0); Phosphorus 4.1 mg/dL (2.4-5.1); Total Bilirubin 0.4 mg/dL (0.30-1.20); Total Protein 6.9 g/dL (6.2-8.2); Uric Acid 6.4 mg/dL (2.9-7.7)
[2022-04-09 19:29] LABS: HDL Cholesterol 38.4 mg/dL (40.00-60.00); T4, Free (Free Thyroxine) 1.16 ng/dL (0.800-1.800)
[2022-04-09 19:40] LABS: Chol/HDL Ratio 5.6 Ratio; LDL Cholesterol,Direct Reflex 49.6 mg/dL (0.00-129.00)
[2022-04-09 22:13] LABS: Microalbumin Creatinine Ratio <30 mg/g Creat (0-30); Urine Creatinine 25.9 mg/dL (28.0-217.0)
== END | disposition home or self-care (01) ==
LOC: LABWHC1 12:06
PROVIDERS: ATTEND Nurse Practitioner Family
DX: N25.81 Secondary hyperparathyroidism of renal origin (principal); I13.0 Hypertensive heart and chronic kidney disease with heart failure and stage 1 through stage 4 chronic kidney disease, or unspecified chronic kidney disease; E11.22 Type 2 diabetes mellitus with diabetic chronic kidney disease; N18.4 Chronic kidney disease, stage 4 (severe); D63.1 Anemia in chronic kidney disease; N39.0 Urinary tract infection, site not specified; R80.9 Proteinuria, unspecified; E55.9 Vitamin D deficiency, unspecified; I25.10 Atherosclerotic heart disease of native coronary artery without angina pectoris; M10.9 Gout, unspecified
CPT/HCPCS: 36415; 80053; 80061; 81003; 82043; 82306; 82570; 82728; 83036; 83540; 83550; 83721; 83735; 83880; 83970; 84100; 84439; 84443; 84550; 85025

== ENCOUNTER → 2022-04-29 | Outpatient (CLI) | payer MEDICARE, OTHER ==
[2022-04-29 15:07] LABS: African American GFR (CKD) 21.7 (60.0-200.0); Anion Gap 11.3 mmol/L (10.00-18.00); BUN/Creat Ratio 15.44 Ratio (12.00-20.00); Blood Urea Nitrogen 38.6 mg/dL (9.0-27.0); Calcium 9.4 mg/dL (8.7-10.3); Carbon Dioxide 25.7 mmol/L (20.0-27.5); Non-African American GFR(CKD) 18.7 (60.0-200.0); Potassium 4.3 mmol/L (3.5-5.5)
== END | disposition home or self-care (01) ==
LOC: LABWHC1 11:08
PROVIDERS: ATTEND Internal Medicine
DX: E11.9 Type 2 diabetes mellitus without complications (principal)
CPT/HCPCS: 36415; 80048

== ENCOUNTER → 2022-07-09 | Outpatient (CLI) | payer MEDICARE, OTHER ==
[2022-07-09 22:58] LABS: Basophils # (A) 0.03 X 10*3/uL (0.00-0.10); Basophils % (A) 0.3 %; Eosinophils # (A) 0.42 X 10*3/uL (0.04-0.35); Eosinophils % (A) 4.1 %; HCT 39.9 % (37.2-46.3); HGB 12.7 g/dL (12.0-15.0); Immature Grans, Automated 0.3 %; Lymphocytes # (A) 2.03 X 10*3/uL (0.90-5.00); Lymphocytes % (A) 19.9 %; MCH 31.8 pg (27.0-32.0); MCHC 31.8 g/dL (32.0-37.0); Mean Platelet Volume 11.2 fL (9.5-12.2); Monocytes # (A) 0.56 X 10*3/uL (0.20-1.00); Monocytes % (A) 5.5 %; NRBC Per 100 WBC 0 /100 WBCS (0.0-0.0); Neutrophils # (A) 7.13 X 10*3/uL (1.80-7.70); Neutrophils % (A) 69.9 %; Platelet Count 244 X 10*3/uL (140-440); RBC 3.99 X 10*6/uL (4.10-5.20)
[2022-07-09 23:30] LABS: % Iron Saturation 19.6 (12.00-45.00); African American GFR (CKD) 22.1 (60.0-200.0); Albumin 4.2 g/dL (3.8-4.9); Albumin/Globulin Ratio 2.05 (1.60-3.17); Anion Gap 13.2 mmol/L (10.00-18.00); BUN/Creat Ratio 10.08 Ratio (12.00-20.00); Blood Urea Nitrogen 24.8 mg/dL (9.0-27.0); Calcium 9.7 mg/dL (8.7-10.3); Carbon Dioxide 25.5 mmol/L (20.0-27.5); Magnesium 1.8 mg/dL (1.5-2.4); Non-African American GFR(CKD) 19.1 (60.0-200.0); Phosphorus 3.2 mg/dL (2.4-5.1); Potassium 4.5 mmol/L (3.5-5.5); Total Bilirubin 0.4 mg/dL (0.30-1.20); Total Protein 6.2 g/dL (6.2-8.2); Uric Acid 5.8 mg/dL (2.9-7.7); Urine Creatinine 72.5 mg/dL (28.0-217.0)
== END | disposition home or self-care (01) ==
LOC: LABWHC1 13:58
PROVIDERS: ATTEND Internal Medicine
DX: N18.4 Chronic kidney disease, stage 4 (severe) (principal); N39.0 Urinary tract infection, site not specified; N25.81 Secondary hyperparathyroidism of renal origin; E55.9 Vitamin D deficiency, unspecified; D63.1 Anemia in chronic kidney disease; M10.9 Gout, unspecified
CPT/HCPCS: 36415; 80053; 82043; 82306; 82570; 82728; 83540; 83550; 83735; 83970; 84100; 84550; 85025

== ENCOUNTER → 2022-10-01 | Outpatient (CLI) | payer MEDICARE, OTHER ==
[2022-10-01 19:40] LABS: % Iron Saturation 28.86 (12.00-45.00); African American GFR (CKD) 33.1 (60.0-200.0); Albumin/Globulin Ratio 1.87 (1.60-3.17); Anion Gap 10.5 mmol/L (10.00-18.00); BUN/Creat Ratio 15.34 Ratio (12.00-20.00); Calcium 9.4 mg/dL (8.7-10.3); Carbon Dioxide 27.5 mmol/L (20.0-27.5); Globulin 2.1 g/dL (1.6-3.3); Magnesium 1.9 mg/dL (1.5-2.4); Non-African American GFR(CKD) 28.6 (60.0-200.0); Phosphorus 3.7 mg/dL (2.4-5.1); Potassium 4.9 mmol/L (3.5-5.5); Total Bilirubin 0.4 mg/dL (0.30-1.20); Total Protein 6.2 g/dL (6.2-8.2)
[2022-10-01 20:25] LABS: Appearance,Urine Clear (Clear); Bilirubin,Urine Negative (Negative); Blood,Urine Negative (Negative); Color,Urine Yellow (Yellow); Ketones,Urine Negative (Negative); Nitrite,Urine Negative (Negative); PH, Urine 5.5 (5.0-8.0); Specific Gravity,Urine 1.008 (1.001-1.030); Urobilinogen,Urine 0.2 (0.2,1.0)
[2022-10-01 20:44] LABS: Bacteria,Urine None Seen /HPF (None Seen); HCT 39.7 % (37.2-46.3); HGB 12.7 g/dL (12.0-15.0); MCH 32.2 pg (27.0-32.0); MCV 100.8 fL (80.0-97.0); Mean Platelet Volume 10.7 fL (9.5-12.2); NRBC Per 100 WBC 0 /100 WBCS (0.0-0.0); Platelet Count 197 X 10*3/uL (140-440); RBC 3.94 X 10*6/uL (4.10-5.20); RDW 14.5 % (11.5-14.5); WBC 10.42 X 10*3/uL (4.50-10.00)
[2022-10-01 22:34] LABS: Urine Creatinine 31.7 mg/dL (28.0-217.0)
== END | disposition home or self-care (01) ==
LOC: LABWHC1 09:50
PROVIDERS: ATTEND Nurse Practitioner Family
DX: N39.0 Urinary tract infection, site not specified (principal); N25.81 Secondary hyperparathyroidism of renal origin; E55.9 Vitamin D deficiency, unspecified; M10.9 Gout, unspecified; D63.1 Anemia in chronic kidney disease; E11.22 Type 2 diabetes mellitus with diabetic chronic kidney disease
CPT/HCPCS: 36415; 80053; 81001; 82043; 82306; 82570; 82728; 83540; 83550; 83735; 83970; 84100; 84550; 85027

== ENCOUNTER → 2023-01-07 | Outpatient (CLI) | payer MEDICARE, OTHER ==
[2023-01-07 12:39] LABS: ALT 20 U/L (4-34); AST 19 U/L (14-36); African American GFR (CKD) 34 (>60 ml/min/1.73 sqM); Albumin 3.9 g/dL (3.5-5.0); Albumin/Globulin Ratio 1.4; Alkaline Phosphatase 114 U/L (38-126); Anion Gap 8 mmol/L; Blood Urea Nitrogen 36 mg/dL (7-17); Calcium 9.1 mg/dL (8.4-10.2); Carbon Dioxide 27 mmol/L (22-30); Chloride 99 mmol/L (98-107); Globulin 2.7 g/dL; Glucose 152 mg/dL (74-99); Non-African American GFR(CKD) 30 (>60 ml/min/1.73 sqM); Phosphorus 3.7 mg/dL (2.5-4.5); Potassium 4.5 mmol/L (3.5-5.1); Sodium 134 mmol/L (137-145); Total Bilirubin 0.8 mg/dL (0.2-1.3); Total Protein 6.6 g/dL (6.3-8.2); Uric Acid 6.1 mg/dL (3.7-7.4)
[2023-01-07 12:41] LABS: NT-Pro-B-Type Natriuretic Pept 565 pg/mL
[2023-01-07 20:23] LABS: Appearance,Urine Clear (Clear); Bilirubin,Urine Negative (Negative); Blood,Urine Negative (Negative); Color,Urine Yellow (Yellow); Ketones,Urine Negative (Negative); Nitrite,Urine Negative (Negative); PH, Urine 5.5; Specific Gravity,Urine 1.008 (1.001-1.030); Urobilinogen,Urine 0.2 E.U./DL
[2023-01-07 21:06] LABS: Microalbumin Creatinine Ratio <52 mg/g Cr (0-30); Urine Creatinine 22.9 mg/dL (28.0-217.0)
[2023-01-08 02:03] LABS: Basophils # (A) 0.09 X 10*3/uL (0.00-0.10); Basophils % (A) 0.8 %; Eosinophils # (A) 0.19 X 10*3/uL (0.04-0.35); Eosinophils % (A) 1.7 %; HCT 40.9 % (37.2-46.3); HGB 13.1 d/dL (12.0-15.0); Lymphocytes # (A) 2.27 X 10*3/uL (0.90-5.00); Lymphocytes % (A) 20.8 %; Mean Platelet Volume 11.1 FL (9.5-12.2); Monocytes # (A) 0.79 X 10*3/uL (0.20-1.00); Monocytes % (A) 7.2 %; NRBC Per 100 WBC 0 X 10*3/uL (0.00-0.01); Neutrophils # (A) 7.56 X 10*3/uL (1.80-7.70); Neutrophils % (A) 69.2 %; Platelet Count 164 X 10*3/uL (140-440); RBC 4.09 X 10*6/uL (4.10-5.20); RDW 14.3 % (11.5-14.5); WBC 10.93 X 10*3/uL (4.50-10.00)
[2023-01-08 02:23] LABS: % Iron Saturation 27.67 (12.00-45.00); Chol/HDL Ratio 4.84 Ratio; Iron 83 UG/DL (50-170); LDL Cholesterol,Calculated 78.8 mg/dL (0.0-131.0); Total Iron Binding Capacity 300 UG/DL (228-460)
== END | disposition home or self-care (01) ==
LOC: LABWHC1 11:01
PROVIDERS: ATTEND Internal Medicine
DX: I13.0 Hypertensive heart and chronic kidney disease with heart failure and stage 1 through stage 4 chronic kidney disease, or unspecified chronic kidney disease (principal); E11.22 Type 2 diabetes mellitus with diabetic chronic kidney disease; I25.10 Atherosclerotic heart disease of native coronary artery without angina pectoris; N18.32 Chronic kidney disease, stage 3b; D63.1 Anemia in chronic kidney disease; I50.22 Chronic systolic (congestive) heart failure; N39.0 Urinary tract infection, site not specified; N25.81 Secondary hyperparathyroidism of renal origin; E55.9 Vitamin D deficiency, unspecified; M10.9 Gout, unspecified; R80.9 Proteinuria, unspecified
CPT/HCPCS: 36415; 80053; 80061; 81003; 82043; 82570; 82728; 83036; 83540; 83550; 83735; 83880; 83970; 84100; 84443; 84550; 85025

== ENCOUNTER → 2023-02-07 | Outpatient (CLI) | payer MEDICARE, OTHER ==
[2023-02-07 16:01] LABS: BUN/Creat Ratio 16.94 Ratio (12.00-20.00); Blood Urea Nitrogen 30.5 mg/dL (9.0-27.0); Chloride 104 mmol/L (96-109); Glucose 196 mg/dL (70-110); Potassium 5.1 mmol/L (3.5-5.5); Sodium 138 mmol/L (135-145)
[2023-02-07 16:02] LABS: Calcium 9.5 mg/dL (8.7-10.3); Carbon Dioxide 22.3 mmol/L (21.6-31.8)
== END | disposition home or self-care (01) ==
LOC: LABWHC1 11:26
PROVIDERS: ATTEND Internal Medicine
DX: N18.4 Chronic kidney disease, stage 4 (severe) (principal)
CPT/HCPCS: 36415; 80048

== ENCOUNTER → 2023-04-14 | Outpatient (CLI) | payer MEDICARE, OTHER ==
[2023-04-14 18:06] LABS: Appearance,Urine Clear (Clear); Bilirubin,Urine Negative (Negative); Blood,Urine Negative (Negative); Color,Urine Colorless; Glucose,Urine (UA) 3+ (Negative); Ketones,Urine Negative (Negative); Leukocyte Esterase,Urine Negative (Negative); Nitrite,Urine Negative (Negative); Protein,Urine Negative (Negative); Specific Gravity,Urine 1.008 (1.001-1.035); Urobilinogen,Urine <2.0 mg/dL (<2.0)
[2023-04-15 03:55] LABS: Microalbumin Creatinine Ratio <34 mg/g Cr (0-30); Urine Creatinine 35.3 mg/dL (28.0-217.0)
[2023-04-15 03:56] LABS: % Iron Saturation 29.64 (12.00-45.00); ALT 19 U/L (8-44); AST 17 U/L (13-35); Albumin 4.2 d/dL (3.8-4.9); Albumin/Globulin Ratio 1.75 Ratio (1.60-3.17); Alkaline Phosphatase 134 U/L (41-126); BUN/Creat Ratio 16.05 Ratio (12.00-20.00); Blood Urea Nitrogen 32.1 mg/dL (9.0-27.0); Carbon Dioxide 26.3 mmol/L (21.6-31.8); Chloride 98 mmol/L (96-109); Chol/HDL Ratio 5.87 Ratio; Globulin 2.4 d/dL (1.6-3.3); Glucose 160 mg/dL (70-110); Iron 83 UG/DL (50-170); Magnesium 2.2 mg/dL (1.5-2.4); Phosphorus 3.9 mg/dL (2.4-5.1); Potassium 4.7 mmol/L (3.5-5.5); Sodium 138 mmol/L (135-145); Total Bilirubin 0.5 mg/dL (0.3-1.2); Total Iron Binding Capacity 280 UG/DL (228-460); Total Protein 6.6 d/dL (6.2-8.2); Uric Acid 5.9 mg/dL (2.9-7.7)
[2023-04-15 04:40] LABS: HCT 46.7 % (37.2-46.3); HGB 14.7 d/dL (12.0-15.0); MCH 31.3 pg (27.0-32.0); MCHC 31.5 d/dL (32.0-37.0); MCV 99.6 FL (80.0-97.0); Mean Platelet Volume 11.1 FL (9.5-12.2); NRBC Per 100 WBC 0 X 10*3/uL (0.00-0.01); Platelet Count 169 X 10*3/uL (140-440); RBC 4.69 X 10*6/uL (4.10-5.20); RDW 14.6 % (11.5-14.5); WBC 9.96 X 10*3/uL (4.50-10.00)
[2023-04-15 04:41] LABS: Basophils # (A) 0.11 X 10*3/uL (0.00-0.10); Basophils % (A) 1.1 %; Eosinophils # (A) 0.33 X 10*3/uL (0.04-0.35); Eosinophils % (A) 3.3 %; Lymphocytes # (A) 2.49 X 10*3/uL (0.90-5.00); Monocytes # (A) 0.66 X 10*3/uL (0.20-1.00); Monocytes % (A) 6.6 %; Neutrophils # (A) 6.34 X 10*3/uL (1.80-7.70); Neutrophils % (A) 63.7 %
== END | disposition home or self-care (01) ==
LOC: LABWHC1 13:34
PROVIDERS: ATTEND Internal Medicine
DX: N25.81 Secondary hyperparathyroidism of renal origin (principal); I12.9 Hypertensive chronic kidney disease with stage 1 through stage 4 chronic kidney disease, or unspecified chronic kidney disease; E11.22 Type 2 diabetes mellitus with diabetic chronic kidney disease; N18.4 Chronic kidney disease, stage 4 (severe); D63.1 Anemia in chronic kidney disease; E78.2 Mixed hyperlipidemia; E55.9 Vitamin D deficiency, unspecified; N39.0 Urinary tract infection, site not specified; M10.9 Gout, unspecified; R80.9 Proteinuria, unspecified
CPT/HCPCS: 36415; 80053; 80061; 81003; 82043; 82306; 82570; 82728; 83036; 83540; 83550; 83721; 83735; 83970; 84100; 84443; 84550; 85025

== ENCOUNTER → 2023-07-19 | Outpatient (CLI) | payer MEDICARE, OTHER ==
--- NOTE | 2023-07-19 15:02 | US ---
EXAMINATION TYPE: US kidneys/renal and bladder DATE OF EXAM: 07/19/2023 COMPARISON: CT & US CLINICAL INDICATION: Female, 73 years old with history of N18.4 CHRONIC KIDNEY DISEASE, STAGE 4 (YOMAIRA RE); CKD EXAM MEASUREMENTS: Right Kidney: 9.4 x 5.1 x 4.9 cm Left Kidney: 9.7 x 3.6 x4.0 cm Right Kidney: No evidence of hydro, "sweat sign" anterior to kidney, small hypoechoic lesion lower po le= 1.2 x 1.3 x 1.3 cm Left Kidney: No evidence of hydro, "sweat sign" anterior to kidney, multiple cystic lesions upper leeanne e, largest= 2.9 x 2.6 x 3.5 cm Bladder: wnl Bilateral Jets seen: No There is no evidence for hydronephrosis at this point in time. No nephrolithiasis is seen. No solid masses are identified. The urinary bladder is anechoic. Bilateral ureteral jets are seen. IMPRESSION: Small renal cysts noted.
[2023-07-19 18:41] LABS: Appearance,Urine Cloudy (Clear); Bilirubin,Urine Negative (Negative); Blood,Urine Negative (Negative); Color,Urine Yellow (Yellow); Ketones,Urine Negative (Negative); Nitrite,Urine Negative (Negative); PH, Urine 5.5; Specific Gravity,Urine 1.016 (1.001-1.030); Urobilinogen,Urine 0.2 E.U./DL
[2023-07-19 18:47] LABS: Amorphous Sediment,Urine Present (None Seen); Bacteria,Urine None Seen (None Seen); Yeast (UA) Present (None Seen)
[2023-07-19 19:16] LABS: HCT 43.2 % (37.2-46.3); MCH 31.7 pg (27.0-32.0); MCHC 32.4 g/dL (32.0-37.0); MCV 97.7 FL (80.0-97.0); Mean Platelet Volume 11.2 FL (9.5-12.2); NRBC Per 100 WBC 0 X 10*3/uL (0.00-0.01); Platelet Count 168 X 10*3/uL (140-440); RBC 4.42 X 10*6/uL (4.10-5.20); RDW 14.9 % (11.5-14.5); WBC 9.41 X 10*3/uL (4.50-10.00)
[2023-07-19 19:24] LABS: % Iron Saturation 36.52 (12.00-45.00); ALT 20 U/L (8-44); AST 16 U/L (13-35); Albumin 4.1 g/dL (3.8-4.9); Albumin/Globulin Ratio 1.86 Ratio (1.60-3.17); Alkaline Phosphatase 127 U/L (41-126); BUN/Creat Ratio 17.41 Ratio (12.00-20.00); Blood Urea Nitrogen 29.6 mg/dL (9.0-27.0); Calcium 9.6 mg/dL (8.7-10.3); Carbon Dioxide 24.2 mmol/L (21.6-31.8); Chloride 101 mmol/L (96-109); Globulin 2.2 g/dL (1.6-3.3); Glucose 88 mg/dL (70-110); Iron 107 UG/DL (50-170); Magnesium 2.1 mg/dL (1.5-2.4); Phosphorus 3.1 mg/dL (2.4-5.1); Potassium 4.4 mmol/L (3.5-5.5); Sodium 137 mmol/L (135-145); Total Bilirubin 0.4 mg/dL (0.3-1.2); Total Iron Binding Capacity 293 UG/DL (228-460); Total Protein 6.3 g/dL (6.2-8.2); Uric Acid 4.7 mg/dL (2.9-7.7)
[2023-07-20 14:00] LABS: Microalbumin Creatinine Ratio <18 mg/g Cr (0-30); Urine Creatinine 66.9 mg/dL (28.0-217.0)
== END | disposition home or self-care (01) ==
LOC: RADUSWWP 14:12
PROVIDERS: ATTEND Internal Medicine
DX: N28.1 Cyst of kidney, acquired (principal); N18.4 Chronic kidney disease, stage 4 (severe); N39.0 Urinary tract infection, site not specified; E55.9 Vitamin D deficiency, unspecified; N25.81 Secondary hyperparathyroidism of renal origin; M10.9 Gout, unspecified; R80.9 Proteinuria, unspecified; D63.1 Anemia in chronic kidney disease
CPT/HCPCS: 76770; 80053; 81001; 82043; 82306; 82570; 82728; 83540; 83550; 83735; 83970; 84100; 84550; 85027

== ENCOUNTER → 2023-09-28 | Outpatient (CLI) | payer MEDICARE, OTHER | END | disposition home or self-care (01) | LOC: RADMAMWWP 09:02 | PROVIDERS: ATTEND Internal Medicine | DX: Z53.9 Procedure and treatment not carried out, unspecified reason (principal) ==

== ENCOUNTER → 2023-09-28 | Outpatient (CLI) | payer MEDICARE, OTHER ==
[2023-09-28 15:46] LABS: Basophils # (A) 0.06 X 10*3/uL (0.00-0.10); Basophils % (A) 0.8 %; Eosinophils # (A) 0.19 X 10*3/uL (0.04-0.35); Eosinophils % (A) 2.4 %; HCT 42.5 % (37.2-46.3); HGB 13.6 g/dL (12.0-15.0); Lymphocytes # (A) 1.76 X 10*3/uL (0.90-5.00); Lymphocytes % (A) 22.1 %; Mean Platelet Volume 10.7 FL (9.5-12.2); Monocytes # (A) 0.49 X 10*3/uL (0.20-1.00); Monocytes % (A) 6.2 %; NRBC Per 100 WBC 0 X 10*3/uL (0.00-0.01); Neutrophils # (A) 5.43 X 10*3/uL (1.80-7.70); Neutrophils % (A) 68.1 %; Platelet Count 151 X 10*3/uL (140-440); RBC 4.25 X 10*6/uL (4.10-5.20); RDW 15.1 % (11.5-14.5); WBC 7.96 X 10*3/uL (4.50-10.00)
[2023-09-28 16:06] LABS: NT-Pro-B-Type Natriuretic Pept 562 pg/mL (0-125)
[2023-09-28 16:17] LABS: ALT 16 U/L (8-44); AST 14 U/L (13-35); Albumin 3.9 g/dL (3.8-4.9); Albumin/Globulin Ratio 1.86 Ratio (1.60-3.17); Alkaline Phosphatase 136 U/L (41-126); BUN/Creat Ratio 13.94 Ratio (12.00-20.00); Blood Urea Nitrogen 25.1 mg/dL (9.0-27.0); Calcium 9.4 mg/dL (8.7-10.3); Carbon Dioxide 23.8 mmol/L (21.6-31.8); Chloride 102 mmol/L (96-109); Chol/HDL Ratio 4.75 Ratio; Globulin 2.1 g/dL (1.6-3.3); Glucose 207 mg/dL (70-110); LDL Cholesterol,Calculated 86.3 mg/dL (0.0-131.0); Magnesium 2.1 mg/dL (1.5-2.4); Potassium 5.1 mmol/L (3.5-5.5); Sodium 140 mmol/L (135-145); Total Bilirubin 0.4 mg/dL (0.3-1.2)
[2023-09-28 21:30] LABS: Microalbumin Creatinine Ratio <11 mg/g Cr (0-30)
--- NOTE | 2023-09-29 07:24 | BD ---
EXAMINATION TYPE: Axial Bone Density DATE OF EXAM: 09/28/2023 CLINICAL HISTORY: 73 years old Female. ICD-10 CODE: N85.851 Osteopenia of right hip Height: 5 ft 1 in Weight: 177 FRAX RISK QUESTIONS: Alcohol (3 or more units per day): no Family History (Parent hip fracture): no Glucocorticoids (More than 3mos): no (Ex: prednisone, prednisolone, methylprednisolone, dexamethasone, and hydrocortisone). History of Fracture in Adulthood: yes Secondary Osteoporosis: 1. Type 1 Diabetes: no 2. Hyperthyroidism: no 3. Menopause before 45: no 4. Malnutrition: no 5. Chronic liver disease: no Rheumatoid Arthritis: no Current Tobacco Use: yes RISK FACTORS HISTORY OF: Surgery to Spine/Hip(right/left)/Wrist (right/left): rt hip replacement When: 16-17 years ago MEDICATIONS: Osteoporosis Medications: none EXAM MEASUREMENTS: Bone mineral densitometry was performed using the [employer] System. Bone mineral density as measured about the Lumbar spine is: ----- L1-L4(G/cm2): 1.095 T Score Values are as follows: ----- L1: -1.3 ----- L2: -1.9 ----- L3: -0.8 ----- L4: 0.6 ----- L1-L4: -0.7 Z Score Values are as follows: ----- L1: -0.1 ----- L2: -0.7 ----- L3: 0.4 ----- L4: 1.8 ----- L1-L4: 0.5 Bone mineral density has: decreased -8.4 % since study of: 2018 Bone mineral density about the L hip (g/cm2): 0.473 T Score values are as follows: -----L Neck: -4.1 -----L Total: -4.2 Z Score values are as follows: -----L Neck: -2.6 -----L Total: -2.9 Bone mineral density has: decreased -34.7 % since study of: 2018 FRAX%s: The graph provided illustrates a 51.2 % chance for a major osteoporotic fx and a 35.8 % chanc e for the hips probability for fx in 10 years time. IMPRESSION: Osteoporosis (T Score less than -2.5). There is increased fracture risk and therapy is usually indicated based on age. Re-Screen 1-2 years. NOTE: T-SCORE=SD OF THE YOUNG ADULT MEAN.
--- NOTE | 2023-09-29 19:11 | MM ---
Reason for Exam: Screening (asymptomatic). Last mammogram was performed 5 year(s) and 1 month(s) ago. Patient History: Menarche at age 17. First Full-Term at age 18. Postmenopausal. 05/13/2015, Benign Core Biopsy on the right side. Risk Values: Luisa 5 year model risk: 1.4%. NCI Lifetime model risk: 3.6%. Prior Study Comparison: 11/18/2015 Bilateral Screening Mammogram, [facility]. 05/12/2017 Bilateral Screening Mammogram, [facility]. 08/14/2018 Bilateral Screening Mammogram, [facility]. Tissue Density: There are scattered areas of fibroglandular density. Findings: Analyzed By CAD. Microclip right breast from prior biopsy. Few scattered and regional benign secretory and coarse calcifications are present on the right. There is no suspicious group of microcalcifications or new suspicious mass in either breast. Overall Assessment: Benign, BI-RAD 2 Management: Screening Mammogram of both breasts in 1 year. . Patient should continue monthly self-breast exams. A clinical breast exam by your physician is recommended on an annual basis. This exam should not preclude additional follow-up of suspicious palpable abnormalities. Note on Luisa scores and lifetime risk: 1. A Luisa score greater than 3% is considered moderate risk. If this is the case, consider specialist referral to assess eligibility for a risk reducing agent. 2. If overall lifetime risk for the development of breast cancer is 20% or higher, the patient may qualify for future screening with alternating mammogram and breast MRI. Electronically signed and approved by: Amy Titus M.D. Radiologist
== END | disposition home or self-care (01) ==
LOC: LABWHC1 09:06
PROVIDERS: ATTEND Internal Medicine
DX: I13.0 Hypertensive heart and chronic kidney disease with heart failure and stage 1 through stage 4 chronic kidney disease, or unspecified chronic kidney disease (principal); E11.22 Type 2 diabetes mellitus with diabetic chronic kidney disease; N18.32 Chronic kidney disease, stage 3b; I50.22 Chronic systolic (congestive) heart failure; I25.10 Atherosclerotic heart disease of native coronary artery without angina pectoris; M85.851 Other specified disorders of bone density and structure, right thigh; Z79.899 Other long term (current) drug therapy
CPT/HCPCS: 36415; 77063; 77067; 77080; 80053; 80061; 82043; 82306; 82570; 83036; 83735; 83880; 84443; 85025

== ENCOUNTER → 2023-12-16 | Outpatient (CLI) | payer MEDICARE, OTHER ==
--- NOTE | 2023-12-16 20:51 | CTL ---
EXAMINATION TYPE: CT Low Dose Lung DATE OF EXAM: 12/16/2023 1:37 PM CLINICAL INDICATION:Female, 73 years old with history of [id number]; h/o tobacco use 1/2 ppd x50 years , history of tobacco use. COMPARISON: 08/03/2019 TECHNIQUE: Multiple axial non-contrast scans were obtained from approximately the lung apices through the upper abdomen. Coronal and sagittal reformatted images were obtained. Low dose technique was uti lized. CT DLP: 116.5 mGycm, Automated exposure control for dose reduction was used. CT Contrast: Contrast used: None Oral contrast used: None FINDINGS: ======== Lack of intravenous contrast and low dose technique limits the evaluation of the vascular and soft ti ssue structures. LUNGS: No evidence of pulmonary fibrosis. No evidence of focal consolidation, pneumothorax or pleural effusion. Centrilobular emphysema changes. Nodules: RUL: 3 mm series 5 image 18 RML: None. RLL: None. JESICA: None, atelectasis in the lingula. LLL: None. AIRWAY: Patent and unremarkable. HEART: Size within normal limits. Atherosclerosis of the arterial vasculature. Mild aortic valve calc ifications. MEDIASTINUM: No gross evidence of adenopathy. VASCULATURE: No aortic aneurysm. MUSCULOSKELETAL: No acute osseous abnormalities SOFT TISSUES/LYMPH NODES: Unremarkable. LOWER NECK: No significant findings. UPPER ABDOMEN: No significant findings. IMPRESSION: 1. No clinically significant pulmonary nodules. 2. Mild emphysema. CT LUNG RAD AND CT CHEST RECOMMENDATION: Lung-Rad 2 Benign Appearance or Behavior: Continue annual sc reening with LDCT in 12 months. S Modifier (other clinically significant findings): None Recommend smoking cessation (if current smoker), or continuation of smoking cessation (if prior smoke r). Annual screening for lung cancer with low-dose computed tomography is recommended in adults ages 55 to 77 years who have a 30 pack-year smoking history and currently smoke or have quit within the pa st 15 years. Screening should be discontinued once a person has not smoked for 15 years or develops a health problem that substantially limits life expectancy or the ability or willingness to have curat preston lung surgery. Lung rads 2021 [email or web address]
== END | disposition home or self-care (01) ==
LOC: RADCTMAIN 11:52
PROVIDERS: ATTEND Internal Medicine
DX: Z12.2 Encounter for screening for malignant neoplasm of respiratory organs (principal); F17.210 Nicotine dependence, cigarettes, uncomplicated; J43.9 Emphysema, unspecified
CPT/HCPCS: 71271

== ENCOUNTER → 2024-03-23 | Outpatient (CLI) | payer MEDICARE, OTHER ==
[2024-03-23 09:59] LABS: Appearance,Urine Clear (Clear); Bilirubin,Urine Negative (Negative); Blood,Urine Negative (Negative); Color,Urine Colorless; Glucose,Urine (UA) 4+ (Negative); Ketones,Urine Negative (Negative); Leukocyte Esterase,Urine Negative (Negative); Nitrite,Urine Negative (Negative); PH, Urine 6.5 (5.0-8.0); Protein,Urine Negative (Negative); Specific Gravity,Urine 1.016 (1.001-1.035); Urobilinogen,Urine <2.0 mg/dL (<2.0)
[2024-03-23 15:04] LABS: Basophils # (A) 0.06 X 10*3/uL (0.00-0.10); Basophils % (A) 0.7 %; Eosinophils # (A) 0.17 X 10*3/uL (0.04-0.35); Eosinophils % (A) 1.9 %; HCT 42.7 % (37.2-46.3); HGB 13.7 g/dL (12.0-15.0); Lymphocytes # (A) 2.27 X 10*3/uL (0.90-5.00); Lymphocytes % (A) 25.3 %; MCH 31.7 pg (27.0-32.0); MCHC 32.1 g/dL (32.0-37.0); MCV 98.8 FL (80.0-97.0); Mean Platelet Volume 11.5 FL (9.5-12.2); Monocytes # (A) 0.72 X 10*3/uL (0.20-1.00); NRBC Per 100 WBC 0 X 10*3/uL (0.00-0.01); Neutrophils # (A) 5.74 X 10*3/uL (1.80-7.70); Neutrophils % (A) 63.9 %; Platelet Count 160 X 10*3/uL (140-440); RBC 4.32 X 10*6/uL (4.10-5.20); RDW 14.8 % (11.5-14.5); WBC 8.98 X 10*3/uL (4.50-10.00)
[2024-03-23 15:15] LABS: NT-Pro-B-Type Natriuretic Pept 826 pg/mL (0-125)
[2024-03-23 15:46] LABS: % Iron Saturation 23.84 (12.00-45.00); ALT 19 U/L (8-44); AST 17 U/L (13-35); Albumin 4.2 g/dL (3.8-4.9); Alkaline Phosphatase 73 U/L (41-126); BUN/Creat Ratio 18.44 Ratio (12.00-20.00); Blood Urea Nitrogen 33.2 mg/dL (9.0-27.0); Calcium 8.1 mg/dL (8.7-10.3); Carbon Dioxide 24.7 mmol/L (21.6-31.8); Chloride 102 mmol/L (96-109); Chol/HDL Ratio 2.08 Ratio; Globulin 2.1 g/dL (1.6-3.3); Glucose 153 mg/dL (70-110); Iron 77 UG/DL (50-170); LDL Cholesterol,Calculated 34.8 mg/dL (0.0-131.0); Magnesium 2.2 mg/dL (1.5-2.4); Phosphorus 3.6 mg/dL (2.4-5.1); Potassium 4.9 mmol/L (3.5-5.5); Sodium 139 mmol/L (135-145); Total Bilirubin 0.5 mg/dL (0.3-1.2); Total Iron Binding Capacity 323 UG/DL (228-460); Total Protein 6.3 g/dL (6.2-8.2); Uric Acid 5.6 mg/dL (2.9-7.7)
[2024-03-23 19:13] LABS: Urine Creatinine 92.5 mg/dL (28.0-217.0)
== END | disposition home or self-care (01) ==
LOC: LABWHC1 08:57
PROVIDERS: ATTEND Nurse Practitioner Family
CPT/HCPCS: 36415; 80053; 80061; 81003; 82043; 82306; 82570; 82728; 83036; 83540; 83550; 83735; 83880; 83970; 84100; 84443; 84550; 85025

== ENCOUNTER → 2024-08-28 | Outpatient (CLI) | payer MEDICARE, OTHER ==
[2024-08-28 11:10] LABS: HCT 42.3 % (37.2-46.3); HGB 13.6 g/dL (12.0-15.0); MCH 31.1 pg (27.0-32.0); MCHC 32.2 g/dL (32.0-37.0); MCV 96.8 FL (80.0-97.0); Mean Platelet Volume 11.2 FL (9.5-12.2); NRBC Per 100 WBC 0 X 10*3/uL (0.00-0.01); Platelet Count 156 X 10*3/uL (140-440); RBC 4.37 X 10*6/uL (4.10-5.20); RDW 14.4 % (11.5-14.5); WBC 9.36 X 10*3/uL (4.50-10.00)
[2024-08-28 15:43] LABS: Appearance,Urine Clear (Clear); Bilirubin,Urine Negative (Negative); Blood,Urine Negative (Negative); Color,Urine Yellow (Yellow); Ketones,Urine Negative (Negative); Nitrite,Urine Negative (Negative); PH, Urine 5.5; Specific Gravity,Urine 1.017 (1.001-1.030); Urobilinogen,Urine 0.2 E.U./DL
[2024-08-28 15:57] LABS: % Iron Saturation 21.43 (12.00-45.00); ALT 33 U/L (8-44); AST 20 U/L (13-35); Albumin 3.8 g/dL (3.8-4.9); Alkaline Phosphatase 87 U/L (41-126); BUN/Creat Ratio 20.43 Ratio (12.00-20.00); Blood Urea Nitrogen 28.6 mg/dL (9.0-27.0); Chloride 105 mmol/L (96-109); Glucose 218 mg/dL (70-110); Iron 63 UG/DL (50-170); Magnesium 2.2 mg/dL (1.5-2.4); Phosphorus 3.7 mg/dL (2.4-5.1); Potassium 4.7 mmol/L (3.5-5.5); Sodium 138 mmol/L (135-145); Total Bilirubin 0.3 mg/dL (0.3-1.2); Total Iron Binding Capacity 294 UG/DL (228-460); Total Protein 5.8 g/dL (6.2-8.2); Uric Acid 4.4 mg/dL (2.9-7.7)
== END | disposition home or self-care (01) ==
LOC: LABWHC1 07:33
PROVIDERS: ATTEND Internal Medicine
DX: N18.32 Chronic kidney disease, stage 3b (principal)
CPT/HCPCS: 36415; 80053; 81003; 82306; 82728; 83540; 83550; 83735; 83883; 83970; 84100; 84166; 84550; 85027; 86334

== ENCOUNTER → 2024-09-14 | Outpatient (CLI) | payer MEDICARE, OTHER ==
[2024-09-14 16:31] LABS: Appearance,Urine Clear (Clear); Bilirubin,Urine Negative (Negative); Blood,Urine Negative (Negative); Color,Urine Yellow (Yellow); Ketones,Urine Negative (Negative); Nitrite,Urine Negative (Negative); PH, Urine 5.5; Specific Gravity,Urine 1.021 (1.001-1.030); Urobilinogen,Urine 0.2 E.U./DL
[2024-09-14 16:33] LABS: Basophils # (A) 0.06 X 10*3/uL (0.00-0.10); Basophils % (A) 0.8 %; Eosinophils # (A) 0.14 X 10*3/uL (0.04-0.35); Eosinophils % (A) 1.8 %; HCT 43.4 % (37.2-46.3); Lymphocytes # (A) 1.85 X 10*3/uL (0.90-5.00); Lymphocytes % (A) 23.3 %; MCH 31.3 pg (27.0-32.0); MCHC 32.3 g/dL (32.0-37.0); MCV 97.1 FL (80.0-97.0); Mean Platelet Volume 10.8 FL (9.5-12.2); Monocytes % (A) 7.5 %; NRBC Per 100 WBC 0 X 10*3/uL (0.00-0.01); Neutrophils # (A) 5.27 X 10*3/uL (1.80-7.70); Neutrophils % (A) 66.2 %; Platelet Count 155 X 10*3/uL (140-440); RBC 4.47 X 10*6/uL (4.10-5.20); RDW 14.6 % (11.5-14.5); WBC 7.95 X 10*3/uL (4.50-10.00)
[2024-09-14 16:37] LABS: % Iron Saturation 25.85 (12.00-45.00); ALT 28 U/L (8-44); AST 21 U/L (13-35); Alkaline Phosphatase 93 U/L (41-126); Blood Urea Nitrogen 33.3 mg/dL (9.0-27.0); Calcium 9.5 mg/dL (8.7-10.3); Carbon Dioxide 25.9 mmol/L (21.6-31.8); Chloride 101 mmol/L (96-109); Globulin 2.1 g/dL (1.6-3.3); Glucose 188 mg/dL (70-110); Iron 76 UG/DL (50-170); Sodium 140 mmol/L (135-145); Total Bilirubin 0.5 mg/dL (0.3-1.2); Total Iron Binding Capacity 294 UG/DL (228-460); Total Protein 6.1 g/dL (6.2-8.2)
[2024-09-14 16:53] LABS: Bacteria,Urine 1+ (None Seen); Yeast (UA) Present (None Seen)
[2024-09-14 16:58] LABS: Microalbumin Creatinine Ratio <10 mg/g Cr (0-30)
== END | disposition home or self-care (01) ==
LOC: LABWHC1 09:56
PROVIDERS: ATTEND Internal Medicine
DX: N18.32 Chronic kidney disease, stage 3b (principal); N25.81 Secondary hyperparathyroidism of renal origin; D64.9 Anemia, unspecified; R80.9 Proteinuria, unspecified
CPT/HCPCS: 36415; 80053; 81001; 82043; 82570; 82728; 83540; 83550; 83970; 85025

== ENCOUNTER → 2024-09-26 | Outpatient (CLI) | payer MEDICARE, OTHER ==
[~2024-09-26] MED LIST changes: -ASPIRIN 325 MG TAB PO PRN; +DENOSUMAB 60 MG/ML 1 ML SYRINGE SQ NR; -SODIUM CHLORIDE 0.9% 1,000 ML in EMPTY BAG 1 BAG IV ONE
[2024-09-26] MEDS: DENOSUMAB 60 MG/ML 1 ML SYRINGE SQ NR (11:55)
[2024-09-26 12:10] VITALS: BP 151/78; PULSE 84; RESP 16; TEMP 98.6
== END ==
LOC: PROCWHC3 11:20
PROVIDERS: ATTEND Internal Medicine
DX: M81.0 Age-related osteoporosis without current pathological fracture (principal)
CPT/HCPCS: 96372; J0897

== ENCOUNTER → 2024-12-18 | Outpatient (CLI) | payer MEDICARE, OTHER ==
--- NOTE | 2024-12-18 12:31 | MM ---
Reason for Exam: Screening (asymptomatic). Last mammogram was performed 1 year(s) and 3 month(s) ago. Patient History: Menarche at age 17. First Full-Term at age 18. Postmenopausal. 05/13/2015, Benign Core Biopsy on the right side. Risk Values: Luisa 5 year model risk: 1.4%. NCI Lifetime model risk: 3.4%. Prior Study Comparison: 05/12/2017 Bilateral Screening Mammogram, [facility]. 08/14/2018 Bilateral Screening Mammogram, [facility]. 09/28/2023 Bilateral MG 3D screening mammo w/cad, [facility]. Tissue Density: There are scattered areas of fibroglandular density. Findings: Analyzed By CAD. Benign biopsy clip in the right breast redemonstrated. There are few scattered benign-appearing round calcifications bilaterally redemonstrated. There is no suspicious group of microcalcifications or new suspicious mass in either breast. Overall Assessment: Benign, BI-RAD 2 Management: Screening Mammogram of both breasts in 1 year. . Patient should continue monthly self-breast exams. A clinical breast exam by your physician is recommended on an annual basis. This exam should not preclude additional follow-up of suspicious palpable abnormalities. Note on Luisa scores and lifetime risk: 1. A Luisa score greater than 3% is considered moderate risk. If this is the case, consider specialist referral to assess eligibility for a risk reducing agent. 2. If overall lifetime risk for the development of breast cancer is 20% or higher, the patient may qualify for future screening with alternating mammogram and breast MRI. [facility], , 12/18/2024 12:27 PM. Electronically signed and approved by: Ever Beck M.D.
--- NOTE | 2024-12-18 13:00 | CTL ---
EXAMINATION TYPE: CT Low Dose Lung DATE OF EXAM: 12/18/2024 12:15 PM COMPARISON: 12/16/2023. CLINICAL INDICATION: Female, 74 years old with history of Z12.2 ENCNTR SCREEN FOR MALIGNANT NEOPLASM OF RESP; no longer smokes, smoked 0.5 packs a day for 51 yrs, history of tobacco use. TECHNIQUE: Multiple axial non-contrast scans were obtained from approximately the lung apices through the upper abdomen. Coronal and sagittal reformatted images were obtained. Low dose technique was uti lized. MIP were created on a separate workstation and submitted for review. CT DLP: 89 mGycm, Automated exposure control for dose reduction was used. CT Contrast: Contrast used: None Oral contrast used: None FINDINGS: ======== Lack of intravenous contrast and low dose technique limits the evaluation of the vascular and soft ti ssue structures. LUNGS: No evidence of pulmonary fibrosis. No evidence of focal consolidation, pneumothorax or pleural effusion. Centrilobular emphysema changes. Nodules: RUL: 3 mm series 9 image 14 and image 23 both stable. RML: None. RLL: None. JESICA: None, atelectasis in the lingula. LLL: None. AIRWAY: Patent and unremarkable. HEART: Size within normal limits. Moderate to severe Atherosclerosis of the arterial vasculature. Mil d aortic valve calcifications. MEDIASTINUM: No gross evidence of adenopathy. VASCULATURE: No aortic aneurysm. MUSCULOSKELETAL: Moderate disc degeneration changes are present throughout the thoracolumbar spine. SOFT TISSUES/LYMPH NODES: Unremarkable. LOWER NECK: No significant findings. UPPER ABDOMEN: No significant findings. IMPRESSION: 1. No clinically significant pulmonary nodules. 2. Mild emphysema. 3. Moderate spur coronary artery atherosclerosis. 4. Moderate aortic valve calcifications. CT LUNG RAD AND CT CHEST RECOMMENDATION: Lung-Rad 2 Benign Appearance or Behavior: Continue annual sc reening with LDCT in 12 months. S Modifier (other clinically significant findings): None Recommend smoking cessation (if current smoker), or continuation of smoking cessation (if prior smoke r). Annual screening for lung cancer with low-dose computed tomography is recommended in adults ages 55 to 77 years who have a 30 pack-year smoking history and currently smoke or have quit within the pa st 15 years. Screening should be discontinued once a person has not smoked for 15 years or develops a health problem that substantially limits life expectancy or the ability or willingness to have curat preston lung surgery. Lung rads 2021 [email or web address] [facility], , 12/18/2024 12:58 PM
== END | disposition home or self-care (01) ==
LOC: RADMAMWWP 11:23
PROVIDERS: ATTEND Internal Medicine
DX: Z12.31 Encounter for screening mammogram for malignant neoplasm of breast (principal); Z12.2 Encounter for screening for malignant neoplasm of respiratory organs; F17.210 Nicotine dependence, cigarettes, uncomplicated; R92.323 Mammographic fibroglandular density, bilateral breasts; R92.1 Mammographic calcification found on diagnostic imaging of breast; J43.2 Centrilobular emphysema; I25.10 Atherosclerotic heart disease of native coronary artery without angina pectoris; I35.8 Other nonrheumatic aortic valve disorders; Z78.0 Asymptomatic menopausal state
CPT/HCPCS: 71271; 77063; 77067